=== PATIENT | male | born 1950 | race Caucasian/White ===

== ENCOUNTER 2020-06-30 16:44 | Inpatient (IN) | payer OTHER, MEDICARE, SELFPAY ==
[2020-06-30] VITALS (14 sets, daily range): BP systolic 83–118; BP diastolic 66–90; PULSE 90–140; RESP 14–24; TEMP 36.1–36.9; O2SAT 94–98; BMI 30.3; BMI 28.3; BMI 28.7
--- NOTE | 2020-06-30 17:38 | EKG12_ITS ---
Test Reason : TACHY Blood Pressure : / mmHG Vent. Rate : 145 BPM Atrial Rate : 159 BPM P-R Int : 000 ms QRS Dur : 080 ms QT Int : 274 ms P-R-T Axes : 000 -28 219 degrees QTc Int : 425 ms Atrial fibrillation Inferior infarct , age undetermined Nonspecific ST abnormality Abnormal ECG Confirmed by CISCO CORTEZ, YUE ([id number]), editorial director MILTON VALDOVINOS ([id number]) on 07/04/2020 10:58:50 AM Referred By: BREE/BHAVANA Confirmed By:YUE PECK MD
--- NOTE | 2020-06-30 17:39 | EDS_ITS ---
HPI History of Present Illness Chief Complaint: Shortness of Breath Informant: patient Narrative Narrative: 69-year-old male with a history of recent COVID-19 diagnosis presents with dyspnea. He tells me that about 3 weeks ago he became ill suddenly with a headache and developed diarrhea some cough some mild dyspnea. He states he basically spent a little over a week in bed and was not eating or drinking as normally. He reports he was not taking his levothyroxine while in bed. Last he went and got tested in urgent care and was diagnosed positive. He states that he has been improving each day. He states yesterday he felt like he was pretty much over it. This morning he notes that he developed shortness of breath during a shower which persisted. Denies any known cardiac issues. He denies any chest pain. He states as long as he is at rest he feels fine. He does note a history of hypothyroidism takes levothyroxine. [facility] Medical History (Updated 06/30/20 @ 20:[address] Ajay Sheehan MD) Hypothyroidism Home Medications levothyroxine 112 mcg PO DAILY 06/30/20 [History Last Taken 06/30/20] Allergy/AdvReac Type Severity Reaction Status Date / Time No Known Allergies Allergy Verified 06/30/20 16:45 no surgical history (Noncontributory) Social History Smoking Status: Never smoker ROS [facility] ED Constitutional Constitutional ED: Denies chills or weight loss Eyes Eyes: Denies change in vision or diplopia ENT ENT ED: Denies ear pain, rhinorrhea or sore throat Cardiovascular Cardiovascular: Denies chest pain, orthopnea, palpitations or racing heartbeat Respiratory/Chest Respiratory/Chest: Reports cough and dyspnea; Denies orthopnea Gastrointestinal Gastrointestinal: Denies abdominal pain, diarrhea, nausea or vomiting Genitourinary Genitourinary ED: Denies dysuria, hematuria or urinary frequency Musculoskeletal Musculoskeletal: Denies arthralgias or myalgias Integumentary Denies abscess or rash Neurologic Neurologic: Denies headache(s) or weakness Psychiatric Psychiatric: Denies anxiety, depression, suicidal ideation or suicidal thoughts Endocrine Endocrinology: Denies polydipsia, polyphagia or polyuria Allergic/Immunologic Allergic/Immunologic ED: Denies mouth swelling, tongue swelling or urticaria EXAM Physical Exam Const Vital Signs: 06/30/20 16:46 06/30/20 17:02 06/30/20 17:40 Temperature 97 F L Temperature Source Temporal Pulse Rate 103 H 140 H Respiratory Rate 24 H 18 Respiratory Effort Short of Breath Respiratory Depth Normal Respiratory Pattern Normal Blood Pressure 100/66 Blood Pressure Mean 77 Blood Pressure Source Blood Pressure Position Blood Pressure Location Pulse Ox 95 96 Oxygen Delivery Method Room Air Room Air 06/30/20 18:11 06/30/20 18:17 06/30/20 18:36 Temperature 98.5 F Temperature Source Temporal Pulse Rate 121 H 114 H 120 H Respiratory Rate 15 16 Respiratory Effort Respiratory Depth Respiratory Pattern Blood Pressure 105/68 83/66 L Blood Pressure Mean 80 71 Blood Pressure Source Monitor Blood Pressure Position Semi-Fowlers Blood Pressure Location Left Arm Pulse Ox 95 95 Oxygen Delivery Method Room Air 06/30/20 18:41 Temperature 98.5 F Temperature Source Oral Pulse Rate 112 H Respiratory Rate 14 Respiratory Effort Respiratory Depth Respiratory Pattern Blood Pressure 89/71 L Blood Pressure Mean 77 Blood Pressure Source Blood Pressure Position Blood Pressure Location Pulse Ox 96 Oxygen Delivery Method Room Air Positive well nourished and well developed General Appearance ED: well developed HEENT Reports normocephalic, head/scalp atraumatic and moist mucous membranes Eyes PERRL and EOMs intact bilaterally Neck no lymphadenopathy, supple and no JVD Resp normal respiratory effort and clear to auscultation bilaterally Cardio no murmurs Cardio Narrative: Irregularly irregular tachycardic rhythm GI normal to inspection, nondistended, normoactive bowel sounds and non-tender Palpation: soft Back/Spine no CVA tenderness and normal ROM Extremity normal to inspection General Extremety ED: Negative for edema General Extremity: Negative for edema Neuro oriented x3 and CN's II-XII intact bilaterally Sensorium / Orientation: alert Motor Exam: strength 5/5 throughout Psych mental status grossly normal Mood & Affect: Negative for depressed or tearful Skin no rashes or lesions noted and no wounds MDM MDM MDM Narrative Medical decision making narrative: Patient's white count elevated 19.4. Potassium 3.3. Creatinine 1.72. Troponin elevated 1.080. TSH is 27.8. CTA of the chest demonstrates saddle pulmonary embolism. He is oxygenating well and his respiratory rate is 14. He is slightly hypotensive but his mean is over 65. He was placed on a heparin drip. He received a bolus of Cardizem which slowed his heart rate down to around 120. Patient has been receiving IV fluids. I will speak with the hospitalist. I also spoke with our tactical debriefer officer Dr. North. Lab Data Attestation: I reviewed the patient's lab results. Labs: Laboratory Results - last 24 hr 06/30/20 06/30/20 06/30/20 17:03 17:03 17:03 WBC 19.4 H RBC 5.35 Hgb 16.0 Hct 49.9 MCV 93.3 MCH 29.9 MCHC 32.1 RDW Std Deviation 46.6 H RDW Coeff of Pamela 13.7 Plt Count 294 MPV 9.6 Immature Gran % (Auto) 0.800 Neut % (Auto) 79.5 H Lymph % (Auto) 11.8 L [place] % (Auto) 6.7 Eos % (Auto) 0.8 Baso % (Auto) 0.4 Absolute Neuts (auto) 15.5 H Absolute Lymphs (auto) 2.30 Nucleated RBC % 0 PT 15.4 H INR 1.3 APTT 30.9 Sodium 141 Potassium 3.3 L Chloride 106 Carbon Dioxide 21.0 Anion Gap 14 BUN 16 Creatinine 1.72 H Estim Creat Clear Calc 46.45 Est GFR (MDRD) Af Amer 51 L Est GFR (MDRD) Non-Af 42 L BUN/Creatinine Ratio 9.3 L Glucose 206 H Lactic Acid Calcium 9.2 Magnesium 2.5 Total Bilirubin 1.60 H AST 34 ALT 82 H Alkaline Phosphatase 89 Troponin I 1.080 H* Total Protein 8.0 Albumin 3.8 Globulin 4.2 Albumin/Globulin Ratio 0.9 TSH 27.80 H 06/30/20 19:05 WBC RBC Hgb Hct MCV MCH MCHC RDW Std Deviation RDW Coeff of Pamela Plt Count MPV Immature Gran % (Auto) Neut % (Auto) Lymph % (Auto) [place] % (Auto) Eos % (Auto) Baso % (Auto) Absolute Neuts (auto) Absolute Lymphs (auto) Nucleated RBC % PT INR APTT Sodium Potassium Chloride Carbon Dioxide Anion Gap BUN Creatinine Estim Creat Clear Calc Est GFR (MDRD) Af Amer Est GFR (MDRD) Non-Af BUN/Creatinine Ratio Glucose Lactic Acid 3.0 H* Calcium Magnesium Total Bilirubin AST ALT Alkaline Phosphatase Troponin I Total Protein Albumin Globulin Albumin/Globulin Ratio TSH Radiography Diagnostic Testing: Radiology Impression Chest CTA 06/30/20 18:55 IMPRESSION: 1. Low-density filling defects seen within the right and left mainstem pulmonary arteries extending into the upper and lower lobe segmental and subsegmental pulmonary arteries compatible with extensive bilateral pulmonary emboli. Thrombus does cross across midline compatible with a saddle embolus. 2. Patchy airspace disease in the upper lobes. Individualized dose optimization techniques were used for this CT. at 1920 Reported and signed by: Zafar Gayle MD Electronically Signed: Zafar Gayle MD at 19:18 EDT Tel , Service support , ADDENDUM: 06/30/20 1939 IMPRESSION: 1. Low-density filling defects seen within the right and left mainstem pulmonary arteries extending into the upper and lower lobe segmental and subsegmental pulmonary arteries compatible with extensive bilateral pulmonary emboli. Thrombus does cross across midline compatible with a saddle embolus. 2. Patchy airspace disease in the upper lobes. Individualized dose optimization techniques were used for this CT. at 1920 Reported and signed by: Zafar Gayle MD N.B. : The above information has been verbally conveyed by Zafar Gayle MD to Derek Tamayo MD, MD, on 06/30/2020 19:32:46 (ET). Electronically Signed: Zafar Gayle MD at 19:18 EDT Tel , Service support , EKG Initial EKG: Attestation: I personally reviewed and interpreted this EKG as follows: Comments: EKG demonstrates atrial fibrillation at a rate of 145. Critical Care Time Critical Care Time: Yes Critical care time (excluding procedures): 30-74 minutes (35 min) Discharge Plan Dx/Rx/DC Orders Clinical Impression: COVID-19, Atrial fibrillation with rapid ventricular response, Acute saddle pulmonary embolism Disposition Disposition: Acute Care Hospital [facility] Discharge Date/Time: 06/30/20 20:56
[2020-06-30] MEDS: dilTIAZem 25 MG/5 ML Vial 20 MG IV BOLUS (17:48)
[2020-06-30] MEDS: 0.9% Normal Saline 1,000 ML 1000 ML IV ×2 (17:48→19:54)
[2020-06-30 18:03] LABS: Absolute Neutrophil Count 15.5 X10^3/uL (2.0-7.7); Basophil# 0.07 X10^3/uL; Basophil% 0.4 % (0-1); Eosinophil# 0.15 X10^3/uL; Eosinophils% 0.8 % (0-5); Hematocrit 49.9 % (40-54); Lymphocyte % 11.8 % (19-41); Mean Corp Hgb Conc 32.1 g/dL (32-36); Mean Corpuscular Hgb 29.9 pg (27.0-32.0); Mean Corpuscular Volume 93.3 fL (80-94); Mean Platelet Vol. 9.6 fl (6.2-12.0); Monocyte% 6.7 % (0-10); NRBC Flagged by Analyzer 0 % (0-5); Neutrophil # 15.46 X10^3/uL (2.7-7.7); Neutrophil % 79.5 % (47-70); Platelet Count 294 K/mm3 (150-450); RBC Distribution Width CV 13.7 % (11.6-14.6); RBC Distribution Width SD 46.6 fl (35.1-43.9); Red Blood Count 5.35 M/mm3 (4.6-6.2); White Blood Count 19.4 K/mm3 (4.4-11.0)
[2020-06-30 18:22] LABS: International Normalized Ratio 1.3; Partial Thromboplast Time 30.9 Seconds (24.1-36.2); Prothrombin Time (Protime)PT. 15.4 SECONDS (11.7-14.9)
[2020-06-30 18:23] LABS: ALB/GLOB Ratio 0.9 RATIO (0.9-2.4); AST(SGOT) 34 U/L (15-37); Alanine Aminotransfer ALT/SGPT 82 U/L (16-61); Albumin, Serum 3.8 g/dL (3.2-5.0); Alkaline Phosphatase 89 U/L (45-117); Anion Gap 14 (5-15); BUN 16 mg/dL (7-18); BUN/Creat Ratio 9.3 RATIO (10-20); Calcium,Total 9.2 mg/dL (8.5-10.1); Chloride 106 mmol/L (98-107); Creatinine, Serum 1.72 mg/dL (0.70-1.30); EST Glomerular Filtration Rate 42 mL/min (>60); Est Glom Filt Rate - Afr Amer 51 mL/min (>60); Estimated Creatinine Clearance 46.45 ml/min; Globulin 4.2 g/dL (2.2-4.2); Glucose 206 mg/dL (74-106); Magnesium 2.5 mg/dL (1.6-2.6); Potassium 3.3 mmol/L (3.5-5.1); Sodium Level 141 mmol/L (136-145)
[2020-06-30] MEDS: 0.9% Normal Saline 1,000 ML 150 ML IV (18:43)
--- NOTE | 2020-06-30 18:55 | CT_ITS ---
We are attempting to reach an attending provider to discuss findings. An addendum with communication details will be sent when the communication is complete. EXAM: CT ANGIOGRAPHY CHEST WITHOUT AND WITH INTRAVENOUS CONTRAST : 1950 CLINICAL INDICATION: pulmonary embolism high pretest prob TECHNIQUE: Helically acquired angiography images were obtained of the chest without and with intravenous contrast. This CT exam was performed using one or more of the following dose reduction techniques: automated exposure control, adjustment of the mA and/or kV according to patient size, and/or use of iterative reconstruction technique. This report was created using [employer] report generation technology. MIP reconstructed images were created and reviewed. CONTRAST: IV 100mL Isovue-370 COMPARISON: None. FINDINGS: PULMONARY ARTERIES: There are low-density filling defects seen within the right and left mainstem pulmonary arteries. These cross midline compatible with bilateral pulmonary emboli and a saddle embolus. There are then low-density filling defects that extend into the upper and lower lobe segmental and subsegmental branches bilaterally compatible with extensive bilateral PE. Normal in caliber. AORTA: Unremarkable. Normal in caliber. No evidence of dissection. GREAT VESSELS OF AORTIC ARCH: Unremarkable. Normal in caliber. No evidence of dissection. LUNGS AND PLEURAL SPACES: Patchy airspace disease in the upper lobes. No mass. No pleural effusion or thickening. HEART: Unremarkable. Heart size is normal. No pericardial effusion. No signs of right heart strain. MEDIASTINUM: Unremarkable. No mediastinal or hilar adenopathy. Esophagus is unremarkable. No hiatal hernia. THYROID: Unremarkable. No thyroid lesions. BONES/JOINTS: Unremarkable. No suspicious lytic or blastic abnormality. CT/CTA Chest W/WO Contrast IMPRESSION: 1. Low-density filling defects seen within the right and left mainstem pulmonary arteries extending into the upper and lower lobe segmental and subsegmental pulmonary arteries compatible with extensive bilateral pulmonary emboli. Thrombus does cross across midline compatible with a saddle embolus. 2. Patchy airspace disease in the upper lobes. Individualized dose optimization techniques were used for this CT. at 1920 Reported and signed by: Zafar Gayle MD Electronically Signed: Zafar Gayle MD at 19:18 EDT Tel , Service support ,
--- NOTE | 2020-06-30 19:50 | HP.PCM.HOS_ITS ---
[facility] - General General Date of Admission: 06/30/20 Chief Complaint: SOB [facility] Narrative RACHEL FROST, is a 69 M with a significant history of hypothyroidism who had a Covid-like symptoms about 3 weeks ago and tested positive for Covid 8 days prior to presentation presenting with shortness of breath that started on the same day of this presentation. A day before presentation patient felt better from his Covid-like symptoms: He did not have any shortness of breath. However on the day of presentation while having his shower he began to have shortness of breath. Shortness of breath is at rest and it worsens with exertion. His shortness of breath persisted throughout the day. He reports intermittent mild dry cough. He reports weakness. He denies palpitation or chest pain. At the emergency department his TSH was found to be mildly elevated. He reporte d that he stopped taking his Synthroid for about 1 week and resumed taking his Synthroid only about 3 days ago. Even then during the past 3 days patient is not very sure of taking his Synthroid every day. At the emergency department he was found to be in A. fib with RVR. CTA showed saddle pulmonary embolus. His troponin and creatinine was elevated. Emergency department doctor discussed the case with cutting and splicing supervisor. [facility] Medical History (Updated 06/30/20 @ 20:[address] Ajay Sheehan MD) Hypothyroidism Home Medications levothyroxine 112 mcg PO DAILY 06/30/20 [History Last Taken 06/30/20] Allergy/AdvReac Type Severity Reaction Status Date / Time No Known Allergies Allergy Verified 06/30/20 16:45 Social History Smoking Status: Never smoker ROS Constitutional Constitutional: Reports fatigue and weakness; Denies anorexia or change in weight Eyes Eyes: Denies blurry vision or change in eye color ENT HEENT: Denies abnormal hearing or dysphagia Cardiovascular Cardiovascular: Denies chest pain or edema Respiratory/Chest Respiratory/Chest: Reports dyspnea and shortness of breath at rest Gastrointestinal Gastrointestinal: Denies abdominal pain or coffee ground emesis Genitourinary Genitourinary: Denies burning urination or difficulty urinating Musculoskeletal Musculoskeletal: Denies arthralgias or back pain Neurologic Neurologic: Denies abnormal gait, confusion or disequilibrium Psychiatric Psychiatric: Denies anxiety or depression Endocrine Endocrinology: Denies change in body appearance or cold intolerance Hematologic/Lymphatic Hematologic/Lymphatic: Denies anemia or easy bleeding Allergic/Immunologic Allergic/Immunologic: Denies eczemia or asthma Vital Signs Vital Signs Vital Signs: 06/30/20 16:46 06/30/20 17:02 06/30/20 17:40 Temperature 97 F L Temperature Source Temporal Pulse Rate 103 H 140 H Respiratory Rate 24 H 18 Respiratory Effort Short of Breath Respiratory Depth Normal Respiratory Pattern Normal Blood Pressure 100/66 Blood Pressure Mean 77 Blood Pressure Source Blood Pressure Position Blood Pressure Location Pulse Ox 95 96 Oxygen Delivery Method Room Air Room Air 06/30/20 18:11 06/30/20 18:17 06/30/20 18:36 Temperature 98.5 F Temperature Source Temporal Pulse Rate 121 H 114 H 120 H Respiratory Rate 15 16 Respiratory Effort Respiratory Depth Respiratory Pattern Blood Pressure 105/68 83/66 L Blood Pressure Mean 80 71 Blood Pressure Source Monitor Blood Pressure Position Semi-Fowlers Blood Pressure Location Left Arm Pulse Ox 95 95 Oxygen Delivery Method Room Air 06/30/20 18:41 Temperature 98.5 F Temperature Source Oral Pulse Rate 112 H Respiratory Rate 14 Respiratory Effort Respiratory Depth Respiratory Pattern Blood Pressure 89/71 L Blood Pressure Mean 77 Blood Pressure Source Blood Pressure Position Blood Pressure Location Pulse Ox 96 Oxygen Delivery Method Room Air Physical Exam Narrative Alert and oriented x3 Nontraumatic; normocephalic Lung clear to auscultate Heart sounds S1-S2. Regular rate and rhythm. Tachycardia. Abdomen bowel sounds present soft, nontender nondistended Extremity without edema cyanosis or clubbing. Lab / Micro Data Result Diagrams: 06/30/20 17:03 06/30/20 17:03 Labs: Laboratory Results - last 24 hr 06/30/20 06/30/20 06/30/20 17:03 17:03 17:03 WBC 19.4 H RBC 5.35 Hgb 16.0 Hct 49.9 MCV 93.3 MCH 29.9 MCHC 32.1 RDW Std Deviation 46.6 H RDW Coeff of Pamela 13.7 Plt Count 294 MPV 9.6 Immature Gran % (Auto) 0.800 Neut % (Auto) 79.5 H Lymph % (Auto) 11.8 L [place] % (Auto) 6.7 Eos % (Auto) 0.8 Baso % (Auto) 0.4 Absolute Neuts (auto) 15.5 H Absolute Lymphs (auto) 2.30 Nucleated RBC % 0 PT 15.4 H INR 1.3 APTT 30.9 Sodium 141 Potassium 3.3 L Chloride 106 Carbon Dioxide 21.0 Anion Gap 14 BUN 16 Creatinine 1.72 H Estim Creat Clear Calc 46.45 Est GFR (MDRD) Af Amer 51 L Est GFR (MDRD) Non-Af 42 L BUN/Creatinine Ratio 9.3 L Glucose 206 H Calcium 9.2 Magnesium 2.5 Total Bilirubin 1.60 H AST 34 ALT 82 H Alkaline Phosphatase 89 Troponin I 1.080 H* Total Protein 8.0 Albumin 3.8 Globulin 4.2 Albumin/Globulin Ratio 0.9 TSH 27.80 H Radiology Impression Chest CTA 06/30/20 18:55 IMPRESSION: 1. Low-density filling defects seen within the right and left mainstem pulmonary arteries extending into the upper and lower lobe segmental and subsegmental pulmonary arteries compatible with extensive bilateral pulmonary emboli. Thrombus does cross across midline compatible with a saddle embolus. 2. Patchy airspace disease in the upper lobes. Individualized dose optimization techniques were used for this CT. at 1920 Reported and signed by: Zafar Gayle MD Electronically Signed: Zafar Gayle MD at 19:18 EDT Tel , Service support , ADDENDUM: 06/30/20 193 IMPRESSION: 1. Low-density filling defects seen within the right and left mainstem pulmonary arteries extending into the upper and lower lobe segmental and subsegmental pulmonary arteries compatible with extensive bilateral pulmonary emboli. Thrombus does cross across midline compatible with a saddle embolus. 2. Patchy airspace disease in the upper lobes. Individualized dose optimization techniques were used for this CT. at 1920 Reported and signed by: Zafar Gayle MD N.B. : The above information has been verbally conveyed by Zafar Gayle MD to SeatonvilleDerek ho MD, MD, on 06/30/2020 19:32:46 (ET). Electronically Signed: Zafar Gayle MD at 19:18 EDT Tel , Service support , Assessment & Plan Assessment/Plan (1) Acute saddle pulmonary embolism: Status: Acute Code(s): I26.92 - Saddle embolus of pulmonary artery without acute cor pulmonale Qualifiers: Acute cor pulmonale presence: unspecified Qualified Code(s): I26.92 - Saddle embolus of pulmonary artery without acute cor pulmonale Plan: Radiologist impression of chest CTA: Low-density filling defect seen within the right and left mainstem pulmonary arteries extending into the upper and lower lobe segmental and subsegmental pulmonary arteries compatible with extensive bilateral pulmonary emboli. Thrombus does cross across midline compatible with saddle embolus. Patchy airspace disease in the upper lobes. chest CTA imaging was independently interpreted I agree radiologist interpretation. Started on heparin drip at the emergency department and continued. Echocardiogram ordered. Discussed case with cutting and splicing supervisor who agrees to current plan. (2) Atrial fibrillation with rapid ventricular response: Status: Acute Code(s): I48.91 - Unspecified atrial fibrillation Plan: Patient received normal fluid bolus for hypotension and for A. fib. Received Cardizem bolus. Patient converted to sinus tach. Echocardiogram as above. Started on anticoagulation with heparin drip. Potassium was replaced. We will check magnesium level. (3) Hypothyroidism: Status: Acute Code(s): E03.9 - Hypothyroidism, unspecified Qualifiers: Hypothyroidism type: acquired Qualified Code(s): E03.9 - Hypothyro idism, unspecified Plan: Review emergency department labs showed that TSH on presentation was 27.8. Reportedly he missed doses of his Synthroid. We will escalate Synthroid dose from 112 to 137 mcg daily. (4) COVID-19: Status: Acute Code(s): U07.1 - COVID-19 Plan: Review of current records show that on 06/22/2020 patient tested positive for COVID-19 virus. Reportedly his covid-like symptoms has significantly resolved. No further medications at this time. His current presentation likely due to post Covid infection not active virus infection. Outside window of isolation. Clinical monitoring. (5) Elevated troponin: Status: Acute Code(s): R77.8 - Other specified abnormalities of plasma proteins Plan: Likely secondary demand ischemia from PE and A. fib. We will trend troponin. Start on heparin drip. (6) ZIYAD (acute kidney injury): Status: Acute Code(s): N17.9 - Acute kidney failure, unspecified Plan: Creatinine presentation was 1.72. His creatinine on 12/20/2011 was 1.0. BUN on presentation is 16. BUN over creatinine is 9.3. Community records were reviewed. No other creatinine on file. Likely prerenal entering into intrinsic renal. IV hydration ordered. Avoid nephrotoxins. Trend BMP. (7) Lactic acidosis: Status: Acute Code(s): E87.2 - Acidosis Plan: Likely secondary to hypoxemia secondary to PE and A. fib. Trend. (8) Leukocytosis: Status: Acute Code(s): D72.829 - Elevated white blood cell count, unspecified Plan: Likely reactive. Trend. (9) Hypokalemia: Status: Acute Code(s): E87.6 - Hypokalemia Plan: Replace. Trend BMP. Visit Charges Inpatient E&M: 82362 Init Hosp L3
[2020-06-30] MEDS: Heparin Injection (Vial) 5,000 UNIT/ML VIAL 7500 UNIT IV (20:23)
[2020-06-30] MEDS: HEPARIN/D5w 25,000 UNITS 25,000 UNITS/250 ML IV.SOLN. 14 UNITS IV (20:30)
[2020-06-30] MEDS: Potassium Chloride Oral Tablet 20 MEQ 60 MEQ PO (22:11)
[2020-06-30] MEDS: 0.9% Normal Saline 1,000 ML 100 ML IV (22:12)
[2020-06-30 23:07] LABS: Reflex Lactate? Y
--- NOTE | 2020-06-30 23:35 | EKG12_ITS ---
Test Reason : RHYTHM CHANGE Blood Pressure : / mmHG Vent. Rate : 090 BPM Atrial Rate : 090 BPM P-R Int : 160 ms QRS Dur : 084 ms QT Int : 392 ms P-R-T Axes : 052 004 042 degrees QTc Int : 479 ms Normal sinus rhythm Inferior infarct , age undetermined , cannot be excluded Nonspecific T wave abnormality Abnormal ECG Confirmed by CISCO CORTEZ, YUE ([id number]), copy editor MILTON VALDOVINOS ([id number]) on 07/04/2020 11:26:35 AM Referred By: NOHEMY Confirmed By:YUE PECK MD
[2020-07-01] VITALS (25 sets, daily range): BP systolic 107–142; BP diastolic 74–90; PULSE 81–95; RESP 16–22; TEMP 36.6–37.2; O2SAT 91–96
[2020-07-01 00:43] LABS: Lactic Acid 1.5 mmol/L (0.4-1.9)
[2020-07-01 02:32] LABS: Partial Thromboplast Time 107.9 Seconds (24.1-36.2)
[2020-07-01 05:16] LABS: Absolute Lymphocyte Count 1.74 X10^3/uL (0.83-4.51); Absolute Neutrophil Count 9.5 X10^3/uL (2.0-7.7); Basophil# 0.05 X10^3/uL; Basophil% 0.4 % (0-1); Eosinophil# 0.12 X10^3/uL; Hematocrit 41.8 % (40-54); Hemoglobin 13.4 g/dL (13.0-16.5); Lymphocyte # 1.74 X10^3/ul (0.83-4.51); Lymphocyte % 13.8 % (19-41); Mean Corp Hgb Conc 32.1 g/dL (32-36); Mean Corpuscular Hgb 29.8 pg (27.0-32.0); Mean Corpuscular Volume 92.9 fL (80-94); Mean Platelet Vol. 9.4 fl (6.2-12.0); Monocyte# 1.09 X10^3/uL; Monocyte% 8.6 % (0-10); NRBC Flagged by Analyzer 0 % (0-5); Neutrophil # 9.49 X10^3/uL (2.7-7.7); Neutrophil % 75.2 % (47-70); Platelet Count 184 K/mm3 (150-450); RBC Distribution Width CV 13.8 % (11.6-14.6); RBC Distribution Width SD 46.5 fl (35.1-43.9); White Blood Count 12.6 K/mm3 (4.4-11.0)
--- NOTE | 2020-07-01 05:55 | ECHOCS_ITS ---
Reason For Study: PE Procedure This was a 2D Doppler, Color Flow transthoracic echocardiogram. The study was technically difficult. The study was technically limited. Due to body habitus. Contrast injection was performed. Left Ventricle Normal left ventricle. The estimated ejection fraction is EF 55-60% %. Right Ventricle Normal right ventricle. Normal systolic function. Atria The left atrium is mildly enlarged. Normal right atrium. Mitral Valve The mitral valve is structurally normal. No prolapse or stenosis seen. No mitral valve insufficiency. Tricuspid Valve Normal tricuspid valve. Aortic Valve Normal aortic valve. Pulmonic Valve The pulmonic valve is not well visualized. Great Vessels Normal aortic root. Pericardium/Pleural No pericardial effusion. Medication Diluted definity 3.0ml given slow IV push to enhance endocardial definition. MMode/2D Measurements & Calculations LVIDd: 3.7 cm IVSd: 1.1 cm Ao root diam: 3.4 cm LVIDs: 2.6 cm LVPWd: 1.1 cm RVDd: 3.5 cm FS: 31.1 % LAV(MOD-sp2): 39.5 ml LVAd ap4: 15.4 cm2 LVAd ap2: 15.2 cm2 LVLd ap4: 5.7 cm LVLd ap2: 6.0 cm EDV(MOD-sp4): 33.6 ml EDV(MOD-sp2): 31.9 ml EDV(sp4-el): 35.6 ml EDV(sp2-el): 32.8 ml LVAs ap4: 9.7 cm2 LVAs ap2: 8.7 cm2 LVLs ap4: 5.7 cm LVLs ap2: 5.4 cm ESV(MOD-sp4): 14.4 ml ESV(MOD-sp2): 11.8 ml ESV(sp4-el): 14.0 ml ESV(sp2-el): 12.0 ml EF(MOD-sp4): 57.1 % EF(MOD-sp2): 62.9 % EF(sp4-el): 60.6 % SV(MOD-sp4): 19.2 ml SV(MOD-sp2): 20.0 ml SV(sp4-el): 21.6 ml LA A4 area: 14.1 cm2 LA dimension(2D): 4.7 cm RA A4 area: 14.0 cm2 Doppler Measurements & Calculations MV E max esteban: 39.8 cm/sec Lat Peak E' Esteban: 13.0 cm/sec Med Peak E' Esteban: 10.5 cm/sec MV A max esteban: 70.6 cm/sec E/E' lat: 3.1 E/E' med: 3.8 MV E/A: 0.56 Ao V2 max: 130.2 cm/sec LV V1 max: 104.3 cm/sec TR max esteban: 262.7 cm/sec Ao max P.8 mmHg LV V1 max P.4 mmHg TR max P.6 mmHg ECHO/Echo Complete W/ Contrast Interpretation Summary The estimated ejection fraction is EF 55-60% %. Normal LV systolic function Ordering Physician: Ajay Sheehan Referring Physician: [facility] Performed By: Felicita Douglas, ANDREW, RVT
[2020-07-01 06:12] LABS: Anion Gap 5 (5-15); BUN 16 mg/dL (7-18); BUN/Creat Ratio 14.7 RATIO (10-20); Calcium,Total 8.1 mg/dL (8.5-10.1); Chloride 117 mmol/L (98-107); Creatinine, Serum 1.09 mg/dL (0.70-1.30); EST Glomerular Filtration Rate 71 mL/min (>60); Est Glom Filt Rate - Afr Amer 86 mL/min (>60); Glucose 116 mg/dL (74-106); Potassium 3.9 mmol/L (3.5-5.1); Sodium Level 145 mmol/L (136-145)
[2020-07-01] MEDS: Levothyroxine 137 MCG Tablet PO (06:26)
[2020-07-01] MEDS: 0.9% Normal Saline 1,000 ML 100 ML IV (07:08)
--- NOTE | 2020-07-01 07:55 | EX.PCM.CONCC ---
Assessment & Plan Assessment/Plan (1) Acute saddle pulmonary embolism: Status: Acute Code(s): I26.92 - Saddle embolus of pulmonary artery without acute cor pulmonale Qualifiers: Acute cor pulmonale presence: unspecified Qualified Code(s): I26.92 - Saddle embolus of pulmonary artery without acute cor pulmonale (2) Atrial fibrillation with rapid ventricular response: Status: Acute Code(s): I48.91 - Unspecified atrial fibrillation (3) COVID-19: Status: Acute Code(s): U07.1 - COVID-19 (4) ZIYAD (acute kidney injury): Status: Acute Code(s): N17.9 - Acute kidney failure, unspecified (5) Lactic acidosis: Status: Acute Code(s): E87.2 - Acidosis (6) Hypothyroidism: Status: Acute Code(s): E03.9 - Hypothyroidism, unspecified Qualifiers: Hypothyroidism type: acquired Qualified Code(s): E03.9 - Hypothyroidism, unspecified Plan: RECOMMENDATIONS: 1. Consider initiation of 10 a inhibitor 2. Obtain echocardiogram for evaluation of pulmonary hypertension/cardiac strain 3. Stop monitoring troponins. Continue telemetry 4. Walking oximetry prior to discharge IMPRESSIONS: 1. Probable submassive PE secondary to hypercoagulability associated with COVID-19 Patient with hypotension, change in heart rhythm and elevated troponin despite preserved oxygen status. These findings would be consistent with a submassive PE. Patient has tolerated conservative therapy to this point. Likely okay to transition to a 10 a inhibitor from my perspective. Would obtain an echocardiogram for quantification and clarification of heart status. Patient will need a walking oximetry prior to discharge. 2. New onset A. fib with RVR Spontaneously resolved. Clinical suspicion for development secondary to atrial enlargement associated with cardiac strain from problem #1. Continue to monitor with telemetry. Likely okay to discontinue troponins at this time. Patient will be on anticoagulation for 6 months associated with problem #1. Rate appears to be controlled when a normal sinus rhythm. This will likely need to be followed up as an outpatient 3. Hypothyroidism TSH would constitute an acute phase reactant. This should likely be evaluated as an outpatient. Unclear if elevation is secondary to noncompliance during acute viral episode versus suboptimal dosing of supplementation. 4. Acute kidney injury Clinical suspicion for prerenal etiology. Continue with hydration. Patient does report decreased p.o. intake recently secondary to COVID-19. Patient did receive contrast. IV fluids are likely appropriate. No indication for renal replacement therapy at this time HPI Consult Data Date of Consult: 07/01/20 HPI Narrative HPI Narrative: RACHEL FROST, is a 69 M, with past medical history listed below, who presented to [facility] on 06/30/2020 secondary to acute onset of shortness of breath. Patient reportedly had started to feel ill approximately 3 weeks ago with headache, fatigue, diarrhea and mild dyspnea. Patient states that he had some decreased activity and eventually went to an urgent care approximately a week ago and was diagnosed with COVID-19. Patient states that he was improving on a daily basis and felt that he was almost back to normal on the day prior to presentation. However, on the day of presentation the patient noted significant shortness of breath during a shower that persisted. Patient denied any cough, fever, chills, nausea or vomiting. Patient states that he was feeling fine at rest, but minimal exertion would cause problems. In the ER, patient was afebrile, but tachycardic as high as 140 bpm. Patient did have some marginal blood pressures noted at 83/66. Laboratory work-up showed a leukocytosis of 19.4, hemoglobin of 16 and INR of 1.3. Potassium was slightly low at 3.3 and creatinine was elevated at 1.72. LFTs were relatively unremarkable. Troponin was elevated at 1.08 and TSH was elevated at 27.8. Lactate was elevated at 3. Patient did have a CTA of the chest showing significant bilateral saddle emboli with patchy airspace groundglass opacities. EKG had shown A. fib with RVR. Patient was admitted to the hospital for further evaluation. Shortly after arrival to the floor, patient was noted to go back in the sinus rhythm. Patient was saturating well on room air, so was not given any Decadron or Remdesivir. Patient was placed in respiratory isolation. Patient was initiated on a heparin drip and has been hemodynamically stable since being in sinus rhythm. Patient denies any history of previous lung pathology. Patient does report a short period of time of recreational cigar use. Patient denies any history of coronary artery disease, CHF, asthma or COPD. Patient gets most of his health care at the [facility]. Patient is unaware of any previous atrial fibrillation. Patient has not previously been on anticoagulation for any reason. Review of systems otherwise negative from a constitutional, HEENT, respiratory, cardiovascular, GI, genitourinary, musculoskeletal, skin, neurologic, psychiatric and hematologic system unless stated above. [facility] Medical History Hypothyroidism Home Medications levothyroxine 112 mcg PO DAILY 06/30/20 [History Last Taken 06/30/20] Allergy/AdvReac Type Severity Reaction Status Date / Time No Known Allergies Allergy Verified 06/30/20 16:45 Social History Smoking Status: Never smoker ROS ROS Narrative See HPI Physical Exam Const alert, oriented x3 and no apparent distress General Appearance: cooperative and well developed; Negative for ill appearing HEENT normocephalic, head/scalp atraumatic and moist oral mucous membranes Head and Scalp: atraumatic Eyes PERRL and EOMs intact bilaterally Neck supple, no JVD and no carotid bruits Lymph Lymphatic: no lymphadenopathy noted Resp normal respiratory effort and clear to auscultation bilaterally Effort and Inspection: able to speak in complete sentences Auscultation: clear to auscultation bilaterally; Negative for rales, rhonchi or wheezes Cardio regular rate, regular rhythm, S1 normal heart sound, S2 normal heart sound, no murmurs, no rub and no gallops Cardio Narrative: Normal sinus rhythm noted on telemetry GI normal to inspection, nondistended, normoactive bowel sounds and soft to palpation Extremity normal capillary refill and no clubbing, cyanosis or edema Skin no rashes or lesions noted Skin Narrative: No bruising noted Neuro oriented x3 and CN's II-XII intact bilaterally Psych cooperative and affect normal Lab / Micro Data Result Diagrams: 07/01/20 05:05 07/01/20 05:05 Labs: Laboratory Results - last 24 hr 06/30/20 06/30/20 06/30/20 17:03 17:03 17:03 WBC 19.4 H RBC 5.35 Hgb 16.0 Hct 49.9 MCV 93.3 MCH 29.9 MCHC 32.1 RDW Std Deviation 46.6 H RDW Coeff of Pamela 13.7 Plt Count 294 MPV 9.6 Immature Gran % (Auto) 0.800 Neut % (Auto) 79.5 H Lymph % (Auto) 11.8 L [place] % (Auto) 6.7 Eos % (Auto) 0.8 Baso % (Auto) 0.4 Absolute Neuts (auto) 15.5 H Absolute Lymphs (auto) 2.30 Nucleated RBC % 0 PT 15.4 H INR 1.3 APTT 30.9 Sodium 141 Potassium 3.3 L Chloride 106 Carbon Dioxide 21.0 Anion Gap 14 BUN 16 Creatinine 1.72 H Estim Creat Clear Calc 46.45 Est GFR (MDRD) Af Amer 51 L Est GFR (MDRD) Non-Af 42 L BUN/Creatinine Ratio 9.3 L Glucose 206 H Lactic Acid Calcium 9.2 Magnesium 2.5 Total Bilirubin 1.60 H AST 34 ALT 82 H Alkaline Phosphatase 89 Troponin I 1.080 H* Total Protein 8.0 Albumin 3.8 Globulin 4.2 Albumin/Globulin Ratio 0.9 TSH 27.80 H 06/30/20 06/30/20 06/30/20 17:03 19:05 23:58 WBC RBC Hgb Hct MCV MCH MCHC RDW Std Deviation RDW Coeff of Pamela Plt Count MPV Immature Gran % (Auto) Neut % (Auto) Lymph % (Auto) [place] % (Auto) Eos % (Auto) Baso % (Auto) Absolute Neuts (auto) Absolute Lymphs (auto) Nucleated RBC % PT INR APTT Sodium Potassium Chloride Carbon Dioxide Anion Gap BUN Creatinine Estim Creat Clear Calc Est GFR (MDRD) Af Amer Est GFR (MDRD) Non-Af BUN/Creatinine Ratio Glucose Lactic Acid 3.0 H* 1.5 Calcium Magnesium Cancelled Total Bilirubin AST ALT Alkaline Phosphatase Troponin I Total Protein Albumin Globulin Albumin/Globulin Ratio TSH 07/01/20 07/01/20 07/01/20 02:06 02:06 05:05 WBC 12.6 H RBC 4.50 L Hgb 13.4 Hct 41.8 MCV 92.9 MCH 29.8 MCHC 32.1 RDW Std Deviation 46.5 H RDW Coeff of Pamela 13.8 Plt Count 184 MPV 9.4 Immature Gran % (Auto) 1.000 H Neut % (Auto) 75.2 H Lymph % (Auto) 13.8 L [place] % (Auto) 8.6 Eos % (Auto) 1.0 Baso % (Auto) 0.4 Absolute Neuts (auto) 9.5 H Absolute Lymphs (auto) 1.74 Nucleated RBC % 0 PT INR APTT 107.9 H* Sodium Potassium Chloride Carbon Dioxide Anion Gap BUN Creatinine Estim Creat Clear Calc Est GFR (MDRD) Af Amer Est GFR (MDRD) Non-Af BUN/Creatinine Ratio Glucose Lactic Acid Calcium Magnesium Total Bilirubin AST ALT Alkaline Phosphatase Troponin I 1.100 H* Total Protein Albumin Globulin Albumin/Globulin Ratio TSH 07/01/20 05:05 WBC RBC Hgb Hct MCV MCH MCHC RDW Std Deviation RDW Coeff of Pamela Plt Count MPV Immature Gran % (Auto) Neut % (Auto) Lymph % (Auto) [place] % (Auto) Eos % (Auto) Baso % (Auto) Absolute Neuts (auto) Absolute Lymphs (auto) Nucleated RBC % PT INR APTT Sodium 145 Potassium 3.9 Chloride 117 H Carbon Dioxide 23.0 Anion Gap 5 BUN 16 Creatinine 1.09 Estim Creat Clear Calc 73.30 Est GFR (MDRD) Af Amer 86 Est GFR (MDRD) Non-Af 71 BUN/Creatinine Ratio 14.7 Glucose 116 H Lactic Acid Calcium 8.1 L Magnesium Total Bilirubin AST ALT Alkaline Phosphatase Troponin I 0.998 H* Total Protein Albumin Globulin Albumin/Globulin Ratio [facility] Radiology Impression Chest CTA 06/30/20 18:55 IMPRESSION: 1. Low-density filling defects seen within the right and left mainstem pulmonary arteries extending into the upper and lower lobe segmental and subsegmental pulmonary arteries compatible with extensive bilateral pulmonary emboli. Thrombus does cross across midline compatible with a saddle embolus. 2. Patchy airspace disease in the upper lobes. Individualized dose optimization techniques were used for this CT. at 1920 Reported and signed by: Zafar Gayle MD Electronically Signed: Zafar Gayle MD at 19:18 EDT Tel , Service support , ADDENDUM: 06/30/20 193 IMPRESSION: 1. Low-density filling defects seen within the right and left mainstem pulmonary arteries extending into the upper and lower lobe segmental and subsegmental pulmonary arteries compatible with extensive bilateral pulmonary emboli. Thrombus does cross across midline compatible with a saddle embolus. 2. Patchy airspace disease in the upper lobes. Individualized dose optimization techniques were used for this CT. at 1920 Reported and signed by: Zafar Gayle MD N.B. : The above information has been verbally conveyed by Zafar Gayle MD to Derek Tamayo MD , , on 06/30/2020 19:32:46 (ET). Electronically Signed: Zafar Gayle MD at 19:18 EDT Tel , Service support , Charges/Coding Visit Charges Inpatient E&M: 41848 Init Hosp L3
--- NOTE | 2020-07-01 11:30 | CASEMGMT ---
JOSE L SANDOVAL ASSESSMENT COVID-19 precautions. COVID + test on 06/22 @ Urgent Care in [place] JOSE L SANDOVAL placed call to pt's room for initial transition planning/care coordination assessment. JOSE L SANDOVAL introduced self and role at [facility]. Pt voices understanding and consents to assessment at this time. Pt is A/O at this time and answers all questions appropriately. Care providers, pharmacy, and demographics verified/updated at this time. PCP: Goes to [facility]. Sees DOCTOR OF NAPRAPATHY Rebecca Castillo Specialists: none Preferred Pharmacy: [facility] in [place] Insurance: [place] [facility] Prescription Benefit: Yes. Per Dr Ulloa, pt to d/c home on Eliquis. Pt instructed on use of Eliquis 30-day savings care and made aware staff will bring into his room to give to him. Pt voices understanding. Elquis card given to JOSE L Garza, to give to pt. Living Will/HPOA: Pt thinks he has completed these, but he is not certain. Provided information on advanced directives and given Social Service rac card with number to call if chooses in the future to utilize [facility] social work for assistance w/completing forms if he is unable to locate them or if he would like to update them. LNOK: Sister, Braden Figueredo. Brother. Living Arrangements: Lives in 2-story home w/basement w/his brother. 3-4 steps to enter. Denies difficulty w/stairs. Independent w/ADL's and IADL's. Works Part-time Transportation: Pt states drives self and states no transportation concerns at this time. DME: Denies using any DME and denies needs. Pt currently on RA. Dr Can CAPPS recommends ambulatory pulse ox to be completed prior to discharge. Pt made aware. Reviewed list of local DME providers consistent with the patient's preferred geographic region, medical needs, and insurance network in case Home O2 is needed @ discharge. The pt's preferred provider is [facility]. . HHC/SNF: No history of either. No needs identified. Denies need for HHC or OP therapy. Pt wishes to return home and states has no concerns with going home at time of discharge. Nursing to follow for home oxygen needs and any further discharge planning/needs. Pt voices no further concerns/needs at this time. Advised pt to ask for CM if any further questions/concerns/needs arise. Voices understanding. PLAN: Home. Follow for any O2 needs @ discharge. Green sheet placed on chart w/instructions for Home O2 set up, if pt qualifies for it. Mason QUEENN RN CM
[2020-07-01 11:35] LABS: Partial Thromboplast Time 58.9 Seconds (24.1-36.2)
--- NOTE | 2020-07-01 14:07 | PN.HOSP_ITS ---
Subjective Subjective: Breathing well currently (on room air). Had been ill for ~2 weeks prior. Remote h/o VTE after leg surgery. No family history of VTE that he is aware of. Objective Data Objective Data Vital Signs: Vital Signs Temp Pulse Resp BP Pulse Ox 36.9 C 86 16 119/87 H 92 07/01/20 12:00 07/01/20 12:15 07/01/20 12:00 07/01/20 12:00 07/01/20 12:00 Oxygen Delivery Method Room Air Weight: 219 lb 1.6 oz Body Mass Index (BMI) 28.7 Intake & Output: Intake and Output for Last 24 Hours 06/29/20 06/30/20 07/01/20 23:59 23:59 23:59 Intake Total 2123.05 / 212.05 1038.61 / 1038.61 Output Total 275 / 275 Balance 2122.05 / 212.05 763.61 / 763.61 Lab / Micro Data Result Diagrams: 07/01/20 05:05 07/01/20 05:05 Labs: Laboratory Results - last 24 hr 06/30/20 06/30/20 06/30/20 17:03 17:03 17:03 WBC 19.4 H RBC 5.35 Hgb 16.0 Hct 49.9 MCV 93.3 MCH 29.9 MCHC 32.1 RDW Std Deviation 46.6 H RDW Coeff of Pamela 13.7 Plt Count 294 MPV 9.6 Immature Gran % (Auto) 0.800 Neut % (Auto) 79.5 H Lymph % (Auto) 11.8 L [place] % (Auto) 6.7 Eos % (Auto) 0.8 Baso % (Auto) 0.4 Absolute Neuts (auto) 15.5 H Absolute Lymphs (auto) 2.30 Nucleated RBC % 0 PT 15.4 H INR 1.3 APTT 30.9 Sodium 141 Potassium 3.3 L Chloride 106 Carbon Dioxide 21.0 Anion Gap 14 BUN 16 Creatinine 1.72 H Estim Creat Clear Calc 46.45 Est GFR (MDRD) Af Amer 51 L Est GFR (MDRD) Non-Af 42 L BUN/Creatinine Ratio 9.3 L Glucose 206 H Lactic Acid Calcium 9.2 Magnesium 2.5 Total Bilirubin 1.60 H AST 34 ALT 82 H Alkaline Phosphatase 89 Troponin I 1.080 H* Total Protein 8.0 Albumin 3.8 Globulin 4.2 Albumin/Globulin Ratio 0.9 TSH 27.80 H 06/30/20 06/30/20 06/30/20 17:03 19:05 23:58 WBC RBC Hgb Hct MCV MCH MCHC RDW Std Deviation RDW Coeff of Pamela Plt Count MPV Immature Gran % (Auto) Neut % (Auto) Lymph % (Auto) [place] % (Auto) Eos % (Auto) Baso % (Auto) Absolute Neuts (auto) Absolute Lymphs (auto) Nucleated RBC % PT INR APTT Sodium Potassium Chloride Carbon Dioxide Anion Gap BUN Creatinine Estim Creat Clear Calc Est GFR (MDRD) Af Amer Est GFR (MDRD) Non-Af BUN/Creatinine Ratio Glucose Lactic Acid 3.0 H* 1.5 Calcium Magnesium Cancelled Total Bilirubin AST ALT Alkaline Phosphatase Troponin I Total Protein Albumin Globulin Albumin/Globulin Ratio [facility] 07/01/20 07/01/20 07/01/20 02:06 02:06 05:05 WBC 12.6 H RBC 4.50 L Hgb 13.4 Hct 41.8 MCV 92.9 MCH 29.8 MCHC 32.1 RDW Std Deviation 46.5 H RDW Coeff of Pamela 13.8 Plt Count 184 MPV 9.4 Immature Gran % (Auto) 1.000 H Neut % (Auto) 75.2 H Lymph % (Auto) 13.8 L [place] % (Auto) 8.6 Eos % (Auto) 1.0 Baso % (Auto) 0.4 Absolute Neuts (auto) 9.5 H Absolute Lymphs (auto) 1.74 Nucleated RBC % 0 PT INR APTT 107.9 H* Sodium Potassium Chloride Carbon Dioxide Anion Gap BUN Creatinine Estim Creat Clear Calc Est GFR (MDRD) Af Amer Est GFR (MDRD) Non-Af BUN/Creatinine Ratio Glucose Lactic Acid Calcium Magnesium Total Bilirubin AST ALT Alkaline Phosphatase Troponin I 1.100 H* Total Protein Albumin Globulin Albumin/Globulin Ratio [facility] 07/01/20 07/01/20 05:05 11:05 WBC RBC Hgb Hct MCV MCH MCHC RDW Std Deviation RDW Coeff of Pamela Plt Count MPV Immature Gran % (Auto) Neut % (Auto) Lymph % (Auto) [place] % (Auto) Eos % (Auto) Baso % (Auto) Absolute Neuts (auto) Absolute Lymphs (auto) Nucleated RBC % PT INR APTT 58.9 H Sodium 145 Potassium 3.9 Chloride 117 H Carbon Dioxide 23.0 Anion Gap 5 BUN 16 Creatinine 1.09 Estim Creat Clear Calc 73.30 Est GFR (MDRD) Af Amer 86 Est GFR (MDRD) Non-Af 71 BUN/Creatinine Ratio 14.7 Glucose 116 H Lactic Acid Calcium 8.1 L Magnesium Total Bilirubin AST ALT Alkaline Phosphatase Troponin I 0.998 H* Total Protein Albumin Globulin Albumin/Globulin Ratio TSH Radiography Diagnostic Testing: Radiology Impression Chest CTA 06/30/20 18:55 IMPRESSION: 1. Low-density filling defects seen within the right and left mainstem pulmonary arteries extending into the upper and lower lobe segmental and subsegmental pulmonary arteries compatible with extensive bilateral pulmonary emboli. Thrombus does cross across midline compatible with a saddle embolus. 2. Patchy airspace disease in the upper lobes. Individualized dose optimization techniques were used for this CT. at 1920 Reported and signed by: Zafar Gayle MD Electronically Signed: Zafar Gayle MD at 19:18 EDT Tel , Service support , ADDENDUM: 06/30/201938 IMPRESSION: 1. Low-density filling defects seen within the right and left mainstem pulmonary arteries extending into the upper and lower lobe segmental and subsegmental pulmonary arteries compatible with extensive bilateral pulmonary emboli. Thrombus does cross across midline compatible with a saddle embolus. 2. Patchy airspace disease in the upper lobes. Individualized dose optimization techniques were used for this CT. at 1920 Reported and signed by: Zafar Gayle MD N.B. : The above information has been verbally conveyed by Zafar Gayle MD to Derek Tamayo MD , , on 06/30/2020 19:32:46 (ET). Electronically Signed: Zafar Gayle MD at 19:18 EDT Tel , Service support , Echocardiogram 07/01/20 05:55 Interpretation Summary The estimated ejection fraction is EF 55-60% %. Normal LV systolic function Ordering Physician: Ajay Sheehan Referring Physician: [facility] Performed By: Felicita Douglas, ANDREW, RVT Physical Exam Narrative in bed no resp distress. no conversational dyspnea. Const alert HEENT Head and Scalp: normocephalic Eyes PERRL Resp normal respiratory effort and clear to auscultation bilaterally Cardio regular rate, regular rhythm, S1 normal heart sound and S2 normal heart sound GI normal to inspection, nondistended, normoactive bowel sounds, soft to palpation, non-tender and non-distended Extremity normal to inspection Skin no rashes or lesions noted Neuro oriented x3 Sensorium / Orientation: awake and alert Psych affect normal Assessment & Plan Assessment/Plan (1) Acute saddle pulmonary embolism: Status: Acute Code(s): I26.92 - Saddle embolus of pulmonary artery without acute cor pulmonale Qualifiers: Acute cor pulmonale presence: unspecified Qualified Code(s): I26.92 - Saddle embolus of pulmonary artery without acute cor pulmonale Plan: on heparin gtt started at 2029 on 06/30, will continue for 24h, then transition to apixaban likely will require life-long anticoagulation, 6 months, minimum follow up with hematology if wishes to see he could be on 6 month course likely related with hypercoaugulability w COVID-19, but may have a predisposition given his prior history (2) Atrial fibrillation with rapid ventricular response: Status: Resolved Code(s): I48.91 - Unspecified atrial fibrillation Plan: now in NSR likely provoked from above. (3) Elevated troponin: Status: Acute Code(s): R77.8 - Other specified abnormalities of plasma proteins Plan: 2/2 demand ischemia from PE echo showed an EF of 55-60% (4) ZIYAD (acute kidney injury): Status: Resolved Code(s): N17.9 - Acute kidney failure, unspecified Plan: resolved likely prerenal (5) Leukocytosis: Status: Acute Code(s): D72.829 - Elevated white blood cell count, unspecified Plan: likely reactive (6) Hypokalemia: Status: Resolved Code(s): E87.6 - Hypokalemia (7) Lactic acidosis: Status: Resolved Code(s): E87.2 - Acidosis Plan: 2/2 PE (8) COVID-19: Status: Acute Code(s): U07.1 - COVID-19 Plan: onset likely 2 weeks ago. recommend quarantine for another week. He thinks he may have contracted at a bar. He did get vaccinated. I advised obtaining the vaccine after he has completed quarantine. Visit Charges Inpatient E&M: 49766 Subs Hosp L3
[2020-07-01] MEDS: APIXABAN 5 MG TABLET 10 MG PO (20:10)
[2020-07-02] VITALS (7 sets, daily range): BP systolic 112–114; BP diastolic 72–75; PULSE 76–90; RESP 16–18; TEMP 36.3–37.1; O2SAT 92–94
[2020-07-02 04:05] LABS: Absolute Lymphocyte Count 1.76 X10^3/uL (0.83-4.51); Absolute Neutrophil Count 9.4 X10^3/uL (2.0-7.7); Basophil# 0.06 X10^3/uL; Basophil% 0.5 % (0-1); Eosinophil# 0.14 X10^3/uL; Eosinophils% 1.1 % (0-5); Hematocrit 40.7 % (40-54); Hemoglobin 13.1 g/dL (13.0-16.5); Lymphocyte # 1.76 X10^3/ul (0.83-4.51); Lymphocyte % 14.1 % (19-41); Mean Corp Hgb Conc 32.2 g/dL (32-36); Mean Corpuscular Hgb 29.8 pg (27.0-32.0); Mean Corpuscular Volume 92.7 fL (80-94); Mean Platelet Vol. 9.4 fl (6.2-12.0); Monocyte# 1.13 X10^3/uL; NRBC Flagged by Analyzer 0 % (0-5); Neutrophil # 9.35 X10^3/uL (2.7-7.7); Neutrophil % 74.7 % (47-70); Platelet Count 195 K/mm3 (150-450); RBC Distribution Width CV 13.7 % (11.6-14.6); RBC Distribution Width SD 46.8 fl (35.1-43.9); Red Blood Count 4.39 M/mm3 (4.6-6.2); White Blood Count 12.5 K/mm3 (4.4-11.0)
[2020-07-02 04:21] LABS: Anion Gap 6 (5-15); BUN 14 mg/dL (7-18); BUN/Creat Ratio 14.7 RATIO (10-20); Calcium,Total 8.3 mg/dL (8.5-10.1); Chloride 115 mmol/L (98-107); Creatinine, Serum 0.95 mg/dL (0.70-1.30); EST Glomerular Filtration Rate 83 mL/min (>60); Est Glom Filt Rate - Afr Amer 101 mL/min (>60); Estimated Creatinine Clearance 84.11 ml/min; Glucose 110 mg/dL (74-106); Potassium 3.5 mmol/L (3.5-5.1); Sodium Level 144 mmol/L (136-145)
[2020-07-02 04:41] LABS: Free T3 2.4 pg/mL (2.18-3.98); T4 Free Direct 0.88 ng/dL (0.76-1.46)
--- NOTE | 2020-07-02 07:03 | PN.CC_ITS ---
Subjective Subjective: Patient did well overnight. No acute issues were reported. Patient states he feels subjectively unchanged compared to previous. Nursing did report the patient had desaturated overnight with sleep and require 2 L nasal cannula. Patient states he has no history of obstructive sleep apnea, but does snore at baseline. Patient has never had a polysomnogram. Objective Data Objective Data Echocardiogram showed preserved ejection fraction, but unfortunately was unable to quantify right-sided pressures Vital Signs: Vital Signs Temp Pulse Resp BP Pulse Ox 37.1 C 76 16 112/72 94 07/02/20 02:00 07/02/20 04:00 07/02/20 02:00 07/02/20 02:00 07/02/20 02:00 Oxygen Flow Rate (L/min) 2 Oxygen Delivery Method Nasal Cannula Weight: 99.609 kg Body Mass Index (BMI) 28.7 Intake & Output: Intake and Output for Last 24 Hours 06/30/20 07/01/20 07/02/20 23:59 23:59 23:59 Intake Total 2123.05 / 2123.05 2192.36 / 2292.36 160 / 160 Output Total 625 / 775 250 / 250 Balance 2123.05 / 2123.05 1567.36 / 1517.36 -90 / -90 Lab / Micro Data Result Diagrams: 07/02/20 03:50 07/02/20 03:50 Labs: Laboratory Results - last 24 hr 07/01/20 07/02/20 07/02/20 11:05 03:50 03:50 WBC 12.5 H RBC 4.39 L Hgb 13.1 Hct 40.7 MCV 92.7 MCH 29.8 MCHC 32.2 RDW Std Deviation 46.8 H RDW Coeff of Pamela 13.7 Plt Count 195 MPV 9.4 Immature Gran % (Auto) 0.600 Neut % (Auto) 74.7 H Lymph % (Auto) 14.1 L [place] % (Auto) 9.0 Eos % (Auto) 1.1 Baso % (Auto) 0.5 Absolute Neuts (auto) 9.4 H Absolute Lymphs (auto) 1.76 Nucleated RBC % 0 APTT 58.9 H Sodium 144 Potassium 3.5 Chloride 115 H Carbon Dioxide 23.0 Anion Gap 6 BUN 14 Creatinine 0.95 Estim Creat Clear Calc 84.11 Est GFR (MDRD) Af Amer 101 Est GFR (MDRD) Non-Af 83 BUN/Creatinine Ratio 14.7 Glucose 110 H Calcium 8.3 L Free T4 Free T3 pg/dL 07/02/20 03:50 WBC RBC Hgb Hct MCV MCH MCHC RDW Std Deviation RDW Coeff of Pamela Plt Count MPV Immature Gran % (Auto) Neut % (Auto) Lymph % (Auto) [place] % (Auto) Eos % (Auto) Baso % (Auto) Absolute Neuts (auto) Absolute Lymphs (auto) Nucleated RBC % APTT Sodium Potassium Chloride Carbon Dioxide Anion Gap BUN Creatinine Estim Creat Clear Calc Est GFR (MDRD) Af Amer Est GFR (MDRD) Non-Af BUN/Creatinine Ratio Glucose Calcium Free T4 0.88 Free T3 pg/dL 2.4 Radiography Diagnostic Testing: Radiology Impression Echocardiogram 07/01/20 05:55 Interpretation Summary The estimated ejection fraction is EF 55-60% %. Normal LV systolic function Ordering Physician: Ajay Sheehan Referring Physician: [facility] Performed By: Felicita Douglas, ANDREW, RVT Physical Exam Const alert, oriented x3 and no apparent distress General Appearance: cooperative and well developed; Negative for ill appearing HEENT normocephalic, head/scalp atraumatic and moist oral mucous membranes Eyes PERRL and EOMs intact bilaterally Neck supple, no JVD and no carotid bruits Lymph Lymphatic: no lymphadenopathy noted Resp normal respiratory effort and clear to auscultation bilaterally Effort and Inspection: able to speak in complete sentences Auscultation: clear to auscultation bilaterally; Negative for rales, rhonchi or wheezes Cardio regular rate, regular rhythm, S1 normal heart sound, S2 normal heart sound, no murmurs, no rub and no gallops Cardio Narrative: Normal sinus rhythm noted on telemetry GI normal to inspection, nondistended, normoactive bowel sounds and soft to palpation Extremity normal capillary refill and no clubbing, cyanosis or edema Skin no rashes or lesions noted Skin Narrative: No bruising noted Neuro oriented x3 and CN's II-XII intact bilaterally Psych cooperative and affect normal Assessment & Plan Assessment/Plan (1) Acute saddle pulmonary embolism: Status: Acute Code(s): I26.92 - Saddle embolus of pulmonary artery without acute cor pulmonale Qualifiers: Acute cor pulmonale presence: unspecified Qualified Code(s): I26.92 - Saddle embolus of pulmonary artery without acute cor pulmonale (2) Atrial fibrillation with rapid ventricular response: Status: Resolved Code(s): I48.91 - Unspecified atrial fibrillation (3) COVID-19: Status: Acute Code(s): U07.1 - COVID-19 (4) ZIYAD (acute kidney injury): Status: Resolved Code(s): N17.9 - Acute kidney failure, unspecified (5) Lactic acidosis: Status: Resolved Code(s): E87.2 - Acidosis (6) Hypothyroidism: Status: Acute Code(s): E03.9 - Hypothyroidism, unspecified Qualifiers: Hypothyroidism type: acquired Qualified Code(s): E03.9 - Hypothyroidism, unspecified Plan: RECOMMENDATIONS: 1. Anticipate 6 months of anticoagulation with 10 a inhibitor 2. Obtain walking oximetry 3. Continue to monitor telemetry while admitted 4. Possible discharge if not requiring supplemental oxygen on ambulation IMPRESSIONS: 1. Probable submassive PE secondary to hypercoagulability associated with COVID-19 Patient with hypotension, change in heart rhythm and elevated troponin despite preserved oxygen status. These findings would be consistent with a submassive PE. Patient has tolerated conservative therapy to this point. Likely okay to transition to a 10 a inhibitor from my perspective. Would obtain an echocardiogram for quantification and clarification of heart status. Patient will need a walking oximetry prior to discharge. 2. New onset A. fib with RVR Spontaneously resolved. Clinical suspicion for development secondary to atrial enlargement associated with cardiac strain from problem #1. Continue to monitor with telemetry. Likely okay to discontinue troponins at this time. Patient will be on anticoagulation for 6 months associated with problem #1. Rate appears to be controlled when a normal sinus rhythm. This will likely need to be followed up as an outpatient 3. Hypothyroidism TSH would constitute an acute phase reactant. This should likely be evaluated as an outpatient. Unclear if elevation is secondary to noncompliance during acute viral episode versus suboptimal dosing of supplementation. 4. Acute kidney injury Clinical suspicion for prerenal etiology. No need for further hydration. Patient does report decreased p.o. intake recently secondary to COVID-19. Patient did receive contrast. No indication for renal replacement therapy at this time 5. Possible sleep apnea Patient with minimal desaturation overnight and a history of snoring with age greater than 65. Patient is at high risk for sleep apnea. This can be explored as an outpatient. Visit Charges Inpatient E&M: 16269 Subs Hosp L2
[2020-07-02] MEDS: Levothyroxine 137 MCG Tablet PO (09:08)
[2020-07-02] MEDS: APIXABAN 5 MG TABLET 10 MG PO (09:08)
--- NOTE | 2020-07-02 10:46 | PCM.DC ---
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 Discharge Plan Admission Admit Date/Time: 06/30/20 19:49 Attending Provider: Arnaldo Ulloa Primary Care Provider: [facility],[place] Consulting Providers: Huey North Discharge Orders/Prescriptions Prescriptions: New Eliquis 5 mg Tablet 10 mg PO BID Qty: 60 RF: 0 Continued levothyroxine 112 mcg Tablet 112 mcg PO DAILY RF: 0 Referrals: [facility],[place] [Primary Care Provider] - Disposition Patient Disposition: Home, self care
--- NOTE | 2020-07-02 10:54 | PCM.DC.SUM ---
Providers Date of Admission: 06/30/20 Primary Care Physician: [facility] Consultations 06/30/20 21:19 Consult: Director Of Sports Medicine / Pulmonary Medicine Routine Consulting Provider: Huey North Reason for Consult: PE EMERGENT Consult: No MD Notified: Yes Date Notified:: 06/30/20 Time Notified: 20:19 Method of Notification: Verbal Reason For Visit: SADDLE PE, AFIB WITH RVR Diagnosis Discharge Diagnosis (1) Acute saddle pulmonary embolism: Status: Acute Code(s): I26.92 - Saddle embolus of pulmonary artery without acute cor pulmonale Qualifiers: Acute cor pulmonale presence: unspecified Qualified Code(s): I26.92 - Saddle embolus of pulmonary artery without acute cor pulmonale (2) Atrial fibrillation with rapid ventricular response: Status: Resolved Code(s): I48.91 - Unspecified atrial fibrillation (3) COVID-19: Status: Acute Code(s): U07.1 - COVID-19 (4) ZIYAD (acute kidney injury): Status: Resolved Code(s): N17.9 - Acute kidney failure, unspecified (5) Lactic acidosis: Status: Resolved Code(s): E87.2 - Acidosis (6) Hypothyroidism: Status: Acute Code(s): E03.9 - Hypothyroidism, unspecified Qualifiers: Hypothyroidism type: acquired Qualified Code(s): E03.9 - Hypothyroidism, unspecified Medications at Discharge Home Medications levothyroxine 112 mcg PO DAILY 06/30/20 apixaban [Eliquis] 10 mg PO BID #60 tab 07/02/20 Hospital Course Operations None Procedures 2-D Echocardiogram Summary of Care Provided Minutes Spent on Discharge: 32 Hospital Course: 69-year-old presents with shortness of breath. Patient had been feeling ill 3 weeks prior to admission and 8 days prior had tested positive for COVID-19. Patient developed acute shortness of breath and was found to have a filling defects on the right and left mainstem pulmonary arteries scanning through the upper and lower segmental and subsegmental pulmonary arteries compatible with extensive bilateral pulmonary emboli and had a saddle embolism. Patient initially started on heparin drip and eventually transitioned over to apixaban. 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 Given the large clot burden, saddle embolus and prior history of VTE I suspect patient will require lifelong anticoagulation. I told him at the minimum he needs to be on anticoagulation for 6 months but may follow-up with lens and frames prescription clerk to see if that may be the case. Patient did have some transient A. fib but then converted to normal sinus rhythm and has remained in normal sinus rhythm. Patient also did have elevated troponins that were highest at 1.1. 2D echocardiogram was unremarkable. This is likely due to strain from the massive pulmonary emboli. The A. fib was also likely related with the pulmonary emboli. Patient advised to get the COVID-19 vaccine. Patient has essentially completed his quarantine as it is onset of symptoms began 3 weeks ago. Patient informed that he may have a coagulopathy associated with COVID-19 but also possibly an underlying inherited coagulopathy. Physical Exam Const alert Orientation / Consciousness: awake Resp normal respiratory effort and clear to auscultation bilaterally Cardio regular rate, regular rhythm, S1 normal heart sound and S2 normal heart sound GI normal to inspection, nondistended, normoactive bowel sounds ABG / Lab / Microbiology Data Result Diagrams: 07/02/20 03:50 07/02/20 03:50 Laboratory: Laboratory Results - last 24 hr 07/01/20 07/02/20 07/02/20 11:05 03:50 03:50 WBC 12.5 H RBC 4.39 L Hgb 13.1 Hct 40.7 MCV 92.7 MCH 29.8 MCHC 32.2 RDW Std Deviation 46.8 H RDW Coeff of Pamela 13.7 Plt Count 195 MPV 9.4 Immature Gran % (Auto) 0.600 Neut % (Auto) 74.7 H Lymph % (Auto) 14.1 L [place] % (Auto) 9.0 Eos % (Auto) 1.1 Baso % (Auto) 0.5 Absolute Neuts (auto) 9.4 H Absolute Lymphs (auto) 1.76 Nucleated RBC % 0 APTT 58.9 H Sodium 144 Potassium 3.5 Chloride 115 H Carbon Dioxide 23.0 Anion Gap 6 BUN 14 Creatinine 0.95 Estim Creat Clear Calc 84.11 Est GFR (MDRD) Af Amer 101 Est GFR (MDRD) Non-Af 83 BUN/Creatinine Ratio 14.7 Glucose 110 H Calcium 8.3 L Free T4 Free T3 pg/dL 07/02/20 03:50 WBC RBC Hgb Hct MCV MCH MCHC RDW Std Deviation RDW Coeff of Pamela Plt Count MPV Immature Gran % (Auto) Neut % (Auto) Lymph % (Auto) [place] % (Auto) Eos % (Auto) Baso % (Auto) Absolute Neuts (auto) Absolute Lymphs (auto) Nucleated RBC % APTT Sodium Potassium Chloride Carbon Dioxide Anion Gap BUN Creatinine Estim Creat Clear Calc Est GFR (MDRD) Af Amer Est GFR (MDRD) Non-Af BUN/Creatinine Ratio Glucose Calcium Free T4 0.88 Free T3 pg/dL 2.4 Radiography Diagnostic Testing: Radiology Impression Echocardiogram 07/01/20 05:55 Interpretation Summary The estimated ejection fraction is EF 55-60% %. Normal LV systolic function Ordering Physician: Ajay Sheehan Referring Physician: [facility] Performed By: Felicita Douglas RDCS, RVT D/C Instructions Discharge Diet: No restrictions Discharge Activity: - (ease back into normal routine.) Return to work on: 07/10/20 Call your doctor if you observe: - (worsening shortness of breath) Meaningful Use Info Meaningful Use Diagnoses (Choose all that apply): VTE VTE Anticoag overlap given w/in hospital stay or rx'd at vt?: No Reason overlap not ordered, prescribed, or given for 5 days: Procedure Not Indicated Discharge Plan Admission Admit Date/Time: 06/30/20 19:49 Attending Provider: Arnaldo Ulloa Primary Care Provider: [place] Consulting Providers: Huey North Discharge Orders/Prescriptions Prescriptions: New Eliquis 5 mg Tablet 10 mg PO BID Qty: 60 RF: 0 Continued levothyroxine 112 mcg Tablet 112 mcg PO DAILY RF: 0 Referrals: [facility],[place] [Primary Care Provider] - Within 1 Week Disposition Patient Disposition: Home, self care Visit Charges Inpatient E&M: 23618 Disch Hosp
== END 2020-07-02 14:00 | disposition home or self-care (01) | DRG 176 ==
LOC: ED 19:41 → ICU 21:20
PROVIDERS: Admitting Provider Hospitalist; Emergency Provider Emergency Medicine
DX: I26.92 Saddle embolus of pulmonary artery without acute cor pulmonale (principal); N17.9 Acute kidney failure, unspecified; D68.69 Other thrombophilia; E87.2 Acidosis; Z86.16 Personal history of COVID-19; E03.9 Hypothyroidism, unspecified; E87.6 Hypokalemia; I48.91 Unspecified atrial fibrillation; G47.30 Sleep apnea, unspecified; Z86.718 Personal history of other venous thrombosis and embolism; Z79.899 Other long term (current) drug therapy
CPT/HCPCS: 71275; 80048; 80053; 83605; 83735; 84439; 84443; 84481; 84484; 85025; 85610; 85730; 93005; 93306; 97802; 99285; J7030; Q9967; C8929

== ENCOUNTER 2024-05-24 14:17 | Inpatient (IN) | payer OTHER, SELFPAY ==
[2024-05-24 14:21] VITALS: BP 139/92; PULSE 94; RESP 18; TEMP 36.6; O2SAT 94; BMI 30.9
--- NOTE | 2024-05-24 15:22 | US_ITS ---
PROCEDURE: GALLBLADDER 05/24/2024 REASON FOR EXAM: JAUNDICE COMPARISON: None FINDINGS: Liver: Diffusely echogenic suggesting fatty infiltration. No focal lesion. Gallbladder: Large gallstone with wall echo shadow. No significant wall thickening. No pericholecystic fluid. Common bile duct: Normal measuring 3 mm. Pancreas: Visualized portions are sonographically unremarkable. Other: Right kidney; craniocaudal length 10.4 cm. Multiple simple cysts, the largest measures 10 x 9 x 10 mm. No calculi or hydronephrosis. US/Gallbladder IMPRESSION: Hepatic steatosis without focal lesion. Cholelithiasis without evidence of cholecystitis or significant ductal dilation . Reading Location: [facility]
--- NOTE | 2024-05-24 15:23 | EX.ED.DYSGE1 ---
HPI History of Present Illness Chief Complaint: General Illness Narrative Narrative: 73-year-old male past medical history of hypothyroidism, hypercholesterolemia, DVT, atrial fibrillation, on Eliquis presents with a few days of feeling rundown with low energy. States his symptoms began on Friday. He did not really feel well. Friday evening, he developed periumbilical abdominal pain. He may have had a headache as well. He denies any nausea or vomiting, no fevers or chills, no pruritus. His coworkers told him this afternoon about 2-1/2 hours ago that he looked yellow. Additionally, over the weekend, starting 4 days ago, his urine was orange-colored. He denies any lemuel colored stools. He did have a drink or 2 on Friday but states he does not drink alcohol daily. His coworkers told him he may have a gallstone, but he denies any right upper quadrant pain, no nausea or vomiting with eating. [facility] Medical History DVT (deep venous thrombosis) Hypothyroidism Home Medications ?Medication ?Instructions ?Recorded ?Last Taken ?Type ezetimibe 10 mg tablet 10 mg PO DAILY 03/25/23 05/24/24 History tamsulosin 0.4 mg capsule 0.4 mg PO QHS 03/25/23 05/23/24 History apixaban 2.5 mg tablet (Eliquis) 2.5 mg PO BID 05/24/24 05/24/24 History finasteride 5 mg tablet 5 mg PO DAILY 05/24/24 05/24/24 History levothyroxine 125 mcg tablet 125 mcg PO DAILY 05/24/24 05/24/24 History Allergy/AdvReac Type Severity Reaction Status Date / Time No Known Allergies Allergy Verified 05/24/24 14:20 Family History Mother Colon cancer Surgical History Hx of colonoscopy History of bunionectomy Social History Smoking Status: Never smoker alcohol intake: current alcohol intake frequency: a few times a week caffeine: Yes ROS ROS ED ROS Narrative Constitutional: No fever, no chills. HEENT: No sore throat. No neck pain. No loss of vision. No rhinorrhea. Cardiovascular: No chest pain. No palpitations. No pedal edema. Respiratory: No cough, no shortness of breath. Abdominal: Periumbilical abdominal pain. No nausea. No vomiting. Genitourinary: No dysuria. No hematuria. [place]-colored urine 4 days ago. Musculoskeletal: No myalgias. No arthralgias. Neurologic: Positive headaches. No dizziness. No lightheadedness. Skin: No rash. Positive change in color, was told that he is yellow. Psychiatric: No depression. No anxiety. EXAM Physical Exam Narrative Exam Narrative: Afebrile. Vital signs noted. Nontoxic-appearing. HEENT examination shows PERRL, EOMI. Positive scleral icterus. No central cyanosis. Airway patent. No drooling or trismus. Cardiovascular examination reveals a regular rate and rhythm. Lungs are clear to auscultation bilaterally. Abdomen is soft and nontender without guarding or rebound with positive bowel sounds. No noted fluid wave. No pain in right upper quadrant. Neurological examination is nonfocal and nonlateralizing. Skin examination of the face does show mild jaundice. Const Vital Signs: 05/24/24 14:21 05/24/24 15:44 05/24/24 18:12 Temperature 97.9 F Temperature Source Oral Pulse Rate 94 81 Respiratory Rate 18 16 Respiratory Pattern Normal Blood Pressure 139/92 H 142/89 H Blood Pressure Mean 107 106 Pulse Ox 94 95 Oxygen Delivery Method Room Air Room Air [facility] Narrative Medical decision making narrative: Differential diagnosis includes but not limited to biliary duct blockage versus cirrhosis versus gallstone versus acute cholecystitis. History and physical does not really support acute cholecystitis because he does not have tenderness in the right upper quadrant. I will obtain laboratory work to look for liver failure, and CT of the abdomen with IV contrast will be obtained given his periumbilical abdominal pain, and to look for any ascites. Additionally, I will obtain an ultrasound of the right upper quadrant/gallbladder to check the size of the biliary ducts. Urine will be checked as well to look for signs of dehydration versus infection. I reviewed his laboratory work and he has a normal white count of 9.1 with hemoglobin 14.8, hematocrit 44.5, platelet count normal at 250. INR is normal at 1.2 with a PTT 28.6. Glucose appropriately elevated at 112 with anion gap of 13. LFTs are elevated with a total bilirubin of 1.85 and AST 113, ALT 329 with alk phos 147. Urinalysis obtained and reviewed and is negative for infection. While there is bilirubin and urobilinogen there are 0-5 white cells. I do not feel he requires antibiotics even though he is positive for nitrites. I reviewed the radiology report of the CT of the abdomen and pelvis and there is no acute process. Given his elevated LFTs with concern for acute cholecystitis although there was no abnormality on CT, ultrasound was obtained of the gallbladder and there is a gallstone but no ductal dilatation, no pericholecystic fluid consistent with acute cholecystitis. I discussed patient with Dr. Hernandez with surgery. While he does not require immediate surgery, the LFTs are elevated significantly. Was felt that the patient should be observed and if the LFTs are increasing tomorrow morning, he will need ERCP. I discussed the patient with Dr. Mijares with gastroenterology who is on board with this. I then discussed patient with Dr. Mya Galicia for observation on the medical surgical floor. Disposition is assigned observation. Patient is in stable condition. History & Record Review Discussion w/independent historian: Patient Lab Data Attestation: I reviewed the patient's lab results. Labs: Laboratory Results - last 24 hr 05/24/24 05/24/24 15:38 16:54 WBC 9.1 RBC 4.82 Hgb 14.8 Hct 44.5 MCV 92.3 MCH 30.7 MCHC 33.3 RDW Std Deviation 47.3 H RDW Coeff of Pamela 13.9 Plt Count 250 MPV 8.9 Immature Gran % (Auto) 0.500 Neut % (Auto) 72.6 H Lymph % (Auto) 13.6 L [place] % (Auto) 9.5 Eos % (Auto) 2.8 Baso % (Auto) 1.0 Absolute Neuts (auto) 6.6 Absolute Lymphs (auto) 1.24 Nucleated RBC % 0 PT 15.0 H INR 1.2 APTT 28.6 Sodium 139 Potassium 3.5 Chloride 107 Carbon Dioxide 18.3 L Anion Gap 13 BUN 21 H Creatinine 1.09 Estim Creat Clear Calc 76.28 Est GFR (MDRD) Non-Af 72 BUN/Creatinine Ratio 18.9 Glucose 112 H Calcium 9.5 Total Bilirubin 1.85 H AST 113 H ALT 329 H Alkaline Phosphatase 147 H Total Protein 7.1 Albumin 4.3 Globulin 2.8 Albumin/Globulin Ratio 1.6 Urine Color Norma Urine Clarity Sl. Cloudy Urine pH 5.0 Ur Specific [place] 1.025 Urine Protein 30 H Urine Glucose (UA) Normal Urine Ketones 5 H Urine Occult Blood 10 H Urine Nitrite Positive H Urine Bilirubin 3 H Urine Urobilinogen 4 H Ur Leukocyte Esterase 25 H Urine RBC 0-5 SEEN Urine WBC 0-5 SEEN Ur Squamous Epith Cells 0-5 SEEN Calcium Oxalate Crystal 2+ Urine Bacteria 0 SEEN Hyaline Casts 5-10 SEEN Fine Granular Casts 0-5 SEEN WBC Casts 0-5 SEEN Urine Mucus 1+ Radiography Diagnostic Testing: Clinical Impression(s) from Imaging Studies Gallbladder Ultrasound 05/24/24 15:22 IMPRESSION: Hepatic steatosis without focal lesion. Cholelithiasis without evidence of cholecystitis or significant ductal dilation. Reading Location: [facility] Abdomen/Pelvis CT 05/24/24 16:00 IMPRESSION: 1. Hepatomegaly with fatty infiltration. 2. Bilateral inguinal hernias. 3. Colonic diverticulosis without acute diverticulitis. Reading Location: [facility] Management Discussion w/another healthcare provider: Hospitalist and Working Second Hand (Surgery, gastroenterology) Discharge Plan Dx/Rx/DC Orders Clinical Impression: Cholelithiasis, Elevated LFTs, Scleral icterus Disposition Disposition: Acute Care Hospital [facility]
[2024-05-24] MEDS: 0.9% Normal Saline (1000mL) 1,000 ML 1000 ML IV (15:43)
[2024-05-24 15:44] LABS: Absolute Lymphocyte Count 1.24 X10^3/uL (0.83-4.51); Absolute Neutrophil Count 6.6 X10^3/uL (2.0-7.7); Basophil# 0.09 X10^3/uL; Eosinophil# 0.26 X10^3/uL; Eosinophils% 2.8 % (0-5); Hematocrit 44.5 % (40-54); Hemoglobin 14.8 g/dL (13.0-16.5); Lymphocyte # 1.24 X10^3/ul (0.83-4.51); Lymphocyte % 13.6 % (19-41); Mean Corp Hgb Conc 33.3 g/dL (32-36); Mean Corpuscular Hgb 30.7 pg (27.0-32.0); Mean Corpuscular Volume 92.3 fL (80-94); Mean Platelet Vol. 8.9 fl (6.2-12.0); Monocyte# 0.87 X10^3/uL; Monocyte% 9.5 % (0-10); NRBC Flagged by Analyzer 0 % (0-5); Neutrophil # 6.62 X10^3/uL (2.7-7.7); Neutrophil % 72.6 % (47-70); Platelet Count 250 K/mm3 (150-450); RBC Distribution Width CV 13.9 % (11.6-14.6); RBC Distribution Width SD 47.3 fl (35.1-43.9); Red Blood Count 4.82 M/mm3 (4.6-6.2); White Blood Count 9.1 K/mm3 (4.4-11.0)
[2024-05-24 15:52] LABS: International Normalized Ratio 1.2
[2024-05-24 15:53] LABS: Partial Thromboplast Time 28.6 Seconds (24.1-36.2)
--- NOTE | 2024-05-24 16:00 | CT_ITS ---
EXAM: CT Abdomen, Pelvis and Lumbar Spine With Intravenous Contrast CLINICAL INDICATION: ABDOMINAL PAIN, DIARRHEA TECHNIQUE: Axial computed tomography images of the abdomen, pelvis and lumbar spine with intravenous contrast. This CT exam was performed using one or more of the following dose reduction techniques: automated exposure control, adjustment of the mA and/or kV according to patient size, and/or use of iterative reconstruction technique. COMPARISON: No relevant prior studies available. FINDINGS: LUNG BASES: Unremarkable. No mass. No consolidation. ABDOMEN: LIVER: Hepatomegaly with fatty infiltration. GALLBLADDER AND BILE DUCTS: Unremarkable. No calcified stones. No ductal dilation. PANCREAS: Unremarkable. No mass. No ductal dilation. SPLEEN: Unremarkable. No splenomegaly. ADRENALS: Unremarkable. No mass. KIDNEYS AND URETERS: Right renal cysts. No hydronephrosis. STOMACH AND BOWEL: Colonic diverticulosis without acute diverticulitis. No obstruction. PELVIS: APPENDIX: No findings to suggest acute appendicitis. BLADDER: Unremarkable. No mass. REPRODUCTIVE: Unremarkable as visualized. LUMBAR SPINE: VERTEBRAE: Unremarkable. No acute fracture. DISCS/SPINAL CANAL/NEURAL FORAMINA: No acute findings. No significant spinal canal stenosis. ABDOMEN and PELVIS: INTRAPERITONEAL SPACE: Unremarkable. No free air. No significant fluid collection. BONES/JOINTS: No acute fracture. No dislocation. SOFT TISSUES: Bilateral inguinal hernias. VASCULATURE: Unremarkable. No abdominal aortic aneurysm. LYMPH NODES: Unremarkable. No enlarged lymph nodes. CT/Abdomen/Pelvis W IV Cont ONLY IMPRESSION: 1. Hepatomegaly with fatty infiltration. 2. Bilateral inguinal hernias. 3. Colonic diverticulosis without acute diverticulitis. Reading Location: [facility]
[2024-05-24 16:06] LABS: ALB/GLOB Ratio 1.6 RATIO (0.9-2.4); AST(SGOT) 113 U/L (<=37); Alanine Aminotransfer ALT/SGPT 329 U/L (<=46); Albumin, Serum 4.3 g/dL (3.4-4.8); Alkaline Phosphatase 147 U/L (40-129); Anion Gap 13 (5-15); BUN 21 mg/dL (4-19); BUN/Creat Ratio 18.9 RATIO (10-20); Calcium,Total 9.5 mg/dL (7.6-11.0); Carbon Dioxide 18.3 mmol/L (21.0-32.0); Chloride 107 mmol/L (98-108); Creatinine, Serum 1.09 mg/dL (0.70-1.20); EST Glomerular Filtration Rate 72 (>60); Estimated Creatinine Clearance 76.28 ml/min (50-250); Globulin 2.8 g/dL (2.2-4.2); Glucose 112 mg/dL (70-99); Potassium 3.5 mmol/L (3.3-5.1); Protein, Total 7.1 g/dL (5.9-8.4); Sodium Level 139 mmol/L (133-145); Total Bilirubin 1.85 mg/dL (0.00-1.30)
[2024-05-24 17:00] LABS: Bacteria 0 SEEN /hpf (None Seen)
[2024-05-24 17:06] LABS: Color, Urine Amber (Yellow); Glucose, Dipstick Normal (Normal); Ketone-Dipstick 5 mg/dl (Negative); Leukocyte Esterase-Dipstick 25 /ul (Negative); Nitrite-Dipstick Positive (Negative); Occult Blood-Urine 10 /ul (Negative); Protein-Dipstick 30 mg/dl (Negative); Specific Gravity, Urine 1.025 (1.002-1.030); Urine Clarity Sl. Cloudy (Clear); Urine Urobilinogen 4 mg/dl (Normal)
[2024-05-24 17:08] LABS: Urine Bilirubin Dipstick 3 mg/dL (Negative)
[2024-05-24 17:34] LABS: Calcium Oxalate Crystals Ur 2+ /hpf (<or=2+); Mucous, Urine 1+ /hpf (<or=2+); Red Blood Cells-Urine 0-5 SEEN /hpf (0-5); Squamous Epithelial Cells - UA 0-5 SEEN /hpf (0-5); White Blood Cells 0-5 SEEN /hpf (0-5)
[2024-05-24 17:41] LABS: Fine Granular Cast- Urine 0-5 SEEN /lpf (0-5); Hyaline Cast 5-10 SEEN /lpf (0-5)
[2024-05-24 17:42] LABS: White Cell Cast 0-5 SEEN /lpf (None Seen)
[2024-05-24 18:12] VITALS: BP 142/89; PULSE 81; RESP 16; TEMP 36.6; O2SAT 95
--- NOTE | 2024-05-24 18:23 | EX.PCM.CON.G ---
HPI Consult Data Date of Consult: 05/24/24 HPI Narrative HPI Narrative: RACHEL FROST, is a 73-year-old male past medical history of hypothyroidism, hypercholesterolemia, DVT, atrial fibrillation, on Eliquis presents with a few days of feeling rundown with low energy. States his symptoms began on Friday. He did not really feel well. Friday evening, he developed periumbilical abdominal pain. He may have had a headache as well. He denies any nausea or vomiting, no fevers or chills, no pruritus. His coworkers told him this afternoon about 2-1/2 hours ago that he looked yellow. Additionally, over the weekend, starting 4 days ago, his urine was orange-colored. He denies any lemuel colored stools. He did have a drink or 2 on Friday but states he does not drink alcohol daily. His coworkers told him he may have a gallstone, but he denies any right upper quadrant pain, no nausea or vomiting with eating. In the past , he was diagnosed with bilateral pulmonary embolism and COVID-19 infection. He was started on Eliquis and referred by his PCP at the [facility] for further management. He took Eliquis for 6 months. He dropped a bag of seeds on the R lower leg. Doppler on 03/11/2023 showed R proximal and distal femoral, popliteal DVT. He was started on Eliquis, stopped it in October 2023 for a colonoscopy. WBC 9.1., Hgb 14.8, Hct 44.5, MCV 92.3, Plt Count 250 PT 15.0 H, INR 1.2, APTT 28.6, Sodium 139, Potassium 3.5, Chloride 107, Carbon Dioxide 18.3 L,, BUN 21 H, Creatinine 1.09, Glucose 112 H, Calcium 9.5, Total Bilirubin 1.85 H, AST 113 H, ALT 329 H, Alkaline Phosphatase 147 H, Total Protein 7.1, Albumin 4.3, Globulin 2.8 CT scan of the abdomen pelvis: FINDINGS: LUNG BASES: Unremarkable. No mass. No consolidation. ABDOMEN: LIVER: Hepatomegaly with fatty infiltration. GALLBLADDER AND BILE DUCTS: Unremarkable. No calcified stones. No ductal dilation. PANCREAS: Unremarkable. No mass. No ductal dilation. SPLEEN: Unremarkable. No splenomegaly. ADRENALS: Unremarkable. No mass. KIDNEYS AND URETERS: Right renal cysts. No hydronephrosis. STOMACH AND BOWEL: Colonic diverticulosis without acute diverticulitis. No obstruction. PELVIS: APPENDIX: No findings to suggest acute appendicitis. BLADDER: Unremarkable. No mass. REPRODUCTIVE: Unremarkable as visualized. LUMBAR SPINE: VERTEBRAE: Unremarkable. No acute fracture. DISCS/SPINAL CANAL/NEURAL FORAMINA: No acute findings. No significant spinal canal stenosis. ABDOMEN and PELVIS: INTRAPERITONEAL SPACE: Unremarkable. No free air. No significant fluid collection. BONES/JOINTS: No acute fracture. No dislocation. SOFT TISSUES: Bilateral inguinal hernias. VASCULATURE: Unremarkable. No abdominal aortic aneurysm. LYMPH NODES: Unremarkable. No enlarged lymph nod Ultrasound of the right upper quadrant: Liver: Diffusely echogenic suggesting fatty infiltration. No focal lesion. Gallbladder: Large gallstone with wall echo shadow. No significant wall thickening. No pericholecystic fluid. Common bile duct: Normal measuring 3 mm. Pancreas: Visualized portions are sonographically unremarkable. Other: Right kidney; craniocaudal length 10.4 cm. Multiple simple cysts, the largest measures 10 x 9 x 10 mm. No calculi or hydronephrosis. US/Gallbladder IMPRESSION: Hepatic steatosis without focal lesion. Cholelithiasis without evidence of cholecystitis or significant ductal dilation. [facility] Medical History DVT (deep venous thrombosis) Hypothyroidism Home Medications ?Medication ?Instructions ?Recorded ?Last Taken ?Type ezetimibe 10 mg tablet 10 mg PO DAILY 03/25/23 05/24/24 History tamsulosin 0.4 mg capsule 0.4 mg PO QHS 03/25/23 05/23/24 History apixaban 2.5 mg tablet (Eliquis) 2.5 mg PO BID 05/24/24 05/24/24 History finasteride 5 mg tablet 5 mg PO DAILY 05/24/24 05/24/24 History levothyroxine 125 mcg tablet 125 mcg PO DAILY 05/24/24 05/24/24 History Allergy/AdvReac Type Severity Reaction Status Date / Time No Known Allergies Allergy Verified 05/24/24 14:20 Family History Mother Colon cancer Surgical History Hx of colonoscopy History of bunionectomy Social History Smoking Status: Never smoker alcohol intake: current alcohol intake frequency: a few times a week caffeine: Yes ROS Constitutional Constitutional: Denies fatigue, fever(s), poor appetite, weight gain or weight loss Gastrointestinal Gastrointestinal: Denies belching, bloating, change in bowel habits, change in stool character, chewing difficulty, coffee ground emesis, constipation, cramping, diarrhea, dyspepsia, dysphagia, early satiety, excessive flatus, fecal incontinence, heartburn, hematemesis, hematochezia, hemorrhoids, loose stools, melena, nausea, odynophagia, rectal bleeding, tenesmus, vomiting or weight changes Physical Exam Const alert, oriented x3, no apparent distress and healthy appearing General Appearance: cooperative GI normal to inspection, nondistended, normoactive bowel sounds, soft to palpation, non-tender and non-distended Percussion: normal to percussion Rectal Exam: deferred Lab / Micro Data 05/24/24 15:38 05/24/24 15:38 Labs: Laboratory Results - last 24 hr 05/24/24 15:38: WBC 9.1, RBC 4.82, Hgb 14.8, Hct 44.5, MCV 92.3, MCH 30.7, MCHC 33.3, RDW Std Deviation 47.3 H, RDW Coeff of Pamela 13.9, Plt Count 250, MPV 8.9, Immature Gran % (Auto) 0.500, Neut % (Auto) 72.6 H, Lymph % (Auto) 13.6 L, Garrett % (Auto) 9.5, Eos % (Auto) 2.8, Baso % (Auto) 1.0, Absolute Neuts (auto) 6.6, Absolute Lymphs (auto) 1.24, Nucleated RBC % 0, PT 15.0 H, INR 1.2, APTT 28.6, Sodium 139, Potassium 3.5, Chloride 107, Carbon Dioxide 18.3 L, Anion Gap 13, BUN 21 H, Creatinine 1.09, Estim Creat Clear Calc 76.28, Est GFR (MDRD) Non-Af 72, BUN/Creatinine Ratio 18.9, Glucose 112 H, Calcium 9.5, Total Bilirubin 1.85 H, AST 113 H, ALT 329 H, Alkaline Phosphatase 147 H, Total Protein 7.1, Albumin 4.3, Globulin 2.8, Albumin/Globulin Ratio 1.6 05/24/24 16:54: Urine Color Norma, Urine Clarity Sl. Cloudy, Urine pH 5.0, Ur Specific [place] 1.025, Urine Protein 30 H, Urine Glucose (UA) Normal, Urine Ketones 5 H, Urine Occult Blood 10 H, Urine Nitrite Positive H, Urine Bilirubin 3 H, Urine Urobilinogen 4 H, Ur Leukocyte Esterase 25 H, Urine RBC 0-5 SEEN, Urine WBC 0-5 SEEN, Ur Squamous Epith Cells 0-5 SEEN, Calcium Oxalate Crystal 2+, Urine Bacteria 0 SEEN, Hyaline Casts 5-10 SEEN, Fine Granular Casts 0-5 SEEN, WBC Casts 0-5 SEEN, Urine Mucus 1+ Imaging Radiology Impression Gallbladder Ultrasound 05/24/24 15:22 IMPRESSION: Hepatic steatosis without focal lesion. Cholelithiasis without evidence of cholecystitis or significant ductal dilation. Reading [facility] Abdomen/Pelvis CT 05/24/24 16:00 IMPRESSION: 1. Hepatomegaly with fatty infiltration. 2. Bilateral inguinal hernias. 3. Colonic diverticulosis without acute diverticulitis. Reading Location: [facility] Assessment & Plan Assessment/Plan (1) Elevated LFTs: (2) Cholelithiasis: PLAN: Plan 73-year-old gentleman comes in with weakness, intermittent right upper quadrant pain and darkening urine. He was discovered to have cholestatic hepatitis with mild jaundice. He has not started on any new medicines. He has no previous history of hepatitis. He is not receiving blood transfusions. He has no recent travel. He does not denies any recent upper respiratory symptoms. His imaging shows Large gallstone with wall echo shadow. No significant wall thickening. No pericholecystic fluid. Also his common bile duct diameter is 3 mm. Differential diagnosis does include viral hepatitis and nonviral hepatitis, autoimmune disease affecting the liver such as PBC, autoimmune hepatitis, IgG associated cholangiopathy with a current exacerbation. Also differential diagnosis does include medication induced cholestatic injury. Recommend MRCP and autoimmune labs. If patient's liver enzymes keep going up then he may need to undergo drainage procedure. Charges/Coding Visit Charges Inpatient E&M: 87107 Init Hosp L3
--- NOTE | 2024-05-24 19:49 | PCM.HP.STD ---
HPI - General General Date of Admission: 05/24/24 Date of Service: 05/24/24 Chief Complaint: Fatigue, yellowing of skin HPI Narrative RACHEL FROST, is a 73-year-old male history of DVT, hypothyroidism, BPH who presented [facility] ED 05/24/2024 with fatigue and yellowing of his skin. Reportedly had been feeling rundown since Friday and had been having some dark urination and when he went to work today he was told he looked yellow prompting him to come to the ED. In the ED patient vitally stable but was found to have total bili of 1.85, AST 113, ALT 329 and alk phos of 147. CT abdomen and pelvis demonstrated hepatomegaly with fatty infiltration and gallbladder ultrasound showed hepatic steatosis without focal lesion and cholelithiasis without evidence of cholecystitis or significant ductal dilation. GI physician contacted and recommended MRCP and to repeat liver function in the morning. Hospitalist contacted for admission. Patient evaluated in the ED and reports feeling rundown for several days, also has some belching but denies any changes in his bowel, has BPH so some chronic problems with his urination but denies anything acutely. Did have some darkening of his urine but notes he did not notice his skin being more yellow to let was pointed out to him. Had a headache couple days ago but this is resolved. Denies any abdominal pain or nausea. Denies any fevers or chills. Does not drink alcohol regularly per patient. [facility] Medical History DVT (deep venous thrombosis) Hypothyroidism Home Medications ?Medication ?Instructions ?Recorded ?Last Taken ?Type ezetimibe 10 mg tablet 10 mg PO DAILY 03/25/23 05/24/24 History tamsulosin 0.4 mg capsule 0.4 mg PO QHS 03/25/23 05/23/24 History apixaban 2.5 mg tablet (Eliquis) 2.5 mg PO BID 05/24/24 05/24/24 History finasteride 5 mg tablet 5 mg PO DAILY 05/24/24 05/24/24 History levothyroxine 125 mcg tablet 125 mcg PO DAILY 05/24/24 05/24/24 History Allergy/AdvReac Type Severity Reaction Status Date / Time No Known Allergies Allergy Verified 05/24/24 14:20 Family History Mother Colon cancer Surgical History Hx of colonoscopy History of bunionectomy Social History Smoking Status: Never smoker alcohol intake: current alcohol intake frequency: a few times a week caffeine: Yes ROS ROS Narrative General: Denies fever/chills HENT: Had a headache on Friday that is resolved, denies stuffy nose, denies sore throat EYES: Denies changes in vision Resp: Denies cough, denies shortness of breath Cardiac: Denies chest pain GI: Denies abdominal pain, denies changes in bowel, denies nausea/vomiting, has some abdominal bloating : Some darkening of his urine Extremity: Denies swelling MSK: Denies weakness but has felt just generally fatigued and unwell Neuro: Denies any numbness/tingling Heme: Denies any bleeding or bruising Skin: Some yellowing of the skin Psychiatric: No complaints voiced Vital Signs Vital Signs Vital Signs: 05/24/24 14:21 05/24/24 15:44 05/24/24 18:12 Temperature 97.9 F Temperature Source Oral Pulse Rate 94 81 Respiratory Rate 18 16 Respiratory Pattern Normal Blood Pressure 139/92 H 142/89 H Blood Pressure Mean 107 106 Pulse Ox 94 95 Oxygen Delivery Method Room Air Room Air Weight Weight: 103.691 kg Body Mass Index (BMI) 30.9 Physical Exam Narrative General: Alert, oriented, no apparent distress HEENT: Atraumatic, normocephalic Eyes: Some scleral icterus present, normal conjunctiva, extraocular movements grossly intact Neck: Supple Respiratory: Clear to auscultation bilaterally, normal respiratory effort Cardiovascular: Regular rate and rhythm GI: Soft, nontender, slightly distended without rebound, guarding, rigidity Extremities: No edema Musculoskeletal: Moving all extremities Neuro: No overt focal neurological deficits Skin: No rashes appreciated Psych: Cooperative Results Lab / Micro Data 05/24/24 15:38 05/24/24 15:38 Labs: Laboratory Results - last 24 hr 05/24/24 15:38: WBC 9.1, RBC 4.82, Hgb 14.8, Hct 44.5, MCV 92.3, MCH 30.7, MCHC 33.3, RDW Std Deviation 47.3 H, RDW Coeff of Pamela 13.9, Plt Count 250, MPV 8.9, Immature Gran % (Auto) 0.500, Neut % (Auto) 72.6 H, Lymph % (Auto) 13.6 L, Bell % (Auto) 9.5, Eos % (Auto) 2.8, Baso % (Auto) 1.0, Absolute Neuts (auto) 6.6, Absolute Lymphs (auto) 1.24, Nucleated RBC % 0, PT 15.0 H, INR 1.2, APTT 28.6, Sodium 139, Potassium 3.5, Chloride 107, Carbon Dioxide 18.3 L, Anion Gap 13, BUN 21 H, Creatinine 1.09, Estim Creat Clear Calc 76.28, Est GFR (MDRD) Non-Af 72, BUN/Creatinine Ratio 18.9, Glucose 112 H, Calcium 9.5, Total Bilirubin 1.85 H, AST 113 H, ALT 329 H, Alkaline Phosphatase 147 H, Total Protein 7.1, Albumin 4.3, Globulin 2.8, Albumin/Globulin Ratio 1.6 05/24/24 16:54: Urine Color Norma, Urine Clarity Sl. Cloudy, Urine pH 5.0, Ur Specific [place] 1.025, Urine Protein 30 H, Urine Glucose (UA) Normal, Urine Ketones 5 H, Urine Occult Blood 10 H, Urine Nitrite Positive H, Urine Bilirubin 3 H, Urine Urobilinogen 4 H, Ur Leukocyte Esterase 25 H, Urine RBC 0-5 SEEN, Urine WBC 0-5 SEEN, Ur Squamous Epith Cells 0-5 SEEN, Calcium Oxalate Crystal 2+, Urine Bacteria 0 SEEN, Hyaline Casts 5-10 SEEN, Fine Granular Casts 0-5 SEEN, WBC Casts 0-5 SEEN, Urine Mucus 1+ Imaging Radiology Impression Gallbladder Ultrasound 05/24/24 15:22 IMPRESSION: Hepatic steatosis without focal lesion. Cholelithiasis without evidence of cholecystitis or significant ductal dilation. Reading Location: [facility] Abdomen/Pelvis CT 05/24/24 16:00 IMPRESSION: 1. Hepatomegaly with fatty infiltration. 2. Bilateral inguinal hernias. 3. Colonic diverticulosis without acute diverticulitis. Reading Location: [facility] Assessment & Plan Assessment/Plan (1) Cholelithiasis: (2) Elevated LFTs: (3) Scleral icterus: PLAN: Plan # Jaundice with elevation in bili and liver function tests -Total bili 1.85 with AST 113 and ALT 329, alk phos 147 -Order MRCP -GI consult -Repeat CMP in the a.m. #Hypothyroidism -Continue Synthroid -Will check TSH in the a.m. #Chronic BPH with obstruction -Continue home medications -Patient reports change in color of urine but denies any other acute hearing changes # History of DVT and PE -Patient with history of bilateral PEs related to COVID and a DVT after dropping something on his foot, following with hematology and patient was cleared to discontinue his anticoagulation in March and advised to have repeat D-dimer and follow-up, Eliquis appears to still be on patient's list will need to clarify, will have patient placed in SCDs in the event patient would need further intervention to hold Eliquis in the meantime #DVT ppx: SCDs Mya Galicia MD Charges/Coding Visit Charges Inpatient E&M: 17858 Init Hosp L2
[2024-05-24 20:43] VITALS: BMI 30.4
[2024-05-24 20:47] VITALS: BP 143/92; PULSE 66; RESP 16; TEMP 36.4; O2SAT 96
[2024-05-24 21:27] LABS: Erythrocyte Sedimentation Rate 4 mm/hr (0-20)
[2024-05-24 22:01] LABS: Acetaminophen (Tylenol) Level < 5.0 ug/mL (8.0-19.0)
[2024-05-24 22:07] LABS: Ferritin 784 ng/mL (37-417); Iron Binding Capacity,Total 270 ug/dL (250-450)
[2024-05-24] MEDS: 0.9% Saline Lock 10 ML Syringe IV (22:12)
[2024-05-24] MEDS: Tamsulosin HCl 0.4 MG Capsule PO (22:12)
[2024-05-24 22:37] LABS: Iron 89 ug/dL (65-175); Iron Binding Capacity,Unsat 181 ug/dL (228-428); LDH 268 U/L (87-241)
[2024-05-25 02:45] VITALS: BP 128/78; PULSE 62; RESP 16; TEMP 36.4; O2SAT 95
[2024-05-25] MEDS: Levothyroxine 125 MCG Tablet PO (05:37)
--- NOTE | 2024-05-25 06:19 | EKG12_ITS ---
Test Reason : P Blood Pressure : */* mmHG Vent. Rate : 59 BPM Atrial Rate : 59 BPM P-R Int : 182 ms QRS Dur : 88 ms QT Int : 450 ms P-R-T Axes : 48 -36 -20 degrees QTcB Int : 445 ms Sinus bradycardia Left axis deviation Nonspecific T wave abnormality Abnormal ECG When compared with ECG of 30-Jun-2020 23:48, Vent. rate has decreased by 31 bpm QRS axis Shifted left Confirmed by JUWAN CORTEZ, ANABELLA ([id number]), manager editorial LUIS E REYNAGA ([id number]) on 05/26/2024 7:18:20 AM Referred By: Confirmed By: ANABELLA ECHEVERRIA MD
[2024-05-25 06:50] LABS: Absolute Lymphocyte Count 1.46 X10^3/uL (0.83-4.51); Absolute Neutrophil Count 5.5 X10^3/uL (2.0-7.7); Basophil# 0.09 X10^3/uL; Basophil% 1.1 % (0-1); Eosinophil# 0.39 X10^3/uL; Eosinophils% 4.7 % (0-5); Hematocrit 43.3 % (40-54); Hemoglobin 14.3 g/dL (13.0-16.5); Lymphocyte # 1.46 X10^3/ul (0.83-4.51); Lymphocyte % 17.7 % (19-41); Mean Corpuscular Hgb 30.4 pg (27.0-32.0); Mean Corpuscular Volume 92.1 fL (80-94); Monocyte# 0.75 X10^3/uL; Monocyte% 9.1 % (0-10); NRBC Flagged by Analyzer 0 % (0-5); Neutrophil # 5.52 X10^3/uL (2.7-7.7); Neutrophil % 66.8 % (47-70); Platelet Count 234 K/mm3 (150-450); RBC Distribution Width CV 13.8 % (11.6-14.6); RBC Distribution Width SD 47.4 fl (35.1-43.9); White Blood Count 8.3 K/mm3 (4.4-11.0)
--- NOTE | 2024-05-25 06:59 | EX.PCM.CON.S ---
Assessment & Plan Assessment/Plan (1) Scleral icterus: (2) Elevated LFTs: PLAN: Plan The patient has a large amount of gallstones with wall echo on ultrasound. Patient is having workup by Dr. Mijares. Today's LFTs are pending. Patient may need MRCP. I am available for laparoscopic cholecystectomy after Dr. Mijares works up his jaundice. Erik Hernandez MD Pager: [facility] [address] [place] [address], [address] [place] [address] Office: HPI Consult Data Date of Consult: 05/25/24 HPI Narrative HPI Narrative: RACHEL FROST, is a 73 M who presents with scleral icterus and jaundice. The patient is not having any abdominal pain. He denies nausea or vomiting. He denies fevers or chills. [facility] Medical History DVT (deep venous thrombosis) Hypothyroidism Home Medications ?Medication ?Instructions ?Recorded ?Last Taken ?Type ezetimibe 10 mg tablet 10 mg PO DAILY 03/25/23 05/24/24 History tamsulosin 0.4 mg capsule 0.4 mg PO QHS 03/25/23 05/23/24 History apixaban 2.5 mg tablet (Eliquis) 2.5 mg PO BID 05/24/24 05/24/24 History finasteride 5 mg tablet 5 mg PO DAILY 05/24/24 05/24/24 History levothyroxine 125 mcg tablet 125 mcg PO DAILY 05/24/24 05/24/24 History Allergy/AdvReac Type Severity Reaction Status Date / Time No Known Allergies Allergy Verified 05/24/24 14:20 Family History Mother Colon cancer Surgical History Hx of colonoscopy History of bunionectomy Social History Smoking Status: Never smoker alcohol intake: current alcohol intake frequency: a few times a week caffeine: Yes ROS Constitutional Constitutional: Denies anorexia, chills, fatigue or fever(s) Eyes Eyes: Denies blurry vision ENT HEENT: Denies abnormal hearing Cardiovascular Cardiovascular: Denies chest pain Respiratory/Chest Respiratory/Chest: Denies cough or dyspnea Gastrointestinal Gastrointestinal: Denies abdominal pain, constipation, nausea or vomiting Genitourinary Genitourinary: Denies change in urinary stream Musculoskeletal Musculoskeletal: Denies abnormal gait Integumentary Integumentary: Reports jaundice Neurologic Neurologic: Denies abnormal gait Psychiatric Psychiatric: Denies anxiety Hematologic/Lymphatic Hematologic/Lymphatic: Denies easy bleeding Physical Exam Const alert and oriented x3 HEENT normocephalic Eyes PERRL Resp normal respiratory effort Cardio Rate: regular rate Rhythm: regular rhythm GI soft to palpation and non-tender Lab / Micro Data 05/25/24 06:39 05/24/24 15:38 Labs: Laboratory Results - last 24 hr 05/24/24 15:38: WBC 9.1, RBC 4.82, Hgb 14.8, Hct 44.5, MCV 92.3, MCH 30.7, MCHC 33.3, RDW Std Deviation 47.3 H, RDW Coeff of Pamela 13.9, Plt Count 250, MPV 8.9, Immature Gran % (Auto) 0.500, Neut % (Auto) 72.6 H, Lymph % (Auto) 13.6 L, [place] % (Auto) 9.5, Eos % (Auto) 2.8, Baso % (Auto) 1.0, Absolute Neuts (auto) 6.6, Absolute Lymphs (auto) 1.24, Nucleated RBC % 0, PT 15.0 H, INR 1.2, APTT 28.6, Sodium 139, Potassium 3.5, Chloride 107, Carbon Dioxide 18.3 L, Anion Gap 13, BUN 21 H, Creatinine 1.09, Estim Creat Clear Calc 76.28, Est GFR (MDRD) Non-Af 72, BUN/Creatinine Ratio 18.9, Glucose 112 H, Calcium 9.5, Total Bilirubin 1.85 H, AST 113 H, ALT 329 H, Alkaline Phosphatase 147 H, Total Protein 7.1, Albumin 4.3, Globulin 2.8, Albumin/Globulin Ratio 1.6 05/24/24 16:54: Urine Color Norma, Urine Clarity Sl. Cloudy, Urine pH 5.0, Ur Specific [place] 1.025, Urine Protein 30 H, Urine Glucose (UA) Normal, Urine Ketones 5 H, Urine Occult Blood 10 H, Urine Nitrite Positive H, Urine Bilirubin 3 H, Urine Urobilinogen 4 H, Ur Leukocyte Esterase 25 H, Urine RBC 0-5 SEEN, Urine WBC 0-5 SEEN, Ur Squamous Epith Cells 0-5 SEEN, Calcium Oxalate Crystal 2+, Urine Bacteria 0 SEEN, Hyaline Casts 5-10 SEEN, Fine Granular Casts 0-5 SEEN, WBC Casts 0-5 SEEN, Urine Mucus 1+ 05/24/24 21:06: ESR 4, Iron 89, TIBC 270, Iron Saturation 33.0, Unsaturated IBC 181 L, Ferritin 784 H, Lactate Dehydrogenase 268 H, C-React Prot Ext Range 35.10 H, Acetaminophen < 5.0 L, NIA-1 Antibody TNP, SS-A/Ro IgG Antibody TNP, SS-B/La IgG Antibody TNP, Sm (Tobar) Antibody TNP, BRIM PLATER Antibody TNP, Antichromatin Antibodies TNP, Centromere B Antibody TNP 05/25/24 06:39: WBC 8.3, RBC 4.70, Hgb 14.3, Hct 43.3, MCV 92.1, MCH 30.4, MCHC 33.0, RDW Std Deviation 47.4 H, RDW Coeff of Pamela 13.8, Plt Count 234, MPV 9.0, Immature Gran % (Auto) 0.600, Neut % (Auto) 66.8, Lymph % (Auto) 17.7 L, [place] % (Auto) 9.1, Eos % (Auto) 4.7, Baso % (Auto) 1.1 H, Absolute Neuts (auto) 5.5, Absolute Lymphs (auto) 1.46, Nucleated RBC % 0 Imaging Radiology Impression Gallbladder Ultrasound 05/24/24 15:22 IMPRESSION: Hepatic steatosis without focal lesion. Cholelithiasis without evidence of cholecystitis or significant ductal dilation. Reading [facility]/Pelvis CT 05/24/24 16:00 IMPRESSION: 1. Hepatomegaly with fatty infiltration. 2. Bilateral inguinal hernias. 3. Colonic diverticulosis without acute diverticulitis. Reading Location: [facility]
[2024-05-25 07:22] LABS: ALB/GLOB Ratio 1.5 RATIO (0.9-2.4); AST(SGOT) 64 U/L (<=37); Alanine Aminotransfer ALT/SGPT 235 U/L (<=46); Albumin, Serum 3.7 g/dL (3.4-4.8); Alkaline Phosphatase 127 U/L (40-129); Anion Gap 12 (5-15); BUN 16 mg/dL (4-19); Carbon Dioxide 18.6 mmol/L (21.0-32.0); Chloride 109 mmol/L (98-108); Creatinine, Serum 0.93 mg/dL (0.70-1.20); EST Glomerular Filtration Rate 88 (>60); Estimated Creatinine Clearance 88.59 ml/min (50-250); Globulin 2.6 g/dL (2.2-4.2); Glucose 107 mg/dL (70-99); Potassium 3.4 mmol/L (3.3-5.1); Protein, Total 6.3 g/dL (5.9-8.4); Sodium Level 140 mmol/L (133-145); Total Bilirubin 1.66 mg/dL (0.00-1.30)
--- NOTE | 2024-05-25 07:45 | PCM.PN.HOSP ---
Reason for Visit Reason for Visit: Diagnoses Calculus of gallbladder without cholecystitis without obstruction (05/24/24) Unspecified jaundice (05/24/24) Other specified abnormal findings of blood chemistry (05/24/24) Subjective Subjective Had felt ill over the weekend. Noted to be jaundiced at work yesterday. Objective Data Objective Data Vital Signs: Vital Signs Temp Pulse Resp BP Pulse Ox O2 Del Method 36.4 C L 62 16 128/78 H 95 Room Air 05/25/24 02:45 05/25/24 02:45 05/25/24 02:45 05/25/24 02:45 05/25/24 02:45 05/25/24 02:45 Oxygen Delivery Method Room Air Weight: 101.7 kg Body Mass Index (BMI) 30.4 Intake & Output: Intake and Output for Last 24 Hours 05/23/24 05/24/24 05/25/24 23:59 23:59 23:59 Intake Total 1450 / 1450 Balance 1450 / 1450 Lab / Micro Data 05/25/24 06:39 05/25/24 06:39 Labs: Laboratory Results - last 24 hr 05/24/24 15:38: WBC 9.1, RBC 4.82, Hgb 14.8, Hct 44.5, MCV 92.3, MCH 30.7, MCHC 33.3, RDW Std Deviation 47.3 H, RDW Coeff of Pamela 13.9, Plt Count 250, MPV 8.9, Immature Gran % (Auto) 0.500, Neut % (Auto) 72.6 H, Lymph % (Auto) 13.6 L, [place] % (Auto) 9.5, Eos % (Auto) 2.8, Baso % (Auto) 1.0, Absolute Neuts (auto) 6.6, Absolute Lymphs (auto) 1.24, Nucleated RBC % 0, PT 15.0 H, INR 1.2, APTT 28.6, Sodium 139, Potassium 3.5, Chloride 107, Carbon Dioxide 18.3 L, Anion Gap 13, BUN 21 H, Creatinine 1.09, Estim Creat Clear Calc 76.28, Est GFR (MDRD) Non-Af 72, BUN/Creatinine Ratio 18.9, Glucose 112 H, Calcium 9.5, Total Bilirubin 1.85 H, AST 113 H, ALT 329 H, Alkaline Phosphatase 147 H, Total Protein 7.1, Albumin 4.3, Globulin 2.8, Albumin/Globulin Ratio 1.6 05/24/24 16:54: Urine Color Norma, Urine Clarity Sl. Cloudy, Urine pH 5.0, Ur Specific [place] 1.025, Urine Protein 30 H, Urine Glucose (UA) Normal, Urine Ketones 5 H, Urine Occult Blood 10 H, Urine Nitrite Positive H, Urine Bilirubin 3 H, Urine Urobilinogen 4 H, Ur Leukocyte Esterase 25 H, Urine RBC 0-5 SEEN, Urine WBC 0-5 SEEN, Ur Squamous Epith Cells 0-5 SEEN, Calcium Oxalate Crystal 2+, Urine Bacteria 0 SEEN, Hyaline Casts 5-10 SEEN, Fine Granular Casts 0-5 SEEN, WBC Casts 0-5 SEEN, Urine Mucus 1+ 05/24/24 21:06: ESR 4, Iron 89, TIBC 270, Iron Saturation 33.0, Unsaturated IBC 181 L, Ferritin 784 H, Lactate Dehydrogenase 268 H, C-React Prot Ext Range 35.10 H, Acetaminophen < 5.0 L, NIA-1 Antibody TNP, SS-A/Ro IgG Antibody TNP, SS-B/La IgG Antibody TNP, Sm (Tobar) Antibody TNP, FLAP CURER Antibody TNP, Antichromatin Antibodies TNP, Centromere B Antibody TNP 05/25/24 06:39: WBC 8.3, RBC 4.70, Hgb 14.3, Hct 43.3, MCV 92.1, MCH 30.4, MCHC 33.0, RDW Std Deviation 47.4 H, RDW Coeff of Pamela 13.8, Plt Count 234, MPV 9.0, Immature Gran % (Auto) 0.600, Neut % (Auto) 66.8, Lymph % (Auto) 17.7 L, [place] % (Auto) 9.1, Eos % (Auto) 4.7, Baso % (Auto) 1.1 H, Absolute Neuts (auto) 5.5, Absolute Lymphs (auto) 1.46, Nucleated RBC % 0, Sodium 140, Potassium 3.4, Chloride 109 H, Carbon Dioxide 18.6 L, Anion Gap 12, BUN 16, Creatinine 0.93, Estim Creat Clear Calc 88.59, Est GFR (MDRD) Non-Af 88, BUN/Creatinine Ratio 17.0, Glucose 107 H, Calcium 9.0, Total Bilirubin 1.66 H, AST 64 H, ALT 235 H, Alkaline Phosphatase 127, Total Protein 6.3, Albumin 3.7, Globulin 2.6, Albumin/Globulin Ratio 1.5, TSH 2.810 Radiography Diagnostic Testing: Radiology Impression Gallbladder Ultrasound 05/24/24 15:22 IMPRESSION: Hepatic steatosis without focal lesion. Cholelithiasis without evidence of cholecystitis or significant ductal dilation. Reading Location: [facility] Abdomen/Pelvis CT 05/24/24 16:00 IMPRESSION: 1. Hepatomegaly with fatty infiltration. 2. Bilateral inguinal hernias. 3. Colonic diverticulosis without acute diverticulitis. Reading Location: [facility] Physical Exam Const alert and no apparent distress Eyes Eyes Narrative: slight icterus. GI non-tender and non-distended; Negative for hepatosplenomegaly Extremity normal to inspection and no clubbing, cyanosis or edema Skin Skin Narrative: no appreciable jaundice. Neuro Sensorium / Orientation: awake and alert Psych affect normal Assessment & Plan Assessment/Plan (1) Jaundice: PLAN: Unclear etiology. Bilirubin 1.85 on admission, down to 1.66 today. Previously was normal (0.5) CT showed hepatomegaly with fatty infiltration. US showed hepatic steatosis w/o focal lesion. MRCP ordered. GI consult. General surgery on consult. Although high LDH and bilirubin, doubt hemolytic anemia given normal, stable hemoglobin. Haptoglobin ordered, but is a send out test and results won't be readily available. Additional ordered tests: RITA, ASmA, CA19-9, ceruloplasmin, CMV, EBV, copper, acute hep panel, MIRACLE, IgG, GAME Igs PLAN: Plan Chronic conditions: hypothyroidism: levothyroxine BPH: tamsulosin h/o VTE: apixaban dc'd in March. VTE prophylaxis: SCDs. Charges/Coding Visit Charges Inpatient E&M: 99940 Subs Hosp L2
[2024-05-25 08:27] VITALS: BP 129/91; PULSE 64; RESP 16; TEMP 36.5; O2SAT 97
[2024-05-25] MEDS: Finasteride 5 MG Tablet PO (08:37)
[2024-05-25] MEDS: Ezetimibe 10 MG Tablet PO (08:37)
--- NOTE | 2024-05-25 10:12 | CASEMGMT ---
JOSE L SANDOVAL Assessment: Face to Face with pt for initial transition planning/care coordination assessment. RN LORI introduced self and role at [facility], pt voices understanding and consents to assessment. Pt is A&O x4 and answers all questions appropriately at this time. Pt sitting up in bed in no distress. Care providers, pharmacy, and demographics verified/updated. Admitting Dx:jaundice Strata Score: 1 PCP:Rebecca Melendez Specialists:Denies [facility]erred [facility]acy:[facility] [place]: [place] Prescription Benefit: yes LNOK: Elvin Figueredo, sister Living Arrangements: Pt lives with brother in a single story home with 2-3 steps to enter. Pt reports he is I in ADL/IADLs and denies concerns at home. Transportation: Pt drives self and denies concerns with transportation. DME:crutches, bp cuff HHC/SNF: Denies hx of Pt states no concerns with going home at time of dc. Pt states no further concerns/needs. CM to follow. Advised pt to ask CM if any further questions/concerns/needs arise, voices understanding. Pt Goal: Home Plan: Home Lizzy DOMINGO CM
[2024-05-25 15:00] VITALS: BP 132/86; PULSE 64; RESP 16; TEMP 36.6; O2SAT 96
--- NOTE | 2024-05-25 15:00 | CASEMGMT ---
[facility] regarding [facility] current status and plan at this time.
--- NOTE | 2024-05-25 18:13 | PN_ITS ---
Progress Note Patient is awaiting MRCP. He does have little bit of abdominal pain with eating. His urine is still dark. Physical Exam Const alert and no apparent distress Eyes Eyes Narrative: slight icterus. GI non-tender and non-distended; Negative for hepatosplenomegaly Extremity normal to inspection and no clubbing, cyanosis or edema Skin Skin Narrative: no appreciable jaundice. Neuro Sensorium / Orientation: awake and alert Psych affect normal Assessment & Plan Assessment/Plan (1) Elevated LFTs: (2) Cholelithiasis: PLAN: Plan 73-year-old gentleman comes in with weakness, intermittent right upper quadrant pain and darkening urine. He was discovered to have cholestatic hepatitis with mild jaundice. He has not started on any new medicines. He has no previous history of hepatitis. He is not receiving blood transfusions. He has no recent travel. He does not denies any recent upper respiratory symptoms. His imaging shows Large gallstone with wall echo shadow. No significant wall thickening. No pericholecystic fluid. Also his common bile duct diameter is 3 mm. Differential diagnosis does include viral hepatitis and nonviral hepatitis, autoimmune disease affecting the liver such as PBC, autoimmune hepatitis, IgG associated cholangiopathy with a current exacerbation. Also differential diagnosis does include medication induced cholestatic injury. Recommend MRCP and autoimmune labs. If patient's liver enzymes keep going up then he may need to undergo drainage procedure. 05/25/2024-cholestatic hepatitis with jaundice-his LFTs are improving. His CRP was elevated along with his LDH. That signifies liver injury. He has no pre- existing history of liver disease that he knows of. Awaiting MRCP. If he does undergo cholecystectomy then I would recommend liver biopsy to see if there is any signs of primary or secondary cholangitis in his hepatobiliary system. Visit Charges Inpatient E&M: 43309 [facility] Hosp L3
[2024-05-25 18:36] VITALS: BP 122/80; PULSE 71; RESP 16; TEMP 36.8; O2SAT 95
[2024-05-25 20:17] VITALS: BP 122/83; PULSE 66; RESP 15; TEMP 37.2; O2SAT 96
[2024-05-25] MEDS: Tamsulosin HCl 0.4 MG Capsule PO (21:47)
[2024-05-25] MEDS: 0.9% Saline Lock 10 ML Syringe IV (21:48)
[2024-05-26 04:05] VITALS: BP 124/78; PULSE 66; RESP 16; TEMP 36.5; O2SAT 98
[2024-05-26] MEDS: Levothyroxine 125 MCG Tablet PO (04:11)
[2024-05-26 05:20] LABS: Absolute Lymphocyte Count 1.62 X10^3/uL (0.83-4.51); Absolute Neutrophil Count 5.1 X10^3/uL (2.0-7.7); Basophil# 0.09 X10^3/uL; Basophil% 1.1 % (0-1); Eosinophil# 0.39 X10^3/uL; Eosinophils% 4.9 % (0-5); Hematocrit 43.6 % (40-54); Hemoglobin 14.5 g/dL (13.0-16.5); Lymphocyte # 1.62 X10^3/ul (0.83-4.51); Lymphocyte % 20.6 % (19-41); Mean Corp Hgb Conc 33.3 g/dL (32-36); Mean Corpuscular Hgb 30.7 pg (27.0-32.0); Mean Corpuscular Volume 92.4 fL (80-94); Mean Platelet Vol. 9.1 fl (6.2-12.0); Monocyte# 0.63 X10^3/uL; NRBC Flagged by Analyzer 0 % (0-5); Neutrophil # 5.12 X10^3/uL (2.7-7.7); Platelet Count 247 K/mm3 (150-450); RBC Distribution Width CV 13.9 % (11.6-14.6); RBC Distribution Width SD 47.1 fl (35.1-43.9); Red Blood Count 4.72 M/mm3 (4.6-6.2); White Blood Count 7.9 K/mm3 (4.4-11.0)
[2024-05-26 05:42] LABS: ALB/GLOB Ratio 1.5 RATIO (0.9-2.4); AST(SGOT) 41 U/L (<=37); Alanine Aminotransfer ALT/SGPT 172 U/L (<=46); Albumin, Serum 3.8 g/dL (3.4-4.8); Alkaline Phosphatase 130 U/L (40-129); Anion Gap 12 (5-15); BUN 16 mg/dL (4-19); BUN/Creat Ratio 16.6 RATIO (10-20); Calcium,Total 8.9 mg/dL (7.6-11.0); Carbon Dioxide 19.5 mmol/L (21.0-32.0); Chloride 110 mmol/L (98-108); Creatinine, Serum 0.95 mg/dL (0.70-1.20); EST Glomerular Filtration Rate 85 (>60); Estimated Creatinine Clearance 86.73 ml/min (50-250); Globulin 2.6 g/dL (2.2-4.2); Glucose 107 mg/dL (70-99); Potassium 3.6 mmol/L (3.3-5.1); Protein, Total 6.4 g/dL (5.9-8.4); Sodium Level 142 mmol/L (133-145); Total Bilirubin 1.14 mg/dL (0.00-1.30)
--- NOTE | 2024-05-26 07:58 | PCM.PN.SRG ---
Subjective Subjective Patient reports he is comfortable with no pain Objective Data Objective Data Vital Signs: Vital Signs Temp Pulse Resp BP Pulse Ox O2 Del Method 97.7 F L 66 16 124/78 H 98 Room Air 05/26/24 04:05 05/26/24 04:05 05/26/24 04:05 05/26/24 04:05 05/26/24 04:05 05/26/24 04:05 Oxygen Delivery Method Room Air Weight: 224 lb 3.362 oz Body Mass Index (BMI) 30.4 Intake & Output: Intake and Output for Last 24 Hours 05/24/24 05/25/24 05/26/24 23:59 23:59 23:59 Intake Total 1450 / 1450 Balance 1450 / 1450 Lab / Micro Data 05/26/24 04:36 05/26/24 04:36 Labs: Laboratory Results - last 24 hr 05/26/24 04:36: WBC 7.9, RBC 4.72, Hgb 14.5, Hct 43.6, MCV 92.4, MCH 30.7, MCHC 33.3, RDW Std Deviation 47.1 H, RDW Coeff of Pamela 13.9, Plt Count 247, MPV 9.1, Immature Gran % (Auto) 0.400, Neut % (Auto) 65.0, Lymph % (Auto) 20.6, [place] % (Auto) 8.0, Eos % (Auto) 4.9, Baso % (Auto) 1.1 H, Absolute Neuts (auto) 5.1, Absolute Lymphs (auto) 1.62, Nucleated RBC % 0, Sodium 142, Potassium 3.6, Chloride 110 H, Carbon Dioxide 19.5 L, Anion Gap 12, BUN 16, Creatinine 0.95, Estim Creat Clear Calc 86.73, Est GFR (MDRD) Non-Af 85, BUN/Creatinine Ratio 16.6, Glucose 107 H, Calcium 8.9, Total Bilirubin 1.14, AST 41 H, ALT 172 H, Alkaline Phosphatase 130 H, Total Protein 6.4, Albumin 3.8, Globulin 2.6, Albumin/Globulin Ratio 1.5 Physical Exam Const oriented x3 and no apparent distress Resp normal respiratory effort GI soft to palpation and non-tender Assessment & Plan Assessment/Plan (1) Jaundice: PLAN: Patient was ordered MRI which did not get done yet. MRI is pending for today. As long as MRI is normal and only shows cholelithiasis I will plan for outpatient cholecystectomy. Erik Hernandez MD Pager: [facility] [address] [place] [address], [address] [place] [address] Office:
--- NOTE | 2024-05-26 08:10 | NURSING ---
pt to MRI at approx 7:15 via bed-pt currently out of his room
--- NOTE | 2024-05-26 08:26 | PN.HOSP_ITS ---
Reason for Visit Reason for Visit: Diagnoses Calculus of gallbladder without cholecystitis without obstruction (05/24/24) Unspecified jaundice (05/24/24) Other specified abnormal findings of blood chemistry (05/24/24) Subjective Subjective Feeling well. Objective Data Objective Data Vital Signs: Vital Signs Temp Pulse Resp BP Pulse Ox O2 Del Method 36.5 C L 66 16 124/78 H 98 Room Air 05/26/24 04:05 05/26/24 04:05 05/26/24 04:05 05/26/24 04:05 05/26/24 04:05 05/26/24 04:05 Oxygen Delivery Method Room Air Weight: 101.7 kg Body Mass Index (BMI) 30.4 Intake & Output: Intake and Output for Last 24 Hours 05/24/24 05/25/24 05/26/24 23:59 23:59 23:59 Intake Total 1450 / 1450 Balance 1450 / 1450 Lab / Micro Data 05/26/24 04:36 05/26/24 04:36 Labs: Laboratory Results - last 24 hr 05/26/24 04:36: WBC 7.9, RBC 4.72, Hgb 14.5, Hct 43.6, MCV 92.4, MCH 30.7, MCHC 33.3, RDW Std Deviation 47.1 H, RDW Coeff of Pamela 13.9, Plt Count 247, MPV 9.1, Immature Gran % (Auto) 0.400, Neut % (Auto) 65.0, Lymph % (Auto) 20.6, [place] % (Auto) 8.0, Eos % (Auto) 4.9, Baso % (Auto) 1.1 H, Absolute Neuts (auto) 5.1, Absolute Lymphs (auto) 1.62, Nucleated RBC % 0, Sodium 142, Potassium 3.6, C hloride 110 H, Carbon Dioxide 19.5 L, Anion Gap 12, BUN 16, Creatinine 0.95, Estim Creat Clear Calc 86.73, Est GFR (MDRD) Non-Af 85, BUN/Creatinine Ratio 16.6, Glucose 107 H, Calcium 8.9, Total Bilirubin 1.14, AST 41 H, ALT 172 H, A lkaline Phosphatase 130 H, Total Protein 6.4, Albumin 3.8, Globulin 2.6, Albumin/Globulin Ratio 1.5 Physical Exam Const alert and no apparent distress HEENT head/scalp atraumatic and moist oral mucous membranes Eyes Eyes Narrative: minimal icterus. Assessment & Plan Assessment/Plan (1) Jaundice: PLAN: Unclear etiology. Bilirubin 1.85 on admission, down to 1.66 today. Previously was normal (0.5). Along with transaminitis (which is also improving) CT showed hepatomegaly with fatty infiltration. US showed hepatic steatosis w/o focal lesion. MRCP ordered. GI consult. General surgery on consult. Although high LDH and bilirubin, doubt hemolytic anemia given normal, stable hemoglobin. Haptoglobin ordered, but is a send out test and results won't be readily available. Additional ordered tests: RITA, ASmA, CA19-9, ceruloplasmin, CMV, EBV, copper, acute hep panel, MIRACLE, IgG, GAME Igs PLAN: Plan Chronic conditions: * hypothyroidism: levothyroxine * BPH: tamsulosin * h/o VTE: apixaban dc'd in March. VTE prophylaxis: SCDs. Charges/Coding Visit Charges Inpatient E&M: 39767 Subs Hosp L1
[2024-05-26 08:30] VITALS: BP 117/77; PULSE 73; RESP 14; TEMP 36.5; O2SAT 92
[2024-05-26] MEDS: Ezetimibe 10 MG Tablet PO (10:24)
[2024-05-26] MEDS: Finasteride 5 MG Tablet PO (10:24)
[2024-05-26 11:08] LABS: Anti-Centromere B Ab <0.2 AI (0.0-0.9); Anti-Chromatin <0.2 AI (0.0-0.9); Anti-Jo <0.2 AI (0.0-0.9); Anti-Scleroderma-70 AB <0.2 AI (0.0-0.9); Anti-dsDNA Ab <1 IU/mL (0-9); RNP Ab <0.2 AI (0.0-0.9); SJOGREN'S Anti-SS-A test < 0.2 AI (0.0-0.9); SJOGREN'S Anti-SS-B test < 0.2 AI (0.0-0.9); Smith Ab <0.2 AI (0.0-0.9)
[2024-05-26 13:34] VITALS: BP 116/72; PULSE 87; RESP 18; TEMP 36.6; O2SAT 93; O2SAT 97
--- NOTE | 2024-05-26 14:00 | MRI_ITS ---
EXAM: MRCP without contrast. CLINICAL HISTORY: Elevated LFTs. COMPARISON: CT abdomen and pelvis 05/24/2024 TECHNIQUE: MR images of the abdomen were acquired with intravenous contrast. Sequences include: COR T2 SSBH, Axial T1, Axial T2, DWI, T1 IN and OUT of Phase, Axial LAVA, COR LAVA. Post-contrast sequences include axial LAVA in multiple phases, COR LAVA in multiple phases. FINDINGS: LUNG BASES: Patchy opacities in the lung base, compatible with atelectasis.. Visualized mediastinum is unremarkable. LIVER: Normal in size. No masses GALLBLADDER: Diffuse cholelithiasis. No evidence of intrahepatic or extrahepatic ductal dilatation. The common bile duct measures 8 mm. Filling defect within the distal common bile duct, just distal to the ampulla (series 11, image 5, series 10 image 17) PANCREAS: No ductal dilation. Homogeneous signal intensity. No suspicious mass. SPLEEN: Normal. No masses. ADRENAL GLANDS: Normal. No masses. KIDNEYS: Normal. No masses. No hydronephrosis. VASCULAR: The abdominal aorta is normal in caliber. LYMPHATICS: No abnormal adenopathy. GASTROINTESTINAL: Stomach is unremarkable. No bowel dilation. Colonic diverticulosis. No significant wall thickening. BONES: Mild degenerative changes of the lumbar spine. SOFT TISSUE: Normal. MRI/MRCP Abdomen without Contrast IMPRESSION: Cholelithiasis with distal common bile duct filling defect, concerning for chol edocholithiasis. Reading [facility]
--- NOTE | 2024-05-26 14:58 | DCINST_ITS ---
Discharge Instructions Diet Discharge Diet: No restrictions DC O2, CPAP, BIPAP needs Home O2 Discharge instructions: No Follow Up Care Test Results: Test results from this visit will be discussed in further detail at your follow- up appointment, if applicable. Discharge Plan Admission Admit Date/Time: 05/24/24 19:49 Primary Reason for Your Visit: jaundice Attending Provider: Arnaldo Ulloa Primary Care Provider: [facility] Consulting Providers: Mya Galicia Discharge Orders/Prescriptions Prescriptions: Continued ezetimibe 10 mg tablet 10 mg PO DAILY tamsulosin 0.4 mg capsule 0.4 mg PO QHS levothyroxine 125 mcg tablet 125 mcg PO DAILY finasteride 5 mg tablet 5 mg PO DAILY Discontinued Eliquis 2.5 mg tablet 2.5 mg PO BID Referrals / Follow Up: Erik Hernandez MD [Med Staff - Active Staff] - 1-2 Weeks [facility] [Primary Care Provider] - 1 Week Disposition Disposition (needs filled in before D/C Order can be placed): Home, Self Care
--- NOTE | 2024-05-26 16:39 | NURSING ---
All documentation by nursing coordinator Roe Rodriguez reviewed by nursing informatics analyst Karina STOVALL, RN.
--- NOTE | 2024-05-26 17:46 | PN_ITS ---
Progress Note The patient is tolerating a diet. His urine is no longer dark in color. Physical Exam Const alert, oriented x3, no apparent distress and healthy appearing General Appearance: cooperative GI normal to inspection, nondistended, normoactive bowel sounds, soft to palpation, non-tender and non-distended Percussion: normal to percussion Rectal Exam: deferred Assessment & Plan Assessment/Plan (1) Elevated LFTs: (2) Cholelithiasis: PLAN: Plan 73-year-old gentleman comes in with weakness, intermittent right upper quadrant pain and darkening urine. He was discovered to have cholestatic hepatitis with mild jaundice. He has not started on any new medicines. He has no previous history of hepatitis. He is not receiving blood transfusions. He has no recent travel. He does not denies any recent upper respiratory symptoms. His imaging shows Large gallstone with wall echo shadow. No significant wall thickening. No pericholecystic fluid. Also his common bile duct diameter is 3 mm. Differential diagnosis does include viral hepatitis and nonviral hepatitis, autoimmune disease affecting the liver such as PBC, autoimmune hepatitis, IgG associated cholangiopathy with a current exacerbation. Also differential diagnosis does include medication induced cholestatic injury. Recommend MRCP and autoimmune labs. If patient's liver enzymes keep going up then he may need to undergo drainage procedure. 05/25/2024-cholestatic hepatitis with jaundice-his LFTs are improving. His CRP was elevated along with his LDH. That signifies liver injury. He has no pre- existing history of liver disease that he knows of. Awaiting MRCP. If he does undergo cholecystectomy then I would recommend liver biopsy to see if there is any signs of primary or secondary cholangitis in his hepatobiliary system. 05/26/2024- FINDINGS: LUNG BASES: Patchy opacities in the lung base, compatible with atelectasis.. Visualized mediastinum is unremarkable. LIVER: Normal in size. No masses GALLBLADDER: Diffuse cholelithiasis. No evidence of intrahepatic or extrahepatic ductal dilatation. The common bile duct measures 8 mm. Filling defect within the distal common bile duct, just distal to the ampulla (series 11, image 5, series 10 image 17) PANCREAS: No ductal dilation. Homogeneous signal intensity. No suspicious mass. SPLEEN: Normal. No masses. ADRENAL GLANDS: Normal. No masses. KIDNEYS: Normal. No masses. No hydronephrosis. VASCULAR: The abdominal aorta is normal in caliber. LYMPHATICS: No abnormal adenopathy. GASTROINTESTINAL: Stomach is unremarkable. No bowel dilation. Colonic diverticulosis. No significant wall thickening. BONES: Mild degenerative changes of the lumbar spine. SOFT TISSUE: Normal. MRI/MRCP Abdomen without Contrast IMPRESSION: Cholelithiasis with distal common bile duct filling defect, concerning for choledocholithiasis. Patient will need to undergo ERCP with stone removal tomorrow. Patient can have breakfast tomorrow but he should be n.p.o. after breakfast. Visit Charges Inpatient E&M: 83043 Subs Hosp L3
[2024-05-26 19:54] VITALS: BP 133/89; PULSE 71; RESP 16; TEMP 36.6; O2SAT 97
[2024-05-26] MEDS: 0.9% Saline Lock 10 ML Syringe IV (21:48)
[2024-05-26] MEDS: Tamsulosin HCl 0.4 MG Capsule PO (21:48)
[2024-05-27] VITALS (13 sets, daily range): BP systolic 114–143; BP diastolic 75–86; PULSE 55–77; RESP 14–18; TEMP 36.1–36.8; O2SAT 94–97
[2024-05-27 04:28] LABS: ALB/GLOB Ratio 1.5 RATIO (0.9-2.4); AST(SGOT) 33 U/L (<=37); Alanine Aminotransfer ALT/SGPT 133 U/L (<=46); Albumin, Serum 3.7 g/dL (3.4-4.8); Alkaline Phosphatase 104 U/L (40-129); Anion Gap 10 (5-15); BUN 18 mg/dL (4-19); BUN/Creat Ratio 17.7 RATIO (10-20); Calcium,Total 8.6 mg/dL (7.6-11.0); Chloride 110 mmol/L (98-108); Creatinine, Serum 1.03 mg/dL (0.70-1.20); EST Glomerular Filtration Rate 77 (>60); Estimated Creatinine Clearance 79.99 ml/min (50-250); Globulin 2.5 g/dL (2.2-4.2); Glucose 110 mg/dL (70-99); Potassium 3.6 mmol/L (3.3-5.1); Protein, Total 6.2 g/dL (5.9-8.4); Sodium Level 142 mmol/L (133-145); Total Bilirubin 0.88 mg/dL (0.00-1.30)
[2024-05-27] MEDS: Levothyroxine 125 MCG Tablet PO (05:08)
--- NOTE | 2024-05-27 07:30 | PN.HOSP_ITS ---
Reason for Visit Reason for Visit: Diagnoses Calculus of gallbladder without cholecystitis without obstruction (05/24/24) Unspecified jaundice (05/24/24) Other specified abnormal findings of blood chemistry (05/24/24) Subjective Subjective No issues. Objective Data Objective Data Vital Signs: Vital Signs Temp Pulse Resp BP Pulse Ox O2 Del Method 36.4 C L 65 16 121/78 H 97 Room Air 05/27/24 02:05 05/27/24 02:05 05/27/24 02:05 05/27/24 02:05 05/27/24 02:05 05/27/24 02:05 Oxygen Delivery Method Room Air Weight: 101.7 kg Body Mass Index (BMI) 30.4 Intake & Output: Intake and Output for Last 24 Hours 05/25/24 05/26/24 05/27/24 23:59 23:59 23:59 Intake Total 500 / 500 Balance 500 / 500 Lab / Micro Data 05/26/24 04:36 05/27/24 03:49 Labs: Laboratory Results - last 24 hr 05/24/24 21:06: NIA-1 Antibody <0.2, SS-A/Ro IgG Antibody < 0.2, SS-B/La IgG Antibody < 0.2, Sm (Tobar) Antibody <0.2, WATER PURIFICATION CHEMIST Antibody <0.2, Scl-70 Scleroderma Ab <0.2, Double Strand DNA Ab <1, Antichromatin Antibodies <0.2, Centromere B Antibody <0.2 05/27/24 03:49: Sodium 142, Potassium 3.6, Chloride 110 H, Carbon Dioxide 22.0, Anion Gap 10, BUN 18, Creatinine 1.03, Estim Creat Clear Calc 79.99, Est GFR (MDRD) Non-Af 77, BUN/Creatinine Ratio 17.7, Glucose 110 H, Calcium 8.6, Total Bilirubin 0.88, AST 33, ALT 133 H, Alkaline Phosphatase 104, Total Protein 6.2, Albumin 3.7, Globulin 2.5, Albumin/Globulin Ratio 1.5 Radiography Diagnostic Testing: Radiology Impression MRCP 05/26/24 14:00 IMPRESSION: Cholelithiasis with distal common bile duct filling defect, concerning for choledocholithiasis. Reading Location: [facility] Physical Exam Const alert and no apparent distress Eyes Eyes Narrative: no icterus. Assessment & Plan Assessment/Plan (1) Jaundice: PLAN: Looks more like choledocholthiasis given MRCP findings. Bilirubin 1.85 on admission, down to 0.88 today. Previously was normal (0.5). Along with transaminitis (which has essentially improving) CT showed hepatomegaly with fatty infiltration. US showed hepatic steatosis w/o focal lesion. MRCP showed cholelithiasis w distal CBD filing defect, concerning for choledocholithiasis. GI consult. General surgery on consult. Although high LDH and bilirubin, doubt hemolytic anemia given normal, stable hemoglobin. Haptoglobin ordered, but is a send out test and results won't be readily available. Additional ordered tests: RITA, ASmA, CA19-9, ceruloplasmin, CMV, EBV, copper, acute hep panel, MIRACLE, IgG, GAME Igs DW Dr. Mijares on 05/26: plan for ERCP on 05/27. PLAN: Plan Chronic conditions: * hypothyroidism: levothyroxine * BPH: tamsulosin * h/o VTE: apixaban dc'd in March. VTE prophylaxis: SCDs. Charges/Coding Visit Charges Inpatient E&M: 52377 Subs Hosp L1
--- NOTE | 2024-05-27 16:08 | PRE.ANES_ITS ---
ASA Classification* ASA Classification ASA Classification: 3 Assessment & Plan Anesthesia* Anesthesia Assessment Anesthesia Assessment: Discussed sedation and/or anesthesia options, risks, benefits, and alternatives with patient/parents/legal guardian/POA. Questions invited. The patient/parents/legal guardian/POA seems to understand and agrees to proceed with anesthesia plan. Reviewed the physical assessment, medical history, allergy history and patient home medications list prior to surgery/procedure/anesthetic and documented any changes. Performed airway and anesthesia risk assessments. Anesthesia Type Anesthesia Type: General History Source History Obtained from:: Patient and Chart Anesthesia Focused Assessment* Temperature: 97.6 F Pulse Rate: 58 Blood Pressure: 143/80 Respiratory Rate: 18 Pulse Ox: 96 Oxygen Delivery Method: Room Air Airway Assessment Mouth opens: >3 cm Mallampati Score: II Teeth Condition: Caps/Crowns (Patient has several crowns. They are all tight. 1 implant.) Neck Range of motion (ROM): Limited ROM (Slight decrease in extension) Focused Labs Anesthesia Preop lab: CBC WBC 7.9 K/mm3 (4.4-11.0) 05/26/24 04:36 05/26/24 RBC 4.72 M/mm3 (4.6-6.2) 05/26/24 04:36 05/26/24 Hgb 14.5 g/dL (13.0-16.5) 05/26/24 04:36 05/26/24 Hct 43.6 % (40-54) 05/26/24 04:36 05/26/24 Plt Count 247 K/mm3 (150-450) 05/26/24 04:36 05/26/24 CHEMISTRY Potassium 3.6 mmol/L (3.3-5.1) 05/27/24 03:49 05/27/24 Sodium 142 mmol/L (133-145) 05/27/24 03:49 05/27/24 Magnesium 2.5 mg/dL (1.6-2.6) 06/30/20 17:03 06/30/20 BUN 18 mg/dL (4-19) 05/27/24 03:49 05/27/24 Creatinine 1.03 mg/dL (0.70-1.20) 05/27/24 03:49 05/27/24 Glucose 110 mg/dL (70-99) H 05/27/24 03:49 05/27/24 TSH 2.810 uIU/mL (0.300-4.200) 05/25/24 06:39 05/02 07/25 COAG PT 15.0 SECONDS (11.7-14.9) H 05/24/24 15:38 05/02 06/25 Pre-Assessment Diagnosis/Proposed Procedure Planned Operative Procedure(s): Endoscopic retrograde cholangiopancreatography. 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 When Was Last Pacemaker Check QUESTION #4 FULL TEXT: You/Your Family Experience fever (hyperthermia) with Anesthesia Last Oral Intake Last Oral intake: Last Oral Intake NPO since Meds taken in AM with sips of water? 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 Has anyone observed you stop No 05/24/24 20:13 breathing during sleep? STOP Results Negative 05/24/24 20:13 QUESTION #5 FULL TEXT : Do you snore loudly (louder than talking or can be heard through closed doors)? 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 Specify any problems Hx of Preganancy in last 3 N/A 05/24/24 20:13 Months Nurse Filling Out Transfusion EVIZZO 05/24/24 20:13 & Questions: Date: 05/24/24 05/24/24 20:13 Time: 20:52 05/24/24 20:13 Patient unable to answer at this time (ie. 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 INHALATION Q2H PRN PRN SOB &/OR WHEEZING Ezetimibe 10 mg 05/25/24 10:00 05/27/24 09:29 Ezetimibe 10 Mg Tablet PO Not Given DAILY EDGARDO Finasteride 5 mg 05/25/24 10:00 05/27/24 09:28 Finasteride 5 Mg Tablet PO Not Given DAILY EDGARDO Sodium Chloride 1,000 mls @ 15 mls/hr 05/27/24 16:05 IV 06/02/24 05:24 .Q48H EDGARDO Levothyroxine Sodium 125 mcg 05/25/24 06:00 05/27/24 05:08 Levothyroxine 125 Mcg Tablet PO 125 mcg DAILY@0600 EDGARDO Administration Melatonin 3 mg 05/24/24 20:59 Melatonin 3 Mg Tablet PO QHS PRN PRN INSOMNIA Ondansetron HCl 4 mg 05/24/24 20:59 Ondansetron 4 Mg/2 Ml Vial IV Q8H PRN PRN NAUSEA/VOMITING Senna/Docusate Sodium 2 tablet 05/24/24 20:59 Senna/Docusate Sodium 1 Tablet PO BID PRN PRN Constipation Sodium Chloride 10 - 40 ml 05/24/24 20:17 05/26/24 21:48 0.9% Saline Lock 10 Ml Syringe IV 10 ml UD PRN Administration SALINE FLUSH Tamsulosin HCl 0.4 mg 05/24/24 22:00 05/26/24 21:48 Tamsulosin Hcl 0.4 Mg Capsule PO 0.4 mg QHS EDGARDO Administration PFSH Medical History DVT (deep venous thrombosis) Hypothyroidism Home Medications ?Medication ?Instructions ?Recorded ?Last Taken ?Type ezetimibe 10 mg tablet 10 mg PO DAILY 03/25/2305/02 History tamsulosin 0.4 mg capsule 0.4 mg PO QHS 03/25/2305/23 History finasteride 5 mg tablet 5 mg PO DAILY 05/24/2405/24 History levothyroxine 125 mcg tablet 125 mcg PO DAILY 05/24/24 05/24/24 History apixaban 2.5 mg tablet (Eliquis) 2.5 mg PO BID blood t hinner 05/27/24 05/24/24 History Allergy/AdvReac Type Severity Reaction Status Date / Time No Known Allergies Allergy Verified 05/24/24 14:20 Family History Mother Colon cancer Surgical History Hx of colonoscopy History of bunionectomy Social History Smoking Status: Never smoker alcohol intake: current alcohol intake frequency: a few times a week caffeine: Yes Review of Systems (Anesthesia) ROS Narrative System reviewed and no additional complaints, except as documented.
[2024-05-27] MEDS: 0.9% Normal Saline (1000mL) 1,000 ML 15 ML IV (16:10)
--- NOTE | 2024-05-27 17:39 | PN_ITS ---
Progress Note Patient has been n.p.o. for ERCP today. All questions concerns answered. Physical Exam Const alert, oriented x3, no apparent distress and healthy appearing General Appearance: cooperative GI normal to inspection, nondistended, normoactive bowel sounds, soft to palpation, non-tender and non-distended Percussion: normal to percussion Rectal Exam: deferred Assessment & Plan Assessment/Plan (1) Elevated LFTs: (2) Cholelithiasis: PLAN: Plan 73-year-old gentleman comes in with weakness, intermittent right upper quadrant pain and darkening urine. He was discovered to have cholestatic hepatitis with mild jaundice. He has not started on any new medicines. He has no previous history of hepatitis. He is not receiving blood transfusions. He has no recent travel. He does not denies any recent upper respiratory symptoms. His imaging shows Large gallstone with wall echo shadow. No significant wall thickening. No pericholecystic fluid. Also his common bile duct diameter is 3 mm. Differential diagnosis does include viral hepatitis and nonviral hepatitis, autoimmune disease affecting the liver such as PBC, autoimmune hepatitis, IgG associated cholangiopathy with a current exacerbation. Also differential diagnosis does include medication induced cholestatic injury. Recommend MRCP and autoimmune labs. If patient's liver enzymes keep going up then he may need to undergo drainage procedure. 05/25/2024-cholestatic hepatitis with jaundice-his LFTs are improving. His CRP was elevated along with his LDH. That signifies liver injury. He has no pre- existing history of liver disease that he knows of. Awaiting MRCP. If he does undergo cholecystectomy then I would recommend liver biopsy to see if there is any signs of primary or secondary cholangitis in his hepatobiliary system. 05/26/2024- FINDINGS: LUNG BASES: Patchy opacities in the lung base, compatible with atelectasis.. Visualized mediastinum is unremarkable. LIVER: Normal in size. No masses GALLBLADDER: Diffuse cholelithiasis. No evidence of intrahepatic or extrahepatic ductal dilatation. The common bile duct measures 8 mm. Filling defect within the distal common bile duct, just distal to the ampulla (series 11, image 5, series 10 image 17) PANCREAS: No ductal dilation. Homogeneous signal intensity. No suspicious mass. SPLEEN: Normal. No masses. ADRENAL GLANDS: Normal. No masses. KIDNEYS: Normal. No masses. No hydronephrosis. VASCULAR: The abdominal aorta is normal in caliber. LYMPHATICS: No abnormal adenopathy. GASTROINTESTINAL: Stomach is unremarkable. No bowel dilation. Colonic diverticulosis. No significant wall thickening. BONES: Mild degenerative changes of the lumbar spine. SOFT TISSUE: Normal. MRI/MRCP Abdomen without Contrast IMPRESSION: Cholelithiasis with distal common bile duct filling defect, concerning for choledocholithiasis. Patient will need to undergo ERCP with stone removal tomorrow. Patient can have breakfast tomorrow but he should be n.p.o. after breakfast. 05/27/2024-patient will undergo ERCP with stent placement. Talk with surgery and he will have cholecystectomy as an outpatient. Visit Charges Inpatient E&M: 04455 Subs Hosp L3
--- NOTE | 2024-05-27 18:30 | RAD_ITS ---
EXAM: ERCP. CLINICAL HISTORY: ERCP. COMPARISON: CT of the abdomen/pelvis with IV contrast dated 05/24/2024. TECHNIQUE: 7 ERCP images are provided for evaluation. FINDINGS: Limited examination. Please see the [facility] GI service. Initial imaging demonstrates wire and possibly stent within the pancreatic duct as well as the common bile duct in a kissing fashion. The stent appeared to portably draining into the duodenum. Correlate clinically. RAD/ERCP Biliary/Pancreas IMPRESSION: Limited examination. Correlate clinically. Reading Location: [id number]
--- NOTE | 2024-05-27 19:12 | OP.ERCP_ITS ---
Patient Name: Amauri Perez Procedure Date: 05/27/2024 6:29 PM Date of : 1950 Age: 73 Procedure: ERCP Indications: Common bile duct stone(s), Abdominal pain of suspected biliary origin, Jaundice, Elevated liver enzymes Providers: Zachary Mijares DO Medicines: General Anesthesia Patient Profile: This is a 73 year old male. Refer to note in patient chart for documentation of history and physical. Patient has symptoms of acute right upper quadrant abdominal pain and acute jaundice. This patient has no history of previous ERCP. This patient has no history of surgical alteration of the upper digestive tract anatomy. Complications: No immediate complications. Procedure: Pre-Anesthesia Assessment: - Prior to the procedure, a History and Physical was performed, and patient medications and allergies were reviewed. The patient is competent. The risks and benefits of the procedure and the sedation options and risks were discussed with the patient. All questions were answered and informed consent was obtained. Patient identification and proposed procedure were verified by the physician in the pre-procedure area. Mental Status Examination: alert and oriented. Airway Examination: normal oropharyngeal airway and neck mobility. Respiratory Examination: clear to auscultation. CV Examination: normal. Prophylactic Antibiotics: The patient does not require prophylactic antibiotics. Prior Anticoagulants: The patient has taken no anticoagulant or antiplatelet agents except for NSAID medication. ASA Grade Assessment: II - A patient with mild systemic disease. After reviewing the risks and benefits, the patient was deemed in satisfactory condition to undergo the procedure. The anesthesia plan was to use general anesthesia. Immediately prior to administration of medications, the patient was re-assessed for adequacy to receive sedatives. The heart rate, respiratory rate, oxygen saturations, blood pressure, adequacy of pulmonary ventilation, and response to care were monitored throughout the procedure. The physical status of the patient was re-assessed after the procedure. After obtaining informed consent, the scope was passed under direct vision. Throughout the procedure, the patient's blood pressure, pulse, and oxygen saturations were monitored continuously. The Duodenoscope was introduced through the mouth, and advanced to the duodenum and used to inject contrast into the bile duct and ventral pancreatic duct. The ERCP was accomplished without difficulty. The patient tolerated the procedure well. Scope In: 6:32:22 PM Scope Out: 7:01:15 PM Total Procedure Duration Time 0 hours 28 minutes 53 seconds Findings: The rigging loft repairer film was normal. The scope was advanced to a normal major papilla in the descending duodenum. Examination of the pharynx, larynx and associated structures, and upper GI tract was normal. The minor papilla was not found. The ventral pancreatic duct was deeply cannulated with the short-nosed traction sphincterotome. Contrast was injected. I personally interpreted the pancreatic duct images. There was brisk flow of contrast through the ducts. Image quality was adequate. Contrast extended to the pancreatic duct. Opacification of the entire pancreatic ductal system was successful. The maximum diameter of the ducts was 4 mm. The entire opacified area was normal. A long 0.025 inch Jagwire was passed into the ventral pancreatic duct. A 5 mm ventral pancreatic sphincterotomy was made with a braided traction (standard) sphincterotome using ERBE electrocautery. There was no post-sphincterotomy bleeding. To find object(s) the ventral pancreatic duct was swept with a 6 mm balloon starting at the pancreatic duct in the body of the pancreas. Nothing was found. One 5 Fr by 7 cm temporary stent was placed 5 cm into the ventral pancreatic duct. Clear fluid flowed through the stent. The stent was in good position. The bile duct was deeply cannulated with the short-nosed traction sphincterotome. Contrast was injected. Opacification of the entire biliary tree except for the cystic duct and gallbladder, entire opacified area, common bile duct, common hepatic duct, hepatic duct bifurcation and left and right hepatic ducts and all intrahepatic branches was successful. The maximum diameter of the ducts was 8 mm. The lower third of the main bile duct contained one stone, which was 6 mm in diameter. The common bile duct was diffusely dilated, with a stone causing an obstruction. The largest diameter was 5 mm. A long 0.025 inch Jagwire was passed into the biliary tree. A 5 mm biliary sphincterotomy was made with a braided traction (standard) sphincterotome using ERBE electrocautery. There was no post-sphincterotomy bleeding. The biliary tree was swept with a 12 mm balloon starting at the upper third of the main bile duct, middle third of the main bile duct, lower third of the main duct, left intrahepatic duct(s) and left main hepatic duct. Sludge was swept from the duct. All stones were removed. Impression: - The common bile duct was dilated, with a stone causing an obstruction. - Choledocholithiasis was found. Complete removal was accomplished by biliary sphincterotomy and balloon extraction. - A pancreatic sphincterotomy was performed. - The ventral pancreatic duct was swept and nothing was found. - One temporary stent was placed into the ventral pancreatic duct. - A biliary sphincterotomy was performed. - The biliary tree was swept. Procedure Code(s): --- Professional --- 99187, Endoscopic retrograde cholangiopancreatography (ERCP); with placement of endoscopic stent into biliary or pancreatic duct, including pre- and post-dilation and guide wire passage, when performed, including sphincterotomy, when performed, each stent [id number], 51, Endoscopic retrograde cholangiopancreatography (ERCP); with removal of calculi/debris from biliary/pancreatic duct(s) 62900, 59, Endoscopic retrograde cholangiopancreatography (ERCP); with sphincterotomy/papillotomy 07589, 26, Endoscopic catheterization of the pancreatic ductal system, radiological supervision and interpretation CPT copyright 2021 [employer]. All rights reserved. The codes documented in this report are preliminary and upon chainstitch elastic attacher review may be revised to meet current compliance requirements. Zachary Mijares DO 05/27/2024 7:11:43 PM This report has been signed electronically. Number of Addenda: 0 Note Initiated On: 05/27/2024 6:29 PM
--- NOTE | 2024-05-27 19:12 | OP.CCLET_ITS ---
05/27/2024 [facility] Re : ERCP procedure for [facility] This procedure was performed on May. My impressions and recommendations are as follows: Impressions : - The common bile duct was dilated, with a stone causing an obstruction. - Choledocholithiasis was found. Complete removal was accomplished by biliary sphincterotomy and balloon extraction. - A pancreatic sphincterotomy was performed. - The ventral pancreatic duct was swept and nothing was found. - One temporary stent was placed into the ventral pancreatic duct. - A biliary sphincterotomy was performed. - The biliary tree was swept. Recommendations : My findings are described in the full procedure note, which is enclosed. If I can be of further assistance, please feel free to contact me at . Sincerely, Zachary Mijares, 05/27/2024 7:11:43 PM This report has been signed electronically.
--- NOTE | 2024-05-27 19:17 | PCM.POST.ANE ---
Anesthesia: Postop Eval I Current Vital Signs Temperature: 97 F Pulse Rate: 77 Blood Pressure: 132/86 Respiratory Rate: 16 Pulse Ox: 94 Oxygen Delivery Method: Room Air Assessment Airway patent: Yes Spontaneous unlabored respirations: Yes Mental status: Awake and Calm nausea: No Vomiting: No Anesthesia Complication: No Fluid Hydration Crystalloid volume administer (ml): 500 Total IV fluid infused: 500 Progress Note Anesthesia document: Postop Eval 1 completed: Yes
[2024-05-27] MEDS: Tamsulosin HCl 0.4 MG Capsule PO (22:23)
[2024-05-27] MEDS: 0.9% Saline Lock 10 ML Syringe IV (22:23)
--- NOTE | 2024-05-27 22:32 | PCM.POSTANE2 ---
Anesthesia Postop Eval I Sum Postop Eval Completion status Anesthesia document: Postop Eval 1 completed: Yes Anesthesia Postop Eval I Summary Anesthesia Postop Eval I Summary: Anesthesia Postop Eval I: Assessment Summary Airway patent Yes 05/27/24 19:20 Spontaneous unlabored Yes 05/27/24 19:20 respirations Mental status Awake,Calm 05/27/24 19:20 nausea No 05/27/24 19:20 Vomiting No 05/27/24 19:20 Anesthesia Postop Eval I: Fluid Summary Crystalloid volume administer 500 05/27/24 19:20 (ml) Colloids volume administered ( ml) Blood Product volume administered (ml) Total IV fluid infused 500 05/27/24 19:20 Anesthesia Postop Eval I: Summary Notes Anesthesia Complication No 05/27/24 19:20 Anesthesia Complication Comment: Post-operative progress note Anesthesia: Postop Eval II Evaluation Mental status: Awake and Calm Pain Level: 0 nausea: No Vomiting: No Complications Anesthesia Complication: No
[2024-05-28 00:09] VITALS: BP 130/78; PULSE 67; RESP 16; TEMP 36.7; O2SAT 94
[2024-05-28 04:08] VITALS: BP 116/71; PULSE 64; RESP 18; TEMP 36.6; O2SAT 94
[2024-05-28] MEDS: Levothyroxine 125 MCG Tablet PO (06:07)
--- NOTE | 2024-05-28 06:52 | PN.HOSP_ITS ---
Reason for Visit Reason for Visit: Diagnoses Calculus of gallbladder without cholecystitis without obstruction (05/24/24) Unspecified jaundice (05/24/24) Other specified abnormal findings of blood chemistry (05/24/24) Subjective Subjective Feeling well. No events. Objective Data Objective Data Vital Signs: Vital Signs Temp Pulse Resp BP Pulse Ox O2 Del Method 36.6 C 64 18 116/71 94 Room Air 05/28/24 04:08 05/28/24 04:08 05/28/24 04:08 05/28/24 04:08 05/28/24 04:08 05/28/24 04:08 Oxygen Delivery Method Room Air Weight: 101.7 kg Body Mass Index (BMI) 30.4 Intake & Output: Intake and Output for Last 24 Hours 05/26/24 05/27/24 05/28/24 23:59 23:59 23:59 Intake Total 500 / 500 400 / 400 Balance 500 / 500 400 / 400 Lab / Micro Data 05/26/24 04:36 05/27/24 03:49 Radiography Diagnostic Testing: Radiology Impression Endo Retro Cholangiopancreatogram 05/27/24 18:30 IMPRESSION: Limited examination. Correlate clinically. Reading Location: [facility] Physical Exam Const alert and no apparent distress Constitutional Narrative: up in chair. afebrile. Resp normal respiratory effort and no retractions Assessment & Plan Assessment/Plan (1) Jaundice: PLAN: Looks more like choledocholthiasis given MRCP findings. Bilirubin 1.85 on admission, down to 0.88 today. Previously was normal (0.5). Along with transaminitis (which has essentially improving) CT showed hepatomegaly with fatty infiltration. US showed hepatic steatosis w/o focal lesion. MRCP showed cholelithiasis w distal CBD filing defect, concerning for choledocholithiasis. GI consult. General surgery on consult. Although high LDH and bilirubin, doubt hemolytic anemia given normal, stable hemoglobin. Haptoglobin ordered, but is a send out test and results won't be readily available. Additional ordered tests: RITA, ASmA, CA19-9, ceruloplasmin, CMV, EBV, copper, acute hep panel, MIRACLE, IgG, GAME Igs ERCP: removal of choledocholithiasis. Sphincterotmy performed. PLAN: Plan Chronic conditions: * hypothyroidism: levothyroxine * BPH: tamsulosin * h/o VTE: apixaban dc'd in March. VTE prophylaxis: SCDs.
--- NOTE | 2024-05-28 07:33 | PN_ITS ---
Progress Note Patient had ERCP yesterday with stone removal and stent placement. I gave the patient my card today. He will follow-up with me and we will schedule elective cholecystectomy. Erik Hernandez MD Pager: [facility] [address] [place] [address] Office:
--- NOTE | 2024-05-28 07:33 | PCM.PN.BLA ---
Progress Note Patient had ERCP yesterday with stone removal and stent placement. I gave the patient my card today. He will follow-up with me and we will schedule elective cholecystectomy. Erik Hernandez MD Pager: [facility] [address] [place] [address] Office:
--- NOTE | 2024-05-28 09:20 | DS.PCM_ITS ---
Providers Date of Admission: 05/24/24 Primary Care Physician: [facility] Consultations 05/24/24 20:59 Consult: Gastroenterology Routine Consulting Provider: [facility] Reason for Consult: abn bili and lfts EMERGENT Consult: No MD Notified: Yes Date Notified: 05/24/24 Time Notified: 21:03 Method of Notification: ED Physician Initiated Reason For Visit: JAUNDICE Diagnosis Discharge Diagnosis (1) Jaundice: Status: Acute Code(s): R17 - Unspecified jaundice Plan: Looks more like choledocholthiasis given MRCP findings. Bilirubin 1.85 on admission, down to 0.88 today. Previously was normal (0.5). Along with transaminitis (which has essentially improving) CT showed hepatomegaly with fatty infiltration. US showed hepatic steatosis w/o focal lesion. MRCP showed cholelithiasis w distal CBD filing defect, concerning for choledocholithiasis. GI consult. General surgery on consult. Although high LDH and bilirubin, doubt hemolytic anemia given normal, stable hemoglobin. Haptoglobin ordered, but is a send out test and results won't be readily available. Additional ordered tests: RITA, ASmA, CA19-9, ceruloplasmin, CMV, EBV, copper, acute hep panel, MIRACLE, IgG, GAME Igs ERCP: removal of choledocholithiasis. Sphincterotmy performed. Plan Chronic conditions: * hypothyroidism: levothyroxine * BPH: tamsulosin * h/o VTE: apixaban dc'd in March. VTE prophylaxis: SCDs. Medications at Discharge Home Medications ezetimibe 10 mg tablet 10 mg PO DAILY 03/25/23 tamsulosin 0.4 mg capsule 0.4 mg PO QHS 03/25/23 finasteride 5 mg tablet 5 mg PO DAILY 05/24/24 levothyroxine 125 mcg tablet 125 mcg PO DAILY 05/24/24 apixaban 2.5 mg tablet (Eliquis) 2.5 mg PO BID blood thinner 05/27/24 Hospital Course Operations None Procedures - (ERCP) Summary of Care Provided Hospital Course: Patient presents with jaundice. Patient was asymptomatic but had been feeling unwell days prior. Coworkers and noted that his eyes appear to be yellow and sent to the emergency room. His total bilirubin was noted to be elevated at 1.85. CT showed Pado megaly and fatty infiltration, bilateral inguinal hernias and noted no calcified stones in the gallbladder. MRCP showed cholelithiasis with common bile duct feeling defect, concerning for choledocholithiasis. Patient underwent an ERCP on the that noted that the common duct was dilated with a stone causing obstruction. Choledocholithiasis was found. Clear removal was performed. Pancreatic enterotomy was performed. Temporary stent placed in the ventral pancreatic duct. Patient tolerated procedure well and patient will be discharged home. Patient was additionally seen by Dr. Hernandez of general surgery who will follow-up with the patient in a couple weeks to see about getting his gallbladder removed. Weight / BMI Weight Weight: 101.7 kg Body Mass Index (BMI) 30.4 ABG / Lab / Microbiology Data 05/26/24 04:36 05/27/24 03:49 Radiography Diagnostic Testing: Radiology Impression Endo Retro Cholangiopancreatogram 05/27/24 18:30 IMPRESSION: Limited examination. Correlate clinically. Reading Location: [id number] D/C Instructions Discharge Diet: No restrictions DC O2, CPAP, BIPAP Needs Home O2 Discharge instructions: No Meaningful Use Info Meaningful Use Meaningful Use Diagnoses (Choose all that apply): None applicable Ischemic Stroke Statin Dosing Therapy Reference: STATIN DOSE THERAPY REFERENCE: * Patients > 75 years receive moderate or high dose statin therapy. * Patients 75 years or YOUNGER should receive HIGH intensity statin dose unless contraindicated. You will be required to document reason for non-treatment if statin daily dose does not meet guidelines. HIGH DOSE STATIN THERAPY DAILY Atorvastatin > than or = to 40 mg Rosuvastatin > than or = to 20 mg Amlodipine + Atorvastatin > than or = to 2.5/40 mg Ezetimibe + Simvastatin 10/80 mg Simvastatin 80mg Discharge Plan Admission Admit Date/Time: 05/24/24 19:49 Primary Reason for Your Visit: jaundice Attending Provider: Arnaldo Ulloa Primary Care Provider: [facility] Consulting Providers: Mya Galicia Instructions Additional Instructions / Restrictions: You had jaundice due to gallstones being in your bile duct. Dr. Mijares of gastroenterology had those removed. You unfortunate still have more gallbladders stones which is why we recommend that you follow-up general surgery to have your gallbladder removed. Discharge Orders/Prescriptions Prescriptions: Continued ezetimibe 10 mg tablet 10 mg PO DAILY tamsulosin 0.4 mg capsule 0.4 mg PO QHS levothyroxine 125 mcg tablet 125 mcg PO DAILY finasteride 5 mg tablet 5 mg PO DAILY Eliquis 2.5 mg tablet 2.5 mg PO BID Discontinued Eliquis 2.5 mg tablet 2.5 mg PO BID Referrals / Follow Up: Erik Hernandez MD [Med Staff - Active Staff] - [facility] [Primary [facility] - 1 Week Disposition Disposition (needs filled in before D/C Order can be placed): Home, Self Care Charges/Coding Visit Charges Inpatient E&M: 71420 Disch Hosp
[2024-05-28 10:30] VITALS: BP 119/76; PULSE 61; RESP 16; TEMP 36.6; O2SAT 96
== END 2024-05-28 11:01 | disposition home or self-care (01) | DRG 445 ==
LOC: ED 18:29 → MS3 18:37
PROVIDERS: Internal Medicine Gastroenterology; Admitting Provider Internal Medicine; Emergency Provider Emergency Medicine
PROC: 0FC98ZZ Extirpation of Matter from Common Bile Duct, Via Natural or Artificial Opening Endoscopic (ICD-10-PCS; CPT 43260; principal; 2024-05-27 16:40)
DX: K80.71 Calculus of gallbladder and bile duct without cholecystitis with obstruction (principal); R17 Unspecified jaundice; N13.8 Other obstructive and reflux uropathy; K75.89 Other specified inflammatory liver diseases; E03.9 Hypothyroidism, unspecified; K76.0 Fatty (change of) liver, not elsewhere classified; E78.00 Pure hypercholesterolemia, unspecified; K83.8 Other specified diseases of biliary tract; F10.90 Alcohol use, unspecified, uncomplicated; K40.20 Bilateral inguinal hernia, without obstruction or gangrene, not specified as recurrent; K57.30 Diverticulosis of large intestine without perforation or abscess without bleeding; K80.51 Calculus of bile duct without cholangitis or cholecystitis with obstruction; R79.89 Other specified abnormal findings of blood chemistry; Z79.01 Long term (current) use of anticoagulants; Z86.16 Personal history of COVID-19; Z79.890 Hormone replacement therapy; Z80.0 Family history of malignant neoplasm of digestive organs; N40.1 Benign prostatic hyperplasia with lower urinary tract symptoms; Z79.899 Other long term (current) drug therapy; Z86.711 Personal history of pulmonary embolism
CPT/HCPCS: 36415; 74177; 74181; 74330; 76000; 76705; 80053; 80074; 80143; 81001; 82390; 82525; 82728; 82784; 82785; 82787; 83010; 83516; 83540; 83550; 83615; 84165; 84443; 85025; 85610; 85652; 85730; 86140; 86225; 86235; 86301; 86334; 86645; 86664; 86665; 93005; 99283; C2625; Q9967; A4216; J2405

== ENCOUNTER → 2024-06-15 | Outpatient (CLI) | payer MEDICARE, SELFPAY ==
[2024-06-17 08:09] LABS: Carbohydrate Ag 19-9 2261 8 U/mL (0-35)
== END | disposition home or self-care (01) ==
PROVIDERS: Referring Provider Internal Medicine Gastroenterology; Visit Provider Internal Medicine Gastroenterology
DX: R97.8 Other abnormal tumor markers (principal)
CPT/HCPCS: 36415; 86301

== ENCOUNTER 2024-07-01 05:41 | Day surgery (SDC) | payer OTHER, SELFPAY ==
--- NOTE | 2024-06-22 12:49 | EKG12_ITS ---
Test Reason : PRE OP Blood Pressure : */* mmHG Vent. Rate : 78 BPM Atrial Rate : 78 BPM P-R Int : 128 ms QRS Dur : 74 ms QT Int : 372 ms P-R-T Axes : 29 -11 -26 degrees QTcB Int : 424 ms Normal sinus rhythm Nonspecific T wave abnormality Abnormal ECG Confirmed by ANABELLA ECHEVERRIA MD ([id number]), publication editor LUIS E REYNAGA ([id number]) on 06/23/2024 7:56:37 AM Referred By: Erik Hernandez Confirmed By: ANABELLA ECHEVERRIA MD
[2024-06-22 14:29] LABS: Thyroid Stim Hormone (TSH) 0.243 uIU/mL (0.300-4.200)
--- NOTE | 2024-06-23 10:55 | PAT.ANE_ITS ---
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 When Was Last Pacemaker Check QUESTION #4 FULL TEXT: You/Your Family Experience fever (hyperthermia) with Anesthesia Last Oral Intake Last Oral intake: Last Oral Intake NPO since Meds taken in AM with sips of water? Meds patient instructed to take am of surgery PONV PONV - senior cyber security analyst: PONV - senior cyber security analyst Female No 06/17/24 13:08 HX of Motion Sickness No 06/17/24 13:08 HX of N/V After Surgery No 06/17/24 13:08 Non-Smoker Yes 06/17/24 13:08 Duration of Surgery greater Yes 06/17/24 13:08 than 60 minutes Number of Risk Factors 2 06/17/24 13:08 PONV Score Moderate Risk 06/17/24 13:08 Height & Weight Height & Weight: Anesthesia: Height & Weight Height 6 ft 06/15/24 12:57 Respiratory Assessment Respiratory Assessment - senior cyber security analyst: Respiratory Tract Infection Hx - senior cyber security analyst Hx Respiratory Tract Infection No 06/17/24 13:08 STOP Sleep Apnea STOP Sleep Apnea - senior cyber security analyst: STOP Sleep Apnea - senior cyber security analyst Hx Hypertension No 06/17/24 13:08 Hx Sleep Apnea No 06/17/24 13:08 CPAP BIPAP Do you snore loudly (louder No 06/17/24 13:08 than talking or can be heard Do you often feel tired/ No 06/17/24 13:08 fatigued/ sleepy during daytime? Has anyone observed you stop No 06/17/24 13:08 breathing during sleep? STOP Results Negative 06/17/24 13:08 QUESTION #5 FULL TEXT : Do you snore loudly (louder than talking or can be heard through closed doors)? Tobacco Use History Tobacco Use History - senior cyber security analyst: Tobacco Use History - senior cyber security analyst Tobacco Use Non-smoker 06/30/20 21:27 Smoking Status Never smoker 06/17/24 13:08 Hx Tobacco Use No 06/17/24 13:08 Years Smoking Packs Smoked per Day Smoking Cessation Date was within the last 15 years Hx Smoking Cessation Date Hx Smoking Cessation Counseling Hematologic Medial History Hematologic Hx - senior cyber security analyst: Hematologic Medical Hx - roll coverer Hx of Blood Transfusion No 06/17/24 13:08 Hx of Transfusion in last 3 No 06/17/24 13:08 Months Date of Last Transfusion (if within last 3 months) Ever experience any problems No 06/17/24 13:08 with transfusion(s)? Specify any problems Hx of Preganancy in last 3 N/A 06/17/24 13:08 Months Nurse Filling Out Transfusion DSCHRIBER 06/17/24 13:08 & Questions: Date: 06/17/24 06/17/24 13:08 Time: 13:09 06/17/24 13:08 Patient unable to answer at this time (ie. confused, unrespo /Reproduction History /Reproductive History - senior cyber security analyst: /Reproductive Hx- senior cyber security analyst Hx Now No 06/17/24 13:08 Gestational Age (in weeks): EDC: Hx Hx Para Hx Section SAB No 06/17/24 13:08 Active Medications Active Medications: Current Medications Generic Name Dose Route Start Last Admin Trade Name Freq PRN Reason Stop Dose Admin Indocyanine Green 3.75 mg/ N/A 1.5 mls @ 999 mls/hr 07/01/24 06:45 IV 07/01/24 06:46 PREOP ONE [facility] Medical History (Updated 06/17/24 @ 13:15 by Mercedes Almanza) Wears glasses Prostate disease High cholesterol Heartburn Non-smoker Shortness of breath on exertion Leg cramps History of echocardiogram Gallbladder problem Deep vein thrombosis (DVT) of femoral vein of right lower extremity History of pulmonary embolus (PE) DVT (deep venous thrombosis) Hypothyroidism Home Medications ?Medication ?Instructions ?Recorded ?Last Taken ?Type ezetimibe 10 mg tablet 10 mg PO DAILY 03/25/23 03/06/25 History tamsulosin 0.4 mg capsule 0.4 mg PO QHS 03/25/2305/23 History finasteride 5 mg tablet 5 mg PO DAILY 05/24/2405/24 History levothyroxine 125 mcg tablet 125 mcg PO DAILY 05/24/24 05/24/24 History apixaban 2.5 mg tablet (Eliquis) 2.5 mg PO BID blood t hinner 05/27/24 05/24/24 History Allergy/AdvReac Type Severity Reaction Status Date / Time No Known Allergies Allergy Verified 06/17/24 13:04 Family History Mother Colon cancer Surgical History (Updated 06/17/24 @ 13:15 by Mercedes Almanza) Hx of oral surgery History of ERCP Hx of colonoscopy History of bunionectomy Social History Smoking Status: Never smoker alcohol intake: current alcohol intake frequency: a few times a week caffeine: Yes Audit: Pertinent Findings Pertinent Findings EKG Perinent findings: 06/22/2024. Normal sinus rhythm 78 bpm. Nonspecific T wave abnormality. Echo (EF%) pertinent findings: 07/01/2020. EF 55 to 60%. Normal left ventricular systolic function. Recommendation Anesthesia Recommendation Anesthesia recommendation: OPTIMIZED for anesthesia
[2024-07-01] VITALS (11 sets, daily range): BP systolic 132–148; BP diastolic 81–92; PULSE 56–80; RESP 16–18; TEMP 36.3–36.6; O2SAT 93–100; BMI 30.6
[2024-07-01] MEDS: Lactated Ringers 1,000 ML 15 ML IV (06:22)
[2024-07-01] MEDS: INDOCYANINE GREEN 3.75 MG in Syringe 1.5 ML 999 MG IV (06:30)
--- NOTE | 2024-07-01 06:30 | RAD_ITS ---
EXAM: Lap nika with intraop cholangiogram. CLINICAL HISTORY: Lap nika with intraop cholangiogram. COMPARISON: Images from the ERCP dated 05/27/2024. TECHNIQUE: Limited C-arm images from an intraoperative cholangiogram was provided. FINDINGS: Examination is essentially nondiagnostic. Please see surgical dictation. There are filling defects within what appears to be the biliary tree. This may be gas versus stones. Correlate clinically. A plastic stent is present. Its location is difficult to determine. Surgical instruments are present. RAD/Cholangiogram/ O R,Initial IMPRESSION: Limited examination. Please see surgical notes. Reading Location: [id number]
--- NOTE | 2024-07-01 06:57 | PRE.ANES_ITS ---
ASA Classification* ASA Classification ASA Classification: 3 Assessment & Plan Anesthesia* Anesthesia Assessment Anesthesia Assessment: Discussed sedation and/or anesthesia options, risks, benefits, and alternatives with patient/parents/legal guardian/POA. Questions invited. The patient/parents/legal guardian/POA seems to understand and agrees to proceed with anesthesia plan. Reviewed the physical assessment, medical history, allergy history and patient home medications list prior to surgery/procedure/anesthetic and documented any changes. Performed airway and anesthesia risk assessments. Anesthesia Type Anesthesia Type: General Anesthesia Focused Assessment* Temperature: 97.6 F Pulse Rate: 56 Blood Pressure: 143/85 Respiratory Rate: 16 Pulse Ox: 100 Oxygen Delivery Method: Room Air Airway Assessment Mouth opens: >3 cm Mallampati Score: III Teeth Condition: Intact Neck Range of motion (ROM): Full ROM Focused Labs Anesthesia Preop lab: CBC WBC 7.9 K/mm3 (4.4-11.0) 05/26/24 04:36 05/26/24 RBC 4.72 M/mm3 (4.6-6.2) 05/26/24 04:36 05/26/24 Hgb 14.5 g/dL (13.0-16.5) 05/26/24 04:36 05/26/24 Hct 43.6 % (40-54) 05/26/24 04:36 05/26/24 Plt Count 247 K/mm3 (150-450) 05/26/24 04:36 05/26/24 CHEMISTRY Potassium 3.6 mmol/L (3.3-5.1) 05/27/24 03:49 05/27/24 Sodium 142 mmol/L (133-145) 05/27/24 03:49 05/27/24 Magnesium 2.5 mg/dL (1.6-2.6) 06/30/20 17:03 06/30/20 BUN 18 mg/dL (4-19) 05/27/24 03:49 05/27/24 Creatinine 1.03 mg/dL (0.70-1.20) 05/27/24 03:49 05/27/24 Glucose 110 mg/dL (70-99) H 05/27/24 03:49 05/27/24 TSH 0.243 uIU/mL (0.300-4.200) L 06/22/24 13:03 COAG PT 15.0 SECONDS (11.7-14.9) H 05/24/24 15:38 05/02 06/25 Pre-Assessment Diagnosis/Proposed Procedure Planned Operative Procedure(s): ROBOTIC LAP CHOLEY WITH IOC Anesthesia History 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 When Was Last Pacemaker Check QUESTION #4 FULL TEXT: You/Your Family Experience fever (hyperthermia) with Anesthesia Last Oral Intake Last Oral intake: Last Oral Intake NPO since 20:30 07/01/24 06:14 Meds taken in AM with sips of Yes 07/01/24 06:14 water? Meds patient instructed to take am of surgery PONV PONV - fibre composite technician: PONV - fibre composite technician Female No 06/17/24 13:08 HX of Motion Sickness No 06/17/24 13:08 HX of N/V After Surgery No 06/17/24 13:08 Non-Smoker Yes 06/17/24 13:08 Duration of Surgery greater Yes 06/17/24 13:08 than 60 minutes Number of Risk Factors 2 06/17/24 13:08 PONV Score Moderate Risk 06/17/24 13:08 Height & Weight Height & Weight: Anesthesia: Height & Weight Height 6 ft 07/01/24 06:14 Weight: 102.512 kg 07/01/24 06:14 Body Mass Index (BMI) 30.6 07/01/24 06:14 Respiratory Assessment Respiratory Assessment - fibre composite technician: Respiratory Tract Infection Hx - fibre composite technician Hx Respiratory Tract Infection No 06/17/24 13:08 STOP Sleep Apnea STOP Sleep Apnea - fibre composite technician: STOP Sleep Apnea - fibre composite technician Hx Hypertension No 06/17/24 13:08 Hx Sleep Apnea No 06/17/24 13:08 CPAP BIPAP Do you snore loudly (louder No 06/17/24 13:08 than talking or can be heard Do you often feel tired/ No 06/17/24 13:08 fatigued/ sleepy during daytime? Has anyone observed you stop No 06/17/24 13:08 breathing during sleep? STOP Results Negative 06/17/24 13:08 QUESTION #5 FULL TEXT : Do you snore loudly (louder than talking or can be heard through closed doors)? Tobacco Use History Tobacco Use History - fibre composite technician: Tobacco Use History - fibre composite technician Tobacco Use Non-smoker 06/30/20 21:27 Smoking Status Never smoker 06/17/24 13:08 Hx Tobacco Use No 06/17/24 13:08 Years Smoking Packs Smoked per Day Smoking Cessation Date was within the last 15 years Hx Smoking Cessation Date Hx Smoking Cessation Counseling Hematologic Medial History Hematologic Hx - fibre composite technician: Hematologic Medical Hx - engineering design manager Hx of Blood Transfusion No 06/17/24 13:08 Hx of Transfusion in last 3 No 06/17/24 13:08 Months Date of Last Transfusion (if within last 3 months) Ever experience any problems No 06/17/24 13:08 with transfusion(s)? Specify any problems Hx of Preganancy in last 3 N/A 06/17/24 13:08 Months Nurse Filling Out Transfusion DSCHRIBER 06/17/24 13:08 & Questions: Date: 06/17/24 06/17/24 13:08 Time: 13:09 06/17/24 13:08 Patient unable to answer at this time (ie. confused, unrespo /Reproduction History /Reproductive History - fibre composite technician: /Reproductive Hx- fibre composite technician Hx Now No 06/17/24 13:08 Gestational Age (in weeks): EDC: Hx Hx Para Hx Section SAB No 06/17/24 13:08 Active Medications Active Medications: Current Medications Generic Name Dose Route Start Last Admin Trade Name Freq PRN Reason Stop Dose Admin Cefazolin Sodium 2 gm/ Sodium 110 mls @ 150 mls/hr 07/01/24 07:30 Chloride IV 07/01/24 08:13 INTRAOP ONE Lactated Ringer's 1,000 mls @ 15 mls/hr 07/01/24 06:00 05/01/25 06:22 IV 15 mls/hr .Q48H EDGARDO Administration PFSH Medical History Wears glasses Prostate disease High cholesterol Heartburn Non-smoker Shortness of breath on exertion Leg cramps History of echocardiogram Gallbladder problem Deep vein thrombosis (DVT) of femoral vein of right lower extremity History of pulmonary embolus (PE) DVT (deep venous thrombosis) Hypothyroidism Home Medications ?Medication ?Instructions ?Recorded ?Last Taken ?Type ezetimibe 10 mg tablet 10 mg PO DAILY 03/25/23 04/10/25 History tamsulosin 0.4 mg capsule 0.4 mg PO QHS 03/25/2306/28 History finasteride 5 mg tablet 5 mg PO DAILY 05/24/2406/28 History levothyroxine 125 mcg tablet 125 mcg PO DAILY 05/24/24 07/01/24 04:30 History apixaban 2.5 mg tablet (Eliquis) 2.5 mg PO BID blood t hinner 05/27/24 06/28/24 History Allergy/AdvReac Type Severity Reaction Status Date / Time No Known Allergies Allergy Verified 07/01/24 06:06 Family History Mother Colon cancer Surgical History Hx of oral surgery History of ERCP Hx of colonoscopy History of bunionectomy Social History Smoking Status: Never smoker alcohol intake: current alcohol intake frequency: a few times a week caffeine: Yes Review of Systems (Anesthesia) ROS Narrative System reviewed and no additional complaints, except as documented.
--- NOTE | 2024-07-01 07:09 | PCM.HP.BLA ---
History and Physical Date of Admission: 07/01/24 Intake Vital Signs 05/25/2519:43 06/16/2511:57 Height 6 ft 6 ft Weight: 232 lb BMI 31.4 BP 130/80 H Blood Pressure Location Rt brachial Position Sitting Respiration 18 Pulse 80 Pulse Source Monitor Temp 97.9 F Temp Source Temporal Pulse Oximetry (%) 100 Oxygen Delivery Method room air Intake Visit Reasons: GALLBLADDER Chief Complaint: gallbladder Is patient in pain?: No Allergies No Known Allergies Allergy (Verified 06/15/24 12:59) Medications ?Medication ?Instructions ?Recorded ?Confirmed ?Type ezetimibe 10 mg tablet 10 mg PO DAILY 03/25/23 06/15/24 History tamsulosin 0.4 mg capsule 0.4 mg PO QHS 03/25/23 06/15/24 History finasteride 5 mg tablet 5 mg PO DAILY 05/24/24 06/15/24 History levothyroxine 125 mcg tablet 125 mcg PO DAILY 05/24/24 06/15/24 History apixaban 2.5 mg tablet (Eliquis) 2.5 mg PO BID blood thinner 05/27/24 06/15/24 History Have you fallen in the past year?: No PFSH Medical History (Updated 06/15/24 @ 12:57 by Kaylan Wise LPN) Gallbladder problem Deep vein thrombosis (DVT) of femoral vein of right lower extremity History of pulmonary embolus (PE) DVT (deep venous thrombosis) Hypothyroidism Surgical History Hx of colonoscopy History of bunionectomy Family History Mother Colon cancer Social History Smoking Status: Never smoker alcohol intake: current alcohol intake frequency: a few times a week caffeine: Yes HPI HPI HPI: Patient is a 73-year-old male who was recently admitted. He was found to have choledocholithiasis and had an ERCP. He is here to discuss laparoscopic cholecystectomy. ROS General General: No weight change, appetite, fatigue, colon cancer, breast cancer or weakness HEENT HEENT: No difficulty swallowing, eye injury, eye surgery, swollen glands or hoarseness Endo Endocrine: Yes thyroid disease; No diabetes mellitus, thyroid cancer, Hair loss, heat intolerance or cold intolerance Skin Skin: No rash or changing moles Musc Musculoskeletal: No back problems, arthritis, rheumatoid arthritis, gout or joint pain Cardio Cardiovascular: No murmur, pacemaker, heart disease, atrial fibrillation, high blood pressure, heart attack, heart stent, palpitations, shortness of breath with exertion or chest pain Psych Psychiatric: No depression, anxiety or hearing voices Resp Respiratory: No shortness of breath, No sleep apnea, No cough, No COPD, No asthma, No emphysema and No wheezing Gastro Gastrointestinal: No abdominal pain, No nausea or vomiting, No diarrhea, No constipation, No blood in stool, No acid reflux, No hemorrhoids, No ulcers, Yes gallbladder problem and No black,tarry stools Kalyan Hematologic: Yes blood thinners, No blood disorders, No bleeding, No anemia and Yes blood clots Neuro Neurologic: No numbness, No tingling and No weakness Exam Const General: cooperative Orientation: alert and oriented x3 HENMT Head: normal to inspection Neck Neck: normal visual inspection and full ROM Chest Chest palpation & inspection: normal inspection of the chest Resp Effort & Inspection: normal respiratory effort Auscultation: clear to auscultation bilaterally Cardio Rate: regular rate Rhythm: regular rhythm GI Inspection: non-distended Palpation: soft and nontender Skin General: no rashes or lesions noted Neuro General: patient alert and patient oriented x3 Extrem General: full ROM Psych Appearance: grossly normal Mental Status: mental status grossly normal Assessment and Plan Assessment and Plan (1) Cholelithiasis: Status: Acute Plan: The patient has cholelithiasis and had choledocholithiasis. He underwent ERCP with stone removal. He is here now to discuss laparoscopic cholecystectomy to remove the gallbladder. I discussed the procedure in detail with the patient. I discussed the risks, benefits, and alternatives of the procedure. I discussed the risks including but not limited to bleeding, infection, injury to surrounding organs such as the liver, bile duct, bowels. I did discuss the possibility of having to convert to an open procedure as well as the possibility that if any injuries occurred this may necessitate further surgery at a tertiary care center. I will hold his Eliquis for 2 days prior to surgery. Erik Hernandez MD Pager: [facility] [address] [place] [address], [address] [place] [address] Office: I have examined the patient and the H&P has been reviewed. There are no clinical changes since date of exam.
[2024-07-01] MEDS: Cefazolin 2 GM in 0.9% Normal Saline (100mL Bag) 100 ML IV (07:30)
--- NOTE | 2024-07-01 07:30 | GALL_PTH ---
PATIENT: RACHEL FROST [place] [facility] [place][id number] AGE/SX: 73/M ROOM: RE07/01/[address]: Dr. Erik Hernandez MD : 1950 BED: DIS: 07/01/2024 SPEC #: [id number] RECD: 07/01/24 09:54 STATUS: RM DANITZA #: [id number] LORENA: 07/01/24 07:[address]: Erik Hernandez DEPT: SURGICAL PATHOLOGY RECD BY: Dejan Earl ENTERED: 07/01/24 10:44 SP TYPE: ALLEN CARRERA DR: [facility] Tissues: A - Gallbladder, NOS Procedures: Surgery Specimen Level III HEADER OPERATION: Robotic cholecystectomy with IOC PRE-OP DIAGNOSIS: Cholelithaisis TISSUE SUBMITTED: A- Gallbladder MICROSCOPIC DIAGNOSIS A. Gallbladder, cholecystectomy: * Acute on chronic cholecystitis with cholelithiasis. * Benign reactive lymph node x1. MICROSCOPIC DESCRIPTION Slides are reviewed. GROSS DESCRIPTION A. Received in formalin in a container labeled with the patient's name, date of , and gallbladder is a 13.5 x 4.1 x 3.5 cm intact cholecystectomy specimen. A clamped possible cystic duct margin is identified measuring 0.5 cm in length by 0.8 cm in diameter (inked black). Adjacent to the possible cystic duct is a 2.0 x 1.3 x 0.8 cm rubbery and antonio-pink periductal lymph node candidate. Sectioning reveals antonio-pink surfaces. The serosa is within normal limits and the specimen is opened to reveal a scant amount of thick red bile with an abundance of (greater than 20) firm, multifaceted, and speckled stones ranging from 0.7 to 3.7 cm in greatest dimension. The mucosa is red-antonio and moderately denuded with a wall thickness ranging from 0.2 to 0.5 cm. Final Finisher Forging Dies sections:A1. Possible cystic duct margin, en face with full-thickness sectionsA2. Periductal lymph node candidate, serially sectioned [facility] 07-01-2024 CPT:18463
[2024-07-01] MEDS: Bupivacaine Mpf 0.5% 30 ML VIAL (09:21)
--- NOTE | 2024-07-01 09:32 | OP.PCM_ITS ---
Operative Report (Standard) Operative Information Date of Procedure: 07/01/24 Pre-Operative Diagnosis: Choledocholithiasis Post-Operative Diagnosis: Same Surgery/Procedure Performed: Robotic assisted laparoscopic cholecystectomy with cholangiograms center medical and lab director: Yes Processor Helper: Lashell Ellsworth Tasks completed by material assistant: Opening and Closing Type of Anesthesia: General/Regional RN Documented Start/Stop Times: Operation Date: 07/01/24 07:30 Case Time Into Pre-Op 07/01/24 05:52 Anesthesia Start 07/01/24 07:24 Into Room 07/01/24 07:24 Out of Pre-Op 07/01/24 07:30 Procedure Start 07/01/24 07:44 Procedure Start Time: 07:44 Procedure Stop Time: 09:40 Select all DRAINS/GRAFTS/IMPLANTS that apply: None Estimated Blood Loss: 5 Specimen collected: Yes Description of specimen(s) removed: Gallbladder Description of surgery: Patient was brought to the operating room and general anesthesia was induced. The abdomen was prepped and draped in usual sterile fashion. A midline incision was made superior to the umbilicus and deepened the fascia which was elevated and a Veress needle was placed into the abdomen. Drop test was performed. Abdomen is insufflated to 15 mmHg. The Veress needle was removed and a port was placed. A camera was placed into the abdomen to inspect her injuries and there were none. Next under direct visualization an 8 mm port was placed in the right upper quadrant as well as left upper quadrant and left lateral abdomen. The robot was then docked. The patient had a very long large stone filled gallbladder. It was traced down to the infundibulum. Dissection was carried out and the cystic duct and cystic artery were identified. A clip was placed on the cystic artery. Next a clip was placed proximally on the cystic duct and an Angiocath was placed in the right upper quadrant. The catheter was placed through the Angiocath and a small dane was made in the cystic duct and the Angiocath was placed into the cystic duct. Cholangiograms were performed. The patient had bubbles or stones in the proximal gallbladder but contrast did flow through into the duodenum and around the stent. Next the catheter was removed and another 2 clips were placed on the cystic duct and it was divided. Another clip was placed on the cystic artery and it was divided. Electrocautery was used to take the gallbladder off the gallbladder fossa. There was some spillage of bile. The bile was suctioned and the gallbladder was taken off of the gallbladder fossa. It was placed into a bag. The midline incision had to be lengthened to get the gallbladder out as it was so large. It was reapproximated using interrupted [id number] 0 Vicryl sutures. The skin incisions were injected with local anesthetic and the skin incisions were closed with interrupted 4-0 Monocryl sutures. Steri-Strips and bandages were applied and patient was awoken and taken to PACU in stable condition. Surgical Findings: Large stone filled gallbladder Complications Complications: No Admit VTE Documentation VTE Mechan Device Prophylaxis: SCD's
--- NOTE | 2024-07-01 09:38 | EX.PCM.DISCH ---
Discharge Instructions Procedure Gallbladder Diet Discharge Diet: Light diet - advance as tolerated Activity Discharge Activity: May Not Drive (for 2-3 days or while taking narcotic pain medications.) and - (Do not drive, work heavy equipment or sign legal documents for 24 hours.) May shower in (days): 1 Lifting Restrictions: 20 lbs for 2 weeks Additional Activity Instructions:: Pain medication may cause nausea. You should typically eat light foods as you take your pain medications. Pain medication may also cause constipation. If this is a problem for you, please discuss with your doctor. Dressing / Incision Call your doctor if your incision/area has: Continuous Slow Oozing, Sudden Increased Bleeding, Increased Pain/ Swelling, Increased Redness and Foul Smelling Discharge Call your doctor if you observe: Fever of 101 or Higher Suture Line Care: Avoid Pulling/Pushing and Avoid Pinching/Bending Remove Dressing in: 2 days Additional Dressing/Incision Instructions:: Leave operative bandaids on for 2 days. When you remove dressing, leave Steri-Strips on until your follow-up appointment, or until the Steri-Strips fall off on their own. Resume blood thinners Friday Follow Up Care Please Follow Up With: Erik Hernandez MD When: Please call to schedule 2 week follow up appointment. [phone] Test Results: Test results from this visit will be discussed in further detail at your follow-up appointment, if applicable. Discharge Plan Admission Attending Provider: Erik Hernandez Primary Care Provider: [facility] Instructions Print Language: Pakistani Discharge Orders/Prescriptions Prescriptions: New oxycodone 5 mg Tablet 5 - 10 mg PO Q4H PRN PRN (Reason: Pain Score 4-10) 5 Days Qty: 20 0RF No Action ezetimibe 10 mg tablet 10 mg PO DAILY tamsulosin 0.4 mg capsule 0.4 mg PO QHS levothyroxine 125 mcg tablet 125 mcg PO DAILY finasteride 5 mg tablet 5 mg PO DAILY Eliquis 2.5 mg tablet 2.5 mg PO BID Referrals [facility] - Disposition Disposition (needs filled in before D/C Order can be placed): Home, Self Care
--- NOTE | 2024-07-01 09:44 | PCM.POST.ANE ---
Anesthesia: Postop Eval I Current Vital Signs Temperature: 97.5 F Pulse Rate: 80 Blood Pressure: 138/92 Respiratory Rate: 16 Pulse Ox: 98 Oxygen Delivery Method: Room Air Assessment Airway patent: Yes Spontaneous unlabored respirations: Yes Mental status: Awake and Calm nausea: No Vomiting: No Anesthesia Complication: No Fluid Hydration Crystalloid volume administer (ml): 800 Total IV fluid infused: 800 Progress Note Anesthesia document: Postop Eval 1 completed: Yes
[2024-07-01] MEDS: Acetaminophen 325 MG Tablet 650 MG PO (11:25)
[2024-07-01] MEDS: Tamsulosin HCl 0.4 MG Capsule PO (11:25)
[2024-07-01] MEDS: oxyCODONE 5 MG Tablet PO (11:25)
--- NOTE | 2024-07-01 15:20 | POSTOPAN2_ITS ---
Anesthesia Postop Eval I Sum Postop Eval Completion status Anesthesia document: Postop Eval 1 completed: Yes Anesthesia Postop Eval I Summary Anesthesia Postop Eval I Summary: Anesthesia Postop Eval I: Assessment Summary Airway patent Yes 07/01/24 09:45 CIVIL GEOTECHNICAL ENGINEER.[email or web address] Spontaneous unlabored Yes 07/01/24 09:45 CIVIL GEOTECHNICAL ENGINEER.GDOTT respirations Mental status Awake,Calm 07/01/24 09:45 CIVIL GEOTECHNICAL ENGINEER.GDOTT nausea No 07/01/24 09:45 CIVIL GEOTECHNICAL ENGINEER.GDOTT Vomiting No 07/01/24 09:45 CIVIL GEOTECHNICAL ENGINEER.GDOTT Anesthesia Postop Eval I: Fluid Summary Crystalloid volume administer 800 07/01/24 09:45 CIVIL GEOTECHNICAL ENGINEER.GDOTT (ml) Colloids volume administered ( ml) Blood Product volume administered (ml) Total IV fluid infused 800 07/01/24 09:45 CIVIL GEOTECHNICAL ENGINEER.GDOTT Anesthesia Postop Eval I: Summary Notes Anesthesia Complication No 07/01/24 09:45 CIVIL GEOTECHNICAL ENGINEER.GDOTT Anesthesia Complication Comment: Post-operative progress note Anesthesia: Postop Eval II Evaluation Mental status: Awake and Calm Pain Level: 2 nausea: No Vomiting: No Complications Anesthesia Complication: No
--- NOTE | 2024-07-01 15:20 | PCM.POSTANE2 ---
Anesthesia Postop Eval I Sum Postop Eval Completion status Anesthesia document: Postop Eval 1 completed: Yes Anesthesia Postop Eval I Summary Anesthesia Postop Eval I Summary: Anesthesia Postop Eval I: Assessment Summary Airway patent Yes 07/01/24 09:45 SATELLITE DISH INSTALLER.[email or web address] Spontaneous unlabored Yes 07/01/24 09:45 SATELLITE DISH INSTALLER.GDOTT respirations Mental status Awake,Calm 07/01/24 09:45 SATELLITE DISH INSTALLER.GDOTT nausea No 07/01/24 09:45 SATELLITE DISH INSTALLER.GDOTT Vomiting No 07/01/24 09:45 SATELLITE DISH INSTALLER.GDOTT Anesthesia Postop Eval I: Fluid Summary Crystalloid volume administer 800 07/01/24 09:45 SATELLITE DISH INSTALLER.GDOTT (ml) Colloids volume administered ( ml) Blood Product volume administered (ml) Total IV fluid infused 800 07/01/24 09:45 SATELLITE DISH INSTALLER.GDOTT Anesthesia Postop Eval I: Summary Notes Anesthesia Complication No 07/01/24 09:45 SATELLITE DISH INSTALLER.GDOTT Anesthesia Complication Comment: Post-operative progress note Anesthesia: Postop Eval II Evaluation Mental status: Awake and Calm Pain Level: 2 nausea: No Vomiting: No Complications Anesthesia Complication: No
== END 2024-07-01 12:25 | disposition home or self-care (01) ==
LOC: SDC 05:42 → AC 05:43
PROVIDERS: Anesthesiology; Referring Provider Surgery; Visit Provider Surgery
PROC: 0FT44ZZ Resection of Gallbladder, Percutaneous Endoscopic Approach (ICD-10-PCS; CPT 47562; principal; 2024-07-01 07:10)
DX: K80.66 Calculus of gallbladder and bile duct with acute and chronic cholecystitis without obstruction (principal); E03.9 Hypothyroidism, unspecified; Z79.01 Long term (current) use of anticoagulants; Z79.890 Hormone replacement therapy; Z86.711 Personal history of pulmonary embolism; Z86.718 Personal history of other venous thrombosis and embolism
CPT/HCPCS: 47563; S2900; 00790; 36415; 74300; 76000; 84443; 88304; 93005; J2405

== ENCOUNTER 2024-09-14 11:18 | Day surgery (SDC) | payer OTHER, SELFPAY ==
--- NOTE | 2024-09-09 20:25 | PAT.ANE_ITS ---
Pre-Assessment Diagnosis/Proposed Procedure Planned Operative Procedure(s): ERCP STENT REMOVAL Anesthesia History Anesthesia History - financial advisor trainee: Anesthesia History - financial advisor trainee Hx Hospitalization Yes: 05/2024 CHOLECYSTECTOMY 09/09/24 14:49 Any Problems With Anesthesia No 09/09/24 14:49 Cholinesterase deficiency No 09/09/24 14:49 You/Your Family Experience No 09/09/24 14:49 fever (hyperthermia) with Relationship Recent Exposure to Contagious No 07/01/24 06:12 Disease Does patient have nerve No 09/09/24 14:49 stimulator Patient instructed to have device shut off --Does patient have Pacemaker or ICD? When Was Last Pacemaker Check QUESTION #4 FULL TEXT: You/Your Family Experience fever (hyperthermia) with Anesthesia Last Oral Intake Last Oral intake: Last Oral Intake NPO since Meds taken in AM with sips of water? Meds patient instructed to take am of surgery PONV PONV - financial advisor trainee: PONV - financial advisor trainee Female No 09/09/24 14:49 HX of Motion Sickness No 09/09/24 14:49 HX of N/V After Surgery No 09/09/24 14:49 Non-Smoker Yes 09/09/24 14:49 Duration of Surgery greater No 09/09/24 14:49 than 60 minutes Number of Risk Factors 1 09/09/24 14:49 PONV Score Low Risk 09/09/24 14:49 Height & Weight Height & Weight: Anesthesia: Height & Weight Height 6 ft 07/01/24 06:14 Respiratory Assessment Respiratory Assessment - financial advisor trainee: Respiratory Tract Infection Hx - financial advisor trainee Hx Respiratory Tract Infection No 09/09/24 14:49 STOP Sleep Apnea STOP Sleep Apnea - financial advisor trainee: STOP Sleep Apnea - financial advisor trainee Hx Hypertension No 09/09/24 14:49 Hx Sleep Apnea No 09/09/24 14:49 CPAP BIPAP Do you snore loudly (louder No 09/09/24 14:49 than talking or can be heard Do you often feel tired/ No 09/09/24 14:49 fatigued/ sleepy during daytime? Has anyone observed you stop No 09/09/24 14:49 breathing during sleep? STOP Results Negative 09/09/24 14:49 QUESTION #5 FULL TEXT : Do you snore loudly (louder than talking or can be heard through closed doors)? Tobacco Use History Tobacco Use History - financial advisor trainee: Tobacco Use History - financial advisor trainee Tobacco Use Non-smoker 06/30/20 21:27 Smoking Status Former smoker 09/09/24 14:49 Hx Tobacco Use Yes: VAPE THC 09/09/24 14:49 Years Smoking Packs Smoked per Day Smoking Cessation Date was No - quit smoking greater 09/09/24 14:49 within the last 15 years than 15 years ago Hx Smoking Cessation Date Hx Smoking Cessation Counseling Hematologic Medial History Hematologic Hx - financial advisor trainee: Hematologic Medical Hx - networking administrator Hx of Blood Transfusion No 09/09/24 14:49 Hx of Transfusion in last 3 No 09/09/24 14:49 Months Date of Last Transfusion (if within last 3 months) Ever experience any problems No 09/09/24 14:49 with transfusion(s)? Specify any problems Hx of Preganancy in last 3 N/A 09/09/24 14:49 Months Nurse Filling Out Transfusion [place] 09/09/24 14:49 & Questions: Date: 09/09/24 09/09/24 14:49 Time: 14:53 09/09/24 14:49 Patient unable to answer at this time (ie. confused, unrespo /Reproduction History /Reproductive History - financial advisor trainee: /Reproductive Hx- financial advisor trainee Hx Now Gestational Age (in weeks): EDC: Hx Hx Para Hx Section SAB No 09/09/24 14:49 PFSH Medical History (Updated 09/09/24 @ 15:00 by Rosalina Roa) Alcohol use Marijuana use Former smoker Wears glasses Prostate disease High cholesterol Shortness of breath on exertion Leg cramps History of echocardiogram Gallbladder problem Deep vein thrombosis (DVT) of femoral vein of right lower extremity History of pulmonary embolus (PE) DVT (deep venous thrombosis) Hypothyroidism Home Medications ?Medication ?Instructions ?Recorded ?Last Taken ?Type ezetimibe 10 mg tablet 10 mg PO DAILY 03/25/2306/02 History tamsulosin 0.4 mg capsule 0.4 mg PO QHS 03/25/2306/28 History finasteride 5 mg tablet 5 mg PO DAILY 05/24/2406/28 History levothyroxine 125 mcg tablet 125 mcg PO DAILY 05/24/24 07/01/24 04:30 History apixaban 2.5 mg tablet (Eliquis) 2.5 mg PO BID blood t hinner 05/27/24 06/28/24 History Allergy/AdvReac Type Severity Reaction Status Date / Time No Known Allergies Allergy Verified 09/09/24 14:45 Family History Mother Colon cancer Surgical History (Updated 07/15/24 @ 08:15 by Betsy Irving) S/P cholecystectomy Hx of oral surgery History of ERCP Hx of colonoscopy History of bunionectomy Social History Smoking Status: Former smoker alcohol intake: current alcohol intake frequency: a few times a week caffeine: Yes Audit: Pertinent Findings Pertinent Findings EKG Perinent findings: 06/22/2024. Normal sinus rhythm nonspecific T wave abnormality. Echo (EF%) pertinent findings: 07/01/2020. EF of 55 to 60%. No aortic stenosis noted. Recommendation Anesthesia Recommendation Anesthesia recommendation: OPTIMIZED for anesthesia
[2024-09-14] VITALS (7 sets, daily range): BP systolic 120–141; BP diastolic 70–87; PULSE 57–67; RESP 16–18; TEMP 35.7–36.9; O2SAT 93–98; BMI 30.2
[2024-09-14] MEDS: Lactated Ringers 1,000 ML 15 ML IV (12:13)
--- NOTE | 2024-09-14 12:45 | FLU_PTH ---
PATIENT: RACHEL FROST LOC: [place] U#:[id number] AGE/SX: 73/M ROOM: RE09/14/[address]: Dr. Zachary Mijares DO : 1950 BED: DIS: 09/14/2024 SPEC #: [id number] RECD: 09/14/24 15:03 STATUS: RM DANITZA #: [id number] LORENA: 09/14/24 12:[address]: Zachary Mijares DEPT: CYTOLOGY RECD BY: Dejan Earl ENTERED: 09/15/24 09:42 SP TYPE: Fluid OTHR DR: [facility] Tissues: A - Biliary tract, NOS Procedures: Special Stain Group II Surgery Specimen Level IV Cytospin Fluid HEADER OPERATION: ERCP PRE-OP DIAGNOSIS: Status post cholecystectomy, cholelithiasis TISSUE SUBMITTED: A- Biliary and pancreatic stents for cytology DIAGNOSIS CYTOLOGY Biliary stent: Acellular specimen containing abundant filamentous Bactria and bile. Pancreatic stent: Acellular specimen continuing bacteria. CYTOLOGY STUDY Slides are reviewed. CYTOLOGY GROSS A1. Received is 10cm black stent with 0.4 ml of blackish-antonio thick material labeled with the patient's name and and designated per the requisition as Biliary stent. Submitted for cytology and cell block preparation. A2. Received is 10cm green stent with 0.2 ml of whiteish thick material labeled with the patient's name and and designated per the requisition as Pancreatic stent. Submitted for cytology and cell block preparation. 09/15/2024 CPT: 64848r1
--- NOTE | 2024-09-14 12:52 | HP.PCM_ITS ---
HPI - General General Date of Admission: 09/14/24 Date of Service: 09/14/24 Chief Complaint: Choledocholithiasis and biliary stent removal HPI Narrative RACHEL FROST, is a 73 M who presents for ERCP with biliary stent removal or exchange. He has a past medical history of acute cholecystitis status postcholecystectomy with a retained gallstone secondary to biliary stricture. He is status post ERCP with stone removal and stent replacement. He comes in for repeat ERCP today. [facility] Medical History Alcohol use Marijuana use Former smoker Wears glasses Prostate disease High cholesterol Shortness of breath on exertion Leg cramps History of echocardiogram Gallbladder problem Deep vein thrombosis (DVT) of femoral vein of right lower extremity History of pulmonary embolus (PE) DVT (deep venous thrombosis) Hypothyroidism Home Medications ?Medication ?Instructions ?Recorded ?Last Taken ?Type ezetimibe 10 mg tablet 10 mg PO DAILY 03/25/2306/02 History tamsulosin 0.4 mg capsule 0.4 mg PO QHS 03/25/2306/28 History finasteride 5 mg tablet 5 mg PO DAILY 05/24/2406/28 History levothyroxine 125 mcg tablet 125 mcg PO DAILY 05/24/24 07/01/24 04:30 History apixaban 2.5 mg tablet (Eliquis) 2.5 mg PO BID blood t hinner 05/27/24 09/10/24 History Allergy/AdvReac Type Severity Reaction Status Date / Time No Known Allergies Allergy Verified 09/14/24 12:05 Family History Mother Colon cancer Surgical History S/P cholecystectomy Hx of oral surgery History of ERCP Hx of colonoscopy History of bunionectomy Social History Smoking Status: Former smoker alcohol intake: current alcohol intake frequency: a few times a week caffeine: Yes ROS Constitutional Constitutional: Denies fatigue, fever(s), poor appetite, weight gain or weight loss Gastrointestinal Gastrointestinal: Denies belching, bloating, change in bowel habits, change in stool character, chewing difficulty, coffee ground emesis, constipation, cramping, diarrhea, dyspepsia, dysphagia, early satiety, excessive flatus, fecal incontinence, heartburn, hematemesis, hematochezia, hemorrhoids, loose stools, melena, nausea, odynophagia, rectal bleeding, tenesmus, vomiting or weight changes Vital Signs Vital Signs Vital Signs: 09/14/24 12:06 09/14/24 12:06 Temperature 98.4 F Temperature Source Temporal Pulse Rate 60 Respiratory Rate 16 Respiratory Pattern Normal Blood Pressure 141/87 H Blood Pressure Mean 105 Blood Pressure Source Monitor Blood Pressure Position Sitting Blood Pressure Location Left Arm Pulse Ox 98 Oxygen Delivery Method Room Air Weight Weight: 229 lb 4.492 oz Body Mass Index (BMI) 30.2 Physical Exam Const alert, oriented x3, no apparent distress and healthy appearing General Appearance: cooperative GI normal to inspection, nondistended, normoactive bowel sounds, soft to palpation, non-tender and non-distended Percussion: normal to percussion Rectal Exam: deferred Assessment & Plan Assessment/Plan (1) S/P cholecystectomy: (2) Cholelithiasis: PLAN: 73-year-old will undergo ERCP. He was explained alternatives, risk and benefits include not withstanding bleeding, infection, sepsis, perforation, need for urgent . He will have an ASA of 3.
--- NOTE | 2024-09-14 12:56 | PRE.ANES_ITS ---
ASA Classification* ASA Classification ASA Classification: 3 Assessment & Plan Anesthesia* Anesthesia Assessment Anesthesia Assessment: Discussed sedation and/or anesthesia options, risks, benefits, and alternatives with patient/parents/legal guardian/POA. Questions invited. The patient/parents/legal guardian/POA seems to understand and agrees to proceed with anesthesia plan. Reviewed the physical assessment, medical history, allergy history and patient home medications list prior to surgery/procedure/anesthetic and documented any changes. Performed airway and anesthesia risk assessments. Anesthesia Type Anesthesia Type: MAC History Source History Obtained from:: Patient and Chart Anesthesia Focused Assessment* Temperature: 98.4 F Pulse Rate: 60 Blood Pressure: 141/87 Respiratory Rate: 16 Pulse Ox: 98 Oxygen Delivery Method: Room Air Airway Assessment Mouth opens: >3 cm Mallampati Score: III Teeth Condition: Caps/Crowns (Patient has several crowns. They are all tight.) and Implants (Patient has an implant. It is tight.) Neck Range of motion (ROM): Limited ROM Labs Anesthesia Preop lab: CBC WBC 7.9 K/mm3 (4.4-11.0) 05/26/24 04:36 05/26/24 RBC 4.72 M/mm3 (4.6-6.2) 05/26/24 04:36 05/26/24 Hgb 14.5 g/dL (13.0-16.5) 05/26/24 04:36 05/26/24 Hct 43.6 % (40-54) 05/26/24 04:36 05/26/24 Plt Count 247 K/mm3 (150-450) 05/26/24 04:36 05/26/24 CHEMISTRY Potassium 3.6 mmol/L (3.3-5.1) 05/27/24 03:49 05/27/24 Sodium 142 mmol/L (133-145) 05/27/24 03:49 05/27/24 Magnesium 2.5 mg/dL (1.6-2.6) 06/30/20 17:03 06/30/20 BUN 18 mg/dL (4-19) 05/27/24 03:49 05/27/24 Creatinine 1.03 mg/dL (0.70-1.20) 05/27/24 03:49 05/27/24 Glucose 110 mg/dL (70-99) H 05/27/24 03:49 05/27/24 TSH 0.243 uIU/mL (0.300-4.200) L 06/22/24 13:03 COAG PT 15.0 SECONDS (11.7-14.9) H 05/24/24 15:38 03/06/25 Pre-Assessment Diagnosis/Proposed Procedure Planned Operative Procedure(s): ERCP STENT REMOVAL Anesthesia History Anesthesia History - college intern: Anesthesia History - college intern Hx Hospitalization Yes: 05/2024 CHOLECYSTECTOMY 09/09/24 14:49 Any Problems With Anesthesia No 09/09/24 14:49 Cholinesterase deficiency No 09/09/24 14:49 You/Your Family Experience No 09/09/24 14:49 fever (hyperthermia) with Relationship Recent Exposure to Contagious No 09/14/24 12:06 Disease Does patient have nerve No 09/09/24 14:49 stimulator Patient instructed to have device shut off --Does patient have Pacemaker No 09/14/24 12:06 or ICD? When Was Last Pacemaker Check QUESTION #4 FULL TEXT: You/Your Family Experience fever (hyperthermia) with Anesthesia Last Oral Intake Last Oral intake: Last Oral Intake NPO since 00:00 09/14/24 12:06 Meds taken in AM with sips of No 09/14/24 12:06 water? Meds patient instructed to take am of surgery PONV PONV - college intern: PONV - college intern Female No 09/09/24 14:49 HX of Motion Sickness No 09/09/24 14:49 HX of N/V After Surgery No 09/09/24 14:49 Non-Smoker Yes 09/09/24 14:49 Duration of Surgery greater No 09/09/24 14:49 than 60 minutes Number of Risk Factors 1 09/09/24 14:49 PONV Score Low Risk 09/09/24 14:49 Height & Weight Height & Weight: Anesthesia: Height & Weight Height 6 ft 1 in 09/14/24 12:06 Weight: 104 kg 09/14/24 12:06 Body Mass Index (BMI) 30.2 09/14/24 12:06 Respiratory Assessment Respiratory Assessment - college intern: Respiratory Tract Infection Hx - college intern Hx Respiratory Tract Infection No 09/09/24 14:49 STOP Sleep Apnea STOP Sleep Apnea - college intern: STOP Sleep Apnea - college intern Hx Hypertension No 09/09/24 14:49 Hx Sleep Apnea No 09/09/24 14:49 CPAP BIPAP Do you snore loudly (louder No 09/09/24 14:49 than talking or can be heard Do you often feel tired/ No 09/09/24 14:49 fatigued/ sleepy during daytime? Has anyone observed you stop No 09/09/24 14:49 breathing during sleep? STOP Results Negative 09/09/24 14:49 QUESTION #5 FULL TEXT : Do you snore loudly (louder than talking or can be heard through closed doors)? 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 Specify any problems Hx of Preganancy in last 3 N/A 09/09/24 14:49 Months Nurse Filling Out Transfusion MGRIFFITH 09/09/24 14:49 & Questions: Date: 09/09/24 09/09/24 14:49 Time: 14:53 09/09/24 14:49 Patient unable to answer at this time (ie. confused, unrespo /Reproduction History /Reproductive History - college intern: /Reproductive Hx- college intern Hx Now Gestational Age (in weeks): EDC: Hx Hx Para Hx Section SAB No 09/09/24 14:49 Active Medications Active Medications: Current Medications Generic Name Dose Route Start Last Admin Trade Name Freq PRN Reason Stop Dose Admin Lactated Ringer's 1,000 mls @ 15 mls/hr 09/14/24 11:45 09/14/24 12:13 IV 15 mls/hr .Q48H EDGARDO Administration PFSH Medical History Alcohol use Marijuana use Former smoker Wears glasses Prostate disease High cholesterol Shortness of breath on exertion Leg cramps History of echocardiogram Gallbladder problem Deep vein thrombosis (DVT) of femoral vein of right lower extremity History of pulmonary embolus (PE) DVT (deep venous thrombosis) Hypothyroidism Home Medications ?Medication ?Instructions ?Recorded ?Last Taken ?Type ezetimibe 10 mg tablet 10 mg PO DAILY 03/25/2306/02 History tamsulosin 0.4 mg capsule 0.4 mg PO QHS 03/25/2306/28 History finasteride 5 mg tablet 5 mg PO DAILY 05/24/2406/28 History levothyroxine 125 mcg tablet 125 mcg PO DAILY 05/24/24 07/01/24 04:30 History apixaban 2.5 mg tablet (Eliquis) 2.5 mg PO BID blood t hinner 05/27/24 09/10/24 History Allergy/AdvReac Type Severity Reaction Status Date / Time No Known Allergies Allergy Verified 09/14/24 12:05 Family History Mother Colon cancer Surgical History S/P cholecystectomy Hx of oral surgery History of ERCP Hx of colonoscopy History of bunionectomy Social History Smoking Status: Former smoker alcohol intake: current alcohol intake frequency: a few times a week caffeine: Yes Review of Systems (Anesthesia) ROS Narrative System reviewed and no additional complaints, except as documented.
--- NOTE | 2024-09-14 14:25 | RAD_ITS ---
PROCEDURE: ERCP BILIARY/PANCREAS 09/14/2024 REASON FOR EXAM: ERCP TECHNIQUE: ERCP BILIARY/PANCREAS. ERCP was performed by the combat information center officer. Fluoroscopic services provided. Radiation dose: 2 minutes of fluoroscopy. 61.98 mGy. 11 images were submitted. COMPARISON: Prior cholangiogram dated July 04, 2024. FINDINGS: A biliary stent is seen within the common bile duct. Contrast was injected. No filling defects are seen. RAD/ERCP Biliary/Pancreas IMPRESSION: No filling defects are seen. Biliary stent Reading Location: [id number]
--- NOTE | 2024-09-14 14:53 | OP.CCLET_ITS ---
09/14/2024 [facility] Re : ERCP procedure for [facility] This procedure was performed on Saturday, September 14, 2024. My impressions and recommendations are as follows: Impressions : - The patient has had a cholecystectomy. - Choledocholithiasis was found. Complete removal was accomplished by biliary sphincterotomy and balloon extraction. - A biliary sphincterotomy was performed. - The biliary tree was swept. - One stent was removed from the biliary tree. - A pancreatic sphincterotomy was performed. - The ventral pancreatic duct was swept and nothing was found. - One stent was removed from the pancreatic duct. Recommendations : My findings are described in the full procedure note, which is enclosed. If I can be of further assistance, please feel free to contact me at . Sincerely, Zachary Mijares, 09/14/2024 2:53:14 PM This report has been signed electronically.
--- NOTE | 2024-09-14 14:53 | OP.ERCP_ITS ---
Patient Name: Amauri Perez Procedure Date: 09/14/2024 1:47 PM Date of : 1950 Age: 73 Procedure: ERCP Indications: Common bile duct stone(s), Biliary stent removal, Pancreatic stent removal Providers: Zachary Mijares DO Medicines: Monitored Anesthesia Care Patient Profile: This is a 73 year old male. Refer to note in patient chart for documentation of history and physical. Patient has symptoms of chronic right upper quadrant abdominal pain. His most recent ERCP for biliary evaluation, ERCP for stent and ERCP for stone removal was within the past three months. He is status post laparoscopic cholecystectomy within the past three months. Complications: No immediate complications. Procedure: Pre-Anesthesia Assessment: - Prior to the procedure, a History and Physical was performed, and patient medications and allergies were reviewed. The patient is competent. The risks and benefits of the procedure and the sedation options and risks were discussed with the patient. All questions were answered and informed consent was obtained. Patient identification and proposed procedure were verified by the physician in the pre-procedure area. Mental Status Examination: alert and oriented. Airway Examination: normal oropharyngeal airway and neck mobility. Respiratory Examination: clear to auscultation. CV Examination: normal. Prophylactic Antibiotics: The patient does not require prophylactic antibiotics. Prior Anticoagulants: The patient has taken no anticoagulant or antiplatelet agents except for NSAID medication. ASA Grade Assessment: II - A patient with mild systemic disease. After reviewing the risks and benefits, the patient was deemed in satisfactory condition to undergo the procedure. The anesthesia plan was to use monitored anesthesia care (MAC). Immediately prior to administration of medications, the patient was re-assessed for adequacy to receive sedatives. The heart rate, respiratory rate, oxygen saturations, blood pressure, adequacy of pulmonary ventilation, and response to care were monitored throughout the procedure. The physical status of the patient was re-assessed after the procedure. After obtaining informed consent, the scope was passed under direct vision. Throughout the procedure, the patient's blood pressure, pulse, and oxygen saturations were monitored continuously. The Duodenoscope was introduced through the mouth, and advanced to the duodenum and used to inject contrast into the bile duct and ventral pancreatic duct. The ERCP was accomplished without difficulty. The patient tolerated the procedure well. Scope In: 2:27:23 PM Scope Out: 2:42:29 PM Total Procedure Duration Time 0 hours 15 minutes 6 seconds Findings: A biliary stent was visible on the wood gouger film. A pancreatic stent was visible on the wood gouger film. The scope was advanced to a normal major papilla in the descending duodenum. Examination of the pharynx, larynx and associated structures, and upper GI tract was normal. The minor papilla was not found. The bile duct was deeply cannulated with the short-nosed traction sphincterotome. Contrast was injected. I personally interpreted the bile duct and pancreatic duct images. There was brisk flow of contrast through the ducts. Image quality was excellent. Contrast extended to the entire biliary tree. Contrast extended to the pancreatic duct. A cholecystectomy had been performed. Placement of a long 0.025 inch Jagwire into the biliary tree was attempted. This passed successfully. A 5 mm biliary sphincterotomy was made with a braided traction (standard) sphincterotome using ERBE electrocautery. There was no post-sphincterotomy bleeding. The biliary tree was swept with a 12 mm balloon starting at the upper third of the main bile duct, middle third of the main bile duct, lower third of the main duct, bifurcation, left intrahepatic duct(s), left main hepatic duct, right intrahepatic duct(s) and right main hepatic duct. Sludge was swept from the duct. All stones were removed. One stent was removed from the biliary tree using a snare and sent for cytology. The stent was found to be partially occluded via the water column test. The ventral pancreatic duct was deeply cannulated with the short-nosed traction sphincterotome. Contrast was injected. Opacification of the entire pancreatic ductal system was successful. The maximum diameter of the ducts was 3 mm. The entire opacified area was normal. A wire was passed into the ventral pancreatic duct. A 5 mm ventral pancreatic sphincterotomy was made with a braided traction (standard) sphincterotome using ERBE electrocautery. There was no post-sphincterotomy bleeding. To find object(s) the ventral pancreatic duct was swept with a 6 mm balloon starting at the pancreatic duct in the body of the pancreas. Nothing was found. One stent was removed from the pancreatic duct using a snare and sent for cytology. The stent was found to be patent via the water column test. Impression: - The patient has had a cholecystectomy. - Choledocholithiasis was found. Complete removal was accomplished by biliary sphincterotomy and balloon extraction. - A biliary sphincterotomy was performed. - The biliary tree was swept. - One stent was removed from the biliary tree. - A pancreatic sphincterotomy was performed. - The ventral pancreatic duct was swept and nothing was found. - One stent was removed from the pancreatic duct. Procedure Code(s): --- Professional --- 12666, Endoscopic retrograde cholangiopancreatography (ERCP); with removal of foreign body(s) or stent(s) from biliary/pancreatic duct(s) 78060, Endoscopic retrograde cholangiopancreatography (ERCP); with removal of calculi/debris from biliary/pancreatic duct(s) 14449, Endoscopic retrograde cholangiopancreatography (ERCP); with sphincterotomy/papillotomy 22148, Endoscopic retrograde cholangiopancreatography (ERCP); with sphincterotomy/papillotomy 10444, 26, Combined endoscopic catheterization of the biliary and pancreatic ductal systems, radiological supervision and interpretation CPT copyright 2021 [employer]. All rights reserved. The codes documented in this report are preliminary and upon manufacturing coordinator review may be revised to meet current compliance requirements. Zachary Mijares DO 09/14/2024 2:53:14 PM This report has been signed electronically. Number of Addenda: 0 Note Initiated On: 09/14/2024 1:47 PM
--- NOTE | 2024-09-14 14:59 | PCM.POST.ANE ---
Anesthesia: Postop Eval I Current Vital Signs Temperature: 97 F Pulse Rate: 67 Blood Pressure: 123/70 Respiratory Rate: 16 Pulse Ox: 95 Oxygen Delivery Method: Room Air Assessment Airway patent: Yes Spontaneous unlabored respirations: Yes Mental status: Awake and Calm nausea: No Vomiting: No Anesthesia Complication: No Fluid Hydration Crystalloid volume administer (ml): 600 Total IV fluid infused: 600 Progress Note Anesthesia document: Postop Eval 1 completed: Yes
--- NOTE | 2024-09-14 19:18 | PCM.POSTANE2 ---
Anesthesia Postop Eval I Sum Postop Eval Completion status Anesthesia document: Postop Eval 1 completed: Yes Anesthesia Postop Eval I Summary Anesthesia Postop Eval I Summary: Anesthesia Postop Eval I: Assessment Summary Airway patent Yes 09/14/24 15:00 [email or web address] Spontaneous unlabored Yes 09/14/24 15:00 [email or web address] respirations Mental status Awake,Calm 09/14/24 15:00 [email or web address] nausea No 09/14/24 15:00 [email or web address] Vomiting No 09/14/24 15:00 [email or web address] Anesthesia Postop Eval I: Fluid Summary Crystalloid volume administer 600 09/14/24 15:00 [email or web address] (ml) Colloids volume administered ( ml) Blood Product volume administered (ml) Total IV fluid infused 600 09/14/24 15:00 [email or web address] Anesthesia Postop Eval I: Summary Notes Anesthesia Complication No 09/14/24 15:00 [email or web address] Anesthesia Complication Comment: Post-operative progress note Anesthesia: Postop Eval II Evaluation Mental status: Awake and Calm Pain Level: 0 nausea: No Vomiting: No Complications Anesthesia Complication: No
--- OUTSIDE RECORDS SUMMARY | 2024-09-14 21:01 | XMS RPT_ITS | CCD ---
Author Organization [facility] Care Team Providers Care Photoengraving Sketch Maker Name Role Phone Rebecca Castillo Primary Care Provider [phone] [facility] Primary Care Provider [facility] Referring Provider Unavailable Brody CORTEZ, Dr. Moss Attending Provider [facility], [place] Primary Care Provider [facility] Dr. Ajay Kelley MD Referring Provider Galilea CORTEZ, Eren Emergency Provider Grayson CORTEZ, Dr. Roque Admit Provider Dr. Mya Galicia MD Attending Provider Dr. Mya Galicia MD Other Provider Dr. Arnaldo Ulloa DO Attending Provider Dr. Arnaldo Ulloa DO Other Provider Dr. Erik Hernandez MD Attending Provider Dr. Zachary Mijares DO Attending Provider Dr. Arnaldo Ulloa DO Referring Provider Dr. Tristen Figueredo MD Attending Provider Dr. Tristen Figueredo MD Referring Provider Dr. Erik Hernandez MD Referring Provider [phone] Dr. Zachary Mijares DO Referring Provider [facility] Primary Care Provider [facility] Primary Care Provider [facility] Referring Provider Unavailable David CORTEZ, Dr. Valencia Other Provider [phone] Ciara Roa PA-C Attending Provider Erik Hernandez [facility] [place] [facility] Unavailable Erik Hernandez Consulting Unavailable Erik Hernandez Attending [facility] Unavailable Ajay Skinner Attending [facility] Ref[facility] Unavailable Ajay Skinner [facility] Referring Unavailable Dyllan, Zachary Attending Unavailable Mya Galicia Admitting Unavailable Mya Galicia Consulting Unavailable David, Erik Referring [facility] Unavailable Arnaldo Ulloa Consulting [facility] Unavailable Erik Hernandez Referring Unavailable Erik Hernandez Attending Unavailable Friend, Zachary Attending [facility] Unavailable Friend, Zachary Attending Unavailable Friend, Zachary Referring [facility] Unavailable Pratammy, Ajay Attending Unavailable Pratammy, Ajay Referring [facility] Unavailable Arnaldo Ulloa Attending Unavailable Mya Galicia Consulting Unavailable Grayson, Mya Admitting Unavailable David, Erik Attending Unavailable Arnaldo Ulloa Referring Unavailable Ciara Villa Attending [facility] Referring Unavailable Erik Hernandez Attending [facility] Referring Unavailable Pratammy, Ajay Attending [facility] Referring Unavailable Arnaldo Ulloa Attending Unavailable Mya Galicia Attending [facility] Unavailable David, Erik Referring Unavailable Tristen Figueredo Attending Unavailable Terell, [place] Attending Unavailable Terell, Tristen Referring [facility] Unavailable Medications Current Medications Medication Drug Class(es) Dates Sig (Normalized) Sig (Original) apixaban 2.5 mg oral tablet (17 sources) Factor Xa Inhibitor Start: 05-24-2024 End: 05-26-2024 take 1 tablet by mouth twice daily Apixaban (Eliquis) 2.5 mg tablet Active 2.5 mg PO TWICE A DAY May 27, 2024 12:00am Start: 03-25-2023 End: 12-16-2023 take 1 tablet by mouth twice daily Apixaban (Eliquis) 5 mg tablet Discontinued 5 mg PO TWICE A DAY March 25, 2023 4:31pm December 16, 2023 3:09pm Start: 07-02-2020 apixaban (ELIQ UIS) 5 mg tab(s) Take by mouth. 0 07/02/2020 Active Start: 07-02-2020 End: 03-25-2023 take 2 tablets by mouth twice daily, then take 1 tablet by mouth twice daily Apixaban (Eliquis) 5 mg Tablet Discontinued 10 mg PO TWICE A DAY 60 July 02, 2020 12:00am March 25, 2023 4:33pm 2 tabs twice daily for 6 more days, then 1 tab twice daily thereafter. Comment on above: Take by mouth. cephalexin 500 mg oral capsule (1 source) Cephalosporin Antibacterial Start: 3 End: 3 take 1 capsule by mouth twice daily cephALEXin (KEFLEX) 500 mg capsule Indications: Burning with urination Take 1 capsule by mouth twice daily for 7 days. 14 capsule 0 09/19/2022 09/26/2022 Active Comment on above: Take 1 capsule by [facility] twice daily for 7 days. ezetimibe 10 mg oral tablet (4 sources) Dietary Cholesterol Absorption Inhibitor Start: 4 take 1 tablet by mouth once daily Ezetimibe 10 mg tablet Active 10 mg PO DAILY March 25, 2023 1:00am finasteride 5 mg oral tablet (8 sources) 5-alpha Reductase Inhibitor Start: 5 take 1 tablet by mouth once daily Finasteride 5 mg tablet Active 5 mg PO DAILY May 24, 2024 12:00am Start: 03-25-2023 End: 05-24-2024 take 1 tablet by mouth once daily Finasteride 1 mg tablet Discontinued 1 mg PO DAILY March 25, 2023 1:00am May 24, 2024 3:19pm levothyroxine sodium 0.125 mg oral tablet (14 sources) l-Thyroxine Start: 05-24-2024 take 1 tablet by mouth once daily Levothyroxine 125 mcg tablet Active 125 ug PO DAILY May 24, 2024 12:00am Start: 03-25-2023 End: 05-24-2024 Levothyroxine 112 mcg tablet Discontinued 125 ug PO DAILY March 25, 2023 4:32pm May 24, 2024 3:19pm Start: 04-20-2020 End: 03-25-2023 take 1 tablet by mouth once daily Levothyroxine 112 mcg Tablet Discontinued 112 ug PO DAILY June 30, 2020 12:00am March 25, 2023 4:33pm Comment on above: Take 1 tablet by dariana th every morning. tamsulosin hydrochloride 0.4 mg oral capsule (4 sources) alpha-Adrenergic Willian Start: take 1 capsule by mouth at bedtime Tamsulosin 0.4 mg capsule Active 0.4 mg PO AT BEDTIME March 25, 2023 1:00am Completed/Discontinued Medications Medication Drug Class(es) Dates Sig (Normalized) Sig (Original) oxyCODONE hydrochloride 5 mg oral tablet (1 source) Opioid Agonist Start: 07-01-2024 End: 07-15-2024 take 5-10 mg by mouth every four hours as needed for pain Oxycodone 5 mg Tablet Discontinued 5 - 10 mg PO EVERY 4 HOURS NEEDED as needed for Pain Score 4-10 20 5 July 01, 2024 July 15, 2024 8:15am Problems Active Problems Problem Classification Problem Date Documented Da te Episodic/Chronic Acute and unspecified renal failure (4 sources) Acute renal failure syndrome; Translations: [Acute kidney failure, unspecified] 07-01-2020 Episodic Biliary tract disease (14 sources) Biliary calculus; Translations: [Calculus of gallbladder without cholecystitis without obstruction] Onset: 06-04-2024 05-24-2024 Episodic Cardiac dysrhythmias (4 sources) Atrial fibrillation with rapid ventricular response; Translations: [Unspecified atrial fibrillation] 07-01-2020 Chronic Diseases of white blood cells (4 sources) Leukocytosis; Translations: [Elevated white blood cell count, unspecified] 06-30-2020 Chronic Fluid and electrolyte disorders (8 sources) Hypokalemia; Translations: [Hypokalemia] 07-01-2020 Episodic Genitourinary symptoms and ill-defined conditions (2 sources) Scalding pain on urination ; Translations: [Dysuria] 09-19-2022 Episodic Other liver diseases (8 sources) Scleral icterus; Translations: [Unspecified jaundice] 05-24-2024 Episodic Other liver diseases (6 sources) Jaundice; Translations: [Unspecified jaundice] 05-25-2024 Episodic Other screening for suspected conditions (not mental disorders or infectious disease) (14 sources) Other specified abnormal findings of blood chemistry; Translations: [Elevated liver function tests] Onset: 06-04-2024 05-24-2024 Episodic Phlebitis; thrombophlebitis and thromboembolism (2 sources) Chronic embolism and thrombosis of right femoral vein; Translations: [Chronic embolism and thrombosis of right femoral vein] Onset: 03-08-2024 Chronic Pulmonary heart disease (4 sources) Saddle embolus of pulmonary artery; Translations: [Saddle embolus of pulmonary artery without acute cor pulmonale] 06-30-2020 Chronic Thyroid disorders (4 sources) Hypothyroidism; Translations: [Hypothyroidism, unspecified] 06-30-2020 Chronic Viral infection (5 sources) Herpes zoster without complication; Translations: [Zoster without complications] Episodic Past or Other Problems Problem Classification Problem Date Documented Da te Episodic/Chronic Abdominal pain (1 source) Unspecified abdominal pain; Translations: [Unspecified abdominal pain] Onset: 06-04-2024 Episodic Other aftercare (1 source) fit model (current) use of anticoagulants; Translations: [FDC (current) use of anticoagulants] Onset: 03-08-2024 Episodic Other liver diseases (1 source) Unspecified jaundice; Translations: [Unspecified jaundice] Onset: 06-04-2024 Episodic Phlebitis; thrombophlebitis and thromboembolism (9 sources) Deep venous thrombosis of lower extremity; Translations: [Acute embolism and thrombosis of right femoral vein] Onset: 09-16-2023 03-08-2024 Episodic Comment on above: D-dimers is 0.29 tod ay.Discussed management of Provoked DVT, since D-dimers are normal now he can stop Eliquis. Pulmonary heart disease (6 sources) H/O: pulmonary embolus; Translations: [Personal history of pulmonary embolism] Onset: 12-16-2023 11-30-2020 Episodic Comment on above: Had PE on 06/30/2020 with Covid-19. Started on Eliquis and now on 5mg bid. Has been told by his PCP to take it for 6 months.Comes for follow up, tolerating therapy. Has one more month of therapy. Results Test Name Value Interpretation Reference Range Facility MR/Cassius 09-09-2024 /[facility] Medical Records Department [address] [place] [address] PAT - Anesthesia 09/09/242024 MR#: [id number] Acct: [id number] Name: AMAURI FROST Rep #: [id number] : 1950 73 From: Ryder Velásquez MD PCP: [place] [facility] Status:PRE SDC Y Race: C Location: [place] Pre-Assessment Diagnosis/Proposed Procedure Planned Operative Procedure(s): ERCP STENT REMOVAL Anesthesia History Anesthesia History - refuge manager: Anesthesia History - refuge manager Hx Hospitalization Yes: 05/2024 CHOLECYSTECTOMY 09/09/24 14:49 Any Problems With Anesthesia No 09/09/24 14:49 Cholinesterase deficiency No 09/09/24 14:49 You/Your Family Experience No 09/09/24 14:49 fever (hyperthermia) with Relationship Recent Exposure to Contagious No 07/01/24 06:12 Disease Does patient have nerve No 09/09/24 14:49 stimulator Patient instructed to have device shut off --Does patient have Pacemaker or ICD? When Was Last Pacemaker Check QUESTION #4 FULL TEXT: You/Your Family Experience fever (hyperthermia) with Anesthesia Last Oral Intake Last Oral intake: Last Oral Intake NPO since Meds taken in AM with sips of water? Meds patient instructed to take am of surgery PONV PONV - refuge manager: PONV - refuge manager Female No 09/09/24 14:49 HX of Motion Sickness No 09/09/24 14:49 HX of N/V After Surgery No 09/09/24 14:49 Non-Smoker Yes 09/09/24 14:49 Duration of Surgery greater No 09/09/24 14:49 than 60 minutes Number of Risk Factors 1 09/09/24 14:49 PONV Score Low Risk 09/09/24 14:49 Height Weight Height Weight: Anesthesia: Height Weight Height 6 ft 07/01/24 06:14 Respiratory Assessment Respiratory Assessment - refuge manager: Respiratory Tract Infection Hx - refuge manager Hx Respiratory Tract Infection No 09/09/24 14:49 STOP Sleep Apnea STOP Sleep Apnea - refuge manager: STOP Sleep Apnea - refuge manager Hx Hypertension No 09/09/24 14:49 Hx Sleep Apnea No 09/09/24 14:49 CPAP BIPAP Do you snore loudly (louder No 09/09/24 14:49 than talking or can be heard Do you often feel tired/ No 09/09/24 14:49 fatigued/ sleepy during daytime? Has anyone observed you stop No 09/09/24 14:49 breathing during sleep? STOP Results Negative 09/09/24 14:49 QUESTION #5 FULL TEXT : Do you snore loudly (louder than talking or can be heard through closed doors)? Tobacco Use History Tobacco Use History - refuge manager: Tobacco Use History - refuge manager Tobacco Use Non-smoker 06/30/20 21:27 Smoking Status Former smoker 09/09/24 14:49 Hx Tobacco Use Yes: VAPE THC 09/09/24 14:49 Years Smoking Packs Smoked per Day Smoking Cessation Date was No - quit smoking greater 09/09/24 14:49 within the last 15 years than 15 years ago Hx Smoking Cessation Date Hx Smoking Cessation Counseling Hematologic Medial History Hematologic Hx - refuge manager: Hematologic Medical Hx - rivet tosser Hx of Blood Transfusion No 09/09/24 14:49 Hx of Transfusion in last 3 No 09/09/24 14:49 Months Date of Last Transfusion (if within last 3 months) Ever experience any problems No 09/09/24 14:49 with transfusion(s)? Specify any problems Hx of Preganancy in last 3 N/A 09/09/24 14:49 Months Nurse Filling Out Transfusion [place] 09/09/24 14:49 Questions: Date: 09/09/24 09/09/24 14:49 Time: 14:53 09/09/24 14:49 Patient unable to answer at this time (ie. confused, unrespo /Reproduction History /Reproductive History - refuge manager: /Reproductive Hx- refuge manager Hx Now Gestational Age (in weeks): EDC: Hx Hx Para Hx Section SAB No 09/09/24 14:49 PFSH Medical History (Updated 09/09/24 @ 15:00 by Rosalina Roa) Alcohol use Marijuana use Former smoker Wears glasses Prostate disease High cholesterol Shortness of breath on exertion Leg cramps History of echocardiogram Gallbladder problem Deep vein thrombosis (DVT) of femoral vein of right lower extremity History of pulmonary embolus (PE) DVT (deep venous thrombosis) Hypothyroidism Home Medications ???Medication ???Instructions ???Recorded ???Last Taken ???Type ezetimibe 10 mg tablet 10 mg PO DAILY 03/25/23 06/28/24 H istory tamsulosin 0.4 mg capsule 0.4 mg PO QHS 03/25/23 06/28/24 Hi story finasteride 5 mg tablet 5 mg PO DAILY 05/24/24 06/28/24 Hi story levothyroxine 125 mcg tablet 125 mcg PO DAILY 05/24/24 07/01/24 04:30 History apixaban 2.5 mg tablet (Eliquis) 2.5 mg PO BID blood thinner 06/28/24 History Allergy/Adv (more content not included)... [facility] Surgery Visit Reporton 07-15 Surgery Visit Report [facility] [address] [place] [address] OFFICE VISIT Date of Service: 07/15/24 MR#: [id number] Acct: [id number] Name: AMAURI FROST Rep #: [id number] : 1950 Provider: GOMEZ ruiz Age/Sex: 73/M Location: [facility] Status: Signed Intake Vital Signs 07/01/24 06:14 Height 6 ft Intake Visit Reasons: GALLBLADDER 5-1 Chief Complaint: gallbladder 5 Is patient in pain?: No Allergies No Known Allergies Allergy (Verified 07/15/24 08:12) Medications ???Medication ???Instructions ???Recorded ???Confirmed ???Type ezetimibe 10 mg tablet 10 mg PO DAILY 03/25/23 07/15/24 H istory tamsulosin 0.4 mg capsule 0.4 mg PO QHS 03/25/23 07/15/24 Hi story finasteride 5 mg tablet 5 mg PO DAILY 05/24/24 07/15/24 Hi story levothyroxine 125 mcg tablet 125 mcg PO DAILY 05/24/24 07/15/24 History apixaban 2.5 mg tablet (Eliquis) 2.5 mg PO BID blood thinner 07/15/24 History Have you fallen in the past year?: No Subjective Details: Patient is a 73 y/o M I am following s/p robotic assisted laparoscopic cholecystectomy with cholangiogram by Dr. Hernandez on 07/01/24. Patient tolerated the procedure well. Patient denies any nausea, vomiting, fever since the procedure. He notes appetite and bowel habits have returned to normal. Dr. Mijares performed an ERCP with stone removal and stent placement in the ventral pancreatic duct. Pathology demonstrated: MICROSCOPIC DIAGNOSIS A. Gallbladder, cholecystectomy: * Acute on chronic cholecystitis with cholelithiasis. * Benign reactive lymph node x1. Objective Details: Abdomen- soft, tenderness at the midline incision. Incisions c/d/i. No erythema or infection noted. Coding Level of Care Code Global Post Op Diagnoses S/P cholecystectomy Z90.49 [facility] Medical History (Updated 07/15/24 @ 08:15 by Betsy Irving) Wears glasses Prostate disease High cholesterol Heartburn Non-smoker Shortness of breath on exertion Leg cramps History of echocardiogram Gallbladder problem Deep vein thrombosis (DVT) of femoral vein of right lower extremity History of pulmonary embolus (PE) DVT (deep venous thrombosis) Hypothyroidism Surgical History (Updated 07/15/24 @ 08:15 by Betsy Irving) S/P cholecystectomy Hx of oral surgery History of ERCP Hx of colonoscopy History of bunionectomy Family History Mother Colon cancer Social History Smoking Status: Never smoker alcohol intake: current alcohol intake frequency: a few times a week caffeine: Yes Assessment and Plan (No Qualifiers) Assessment and Plan (1) S/P cholecystectomy: Status: Acute Plan: Discussed signs of infection and when to contact our office Information given to patient to follow-up with Dr. Mijares to schedule stent removal procedure No restrictions at this time Follow-up as needed 07/15/24 0937 Date Ciara Huertas Signature: Date (if applicable) CC: [facility] Cholangiogram/ O R,Initialon 07-01-2024 Cholangiogram/ O R,Initial [facility] Imaging Services [address] [place] [address] Cholangiogram/ O R,Initial MR#: [id number] Acct: [id number] Name: AMAURI FROST Rep #: [id number] : 1950 M 73 From: Lukas Denis i, MD PCP: [facility] Status: [facility] Study: Cholangiogram/ O R,Initial Date of Exam: 07/01 Exam# [id number] Ordering Dr: Erik Hernandez EXAM: Lap nika with intraop cholangiogram. CLINICAL HISTORY: Lap nika with intraop cholangiogram. COMPARISON: Images from the ERCP dated 05/27/2024. TECHNIQUE: Limited C-arm images from an intraoperative cholangiogram was provided. FINDINGS: Examination is essentially nondiagnostic. Please see surgical dictation. There are filling defects within what appears to be the biliary tree. This may be gas versus stones. Correlate clinically. A plastic stent is present. Its location is difficult to determine. Surgical instruments are present. RAD/Cholangiogram/ O R,Initial IMPRESSION: Limited examination. Please see surgical notes. Reading Location: [id number] CC: Dr. Erik Hernandez MD; [facility] Log Marker: Signed [facility] Discharge Instructionon 0 Discharge Instruction [facility] Medical Records Department [address] [place] [address] Instructions for Home/Discharge Instructions 07/01/24 0938 MR#: [id number] Acct: [id number] Name: AMAURI FROST Rep #: [id number] : 1950 73 From: Erik Hernandez MD PCP: [facility] Status:[facility] Discharge Instructions Procedure Gallbladder Diet Discharge Diet: Light diet - advance as tolerated Activity Discharge Activity: May Not Drive (for 2-3 days or while taking narcotic pain medications.) and - (Do not drive, work heavy equipment or sign legal documents for 24 hours.) May shower in (days): 1 Lifting Restrictions: 20 lbs for 2 weeks Additional Activity Instructions:: Pain medication may cause nausea. You should typically eat light foods as you take your pain medications. Pain medication may also cause constipation. If this is a problem for you, please discuss with your doctor. Dressing / Incision Call your doctor if your incision/area has: Continuous Slow Oozing, Sudden Increased Bleeding, Increased Pain/ Swelling, Increased Redness and Foul Smelling Discharge Call your doctor if you observe: Fever of 101 or Higher Suture Line Care: Avoid Pulling/Pushing and Avoid Pinching/Bending Remove Dressing in: 2 days Additional Dressing/Incision Instructions:: Leave operative bandaids on for 2 days. When you remove dressing, leave Steri-Strips on until your follow-up appointment, or until the Steri-Strips fall off on their own. Resume blood thinners Friday Follow Up Care Please Follow Up With: Erik Hernandez MD When: Please call to schedule 2 week follow up appointment. [phone] Test Results: Test results from this visit will be discussed in further detail at your follow-up appointment, if applicable. Discharge Plan Admission Attending Provider: Erik Hernandez Primary Care Provider: [facility] Instructions Print Language: Urdu Discharge Orders/Prescriptions Prescriptions: New oxycodone 5 mg Tablet 5 - 10 mg PO Q4H PRN PRN (Reason: Pain Score 4-10) 5 Days Qty: 20 0RF No Action ezetimibe 10 mg tablet 10 mg PO DAILY tamsulosin 0.4 mg capsule 0.4 mg PO QHS levothyroxine 125 mcg tablet 125 mcg PO DAILY finasteride 5 mg tablet 5 mg PO DAILY Eliquis 2.5 mg tablet 2.5 mg PO BID Referrals / Follow Up: [facility] [Primary Care Provider] - Disposition Disposition (needs filled in before D/C Order can be placed): Home, Self Care 07/01/24 0932 Erik Hernandez MD CC: [facility] Signed [facility] MR/POSTOP.Krystyna 07-01-2024 MR/POSTOP.[facility] Medical Records Department [address] [place] [address] Anesthesia Postop Eval I 07/01/24 0944 MR#: [id number] Acct: [id number] Name: AMAURI FROST Rep #: [id number] : 1950 73 From: Sury Watts PCP: [facility] Status:REG [facility] Y Race: C Location: [place] [address] Anesthesia: Postop Eval I Current Vital Signs Temperature: 97.5 F Pulse Rate: 80 Blood Pressure: 138/92 Respiratory Rate: 16 Pulse Ox: 98 Oxygen Delivery Method: Room Air Assessment Airway patent: Yes Spontaneous unlabored respirations: Yes Mental status: Awake and Calm nausea: No Vomiting: No Anesthesia Complication: No Fluid Hydration Crystalloid volume administer (ml): 800 Total IV fluid infused: 800 Progress Note Anesthesia document: Postop Eval 1 completed: Yes 07/01/2445 Date Sury Watts Cosigner Signature: Date CC: Signed [facility] MR/[id number] 07-01-2024 [facility] Medical Records Department [address] [place] [address] Anesthesia Postop Eval II 07/01/24 1520 MR#: [id number] Acct: [id number] Name: AMAURI FROST Rep #: [id number] : 1950 73 From: Ryder Velásquez MD PCP: [facility] Status:DEP [facility] Y Race: C Location: [facility] Anesthesia Postop Eval I Sum Postop Eval Completion status Anesthesia document: Postop Eval 1 completed: Yes Anesthesia Postop Eval I Summary Anesthesia Postop Eval I Summary: Anesthesia Postop Eval I: Assessment Summary Airway patent Yes 07/01/24 09:45 TRACTOR ENGINE MECHANIC.GDOTT Spontaneous unlabored Yes 07/01/24 09:45 TRACTOR ENGINE MECHANIC.GDOTT respirations Mental status Awake,Calm 07/01/24 09:45 TRACTOR ENGINE MECHANIC.GDOTT nausea No 07/01/24 09:45 TRACTOR ENGINE MECHANIC.GDOTT Vomiting No 07/01/24 09:45 TRACTOR ENGINE MECHANIC.GDOTT Anesthesia Postop Eval I: Fluid Summary Crystalloid volume administer 800 07/01/24 09:45 TRACTOR ENGINE MECHANIC.GDOTT (ml) Colloids volume administered ( ml) Blood Product volume administered (ml) Total IV fluid infused 800 07/01/24 09:45 TRACTOR ENGINE MECHANIC.GDOTT Anesthesia Postop Eval I: Summary Notes Anesthesia Complication No 07/01/24 09:45 TRACTOR ENGINE MECHANIC.GDOTT Anesthesia Complication Comment: Post-operative progress note Anesthesia: Postop Eval II Evaluation Mental status: Awake and Calm Pain Level: 2 nausea: No Vomiting: No Complications Anesthesia Complication: No 07/01/24 1520 Date Ryder Jacobignjohnny Signature: Date CC: Signed [facility] Operative Reporton 5 Operative Report [facility] Medical Records Department [address] [place] [address] Operative Report 07/01/24 0932 MR#: [id number] Acct: [id number] Name: AMAURI FROST Rep #: [id number] : 1950 73 From: Erik Hernandez MD PCP: [facility] Status:[facility] Location: [place] [address] Operative Report (Standard) Operative Information Date of Procedure: 07/01/24 Pre-Operative Diagnosis: Choledocholithiasis Post-Operative Diagnosis: Same Surgery/Procedure Performed: Robotic assisted laparoscopic cholecystectomy with cholangiograms cushion mat maker: Yes Machine Plaster Mixer: Lashell Ellsworth Tasks completed by first officer: Opening and Closing Type of Anesthesia: General/Regional RN Documented Start/Stop Times: Operation Date: 07/01/24 07:30 Case Time Into Pre-Op 07/01/24 05:52 Anesthesia Start 07/01/24 07:24 Into Room 07/01/24 07:24 Out of Pre-Op 07/01/24 07:30 Procedure Start 05/01/25 07:44 Procedure Start Time: 07:44 Procedure Stop Time: :40 Select all DRAINS/GRAFTS/IMPLANTS that apply: None Estimated Blood Loss: 5 Specimen collected: Yes Description of specimen(s) removed: Gallbladder Description of surgery: Patient was brought to the operating room and general anesthesia was induced. The abdomen was prepped and draped in usual sterile fashion. A midline incision was made superior to the umbilicus and deepened the fascia which was elevated and a Veress needle was placed into the abdomen. Drop test was performed. Abdomen is insufflated to 15 mmHg. The Veress needle was removed and a port was placed. A camera was placed into the abdomen to inspect her injuries and there were none. Next under direct visualization an 8 mm port was placed in the right upper quadrant as well as left upper quadrant and left lateral abdomen. The robot was then docked. The patient had a very long large stone filled gallbladder. It was traced down to the infundibulum. Dissection was carried out and the cystic duct and cystic artery were identified. A clip was placed on the cystic artery. Next a clip was placed proximally on the cystic duct and an Angiocath was placed in the right upper quadrant. The catheter was placed through the Angiocath and a small dane was made in the cystic duct and the Angiocath was placed into the cystic duct. Cholangiograms were performed. The patient had bubbles or stones in the proximal gallbladder but contrast did flow through into the duodenum and around the stent. Next the catheter was removed and another 2 clips were placed on the cystic duct and it was divided. Another clip was placed on the cystic artery and it was divided. Electrocautery was used to take the gallbladder off the gallbladder fossa. There was some spillage of bile. The bile was suctioned and the gallbladder was taken off of the gallbladder fossa. It was placed into a bag. The midline incision had to be lengthened to get the gallbladder out as it was so large. It was reapproximated using interrupted ctsvey-es-uhtwr 0 Vicryl sutures. The skin incisions were injected with local anesthetic and the skin incisions were closed with interrupted 4- 0 Monocryl sutures. Steri-Strips and bandages were applied and patient was awoken and taken to PACU in stable condition. Surgical Findings: Large stone filled gallbladder Complications Complications: No Admit VTE Documentation VTE Mechan Device Prophylaxis: SCD's 05/03/27 935 Cosigner Signature (if applicable): CC: Dr. Erik Hernandez MD; [facility] Signed Normal [facility] Surgery Specimen Level IIIon 07-01-2024 Surgery Specimen Level III Patient Age/Sex Location Account Attending Physician AMAURI FROST 73/M [facility] [id number] Dr. Erik Hernandez MD Specimen: [id number] Received: 07/01/24 Status: RM Petit Num: [id number] Spec Type: ALLEN Virk Dr: Dr. Erik Hernandez MD HEADER OPERATION: Robotic cholecystectomy with IOC PRE-OP DIAGNOSIS: Cholelithaisis TISSUE SUBMITTED: A- Gallbladder MICROSCOPIC DIAGNOSIS A. Gallbladder, cholecystectomy: * Acute on chronic cholecystitis with cholelithiasis. * Benign reactive lymph node x1. MICROSCOPIC DESCRIPTION Slides are reviewed. GROSS DESCRIPTION A. Received in formalin in a container labeled with the patient's name, date of , and gallbladder is a 13.5 x 4.1 x 3.5 cm intact cholecystectomy specimen. A clamped possible cystic duct margin is identified measuring 0.5 cm in length by 0.8 cm in diameter (inked black). Adjacent to the possible cystic duct is a 2.0 x 1.3 x 0.8 cm rubbery and antonio-pink periductal lymph node candidate. Sectioning reveals antonio-pink surfaces. The serosa is within normal limits and the specimen is opened to reveal a scant amount of thick red bile with an abundance of (greater than 20) firm, multifaceted, and speckled stones ranging from 0.7 to 3.7 cm in greatest dimension. The mucosa is red-antonio and moderately denuded with a wall thickness ranging from 0.2 to 0.5 cm. Chief Revenue Officer sections:A1. Possible cystic duct margin, en face with full-thickness sectionsA2. Periductal lymph node candidate, serially sectioned [facility] 07-01-2024 CPT:34009 Patient Age/Sex Location Account Attending Physician AMAURI FROST 73/M [facility] [id number] Dr. Erik Hernandez MD Signed (signature on file) Dr. Sharda Mahajan MD 07/12/24 1711 Normal [facility] Comment on above: Performed By: #### P SUIII ####[facility] [address] [place], [address] [facility]/PAT[facility] Medical Records Department [address] [place] [address] PAT - Anesthesia 06/23/24 1055 MR#: [id number] Acct: [id number] Name: AMAURI FROST Rep #: [id number] : 1950 73 From: Elias Wiggins MD PCP: [facility] Hospital Status:PRE [facility] Y Race: C Location: [facility] Pre-Assessment Diagnosis/Proposed Procedure Planned Operative Procedure(s): ROBOTIC LAP CHOLEY WITH IOC Anesthesia History Anesthesia History - refuge manager: Anesthesia History - refuge manager Hx Hospitalization Yes: 05/202406/17/24 13:08 Any Problems With Anesthesia No 06/17/24 13:08 Cholinesterase deficiency No 06/17/24 13:08 You/Your Family Experience No 06/17/24 13:08 fever (hyperthermia) with Relationship Recent Exposure to Contagious No 05/25/24 05:40 Disease Does patient have nerve No 06/17/24 13:08 stimulator Patient instructed to have device shut off --Does patient have Pacemaker or ICD? When Was Last Pacemaker Check QUESTION #4 FULL TEXT: You/Your Family Experience fever (hyperthermia) with Anesthesia Last Oral Intake Last Oral intake: Last Oral Intake NPO since Meds taken in AM with sips of water? Meds patient instructed to take am of surgery PONV PONV - refuge manager: PONV - refuge manager Female No 06/17/24 13:08 HX of Motion Sickness No 06/17/24 13:08 HX of N/V After Surgery No 06/17/24 13:08 Non-Smoker Yes 06/17/24 13:08 Duration of Surgery greater Yes 06/17/24 13:08 than 60 minutes Number of Risk Factors 2 06/17/24 13:08 PONV Score Moderate Risk 06/17/24 13:08 Height Weight Height Weight: Anesthesia: Height Weight Height 6 ft 06/15/24 12:57 Respiratory Assessment Respiratory Assessment - refuge manager: Respiratory Tract Infection Hx - refuge manager Hx Respiratory Tract Infection No 06/17/24 13:08 STOP Sleep Apnea STOP Sleep Apnea - refuge manager: STOP Sleep Apnea - refuge manager Hx Hypertension No 06/17/24 13:08 Hx Sleep Apnea No 06/17/24 13:08 CPAP BIPAP Do you snore loudly (louder No 06/17/24 13:08 than talking or can be heard Do you often feel tired/ No 06/17/24 13:08 fatigued/ sleepy during daytime? Has anyone observed you stop No 06/17/24 13:08 breathing during sleep? STOP Results Negative 06/17/24 13:08 QUESTION #5 FULL TEXT : Do you snore loudly (louder than talking or can be heard through closed doors)? Tobacco Use History Tobacco Use History - refuge manager: Tobacco Use History - refuge manager Tobacco Use Non-smoker 06/30/20 21:27 Smoking Status Never smoker 06/17/24 13:08 Hx Tobacco Use No 06/17/24 13:08 Years Smoking Packs Smoked per Day Smoking Cessation Date was within the last 15 years Hx Smoking Cessation Date Hx Smoking Cessation Counseling Hematologic Medial History Hematologic Hx - refuge manager: Hematologic Medical Hx - rivet tosser Hx of Blood Transfusion No 06/17/24 13:08 Hx of Transfusion in last 3 No 06/17/24 13:08 Months Date of Last Transfusion (if within last 3 months) Ever experience any problems No 06/17/24 13:08 with transfusion(s)? Specify any problems Hx of Preganancy in last 3 N/A 06/17/24 13:08 Months Nurse Filling Out Transfusion DSCHRIBER 06/17/24 13:08 Questions: Date: 06/17/24 06/17/24 13:08 Time: 13:09 06/17/24 13:08 Patient unable to answer at this time (ie. confused, unrespo /Reproduction History /Reproductive History - refuge manager: /Reproductive Hx- refuge manager Hx Now No 06/17/24 13:08 Gestational Age (in weeks): EDC: Hx Hx Para Hx Section SAB No 06/17/24 13:08 Active Medications Active Medications: Current Medications Generic Name Dose Route Start Last Admin Trade Name Freq PRN Reason Stop Dose Admin Indocyanine Green 3.75 mg/ N/A 1.5 mls @ 999 mls/hr 07/01/24 06:45 IV 07/01/24 06:46 PREOP ONE [facility] Medical History (Updated 06/17/24 @ 13:15 by Mercedes Almanza) Wears glasses Prostate disease High cholesterol Heartburn Non-smoker Shortness of breath on exertion Leg cramps History of echocardiogram Gallbladder problem Deep vein thrombosis (DVT) of femoral vein of right lower extremity History of pulmonary embolus (PE) DVT (deep venous thrombosis) Hypothyroidism Home Medications ???Medication ???Instructions ???Recorded ???Last Taken ???Type ezetimibe 10 mg tablet 10 mg PO DAILY 03/25/23 05/24/24 H istory tamsulosin 0.4 mg capsule 0.4 mg PO QHS 03/25/23 05/23/24 Hi story finasteride 5 mg tablet 5 mg PO DAILY 05/24/24 05/24/24 Hi story levothyr (more content not included)... Normal [facility] 12 Lead EKGon 06-22-2024 12 Lead EKG [facility] [address] [place] [address] 12 Lead EKG 06/22/24 1254 MR#: [id number] Acct: [id number] Name: AMAURI FROST Rep #: [id number] : 1950 73 From: Tristen Figueredo MD Attending Dr: Dr. Erik Hernandez MD Status: PRE [facility] Ordering Dr: Ryder Velásquez MD Date: 06/22/24 Location: [facility] Sex: M C Admitted: Test Reason : PRE OP Blood Pressure : */* mmHG Vent. Rate : 78 BPM Atrial Rate : 78 BPM P-R Int : 128 ms QRS Dur : 74 ms QT Int : 372 ms P-R-T Axes : 29 -11 -26 degrees QTcB Int : 424 ms Normal sinus rhythm Nonspecific T wave abnormality Abnormal ECG Confirmed by TERELL CORTEZ, TRISTEN ([id number]), supervising editor news reel LUIS E REYNAGA ([id number]) on 06/23/2024 7:56:37 AM Referred By: Erik Hernandez Confirmed By: TRISTEN FIGUEREDO MD 06/23/24 0756 Date Tristen Figueredo MD CC: Dr. Ryder Velásquez MD; Dr. Erik Hernandez MD; [facility] Signed Normal [facility] TSH DL <= 0.005 mIU/L QnOrde red By: Ryder Velásquez on 06-22-2024 TSH Qn 0.243 uIU/mL Low 0.300-4.20 0 [facility] Thyroid Stim Hormone (TSH)on 06-22-2024 TSH 0.243 uIU/mL Low 0.300-4.20 0 [facility] Comment on above: Performed By: #### L 501.9520 ####[facility] [address] [place], [address] CA 19-9 Serial Monitoron CA 19-9 8 U/mL Normal 0-35 [facility] Comment on above: Result Comment: [employer] Electrochemiluminescence Immunoassay (ECLIA) Values obtained with different assay methods or kits cannot be used interchangeably. Results cannot be interpreted as absolute evidence of the presence or absence of malignant disease. Performed at: [place] [id number] [place], [place] [id number] [employer]: Farzad Abdi PhD, Phone: [phone] Performed By: #### L 3100.5017 ####[facility] [address] [place], [address] Cancer antigen 19-9 measurem entOrdered By: Zachary Mijares on 06-15-2024 CA 19-9 Antigen 8 U/mL [address] [place] [address] Comment on above: [employer] ectrochemiluminescence Immunoassay(ECLIA)Values obtained with different assay methods or kits cannotbe used interchangeably. Results cannot be interpreted asabsolute evidence of the presence or absence of malignantdisease.Performed at: [address] [id number] Director: Farzad Abdi PhD, Phone: [phone] Cancer antigen 19-9 measurement 8 U/mL 0-35 [facility] Comment on above: [employer] El ectrochemiluminescence Immunoassay(ECLIA)Values obtained with different assay methods or kits cannotbe used interchangeably. Results cannot be interpreted asabsolute evidence of the presence or absence of malignantdisease.Performed at: [address] [id number] Director: Farzad Abdi PhD, Phone: [phone] No Panel InformationOrdered By: Zachary Mijares on 06-15-2024 CA 19-9 Antigen Serial Monitoring Not Reportable [facility] Surgery Visit Reporton 06-15 Surgery Visit Report [facility] [address] [place] [address] OFFICE VISIT Date of Service: 06/15/24 MR#: [id number] Acct: [id number] Name: AMAURI FROST Vu Rep #: [id number] : 1950 Provider: Dr. Erik odonnell MD Age/Sex: 73/M Location: [facility] Status: Signed Intake Vital Signs 05/24/24 20:43 06/15/24 12:57 Height 6 ft 6 ft Weight: 232 lb BMI 31.4 BP 130/80 H Blood Pressure Location Rt brachial Position Sitting Respiration 18 Pulse 80 Pulse Source Monitor Temp 97.9 F Temp Source Temporal Pulse Oximetry (%) 100 Oxygen Delivery Method room air Intake Visit Reasons: GALLBLADDER Chief Complaint: gallbladder Is patient in pain?: No Allergies No Known Allergies Allergy (Verified 06/15/24 12:59) Medications ???Medication ???Instructions ???Recorded ???Confirmed ???Type ezetimibe 10 mg tablet 10 mg PO DAILY 03/25/23 06/15/24 H istory tamsulosin 0.4 mg capsule 0.4 mg PO QHS 03/25/23 06/15/24 Hi story finasteride 5 mg tablet 5 mg PO DAILY 05/24/24 06/15/24 Hi story levothyroxine 125 mcg tablet 125 mcg PO DAILY 05/24/24 06/15/24 History apixaban 2.5 mg tablet (Eliquis) 2.5 mg PO BID blood thinner 06/15/24 History Have you fallen in the past year?: No PFSH Medical History (Updated 06/15/24 @ 12:57 by Kaylan Wise LPN) Gallbladder problem Deep vein thrombosis (DVT) of femoral vein of right lower extremity History of pulmonary embolus (PE) DVT (deep venous thrombosis) Hypothyroidism Surgical History Hx of colonoscopy History of bunionectomy Family History Mother Colon cancer Social History Smoking Status: Never smoker alcohol intake: current alcohol intake frequency: a few times a week caffeine: Yes HPI HPI HPI: Patient is a 73-year-old male who was recently admitted. He was found to have choledocholithiasis and had an ERCP. He is here to discuss laparoscopic cholecystectomy. ROS General General: No weight change, appetite, fatigue, colon cancer, breast cancer or weakness HEENT HEENT: No difficulty swallowing, eye injury, eye surgery, swollen glands or hoarseness Endo Endocrine: Yes thyroid disease; No diabetes mellitus, thyroid cancer, Hair loss, heat intolerance or cold intolerance Skin Skin: No rash or changing moles Musc Musculoskeletal: No back problems, arthritis, rheumatoid arthritis, gout or joint pain Cardio Cardiovascular: No murmur, pacemaker, heart disease, atrial fibrillation, high blood pressure, heart attack, heart stent, palpitations, shortness of breath with exertion or chest pain Psych Psychiatric: No depression, anxiety or hearing voices Resp Respiratory: No shortness of breath, No sleep apnea, No cough, No COPD, No asthma, No emphysema and No wheezing Gastro Gastrointestinal: No abdominal pain, No nausea or vomiting, No diarrhea, No constipation, No blood in stool, No acid reflux, No hemorrhoids, No ulcers, Yes gallbladder problem and No black,tarry stools Kalyan Hematologic: Yes blood thinners, No blood disorders, No bleeding, No anemia and Yes blood clots Neuro Neurologic: No numbness, No tingling and No weakness Exam Const General: cooperative Orientation: alert and oriented x3 HENMT Head: normal to inspection Neck Neck: normal visual inspection and full ROM Chest Chest palpation inspection: normal inspection of the chest Resp Effort Inspection: normal respiratory effort Auscultation: clear to auscultation bilaterally Cardio Rate: regular rate Rhythm: regular rhythm GI Inspection: non-distended Palpation: soft and nontender Skin General: no rashes or lesions noted Neuro General: patient alert and patient oriented x3 Extrem General: full ROM Psych Appearance: grossly normal Mental Status: mental status grossly normal Assessment and Plan Assessment and Plan (1) Cholelithiasis: Status: Acute Plan: The patient has cholelithiasis and had choledocholithiasis. He underwent ERCP with stone removal. He is here now to discuss laparoscopic cholecystectomy to remove the gallbladder. I discussed the procedure in detail with the patient. I discussed the risks, benefits, and alternatives of the procedure. I discussed the risks including but not limited to bleeding, infection, injury to surrounding organs such as the liver, bile duct, bowels. I did discuss the possibility of having to convert to an open procedure as well as the possibility that if any injuries occurred this may necessitate further surgery at a tertiary care center. I will hold his Eliquis for 2 days prior to surg (more content not included)... Normal [facility] Anti-Smooth Muscle ABSon ANTISMOOTH MUSC 7 Units Normal 0-19 [facility] Comment on above: Order Comment: Test( s) [id number]-Vkxnfm, Serum or Plasmawas developed and its performance characteristicsdetermined by [employer]. It has not been cleared or approvedby the Food and Drug Administration. Result Comment: Nega tive 0 - 19 Weak positive 20 - 30 Moderate to strong positive >30 Actin Antibodies are found in 52-85% of patients with autoimmune hepatitis or chronic active hepatitis and in 22% of patients with primary biliary cirrhosis. Performed By: #### L 3100.3425, L101.9900, L3400.1500, L3100.5020, L3400.0700, L3100.5440, L501.6710, L3000.0375, L3100.1850, L3200.0500, L503.6030, L3300.0100, L3200.1100, L503.6550, L504.2610, L3100.5850, L501.8400, L803.2200 ####[facility] [address] [facility] [place], [place], [id number] CMV Acute Antibody IgMon CMV Ab, IgM < 30.0 Normal 0.0-29.9 [facility] Comment on above: Order Comment: Test( s) 859062-Juhdop, Serum or Plasmawas developed and its performance characteristicsdetermined by [employer]. It has not been cleared or approvedby the Food and Drug Administration. Result Comment: Nega tive <30.0 Equivocal 30.0 - 34.9 Positive >34.9 A positive result is generally indicative of acute infection, reactivation or persistent IgM production. Performed By: #### L 3100.3425, L101.9900, L3400.1500, L3100.5020, L3400.0700, L3100.5440, L501.6710, L3000.0375, L3100.1850, L3200.0500, L503.6030, L3300.0100, L3200.1100, L503.6550, L504.2610, L3100.5850, L501.8400, L803.2200 ####[facility] [address] [facility] [place], [place], [address] Carbohydrate AG 19-9on 06-04 CA 19-9 73 U/mL High 0-35 [facility] Comment on above: Order Comment: Test( s) 240938-Ddhxtf, Serum or Plasmawas developed and its performance characteristicsdetermined by [facility]. It has not been cleared or approvedby the Food and Drug Administration. Result Comment: [email or web address] Electrochemiluminescence Immunoassay (ECLIA) Values obtained with different assay methods or kits cannot be used interchangeably. Results cannot be interpreted as absolute evidence of the presence or absence of malignant disease. Performed By: #### L 3100.3425, L101.9900, L3400.1500, L3100.5020, L3400.0700, L3100.5440, L501.6710, L3000.0375, L3100.1850, L3200.0500, L503.6030, L3300.0100, L3200.1100, L503.6550, L504.2610, L3100.5850, L501.8400, L803.2200 ####[facility] [address] [place], [place], [address] Ceruloplasminon 06-04-2024 CERULOPLASMIN 21.8 mg/dL Normal 16.0-31.0 [facility] Comment on above: Order Comment: Test( s) [id number]-Kjyrqi, Serum or Plasmawas developed and its performance characteristicsdetermined by [employer]. It has not been cleared or approvedby the Food and Drug Administration. Performed By: #### L 3100.3425, L101.9900, L3400.1500, L3100.5020, L3400.0700, L3100.5440, L501.6710, L3000.0375, L3100.1850, L3200.0500, L503.6030, L3300.0100, L3200.1100, L503.6550, L504.2610, L3100.5850, L501.8400, L803.2200 ####[facility] [address] [place], [place], [address] Copper, Serum or Plasmaon COPPER, SERUM 90 ug/dL Normal 69-132 [facility] Comment on above: Order Comment: Test( s) 184039-Bmxfsb, Serum or Plasmawas developed and its performance characteristicsdetermined by [employer]. It has not been cleared or approvedby the Food and Drug Administration. Result Comment: Dete ction Limit = 5 Performed By: #### L 3100.3425, L101.9900, L3400.1500, L3100.5020, L3400.0700, L3100.5440, L501.6710, L3000.0375, L3100.1850, L3200.0500, L503.6030, L3300.0100, L3200.1100, L503.6550, L504.2610, L3100.5850, L501.8400, L803.2200 ####[facility] [address] [place], [address] EBV Acute Prof IgG / IgMon 0 06-04-2024 EB Ab VCA, IgG > 600.0 High 0.0-17.9 [facility] Comment on above: Order Comment: Test( s) 476967-Bcmutl, Serum or Plasmawas developed and its performance characteristicsdetermined by [employer]. It has not been cleared or approvedby the Food and Drug Administration. Result Comment: Nega tive <18.0 Equivocal 18.0 - 21.9 Positive >21.9 Performed By: #### L 3100.3425, L101.9900, L3400.1500, L3100.5020, L3400.0700, L3100.5440, L501.6710, L3000.0375, L3100.1850, L3200.0500, L503.6030, L3300.0100, L3200.1100, L503.6550, L504.2610, L3100.5850, L501.8400, L803.2200 ####[facility] [address] [place], [address] EBV Ab VCA, IgM < 36.0 Normal 0.0-35.9 [facility] Comment on above: Order Comment: Test( s) [id number]-Ritsfm, Serum or Plasmawas developed and its performance characteristicsdetermined by [employer]. It has not been cleared or approvedby the Food and Drug Administration. Result Comment: Nega tive <36.0 Equivocal 36.0 - 43.9 Positive >43.9 Performed By: #### L 3100.3425, L101.9900, L3400.1500, L3100.5020, L3400.0700, L3100.5440, L501.6710, L3000.0375, L3100.1850, L3200.0500, L503.6030, L3300.0100, L3200.1100, L503.6550, L504.2610, L3100.5850, L501.8400, L803.2200 ####[facility] [address] [place], [address] EBV NuAg Ab,IgG > 600.0 High 0.0-17.9 [facility] Comment on above: Order Comment: Test( s) [id number]-Zueidt, Serum or Plasmawas developed and its performance characteristicsdetermined by [employer]. It has not been cleared or approvedby the Food and Drug Administration. Result Comment: Nega tive <18.0 Equivocal 18.0 - 21.9 Positive >21.9 Performed By: #### L 3100.3425, L101.9900, L3400.1500, L3100.5020, L3400.0700, L3100.5440, L501.6710, L3000.0375, L3100.1850, L3200.0500, L503.6030, L3300.0100, L3200.1100, L503.6550, L504.2610, L3100.5850, L501.8400, L803.2200 ####[facility] [address] [place], [address] INTERPRETATION Comment Normal . [facility] Comment on above: Order Comment: Test( s) 657904-Bdupvq, Serum or Plasmawas developed and its performance characteristicsdetermined by [employer]. It has not been cleared or approvedby the Food and Drug Administration. Result Comment: EBV Interpretation Chart [place]: Antibody Present + Antibody Absent - Interpretation VCA-IgM VCA-IgG EBNA-IgG No previous infection/ - - - Susceptible Primary infection (new + + - or recent) Past Infection +or- + + See comment below* + - - *Results indicate infection with EBV at some time however cannot predict the timing of the infection since antibodies to EBNA usually develop after primary infection or, alternatively, approximately 5-10% of patients with EBV never develop antibodies to EBNA. Performed By: #### L 3100.3425, L101.9900, L3400.1500, L3100.5020, L3400.0700, L3100.5440, L501.6710, L3000.0375, L3100.1850, L3200.0500, L503.6030, L3300.0100, L3200.1100, L503.6550, L504.2610, L3100.5850, L501.8400, L803.2200 ####[facility] [address] [place], [address] Haptoglobinon 06-04-2024 HAPTOGLOBIN 117 mg/dL Normal 34-355 [facility] Comment on above: Order Comment: Test( s) [id number]-Lgqdls, Serum or Plasmawas developed and its performance characteristicsdetermined by [employer]. It has not been cleared or approvedby the Food and Drug Administration. Result Comment: Perf ormed at: [address] [id number] [employer]: Farzad Abdi PhD, Phone: [phone] Performed at: [address] [id number] [employer]: Dany Holden MD, Phone: [phone] Performed By: #### L 3100.3425, L101.9900, L3400.1500, L3100.5020, L3400.0700, L3100.5440, L501.6710, L3000.0375, L3100.1850, L3200.0500, L503.6030, L3300.0100, L3200.1100, L503.6550, L504.2610, L3100.5850, L501.8400, L803.2200 ####[facility] [address] [place], [address] Hepatitis Panel Acuteon 04-0 COMMENT Comment Normal . [facility] Comment on above: Order Comment: Test( s) 101126-Fdnsam, Serum or Plasmawas developed and its performance characteristicsdetermined by [employer]. It has not been cleared or approvedby the Food and Drug Administration. Result Comment: Not infected with HCV unless early or acute infection is suspected (which may be delayed in an immunocompromised individual), or other evidence exists to indicate HCV infection. Performed By: #### L 3100.3425, L101.9900, L3400.1500, L3100.5020, L3400.0700, L3100.5440, L501.6710, L3000.0375, L3100.1850, L3200.0500, L503.6030, L3300.0100, L3200.1100, L503.6550, L504.2610, L3100.5850, L501.8400, L803.2200 ####[facility] [address] [facility] [place], [address] HEP B CORE,IgM Negative Normal Negative [facility] Comment on above: Order Comment: Test( s) 863309-Sxqvor, Serum or Plasmawas developed and its performance characteristicsdetermined by [employer]. It has not been cleared or approvedby the Food and Drug Administration. Performed By: #### L 3100.3425, L101.9900, L3400.1500, L3100.5020, L3400.0700, L3100.5440, L501.6710, L3000.0375, L3100.1850, L3200.0500, L503.6030, L3300.0100, L3200.1100, L503.6550, L504.2610, L3100.5850, L501.8400, L803.2200 ####[facility] [address] [place], [place], [id number] HEP B SURF AG Negative Normal Negative [facility] Comment on above: Order Comment: Test( s) 551140-Tjbggv, Serum or Plasmawas developed and its performance characteristicsdetermined by [employer]. It has not been cleared or approvedby the Food and Drug Administration. Performed By: #### L 3100.3425, L101.9900, L3400.1500, L3100.5020, L3400.0700, L3100.5440, L501.6710, L3000.0375, L3100.1850, L3200.0500, L503.6030, L3300.0100, L3200.1100, L503.6550, L504.2610, L3100.5850, L501.8400, L803.2200 ####[facility] [address] [place], [address] HEP C VIRUS AB Non-Reactive Normal Non Reactive [facility] Comment on above: Order Comment: Test( s) 110630-Oqjtdu, Serum or Plasmawas developed and its performance characteristicsdetermined by [employer]. It has not been cleared or approvedby the Food and Drug Administration. Performed By: #### L 3100.3425, L101.9900, L3400.1500, L3100.5020, L3400.0700, L3100.5440, L501.6710, L3000.0375, L3100.1850, L3200.0500, L503.6030, L3300.0100, L3200.1100, L503.6550, L504.2610, L3100.5850, L501.8400, L803.2200 ####[facility] [address] [place], [place], [phone] HEPATITIS A-IgM Negative Normal Negative [facility] Comment on above: Order Comment: Test( s) 373441-Pupbao, Serum or Plasmawas developed and its performance characteristicsdetermined by [employer]. It has not been cleared or approvedby the Food and Drug Administration. Result Comment: A ne gative anti-HAV IgM result suggests no recent or current HAV infection. Performed By: #### L 3100.3425, L101.9900, L3400.1500, L3100.5020, L3400.0700, L3100.5440, L501.6710, L3000.0375, L3100.1850, L3200.0500, L503.6030, L3300.0100, L3200.1100, L503.6550, L504.2610, L3100.5850, L501.8400, L803.2200 ####[facility] [address] [place], [address] MIRACLE + Protein Elect, Serumon 06-04-2024 Albumin [Mass/Vol] 3.5 g/dL Normal 2.9-4.4 [facility] Comment on above: Order Comment: Test( s) 378134-Jwwzoj, Serum or Plasmawas developed and its performance characteristicsdetermined by [employer]. It has not been cleared or approvedby the Food and Drug Administration. Performed By: #### L 3100.3425, L101.9900, L3400.1500, L3100.5020, L3400.0700, L3100.5440, L501.6710, L3000.0375, L3100.1850, L3200.0500, L503.6030, L3300.0100, L3200.1100, L503.6550, L504.2610, L3100.5850, L501.8400, L803.2200 ####[facility] [address] [place], [address] Albumin/Globulin [Mass ratio] 1.3 {ratio} Normal 0.7-1.7 [facility] Comment on above: Order Comment: Test( s) 641402-Cyjogu, Serum or Plasmawas developed and its performance characteristicsdetermined by [employer]. It has not been cleared or approvedby the Food and Drug Administration. Performed By: #### L 3100.3425, L101.9900, L3400.1500, L3100.5020, L3400.0700, L3100.5440, L501.6710, L3000.0375, L3100.1850, L3200.0500, L503.6030, L3300.0100, L3200.1100, L503.6550, L504.2610, L3100.5850, L501.8400, L803.2200 ####[facility] [address] [facility] [address] [place], [place], [id number] VBJRD-8-ADAA 0.3 g/dL Normal 0.0-0.4 [facility] Comment on above: Order Comment: Test( s) 104127-Okmzml, Serum or Plasmawas developed and its performance characteristicsdetermined by [employer]. It has not been cleared or approvedby the Food and Drug Administration. Performed By: #### L 3100.3425, L101.9900, L3400.1500, L3100.5020, L3400.0700, L3100.5440, L501.6710, L3000.0375, L3100.1850, L3200.0500, L503.6030, L3300.0100, L3200.1100, L503.6550, L504.2610, L3100.5850, L501.8400, L803.2200 ####[facility] [address] [facility] [address] [place], [place], [id number] VPADB-3-ZZWT 0.8 g/dL Normal 0.4-1.0 [facility] Comment on above: Order Comment: Test( s) 277881-Uxeuty, Serum or Plasmawas developed and its performance characteristicsdetermined by [employer]. It has not been cleared or approvedby the Food and Drug Administration. Performed By: #### L 3100.3425, L101.9900, L3400.1500, L3100.5020, L3400.0700, L3100.5440, L501.6710, L3000.0375, L3100.1850, L3200.0500, L503.6030, L3300.0100, L3200.1100, L503.6550, L504.2610, L3100.5850, L501.8400, L803.2200 ####[facility] [address] [place], [address] BETA GLOBULIN 0.9 g/dL Normal 0.7-1.3 [facility] Comment on above: Order Comment: Test( s) 304985-Ecjnxn, Serum or Plasmawas developed and its performance characteristicsdetermined by [facility]. It has not been cleared or approvedby the Food and Drug Administration. Performed By: #### L 3100.3425, L101.9900, L3400.1500, L3100.5020, L3400.0700, L3100.5440, L501.6710, L3000.0375, L3100.1850, L3200.0500, L503.6030, L3300.0100, L3200.1100, L503.6550, L504.2610, L3100.5850, L501.8400, L803.2200 ####[facility] [address], [address] GAMMA GLOBULIN 0.8 g/dL Normal 0.4-1.8 [facility] Comment on above: Order Comment: Test( s) 753816-Znnlbz, Serum or Plasmawas developed and its performance characteristicsdetermined by [employer]. It has not been cleared or approvedby the Food and Drug Administration. Performed By: #### L 3100.3425, L101.9900, L3400.1500, L3100.5020, L3400.0700, L3100.5440, L501.6710, L3000.0375, L3100.1850, L3200.0500, L503.6030, L3300.0100, L3200.1100, L503.6550, L504.2610, L3100.5850, L501.8400, L803.2200 ####[facility] [address] [facility] [place], [address] Globulin (S) [Mass/Vol] 2.8 g/dL Normal 2.2-3.9 [facility] Comment on above: Order Comment: Test( s) 687989-Fzeden, Serum or Plasmawas developed and its performance characteristicsdetermined by [employer]. It has not been cleared or approvedby the Food and Drug Administration. Performed By: #### L 3100.3425, L101.9900, L3400.1500, L3100.5020, L3400.0700, L3100.5440, L501.6710, L3000.0375, L3100.1850, L3200.0500, L503.6030, L3300.0100, L3200.1100, L503.6550, L504.2610, L3100.5850, L501.8400, L803.2200 ####[facility] [address] [place], [address] MIRACLE RESULT,S Comment Normal . [facility] Comment on above: Order Comment: Test( s) 919804-Tgaolp, Serum or Plasmawas developed and its performance characteristicsdetermined by [employer]. It has not been cleared or approvedby the Food and Drug Administration. Result Comment: No m onoclonality detected. Performed By: #### L 3100.3425, L101.9900, L3400.1500, L3100.5020, L3400.0700, L3100.5440, L501.6710, L3000.0375, L3100.1850, L3200.0500, L503.6030, L3300.0100, L3200.1100, L503.6550, L504.2610, L3100.5850, L501.8400, L803.2200 ####[facility] [address] [place], [address] IMMUNOGLOB A QN 104 mg/dL Normal 61-437 [facility] Comment on above: Order Comment: Test( s) 892465-Toyifp, Serum or Plasmawas developed and its performance characteristicsdetermined by [employer]. It has not been cleared or approvedby the Food and Drug Administration. Performed By: #### L 3100.3425, L101.9900, L3400.1500, L3100.5020, L3400.0700, L3100.5440, L501.6710, L3000.0375, L3100.1850, L3200.0500, L503.6030, L3300.0100, L3200.1100, L503.6550, L504.2610, L3100.5850, L501.8400, L803.2200 ####[facility] [address] [place], [place], [id number] IMMUNOGLOB M QN 53 mg/dL Normal 15-143 [facility] Comment on above: Order Comment: Test( s) 541355-Xigeme, Serum or Plasmawas developed and its performance characteristicsdetermined by [employer]. It has not been cleared or approvedby the Food and Drug Administration. Performed By: #### L 3100.3425, L101.9900, L3400.1500, L3100.5020, L3400.0700, L3100.5440, L501.6710, L3000.0375, L3100.1850, L3200.0500, L503.6030, L3300.0100, L3200.1100, L503.6550, L504.2610, L3100.5850, L501.8400, L803.2200 ####[facility] [address] [place], [place], [phone] M-Ryan Not Observed Normal Not Observed [facility] Comment on above: Order Comment: Test( s) 014654-Rmhhvg, Serum or Plasmawas developed and its performance characteristicsdetermined by [employer]. It has not been cleared or approvedby the Food and Drug Administration. Performed By: #### L 3100.3425, L101.9900, L3400.1500, L3100.5020, L3400.0700, L3100.5440, L501.6710, L3000.0375, L3100.1850, L3200.0500, L503.6030, L3300.0100, L3200.1100, L503.6550, L504.2610, L3100.5850, L501.8400, L803.2200 ####[facility] [address] [place], [place], [phone] NOTE: Comment Normal . [facility] Comment on above: Order Comment: Test( s) 448675-Mamwrj, Serum or Plasmawas developed and its performance characteristicsdetermined by [facility]. It has not been cleared or approvedby the Food and Drug Administration. Result Comment: Prot ein electrophoresis scan will follow via computer, mail, or sand polisher delivery. Performed By: #### L 3100.3425, L101.9900, L3400.1500, L3100.5020, L3400.0700, L3100.5440, L501.6710, L3000.0375, L3100.1850, L3200.0500, L503.6030, L3300.0100, L3200.1100, L503.6550, L504.2610, L3100.5850, L501.8400, L803.2200 ####[facility] [address] [place], [place], [id number] Protein [Mass/Vol] 6.3 g/dL Normal 6.0-8.5 [facility] Comment on above: Order Comment: Test( s) 605572-Whbinq, Serum or Plasmawas developed and its performance characteristicsdetermined by [employer]. It has not been cleared or approvedby the Food and Drug Administration. Performed By: #### L 3100.3425, L101.9900, L3400.1500, L3100.5020, L3400.0700, L3100.5440, L501.6710, L3000.0375, L3100.1850, L3200.0500, L503.6030, L3300.0100, L3200.1100, L503.6550, L504.2610, L3100.5850, L501.8400, L803.2200 ####[facility] [address] [place], [address] IgG Subclasseson 06-04-2024 IgG, SUBCLASS 1 499 mg/dL Normal 248-810 [facility] Comment on above: Order Comment: Test( s) 783104-Xpkzgb, Serum or Plasmawas developed and its performance characteristicsdetermined by [employer]. It has not been cleared or approvedby the Food and Drug Administration. Performed By: #### L 3100.3425, L101.9900, L3400.1500, L3100.5020, L3400.0700, L3100.5440, L501.6710, L3000.0375, L3100.1850, L3200.0500, L503.6030, L3300.0100, L3200.1100, L503.6550, L504.2610, L3100.5850, L501.8400, L803.2200 ####[facility] [address] [place], [place], [phone] IgG, SUBCLASS 2 208 mg/dL Normal 130-555 [facility] Comment on above: Order Comment: Test( s) 056620-Aydmcv, Serum or Plasmawas developed and its performance characteristicsdetermined by [employer]. It has not been cleared or approvedby the Food and Drug Administration. Performed By: #### L 3100.3425, L101.9900, L3400.1500, L3100.5020, L3400.0700, L3100.5440, L501.6710, L3000.0375, L3100.1850, L3200.0500, L503.6030, L3300.0100, L3200.1100, L503.6550, L504.2610, L3100.5850, L501.8400, L803.2200 ####[facility] [address] [place], [address] IgG, SUBCLASS 3 10 mg/dL Low 15-102 [facility] Comment on above: Order Comment: Test( s) 295271-Ymllzq, Serum or Plasmawas developed and its performance characteristicsdetermined by [employer]. It has not been cleared or approvedby the Food and Drug Administration. Performed By: #### L 3100.3425, L101.9900, L3400.1500, L3100.5020, L3400.0700, L3100.5440, L501.6710, L3000.0375, L3100.1850, L3200.0500, L503.6030, L3300.0100, L3200.1100, L503.6550, L504.2610, L3100.5850, L501.8400, L803.2200 ####[facility] [address] [facility] [place], [place], [phone]) IgG, SUBCLASS 4 39 mg/dL Normal 2-96 [facility] Comment on above: Order Comment: Test( s) 649403-Pvmxfy, Serum or Plasmawas developed and its performance characteristicsdetermined by [facility]. It has not been cleared or approvedby the Food and Drug Administration. Performed By: #### L 3100.3425, L101.9900, L3400.1500, L3100.5020, L3400.0700, L3100.5440, L501.6710, L3000.0375, L3100.1850, L3200.0500, L503.6030, L3300.0100, L3200.1100, L503.6550, L504.2610, L3100.5850, L501.8400, L803.2200 ####[facility] [address] [facility] [place], [address] IGG,QUANT 891 mg/dL Normal 603-1613 [facility] Comment on above: Order Comment: Test( s) 409137-Mycztw, Serum or Plasmawas developed and its performance characteristicsdetermined by [employer]. It has not been cleared or approvedby the Food and Drug Administration. Performed By: #### L 3100.3425, L101.9900, L3400.1500, L3100.5020, L3400.0700, L3100.5440, L501.6710, L3000.0375, L3100.1850, L3200.0500, L503.6030, L3300.0100, L3200.1100, L503.6550, L504.2610, L3100.5850, L501.8400, L803.2200 ####[facility] [address] [place], [place], [phone] Immunoglobulins G/A/M/Bruce IMMUNOGLOB E QN 30 IU/mL Normal 6-495 [facility] Comment on above: Order Comment: Test( s) 607580-Milgmh, Serum or Plasmawas developed and its performance characteristicsdetermined by [employer]. It has not been cleared or approvedby the Food and Drug Administration. Performed By: #### L 3100.3425, L101.9900, L3400.1500, L3100.5020, L3400.0700, L3100.5440, L501.6710, L3000.0375, L3100.1850, L3200.0500, L503.6030, L3300.0100, L3200.1100, L503.6550, L504.2610, L3100.5850, L501.8400, L803.2200 ####[facility] [address] [place], [address] Anion gap in Serum or Plasma Ordered By: Arnaldo Ulloa on 05-27-2024 Anion gap [Moles/Vol] 10 mmol/L 5-15 [facility] BUN/creatinine ratioOrdered By: Arnaldo Ulloa on 05-27-2024 Urea nitrogen/Creatinine [Mass ratio] 17.7 mg/mg 10-20 [facility] Bilirubin, totalOrdered By: Arnaldo Ulloa on 05-27-2024 Bilirubin [Mass/Vol] 0.88 mg/dL 0.00-1.30 [facility] Carbon dioxide, total [Moles /volume] in Central venous bloodOrdered By: Arnaldo Ulloa on 05-27-2024 CO2 [Moles/Vol] 22.0 mmol/L 21.0-32.0 [facility] Chloride assayOrdered By: Johnny Ulloa on 05-27-2024 Chloride [Moles/Vol] 110 mmol/L High 98-108 [facility] Comprehensive Metabolic Prof ilon 05-27-2024 Albumin [Mass/Vol] 3.7 g/dL Normal 3.4-4.8 [facility] Comment on above: Performed By: #### L 500.4050 ####[facility] [address] [place], [address] Albumin/Globulin [Mass ratio] 1.5 {ratio} Normal 0.9-2.4 [facility] Comment on above: Performed By: #### L 500.4050 ####[facility] [address] [place], [address] ALK PHOS 104 U/L Normal 40-129 [facility] Comment on above: Performed By: #### L 500.4050 ####[facility] [address] [place], [address] ALT [Catalytic activity/Vol] 133 U/L High <=46 [facility] Comment on above: Performed By: #### L 500.4050 ####[facility] [address] [place], [address] AST [Catalytic activity/Vol] 33 U/L Normal <=37 [facility] Comment on above: Performed By: #### L 500.4050 ####[facility] [address] [place], [address] Bilirubin [Mass/Vol] 0.88 mg/dL Normal 0.00-1.30 [facility] Comment on above: Performed By: #### L 500.4050 ####[facility] [address] [place], [address] BUN/CRE 17.7 RATIO Normal 10-20 [facility] Comment on above: Performed By: #### L 500.4050 ####[facility] [address] [place], [address] Calcium [Mass/Vol] 8.6 mg/dL Normal 7.6-11.0 [facility] Comment on above: Performed By: #### L 500.4050 ####[facility] [address] [place], [address] Chloride [Moles/Vol] 110 mmol/L High 98-108 [facility] Comment on above: Performed By: #### L 500.4050 ####[facility] [address] [place], [address] CO2 [Moles/Vol] 22.0 mmol/L Normal 21.0-32.0 [facility] Comment on above: Performed By: #### L 500.4050 ####[facility] [address] [place], [address] Creatinine [Mass/Vol] 1.03 mg/dL Normal 0.70-1.20 [facility] Comment on above: Performed By: #### L 500.4050 ####[facility] [address] [place], [address] ECRCL 79.99 ml/min Normal 50-250 [facility] Comment on above: Performed By: #### L 500.4050 ####[facility] [address] [place], [address] GAP 10 Normal 5-15 [facility] Comment on above: Performed By: #### L 500.4050 ####[facility] [address] [place], [address] GFR/1.73 sq M.predicted among non-blacks MDRD (S/P/Bld) [Vol rate/Area] 77 mL/min/{1.73_m2} Normal >60 [facility] Comment on above: Result Comment: mL/m in/1.73m2 CKD-EPI Creatinine Equation (2020) Performed By: #### L 500.4050 ####[facility] [address] [place], [address] Globulin (S) [Mass/Vol] 2.5 g/dL Normal 2.2-4.2 [facility] Comment on above: Performed By: #### L 500.4050 ####[facility] [address] [place], [address] Glucose [Mass/Vol] 110 mg/dL High 70-99 [facility] Comment on above: Performed By: #### L 500.4050 ####[facility] [address] [place], [address] Potassium [Moles/Vol] 3.6 mmol/L Normal 3.3-5.1 [facility] Comment on above: Performed By: #### L 500.4050 ####[facility] [address] [place], [address] Sodium [Moles/Vol] 142 mmol/L Normal 133-145 [facility] Comment on above: Performed By: #### L 500.4050 ####[facility] [address] [place], [address] T PROT 6.2 g/dL Normal 5.9-8.4 [facility] Comment on above: Performed By: #### L 500.4050 ####[facility] [address] [place], [address] Urea nitrogen [Mass/Vol] 18 mg/dL Normal 4-19 [facility] Comment on above: Performed By: #### L 500.4050 ####[facility] [address] [place], [address] ERCP Biliary/Pancreason 03-2 ERCP Biliary/Pancreas [facility] Imaging Services [address] [place] [address] ERCP Biliary/Pancreas MR#: [id number] Acct: [id number] Name: AMAURI FROST Rep #: [id number] : 1950 M 73 From: Lukas Denis i, MD PCP: [facility] Status: ADM IN Study: ERCP Biliary/Pancreas Date of Exam: 05/27/24 Exam# [id number] Ordering Dr: Zachary Mijares DO EXAM: ERCP. CLINICAL HISTORY: ERCP. COMPARISON: CT of the abdomen/pelvis with IV contrast dated 05/24/2024. TECHNIQUE: 7 ERCP images are provided for evaluation. FINDINGS: Limited examination. Please see the [facility] GI service. Initial imaging demonstrates wire and possibly stent within the pancreatic duct as well as the common bile duct in a kissing fashion. The stent appeared to portably draining into the duodenum. Correlate clinically. RAD/ERCP Biliary/Pancreas IMPRESSION: Limited examination. Correlate clinically. Reading Location: [id number] CC: Zachary Mijares DO; [facility] Log Marker: Signed Normal [facility] ERCP Reporton 05-27-2024 ERCP Report [facility] Medical Records Department [address] [place] [id number] ERCP Report MR#: [id number] Acct: [id number] Name: AMAURI FROST Rep #: [id number] : 1950 73 From: Zachary Mijares DO PCP: [facility] Status:ADM IN Patient Name: Amauri Frost Procedure Date: 05/27/2024 6:29 PM Date of : 1950 Age: 73 Procedure: ERCP Indications: Common bile duct stone(s), Abdominal pain of suspected biliary origin, Jaundice, Elevated liver enzymes Providers: Zachary Mijares DO Medicines: General Anesthesia Patient Profile: This is a 73 year old male. Refer to note in patient chart for documentation of history and physical. Patient has symptoms of acute right upper quadrant abdominal pain and acute jaundice. This patient has no history of previous ERCP. This patient has no history of surgical alteration of the upper digestive tract anatomy. Complications: No immediate complications. Procedure: Pre-Anesthesia Assessment: - Prior to the procedure, a History and Physical was performed, and patient medications and allergies were reviewed. The patient is competent. The risks and benefits of the procedure and the sedation options and risks were discussed with the patient. All questions were answered and informed consent was obtained. Patient identification and proposed procedure were verified by the physician in the pre-procedure area. Mental Status Examination: alert and oriented. Airway Examination: normal oropharyngeal airway and neck mobility. Respiratory Examination: clear to auscultation. CV Examination: normal. Prophylactic Antibiotics: The patient does not require prophylactic antibiotics. Prior Anticoagulants: The patient has taken no anticoagulant or antiplatelet agents except for NSAID medication. ASA Grade Assessment: II - A patient with mild systemic disease. After reviewing the risks and benefits, the patient was deemed in satisfactory condition to undergo the procedure. The anesthesia plan was to use general anesthesia. Immediately prior to administration of medications, the patient was re-assessed for adequacy to receive sedatives. The heart rate, respiratory rate, oxygen saturations, blood pressure, adequacy of pulmonary ventilation, and response to care were monitored throughout the procedure. The physical status of the patient was re-assessed after the procedure. After obtaining informed consent, the scope was passed under direct vision. Throughout the procedure, the patient's blood pressure, pulse, and oxygen saturations were monitored continuously. The Duodenoscope was introduced through the mouth, and advanced to the duodenum and used to inject contrast into the bile duct and ventral pancreatic duct. The ERCP was accomplished without difficulty. The patient tolerated the procedure well. Scope In: 6:32:22 PM Scope Out: 7:01:15 PM Total Procedure Duration Time 0 hours 28 minutes 53 seconds Findings: The high school business teacher film was normal. The scope was advanced to a normal major papilla in the descending duodenum. Examination of the pharynx, larynx and associated structures, and upper GI tract was normal. The minor papilla was not found. The ventral pancreatic duct was deeply cannulated with the short-nosed traction sphincterotome. Contrast was injected. I personally interpreted the pancreatic duct images. There was brisk flow of contrast through the ducts. Image quality was adequate. Contrast extended to the pancreatic duct. Opacification of the entire pancreatic ductal system was successful. The maximum diameter of the ducts was 4 mm. The entire opacified area was normal. A long 0.025 inch Jagwire was passed into the ventral pancreatic duct. A 5 mm ventral pancreatic sphincterotomy was made with a braided traction (standard) sphincterotome using ERBE electrocautery. There was no post-sphincterotomy bleeding. To find object(s) the ventral pancreatic duct was swept with a 6 mm balloon starting at the pancreatic duct in the body of the pancreas. Nothing was found. One 5 Fr by 7 cm temporary stent was placed 5 cm into the ventral pancreatic duct. Clear fluid flowed through the stent. The stent was in good position. The bile duct was deeply cannulated with the short-nosed traction sphincterotome. Contrast was injected. Opacification of the entire biliary tree except for the cystic duct and gallbladder, entire opacified area, common bile duct, common hepatic duct, hepatic duct bifurcation and left and right hepatic ducts and all intrahepatic branches was successful. The maximum diameter of the ducts was 8 mm. The lower third of the main bile duct contained one stone, which was 6 mm in diameter. The common bile duct was diffusely dilated, with a stone causing an obstruction. The largest diameter was 5 mm. A long 0.025 inch Jagwire was p (more content not included)... Normal [facility] Estimation of creatinine hilary aranceOrdered By: Arnaldo Ulloa on 05-27-2024 Estimated Creatinine Clearance Calc 79.99 ml/min 50-250 [facility] GFR/1.73 sq M.predicted brendan g non-blacks MDRD (S/P/Bld) [Vol rate/Area]Ordered By: Arnaldo Ulloa on 05-27-2024 Estimated GFR (MDRD) Non-Af Amer 77 >60 [facility] Comment on above: mL/min/1.73m2 CKD-EP I Creatinine Equation (2020) Glomerular filtration rate ( GFR) estimation/1.73 sq m using serum, plasma, or whole bOrdered By: Arnaldo Ulloa on 05-27-2024 GFR/1.73 sq M.predicted among non-blacks MDRD (S/P/Bld) [Vol rate/Area] 77 mL/min/{1.73_m2} >60 [facility] Comment on above: mL/min/1.73m2 CKD-EP I Creatinine Equation (2020) Laboratory - Chemistry and C hemistry - challengeOrdered By: Arnaldo Ulloa on 05-27-2024 AST [Catalytic activity/Vol] 33 U/L <38 [facility] MR/POSTOP.ANEon 05-27-2024 MR/POSTOP.ANE [facility] Medical Records Department [address] [place] [address] Anesthesia Postop Eval I 05/27/24 191 MR#: [id number] Acct: [id number] Name: AMAURI FROST Rep #: [id number] : 1950 73 From: Ryder Velásquez MD PCP: [facility] Status:ADM IN Y Race: C Location: [place] [address] Anesthesia: Postop Eval I Current Vital Signs Temperature: 97 F Pulse Rate: 77 Blood Pressure: 132/86 Respiratory Rate: 16 Pulse Ox: 94 Oxygen Delivery Method: Room Air Assessment Airway patent: Yes Spontaneous unlabored respirations: Yes Mental status: Awake and Calm nausea: No Vomiting: No Anesthesia Complication: No Fluid Hydration Crystalloid volume administer (ml): 500 Total IV fluid infused: 500 Progress Note Anesthesia document: Postop Eval 1 completed: Yes 05/27/241919 Date Ryder Velásquez MD Cosigner Signature: Date CC: Signed [facility]/[id number] 05-27-2024 /[address] Medical Records Department [address] [place] [address] Anesthesia Postop Eval II 05/27/242231 MR#: [id number] Acct: [id number] Name: AMAURI FROST Rep #: [id number] : 1950 73 From: Ryder Velásquez MD PCP: [facility] Status:ADM IN Y Race: C Location: [place] [id number] Anesthesia Postop Eval I Sum Postop Eval Completion status Anesthesia document: Postop Eval 1 completed: Yes Anesthesia Postop Eval I Summary Anesthesia Postop Eval I Summary: Anesthesia Postop Eval I: Assessment Summary Airway patent Yes 05/27/24 19:20 Spontaneous unlabored Yes 05/27/24 19:20 respirations Mental status Awake,Calm 05/27/24 19:20 nausea No 05/27/24 19:20 Vomiting No 05/27/24 19:20 Anesthesia Postop Eval I: Fluid Summary Crystalloid volume administer 500 05/27/24 19:20 (ml) Colloids volume administered ( ml) Blood Product volume administered (ml) Total IV fluid infused 500 05/27/24 19:20 Anesthesia Postop Eval I: Summary Notes Anesthesia Complication No 05/27/24 19:20 Anesthesia Complication Comment: Post-operative progress note Anesthesia: Postop Eval II Evaluation Mental status: Awake and Calm Pain Level: 0 nausea: No Vomiting: No Complications Anesthesia Complication: No 05/27/242231 Date Ryder Velásquez MD Cosigner Signature: Date CC: Signed Normal [facility] Potassium (Unsp spec) [Mass/ Vol]Ordered By: Arnaldo Ulloa on 05-27-2024 Potassium [Moles/Vol] 3.6 mmol/L 3.3-5.1 [facility] Potassium measurement (mass/ volume)Ordered By: Arnaldo Ulloa on 05-27-2024 Potassium (Unsp spec) [Mass/Vol] 3.6 mmol/L 3.3-5.1 [facility] Serum creatinine measurement (mass/volume)Ordered By: Arnaldo Ulloa on 05-27-2024 Creatinine [Mass/Vol] 1.03 mg/dL 0.70-1.20 [facility] Serum globulin measurementOr dered By: Arnaldo Ulloa on 05-27-2024 Globulin (S) [Mass/Vol] 2.5 g/dL 2.2-4.2 [facility] Serum glucose measurement (m ass/volume)Ordered By: Arnaldo Ulloa on 05-27-2024 Glucose [Mass/Vol] 110 mg/dL High 70-99 [facility] Serum or plasma alanine grant otransferase (ALT) measurementOrdered By: Arnaldo Ulloa on 05-27-2024 ALT [Catalytic activity/Vol] 133 U/L High <47 [facility] Serum or plasma albumin tex urement (mass/volume)Ordered By: Arnaldo Ulloa on 05-27-2024 Albumin [Mass/Vol] 3.7 g/dL 3.4-4.8 [facility] Serum or plasma albumin/glob ulin mass ratioOrdered By: Arnaldo Ulloa on 05-27-2024 Albumin/Globulin [Mass ratio] 1.5 {ratio} 0.9-2.4 [facility] Serum or plasma alkaline sienna sphatase measurementOrdered By: Arnaldo Ulloa on 05-27-2024 ALP [Catalytic activity/Vol] 104 U/L 40-129 [facility] Serum or plasma calcium tex urement (mass/volume)Ordered By: Arnaldo Ulloa on 05-27-2024 Calcium [Mass/Vol] 8.6 mg/dL 7.6-11.0 [facility] Serum or plasma urea nitroge n measurement (mass/volume)Ordered By: Arnaldo Ulloa on 05-27-2024 Urea nitrogen [Mass/Vol] 18 mg/dL 4-19 [facility] Sodium levelOrdered By: Arnaldo Ulloa on 05-27-2024 Sodium [Moles/Vol] 142 mmol/L 133-145 [facility] Total proteinOrdered By: Nicolette Ulloa on 05-27-2024 Protein [Mass/Vol] 6.2 g/dL 5.9-8.4 [facility] RITA Comprehensive Panelon ANTI-DNA (DS)AB <1 Normal 0-9 [facility] Comment on above: Order Comment: FLOOR TO CALL WHEN PT IS BACK IN ROOM Result Comment: Nega tive <5 Equivocal 5 - 9 Positive >9 Performed By: #### L 3100.3425, L101.9900, L3400.1500, L3100.5020, L3400.0700, L3100.5440, L501.6710, L3000.0375, L3100.1850, L3200.0500, L503.6030, L3300.0100, L3200.1100, L503.6550, L504.2610, L3100.5850, L501.8400, L803.2200 ####[facility] [address] [place], [address] ANTISCLERODERM <0.2 Normal 0.0-0.9 [facility] Comment on above: Order Comment: FLOOR TO CALL WHEN PT IS BACK IN ROOM Performed By: #### L 3100.3425, L101.9900, L3400.1500, L3100.5020, L3400.0700, L3100.5440, L501.6710, L3000.0375, L3100.1850, L3200.0500, L503.6030, L3300.0100, L3200.1100, L503.6550, L504.2610, L3100.5850, L501.8400, L803.2200 ####[facility] [address] [place], [place], [address] Absolute lymphocyte countOrd ered By: Arnaldo Ulloa on 05-26-2024 Lymphocytes Auto (Unsp spec) [#/Vol] 1.62 10*3/uL 0.83-4.51 [facility] Absolute neutrophil countOrd ered By: Arnaldo Ulloa on 05-26-2024 Neutrophils (Bld) [#/Vol] 5.1 10*3/uL 2.0-7.7 [facility] Automated lymphocyte count a s percentage of total leukocytesOrdered By: Arnaldo Ulloa on 05-26-2024 Lymphocytes/100 WBC Auto (Unsp spec) 20.6 % 19-41 [facility] Basophil percentageOrdered B y: Arnaldo Ulloa on 05-26-2024 Basophils/100 WBC (Bld) 1.1 % High 0-1 [facility] CBC W/Diff, Automatedon 05-02 Absolute Lymph 1.62 X10 3/uL Normal 0.83-4.51 [facility] Comment on above: Performed By: #### L 500.4050, L100.0100 ####[facility] [address] [place], [address] Absolute Neut 5.1 X10 3/uL Normal 2.0-7.7 [facility] Comment on above: Performed By: #### L 500.4050, L100.0100 ####[facility] [address] [place], [address] Basophils/100 WBC (Bld) 1.1 % High 0-1 [facility] Comment on above: Performed By: #### L 500.4050, L100.0100 ####[facility] [address] [place], [address] Eosinophils/100 WBC (Bld) 4.9 % Normal 0-5 [facility] Comment on above: Performed By: #### L 500.4050, L100.0100 ####[facility] [address] [place], [address] Erythrocyte distribution width (RBC) [Ratio] 13.9 % Normal 11.6-14.6 [facility] Comment on above: Performed By: #### L 500.4050, L100.0100 ####[facility] [address] [place], [address] Hematocrit (Bld) [Volume fraction] 43.6 % Normal 40-54 [facility] Comment on above: Performed By: #### L 500.4050, L100.0100 ####[facility] [address] [place], [address] Hemoglobin (Bld) [Mass/Vol] 14.5 g/dL Normal 13.0-16.5 [facility] Comment on above: Performed By: #### L 500.4050, L100.0100 ####[facility] [address] [place], [address] IG% 0.400 Normal 0.0-0.9 [facility] Comment on above: Result Comment: IG% - Immature Granulocytes (promyelocytes, myelocytes and metamyelocytes) > 1% indicates that a LEFT SHIFT is Present. Performed By: #### L 500.4050, L100.0100 ####[facility] [address] [place], [address] Lymphocytes/100 WBC (Bld) 20.6 % Normal 19-41 [facility] Comment on above: Performed By: #### L 500.4050, L100.0100 ####[facility] [address] [place], [address] MCH (RBC) [Entitic mass] 30.7 pg Normal 27.0-32.0 [facility] Comment on above: Performed By: #### L 500.4050, L100.0100 ####[facility] [address] [place], [address] MCHC (RBC) [Mass/Vol] 33.3 g/dL Normal 32-36 [facility] Comment on above: Performed By: #### L 500.4050, L100.0100 ####[facility] [address] [place], [address] MCV (RBC) [Entitic vol] 92.4 fL Normal 80-94 [facility] Comment on above: Performed By: #### L 500.4050, L100.0100 ####[facility] [address] [place], [address] Monocytes/100 WBC (Bld) 8.0 % Normal 0-10 [facility] Comment on above: Performed By: #### L 500.4050, L100.0100 ####[facility] [address] [place], [address] Neutrophils/100 WBC (Bld) 65.0 % Normal 47-70 [facility] Comment on above: Performed By: #### L 500.4050, L100.0100 ####[facility] [address] [place], [address] Nucleated RBC (Bld) [#/Vol] 0 10*3/uL Normal 0-5 [facility] Comment on above: Performed By: #### L 500.4050, L100.0100 ####[facility] [address] [place], [address] Platelet mean volume (Bld) [Entitic vol] 9.1 fL Normal 6.2-12.0 [facility] Comment on above: Performed By: #### L 500.4050, L100.0100 ####[facility] [address] [place], [address] Platelets (Bld) [#/Vol] 247 10*3/uL Normal 150-450 [facility] Comment on above: Performed By: #### L 500.4050, L100.0100 ####[facility] [address] [place], [address] RBC (Bld) [#/Vol] 4.72 10*6/uL Normal 4.6-6.2 [facility] Comment on above: Performed By: #### L 500.4050, L100.0100 ####[facility] [address] [place], [address] RDW SD 47.1 fl High 35.1-43.9 [facility] Comment on above: Performed By: #### L 500.4050, L100.0100 ####[facility] [address] [place], [address] WBC (Bld) [#/Vol] 7.9 10*3/uL Normal 4.4-11.0 [facility] Comment on above: Performed By: #### L 500.4050, L100.0100 ####[facility] [address] [place], [address] Comprehensive Metabolic Prof ilon 05-26-2024 Albumin [Mass/Vol] 3.8 g/dL Normal 3.4-4.8 [facility] Comment on above: Performed By: #### L 500.4050, L100.0100 ####[facility] [address] [place], [address] Albumin/Globulin [Mass ratio] 1.5 {ratio} Normal 0.9-2.4 [facility] Comment on above: Performed By: #### L 500.4050, L100.0100 ####[facility] [address] [place], [address] ALK PHOS 130 U/L High 40-129 [facility] Comment on above: Performed By: #### L 500.4050, L100.0100 ####[facility] [address] [place], [address] ALT [Catalytic activity/Vol] 172 U/L High <=46 [facility] Comment on above: Performed By: #### L 500.4050, L100.0100 ####[facility] [address] [place], [address] AST [Catalytic activity/Vol] 41 U/L High <=37 [facility] Comment on above: Performed By: #### L 500.4050, L100.0100 ####[facility] [address] [place], [address] Bilirubin [Mass/Vol] 1.14 mg/dL Normal 0.00-1.30 [facility] Comment on above: Performed By: #### L 500.4050, L100.0100 ####[facility] [address] [place], [address] BUN/CRE 16.6 RATIO Normal 10-20 [facility] Comment on above: Performed By: #### L 500.4050, L100.0100 ####[facility] [address] [place], [address] Calcium [Mass/Vol] 8.9 mg/dL Normal 7.6-11.0 [facility] Comment on above: Performed By: #### L 500.4050, L100.0100 ####[facility] [address] [place], [address] Chloride [Moles/Vol] 110 mmol/L High 98-108 [facility] Comment on above: Performed By: #### L 500.4050, L100.0100 ####[facility] [address] [place], [address] CO2 [Moles/Vol] 19.5 mmol/L Low 21.0-32.0 [facility] Comment on above: Performed By: #### L 500.4050, L100.0100 ####[facility] [address] [place], [address] Creatinine [Mass/Vol] 0.95 mg/dL Normal 0.70-1.20 [facility] Comment on above: Performed By: #### L 500.4050, L100.0100 ####[facility] [address] [place], [address] ECRCL 86.73 ml/min Normal 50-250 [facility] Comment on above: Performed By: #### L 500.4050, L100.0100 ####[facility] [address] [place], [address] GAP 12 Normal 5-15 [facility] Comment on above: Performed By: #### L 500.4050, L100.0100 ####[facility] [address] [place], [address] GFR/1.73 sq M.predicted among non-blacks MDRD (S/P/Bld) [Vol rate/Area] 85 mL/min/{1.73_m2} Normal >60 [facility] Comment on above: Result Comment: mL/m in/1.73m2 CKD-EPI Creatinine Equation (2020) Performed By: #### L 500.4050, L100.0100 ####[facility] [address] [place], [address] Globulin (S) [Mass/Vol] 2.6 g/dL Normal 2.2-4.2 [facility] Comment on above: Performed By: #### L 500.4050, L100.0100 ####[facility] [address] [place], [address] Glucose [Mass/Vol] 107 mg/dL High 70-99 [facility] Comment on above: Performed By: #### L 500.4050, L100.0100 ####[facility] [address] [place], [address] Potassium [Moles/Vol] 3.6 mmol/L Normal 3.3-5.1 [facility] Comment on above: Result Comment: Hemo lysis present, Results??could be affected. ?? Performed By: #### L 500.4050, L100.0100 ####[facility] [address] [place], [address] Sodium [Moles/Vol] 142 mmol/L Normal 133-145 [facility] Comment on above: Performed By: #### L 500.4050, L100.0100 ####[facility] [address] [place], [address] T PROT 6.4 g/dL Normal 5.9-8.4 [facility] Comment on above: Performed By: #### L 500.4050, L100.0100 ####[facility] [address] [place], [address] Urea nitrogen [Mass/Vol] 16 mg/dL Normal 4- [facility] Comment on above: Performed By: #### L 500.4050, L100.0100 ####[facility] [address] [place], [address] Discharge Instructionon 05-02 Discharge Instruction [facility] Medical Records Department [address] [place] [address] Instructions for Home/Discharge Instructions 05/26/24 1458 MR#: [id number] Acct: [id number] Name: AMAURI FROST Rep #: [id number] : 1950 73 From: Arnaldo Ulloa DO [facility]CP: [facility] Status:ADM IN Discharge Instructions Diet Discharge Diet: No restrictions DC O2, CPAP, BIPAP needs Home O2 Discharge instructions: No Follow Up Care Test Results: Test results from this visit will be discussed in further detail at your follow-up appointment, if applicable. Discharge Plan Admission Admit Date/Time: 05/24/24 19:49 Primary Reason for Your Visit: jaundice Attending Provider: Arnaldo Ulloa Primary Care Provider: [facility] Consulting Providers: Mya Galicia Discharge Orders/Prescriptions Prescriptions: Continued ezetimibe 10 mg tablet 10 mg PO DAILY tamsulosin 0.4 mg capsule 0.4 mg PO QHS levothyroxine 125 mcg tablet 125 mcg PO DAILY finasteride 5 mg tablet 5 mg PO DAILY Discontinued Eliquis 2.5 mg tablet 2.5 mg PO BID Referrals / Follow Up: Erik Hernandez MD [Med Staff - Active Staff] - 1-2 Weeks [facility] [Primary Care Provider] - 1 Week Disposition Disposition (needs filled in before D/C Order can be placed): Home, Self Care 05/26/24 1500 Arnaldo Ulloa DO CC: Dr. Mya Galicia MD; [facility] Signed Normal [facility] Electrocardiogram reportOrde red By: Tristen Figueredo on 05-26-2024 EKG study [facility] Cardiovascular Services [address] [place] [address] 12 Lead EKG 05/25/24 0722 MR#: [id number] Acct: [id number] Name: AMAURI FROST Rep #:[id number] : 1950 73 From: Tristen Figueredo MD Attending Dr: Dr. Arnaldo Ulloa DO Status: ADM IN Ordering Dr: Ryder Velásquez MD Date: 05/25/24 Location: [facility] Sex: M C Admitted: 05/24/24 Test Reason : P Blood Pressure : */* mmHG Vent. Rate : 59 BPM Atrial Rate : 59 BPM P-R Int : 182 ms QRS Dur : 88 ms QT Int : 450 ms P-R-T Axes : 48 -36 -20 degrees QTcB Int : 445 ms Sinus bradycardia Left axis deviation Nonspecific T wave abnormality Abnormal ECG When compared with ECG of 30-Jun-2020 23:48, Vent. rate has decreased by 31 bpm QRS axis Shifted left Confirmed by TERELL CORTEZ, TRISTEN ([id number]), supervising editor news reel LUIS E REYNAGA ([id number]) on 05/26/2024 7:18:20 AM Referred By: Confirmed By: TRISTEN FIGUEREDO MD 05/26/2418 Date _ Tristen Figueredo MD CC: Dr. Ryder Velásquez MD; Dr. Arnaldo Ulloa DO; [facility] ~ Signed [facility] Other Phone: Eosinophil percentageOrdered By: Arnaldo Ulloa on 05-26-2024 Eosinophils/100 WBC (Bld) 4.9 % 0-5 [facility] Erythrocyte distribution wid th ratioOrdered By: Arnaldo Ulloa on 05-26-2024 Erythrocyte distribution width (RBC) [Ratio] 13.9 % 11.6-14.6 [facility] Erythrocyte distribution wid th standard deviationOrdered By: Arnaldo Ulloa on 05-26-2024 Erythrocyte distribution width (RBC) [Entitic vol] 47.1 fL High 35.1-43.9 [facility] Erythrocyte distribution width (RBC) [Ratio] 47.1 fl High 35.1-43.9 [facility] Hematocrit Auto (Bld) [Volum e fraction]Ordered By: Arnaldo Ulloa on 05-26-2024 Hematocrit (Bld) [Volume fraction] 43.6 % 40-54 [facility] Hemoglobin measurementOrdere d By: Arnaldo Ulloa on 05-26-2024 Hemoglobin (Bld) [Mass/Vol] 14.5 g/dL 13.0-16.5 [facility] Immature granulocytes/100 WB C Auto (Bld)Ordered By: Arnaldo Ulloa on 05-26-2024 Immature granulocytes/100 WBC (Bld) 0.400 % 0.0-0.9 [facility] Comment on above: IG% - Immature Granu locytes (promyelocytes, myelocytes and metamyelocytes) > 1% indicates that a LEFT SHIFT is Present. Lymphocytes Auto (Unsp spec) [#/Vol]Ordered By: Arnaldo Ulloa on 05-26-2024 Lymphocytes (Bld) [#/Vol] 1.62 10*3/uL 0.83-4.51 [facility] Lymphocytes/100 WBC Auto (Un sp spec)Ordered By: Arnaldo Ulloa on 05-26-2024 Lymphocytes/100 WBC (Bld) 20.6 % 19-41 [facility] MCV (mean corpuscular volume ) determinationOrdered By: Arnaldo Ulloa on 05-26-2024 MCV (RBC) [Entitic vol] 92.4 fL 80-94 [facility] MRCP Abdomen without Contras ton 05-26-2024 MRCP Abdomen without Contrast [facility] Imaging Services [address] [place] [address] MRCP Abdomen without Contrast MR#: [id number] Acct: [id number] Name: MARGOTAMAURI D Rep #: [id number] : 1950 73 From: Ricci osborn MD PCP: [facility] Status: ADM IN Study: MRCP Abdomen without Contrast Date of Exam: Exam# [id number] Ordering Dr: Mya Galicia MD EXAM: MRCP without contrast. CLINICAL HISTORY: Elevated LFTs. COMPARISON: CT abdomen and pelvis 05/24/2024 TECHNIQUE: MR images of the abdomen were acquired with intravenous contrast. Sequences include: COR T2 SSBH, Axial T1, Axial T2, DWI, T1 IN and OUT of Phase, Axial LAVA, COR LAVA. Post-contrast sequences include axial LAVA in multiple phases, COR LAVA in multiple phases. FINDINGS: LUNG BASES: Patchy opacities in the lung base, compatible with atelectasis.. Visualized mediastinum is unremarkable. LIVER: Normal in size. No masses GALLBLADDER: Diffuse cholelithiasis. No evidence of intrahepatic or extrahepatic ductal dilatation. The common bile duct measures 8 mm. Filling defect within the distal common bile duct, just distal to the ampulla (series 11, image 5, series 10 image 17) PANCREAS: No ductal dilation. Homogeneous signal intensity. No suspicious mass. SPLEEN: Normal. No masses. ADRENAL GLANDS: Normal. No masses. KIDNEYS: Normal. No masses. No hydronephrosis. VASCULAR: The abdominal aorta is normal in caliber. LYMPHATICS: No abnormal adenopathy. GASTROINTESTINAL: Stomach is unremarkable. No bowel dilation. Colonic diverticulosis. No significant wall thickening. BONES: Mild degenerative changes of the lumbar spine. SOFT TISSUE: Normal. MRI/MRCP Abdomen without Contrast IMPRESSION: Cholelithiasis with distal common bile duct filling defect, concerning for choledocholithiasis. Reading Location: [facility] CC: Dr. Mya Galicia MD; [facility] Log Marker: Signed Normal [facility] Magnetic resonance imaging r eportOrdered By: Ricci Guzman on 05-26-2024 Study report [facility] Imaging Services [address], [place] [address] MRCP Abdomen without Contrast MR#: [id number] Acct: [id number] Name: AMAURI FROST Vu Rep #: [id number] : 1950 M 73 From: Radha Guzman MD PCP: [facility] Status: ADM IN Study:MRCP Abdomen without Contrast Date of E xam: 05/26/24 Exam# [id number] Ordering Dr: Luis Galicia MD EXAM: MRCP without contrast. CLINICAL HISTORY: Elevated LFTs. COMPARISON: CT abdomen and pelvis 05/24/2024 TECHNIQUE: MR images of the abdomen were acquired with intravenous contrast. Sequences include: COR T2 SSBH, Axial T1, Axial T2, DWI, T1 IN and OUT of Phase, Axial LAVA, COR LAVA. Post-contrast sequences include axial LAVA in multiple phases, COR LAVA in multiple phases. FINDINGS: LUNG BASES: Patchy opacities in the lung base, compatible with atelectasis.. Visualized mediastinum is unremarkable. LIVER: Normal in size. No masses GALLBLADDER: Diffuse cholelithiasis. No evidence of intrahepatic or extrahepatic ductal dilatation. The common bile duct measures 8 mm. Filling defect within the distal common bile duct, just distal to the ampulla (series 11, image 5, series 10 image 17) PANCREAS: No ductal dilation. Homogeneous signal intensity. No suspicious mass. SPLEEN: Normal. No masses. ADRENAL GLANDS: Normal. No masses. KIDNEYS: Normal. No masses. No hydronephrosis. VASCULAR: The abdominal aorta is normal in caliber. LYMPHATICS: No abnormal adenopathy. GASTROINTESTINAL: Stomach is unremarkable. No bowel dilation. Colonic diverticulosis. No significant wall thickening. BONES: Mild degenerative changes of the lumbar spine. SOFT TISSUE: Normal. MRI/MRCP Abdomen without Contrast IMPRESSION: Cholelithiasis with distal common bile duct filling defect, concerning for choledocholithiasis. Reading Location: [facility] CC: Dr. Mya Galicia MD; [facility] Log Marker: Signed [facility] Mean corpuscular hemoglobin (MCH) determinationOrdered By: Arnaldo Ulloa on 05-26-2024 MCH (RBC) [Entitic mass] 30.7 pg 27.0-32.0 [facility] Mean corpuscular hemoglobin concentration (MCHC) determinationOrdered By: Arnaldo Ulloa on 05-26-2024 MCHC (RBC) [Mass/Vol] 33.3 g/dL 32-36 [facility] Mean platelet volume determi nationOrdered By: Arnaldo Ulloa on 05-26-2024 Platelet mean volume (Bld) [Entitic vol] 9.1 fL 6.2-12.0 [facility] Monocyte percentageOrdered B y: Arnaldo Ulloa on 05-26-2024 Monocytes/100 WBC (Bld) 8.0 % 0-10 [facility] Neutrophil percentageOrdered By: Arnaldo Ulloa on 05-26-2024 Neutrophils/100 WBC (Bld) 65.0 % 47-70 [facility] Nucleated red blood cell per centageOrdered By: Arnaldo Ulloa on 05-26-2024 Nucleated RBC/100 WBC (Bld) [Ratio] 0 % 0-5 [facility] Platelet countOrdered By: Johnny Ulloa on 05-26-2024 Platelets (Bld) [#/Vol] 247 10*3/uL 150-450 [facility] RBC Auto (Bld) [#/Vol]Ordere d By: Arnaldo Ulloa on 05-26-2024 RBC (Bld) [#/Vol] 4.72 10*6/uL 4.6-6.2 [facility] White blood cell (WBC) count Ordered By: Arnaldo Ulloa on 05-26-2024 WBC (Bld) [#/Vol] 7.9 10*3/uL 4.4-11.0 [facility] 12 Lead EKGon 05-25-2024 12 Lead EKG [facility] [address] [place] [address] 12 Lead EKG 05/25/24 0722 MR#: [id number] Acct: [id number] Name: AMAURI FROST Rep #: [id number] : 1950 73 From: Tristen Figueredo MD Attending Dr: Dr. Arnaldo Ulloa, DO Status: ADM IN Ordering Dr: Ryder Velásquez MD Date: 05/25/24 Location: [facility] Sex: M C Admitted: 05/24/24 Test Reason : P Blood Pressure : */* mmHG Vent. Rate : 59 BPM Atrial Rate : 59 BPM P-R Int : 182 ms QRS Dur : 88 ms QT Int : 450 ms P-R-T Axes : 48 -36 -20 degrees QTcB Int : 445 ms Sinus bradycardia Left axis deviation Nonspecific T wave abnormality Abnormal ECG When compared with ECG of 30-Jun-2020 23:48, Vent. rate has decreased by 31 bpm QRS axis Shifted left Confirmed by TERELL CORTEZ, TRISTEN ([id number]), supervising editor news reel LUIS E REYNAGA ([id number]) on 05/26/2024 7:18:20 AM Referred By: Confirmed By: TRISTEN FIGUEREDO MD 05/26/24 0718 Date Tristen Figueredo MD CC: Dr. Ryder Velásquez MD; Dr. Arnaldo Ulloa DO; [facility] Signed Normal [facility] CBC W/Diff, Automatedon 05-02 Absolute Lymph 1.46 X10 3/uL Normal 0.83-4.51 [facility] Comment on above: Performed By: #### L 500.4050, L501.9520, L100.0100 ####[facility] [address] [place], [address] Absolute Neut 5.5 X10 3/uL Normal 2.0-7.7 [facility] Comment on above: Performed By: #### L 500.4050, L501.9520, L100.0100 ####[facility] [address] [place], [address] Basophils/100 WBC (Bld) 1.1 % High 0-1 [facility] Comment on above: Performed By: #### L 500.4050, L501.9520, L100.0100 ####[facility] [address] [place], [address] Eosinophils/100 WBC (Bld) 4.7 % Normal 0-5 [facility] Comment on above: Performed By: #### L 500.4050, L501.9520, L100.0100 ####[facility] [address] [place], [address] Erythrocyte distribution width (RBC) [Ratio] 13.8 % Normal 11.6-14.6 [facility] Comment on above: Performed By: #### L 500.4050, L501.9520, L100.0100 ####[facility] [address] [place], [address] Hematocrit (Bld) [Volume fraction] 43.3 % Normal 40-54 [facility] Comment on above: Performed By: #### L 500.4050, L501.9520, L100.0100 ####[facility] [address] [place], [address] Hemoglobin (Bld) [Mass/Vol] 14.3 g/dL Normal 13.0-16.5 [facility] Comment on above: Performed By: #### L 500.4050, L501.9520, L100.0100 ####[facility] [address] [place], [address] IG% 0.600 Normal 0.0-0.9 [facility] Comment on above: Result Comment: IG% - Immature Granulocytes (promyelocytes, myelocytes and metamyelocytes) > 1% indicates that a LEFT SHIFT is Present. Performed By: #### L 500.4050, L501.9520, L100.0100 ####[facility] [address] [place], [address] Lymphocytes/100 WBC (Bld) 17.7 % Low 19-41 [facility] Comment on above: Performed By: #### L 500.4050, L501.9520, L100.0100 ####[facility] [address] [place], [address] MCH (RBC) [Entitic mass] 30.4 pg Normal 27.0-32.0 [facility] Comment on above: Performed By: #### L 500.4050, L501.9520, L100.0100 ####[facility] [address] [place], [address] MCHC (RBC) [Mass/Vol] 33.0 g/dL Normal 32-36 [facility] Comment on above: Performed By: #### L 500.4050, L501.9520, L100.0100 ####[facility] [address] [place], [address] MCV (RBC) [Entitic vol] 92.1 fL Normal 80-94 [facility] Comment on above: Performed By: #### L 500.4050, L501.9520, L100.0100 ####[facility] [address] [place], [address] Monocytes/100 WBC (Bld) 9.1 % Normal 0-10 [facility] Comment on above: Performed By: #### L 500.4050, L501.9520, L100.0100 ####[facility] [address] [place], [address] Neutrophils/100 WBC (Bld) 66.8 % Normal 47-70 [facility] Comment on above: Performed By: #### L 500.4050, L501.9520, L100.0100 ####[facility] [address] [place], [address] Nucleated RBC (Bld) [#/Vol] 0 10*3/uL Normal 0-5 [facility] Comment on above: Performed By: #### L 500.4050, L501.9520, L100.0100 ####[facility] [address] [place], [address] Platelet mean volume (Bld) [Entitic vol] 9.0 fL Normal 6.2-12.0 [facility] Comment on above: Performed By: #### L 500.4050, L501.9520, L100.0100 ####[facility] [address] [place], [address] Platelets (Bld) [#/Vol] 234 10*3/uL Normal 150-450 [facility] Comment on above: Performed By: #### L 500.4050, L501.9520, L100.0100 ####[facility] [address] [place], [address] RBC (Bld) [#/Vol] 4.70 10*6/uL Normal 4.6-6.2 [facility] Comment on above: Performed By: #### L 500.4050, L501.9520, L100.0100 ####[facility] [address] [place], [address] RDW SD 47.4 fl High 35.1-43.9 [facility] Comment on above: Performed By: #### L 500.4050, L501.9520, L100.0100 ####[facility] [address] [place], [address] WBC (Bld) [#/Vol] 8.3 10*3/uL Normal 4.4-11.0 [facility] Comment on above: Performed By: #### L 500.4050, L501.9520, L100.0100 ####[facility] [address] [place], [address] Comprehensive Metabolic Prof [facility] 05-25-2024 Albumin [Mass/Vol] 3.7 g/dL Normal 3.4-4.8 [facility] Comment on above: Performed By: #### L 500.4050, L501.9520, L100.0100 ####[facility] [address] [place], [address] Albumin/Globulin [Mass ratio] 1.5 {ratio} Normal 0.9-2.4 [facility] Comment on above: Performed By: #### L 500.4050, L501.9520, L100.0100 ####[facility] [address] [place], [address] ALK PHOS 127 U/L Normal 40-129 [facility] Comment on above: Performed By: #### L 500.4050, L501.9520, L100.0100 ####[facility] [address] [place], [address] ALT [Catalytic activity/Vol] 235 U/L High <=46 [facility] Comment on above: Performed By: #### L 500.4050, L501.9520, L100.0100 ####[facility] [address] [place], [address] AST [Catalytic activity/Vol] 64 U/L High <=37 [facility] Comment on above: Performed By: #### L 500.4050, L501.9520, L100.0100 ####[facility] [address] [place], [address] Bilirubin [Mass/Vol] 1.66 mg/dL High 0.00-1.30 [facility] Comment on above: Performed By: #### L 500.4050, L501.9520, L100.0100 ####[facility] [address] [place], [address] BUN/CRE 17.0 RATIO Normal 10-20 [facility] Comment on above: Performed By: #### L 500.4050, L501.9520, L100.0100 ####[facility] [address] [place], [address] Calcium [Mass/Vol] 9.0 mg/dL Normal 7.6-11.0 [facility] Comment on above: Performed By: #### L 500.4050, L501.9520, L100.0100 ####[facility] [address] [place], [address] Chloride [Moles/Vol] 109 mmol/L High 98-108 [facility] Comment on above: Performed By: #### L 500.4050, L501.9520, L100.0100 ####[facility] [address] [place], [address] CO2 [Moles/Vol] 18.6 mmol/L Low 21.0-32.0 [facility] Comment on above: Performed By: #### L 500.4050, L501.9520, L100.0100 ####[facility] [address] [place], [address] Creatinine [Mass/Vol] 0.93 mg/dL Normal 0.70-1.20 [facility] Comment on above: Performed By: #### L 500.4050, L501.9520, L100.0100 ####[facility] [address] [place], [address] ECRCL 88.59 ml/min Normal 50-250 [facility] Comment on above: Performed By: #### L 500.4050, L501.9520, L100.0100 ####[facility] [address] [place], [address] GAP 12 Normal 5-15 [facility] Comment on above: Performed By: #### L 500.4050, L501.9520, L100.0100 ####[facility] [address] [place], [address] GFR/1.73 sq M.predicted among non-blacks MDRD (S/P/Bld) [Vol rate/Area] 88 mL/min/{1.73_m2} Normal >60 [facility] Comment on above: Result Comment: mL/m in/1.73m2 CKD-EPI Creatinine Equation (2020) Performed By: #### L 500.4050, L501.9520, L100.0100 ####[facility] [address] [place], [address] Globulin (S) [Mass/Vol] 2.6 g/dL Normal 2.2-4.2 [facility] Comment on above: Performed By: #### L 500.4050, L501.9520, L100.0100 ####[facility] [address] [place], [address] Glucose [Mass/Vol] 107 mg/dL High 70-99 [facility] Comment on above: Performed By: #### L 500.4050, L501.9520, L100.0100 ####[facility] [address] [place], [address] Potassium [Moles/Vol] 3.4 mmol/L Normal 3.3-5.1 [facility] Comment on above: Performed By: #### L 500.4050, L501.9520, L100.0100 ####[facility] [address] [place], [address] Sodium [Moles/Vol] 140 mmol/L Normal 133-145 [facility] Comment on above: Performed By: #### L 500.4050, L501.9520, L100.0100 ####[facility] [address] [place], [address] T PROT 6.3 g/dL Normal 5.9-8.4 [facility] Comment on above: Performed By: #### L 500.4050, L501.9520, L100.0100 ####[facility] [address] [place], [address] Urea nitrogen [Mass/Vol] 16 mg/dL Normal 4-19 [facility] Comment on above: Performed By: #### L 500.4050, L501.9520, L100.0100 ####[facility] [address] [place], [address] Consultation - Surgicalon Consultation - Surgical [facility] Medical Records Department [address] [place] [address] Consultation - Surgical 05/25/24 0659 MR#: [id number] Acct: [id number] Name: AMAURI FROST Rep #: [id number] : 1950 73 From: Erik Hernandez MD PCP: [facility] Status:ADM IN Location: [address] Assessment Plan Assessment/Plan (1) Scleral icterus: (2) Elevated LFTs: PLAN: Plan The patient has a large amount of gallstones with wall echo on ultrasound. Patient is having workup by Dr. Mijares. Today's LFTs are pending. Patient may need MRCP. I am available for laparoscopic cholecystectomy after Dr. Mijares works up his jaundice. Erik Hernandez MD Pager: [facility] [address] [place] [address], [address] [place] [address] Office: HPI Consult Data Date of Consult: 05/25/24 HPI Narrative HPI Narrative: AMAURI FROST, is a 73 M who presents with scleral icterus and jaundice. The patient is not having any abdominal pain. He denies nausea or vomiting. He denies fevers or chills. [facility] Medical History DVT (deep venous thrombosis) Hypothyroidism Home Medications ???Medication ???Instructions ???Recorded ???Last Taken ???Type ezetimibe 10 mg tablet 10 mg PO DAILY 03/25/23 05/24/24 H istory tamsulosin 0.4 mg capsule 0.4 mg PO QHS 03/25/23 05/23/24 Hi story apixaban 2.5 mg tablet (Eliquis) 2.5 mg PO BID 05/24/24 05/24/24 Hi story finasteride 5 mg tablet 5 mg PO DAILY 05/24/24 05/24/24 Hi story levothyroxine 125 mcg tablet 125 mcg PO DAILY 05/24/24 05/24/24 History Allergy/AdvReac Type Severity Reaction Status Date / Time No Known Allergies Allergy Verified 05/24/24 14:20 Family History Mother Colon cancer Surgical History Hx of colonoscopy History of bunionectomy Social History Smoking Status: Never smoker alcohol intake: current alcohol intake frequency: a few times a week caffeine: Yes ROS Constitutional Constitutional: Denies anorexia, chills, fatigue or fever(s) Eyes Eyes: Denies blurry vision ENT HEENT: Denies abnormal hearing Cardiovascular Cardiovascular: Denies chest pain Respiratory/Chest Respiratory/Chest: Denies cough or dyspnea Gastrointestinal Gastrointestinal: Denies abdominal pain, constipation, nausea or vomiting Genitourinary Genitourinary: Denies change in urinary stream Musculoskeletal Musculoskeletal: Denies abnormal gait Integumentary Integumentary: Reports jaundice Neurologic Neurologic: Denies abnormal gait Psychiatric Psychiatric: Denies anxiety Hematologic/Lymphatic Hematologic/Lymphatic: Denies easy bleeding Physical Exam Const alert and oriented x3 HEENT normocephalic Eyes PERRL Resp normal respiratory effort Cardio Rate: regular rate Rhythm: regular rhythm GI soft to palpation and non-tender Lab / Micro Data 05/25/24 06:39 05/24/24 15:38 Labs: Laboratory Results - last 24 hr 05/24/24 15:38: WBC 9.1, RBC 4.82, Hgb 14.8, Hct 44.5, MCV 92.3, MCH 30.7, MCHC 33.3, RDW Std Deviation 47.3 H, RDW Coeff of Pamela 13.9, Plt Count 250, MPV 8.9, Immature Gran % (Auto) 0.500, Neut % (Auto) 72.6 H, Lymph % (Auto) 13.6 L, Steele % (Auto) 9.5, Eos % (Auto) 2.8, Baso % (Auto) 1.0, Absolute Neuts (auto) 6.6, Absolute Lymphs (auto) 1.24, Nucleated RBC % 0, PT 15.0 H, INR 1.2, APTT 28.6, Sodium 139, Potassium 3.5, Chloride 107, Carbon Dioxide 18.3 L, Anion Gap 13, BUN 21 H, Creatinine 1.09, Estim Creat Clear Calc 76.28, Est GFR (MDRD) Non-Af 72, BUN/Creatinine Ratio 18.9, Glucose 112 H, Calcium 9.5, Total Bilirubin 1.85 H, AST 113 H, ALT 329 H, Alkaline Phosphatase 147 H , Total Protein 7.1, Albumin 4.3, Globulin 2.8, Albumin/Globulin Ratio 1.6 05/24/24 16:54: Urine Color Norma, Urine Clarity Sl. Cloudy, Urine pH 5.0, Ur Specific Champion 1.025, Urine Protein 30 H, Urine Glucose (UA) Normal, Urine Ketones 5 H, Urine Occult Blood 10 H, U rine Nitrite Positive H, Urine Bilirubin 3 H, Urine Urobilinogen 4 H, Ur Leukocyte Esterase 25 H, Urine RBC 0-5 SEEN, Urine WBC 0-5 SEEN, Ur Squamous Epith Cells 0-5 SEEN, Calcium Oxalate Crystal 2+, Urine Bacteria 0 SEEN, Hyaline Casts 5-10 SEEN, Fine Granular Casts 0-5 SEEN, WBC Casts 0-5 SEEN, Urine Mucus 1+ 05/24/24 21:06: ESR 4, Iron 89, TIBC 270, Iron Saturation 33.0, Unsaturated IBC 181 L, Ferritin 784 H, Lactate Dehydrogenase 268 H, C-React Prot Ext Range 35.10 H, Acetaminophen < 5.0 L, DANAE-1 Antibody TNP, SS-A/Ro IgG Antibody TNP, SS-B/La IgG Antibody TNP, Sm (Tobar) Antibody TNP, [employer] Antibody TNP, Antichromatin Antibodies TNP, Centromere B Antibod (more content not included)... Normal [facility] TSH DL <= 0.005 mIU/L QnOrde red By: Mya Galicia on 05-25-2024 Thyroid Stimulating Hormone (TSH) 2.810 uIU/mL 0.300-4.20 0 [facility] TSH Qn 2.810 uIU/mL 0.300-4.20 0 [facility] Thyroid Stim Hormone (TSH)on 05-25-2024 TSH 2.810 uIU/mL Normal 0.300-4.20 0 [facility] Comment on above: Performed By: #### L 500.8730, L501.4020, L100.0100 ####[facility] [address] [place], [address] Abdomen/Pelvis W IV Cont ONL Yon 05-24-2024 Abdomen/Pelvis W IV Cont ONLY [facility] Imaging Services [address] [place] [address] Abdomen/Pelvis W IV Cont ONLY MR#: [id number] Acct: [id number] Name: AMAURI FROST Rep #: [id number] : 1950 M 73 From: Maldonado Weiss MD PCP: [facility] Status: REG ER Study: Abdomen/Pelvis W IV Cont ONLY Date of Exam: Exam# [id number] Ordering Dr: Eren Calero MD EXAM: CT Abdomen, Pelvis and Lumbar Spine With Intravenous Contrast CLINICAL INDICATION: ABDOMINAL PAIN, DIARRHEA TECHNIQUE: Axial computed tomography images of the abdomen, pelvis and lumbar spine with intravenous contrast. This CT exam was performed using one or more of the following dose reduction techniques: automated exposure control, adjustment of the mA and/or kV according to patient size, and/or use of iterative reconstruction technique. COMPARISON: No relevant prior studies available. FINDINGS: LUNG BASES: Unremarkable. No mass. No consolidation. ABDOMEN: LIVER: Hepatomegaly with fatty infiltration. GALLBLADDER AND BILE DUCTS: Unremarkable. No calcified stones. No ductal dilation. PANCREAS: Unremarkable. No mass. No ductal dilation. SPLEEN: Unremarkable. No splenomegaly. ADRENALS: Unremarkable. No mass. KIDNEYS AND URETERS: Right renal cysts. No hydronephrosis. STOMACH AND BOWEL: Colonic diverticulosis without acute diverticulitis. No obstruction. PELVIS: APPENDIX: No findings to suggest acute appendicitis. BLADDER: Unremarkable. No mass. REPRODUCTIVE: Unremarkable as visualized. LUMBAR SPINE: VERTEBRAE: Unremarkable. No acute fracture. DISCS/SPINAL CANAL/NEURAL FORAMINA: No acute findings. No significant spinal canal stenosis. ABDOMEN and PELVIS: INTRAPERITONEAL SPACE: Unremarkable. No free air. No significant fluid collection. BONES/JOINTS: No acute fracture. No dislocation. SOFT TISSUES: Bilateral inguinal hernias. VASCULATURE: Unremarkable. No abdominal aortic aneurysm. LYMPH NODES: Unremarkable. No enlarged lymph nodes. CT/Abdomen/Pelvis W IV Cont ONLY IMPRESSION: 1. Hepatomegaly with fatty infiltration. 2. Bilateral inguinal hernias. 3. Colonic diverticulosis without acute diverticulitis. Reading Location[facility] CC: Dr. Eren Calero MD; [facility] Log Marker: Signed Normal [facility] Absolute neutrophil countOrd ered By: Eren Calero on 05-24-2024 Neutrophils (Bld) [#/Vol] 6.6 10*3/uL 2.0-7.7 [facility] Acetaminophen (Tylenol) Leve ravin 05-24-2024 Acetaminophen [Mass/Vol] ug/mL Low 8.0-19.0 [facility] Comment on above: Result Comment: Acet aminophen concentrations > 200 ug/mL four hours after ingestion, > 100 ug/mL eight hours after ingestion, and > 50 ug/mL 12 hours after ingestion are potentially toxic. Performed By: #### L 3100.3425, L101.9900, L3400.1500, L3100.5020, L3400.0700, L3100.5440, L501.6710, L3000.0375, L3100.1850, L3200.0500, L503.6030, L3300.0100, L3200.1100, L503.6550, L504.2610, L3100.5850, L501.8400, L803.2200 ####[facility] [address] [place], [address] Acetaminophen [Mass/Vol]Orde red By: Zachary Friend on 05-24-2024 Acetaminophen Level < 5.0 ug/mL Low 8.0-19.0 [facility] Comment on above: Acetaminophen concen trations > 200 ug/mL four hours after ingestion, > 100 ug/mL eight hours after ingestion, and > 50 ug/mL 12 hours after ingestion are potentially toxic. Actin IgG QnOrdered By: Wesly gordon Friend on 05-24-2024 Anti-Smooth Muscle Antibody 7 Units 0-19 [facility] Comment on above: Negative 0 - 19 Weak positive 20 - 30 Moderate to strong positive >30 Actin Antibodies are found in 52-85% of patients with autoimmune hepatitis or chronic active hepatitis and in 22% of patients with primary biliary cirrhosis. Activated partial thrombopla stin time (aPTT) in platelet poor plasma by coagulation aOrdered By: Eren Calero on 05-24-2024 aPTT Coag (PPP) [Time] 28.6 s 24.1-36.2 [facility] Addendum DocumentOrdered By: Zachary Mijares on 05-24-2024 Serum Immunofixation Comments Comment . [facility] Comment on above: Protein electrophore sis scan will follow via computer,mail, or sand polisher delivery. Albumin Elph [Mass/Vol]Order ed By: Zachary Mijares on 05-24-2024 Albumin [Mass/Vol] 3.5 g/dL 2.9-4.4 [facility] Alpha 1 globulin Elph [Mass/ Vol]Ordered By: Zachary Mijares on 05-24-2024 Pougd-5-Igqdyjyld (MIRACLE) 0.3 g/dL 0.0-0.4 [facility] Qfaow-1-Uhhylfuup (MIRACLE) 0.8 g/dL 0.4-1.0 [facility] Anion gap in Serum or Plasma Ordered By: Eren Calero on 05-24-2024 Anion gap [Moles/Vol] 13 mmol/L 5-15 [facility] BUN/creatinine ratioOrdered By: Eren Calero on 05-24-2024 Urea nitrogen/Creatinine [Mass ratio] 18.9 mg/mg 10-20 [facility] Basophil percentageOrdered B y: Eren Calero on 05-24-2024 Basophils/100 WBC (Bld) 1.0 % 0-1 [facility] Beta globulin Elph [Mass/Vol ]Ordered By: Zachary Mijares on 05-24-2024 Beta-Globulins (MIRACLE) 0.9 g/dL 0.7-1.3 [facility] Bilirubin Test strip Ql (U)O rdered By: Eren Calero on 05-24-2024 Bilirubin Ql (U) 3 mg/dL High Negative [facility] Comment on above: COLOR OF URINE MAY A FFECT DIPSTICK RESULTS. Bilirubin, totalOrdered By: Eren Calero on 05-24-2024 Bilirubin [Mass/Vol] 1.85 mg/dL High 0.00-1.30 [facility] CA 19-9 agOrdered By: Tristan Mijares on 05-24-2024 CA 19-9 ag 73 U/mL High 0-35 [facility] Comment on above: [employer] El ectrochemiluminescence Immunoassay(ECLIA)Values obtained with different assay methods or kits cannotbe used interchangeably. Results cannot be interpreted asabsolute evidence of the presence or absence of malignantdisease. CA 19-9 Antigen 73 U/mL High 0-35 [facility] Comment on above: [employer] El ectrochemiluminescence Immunoassay(ECLIA)Values obtained with different assay methods or kits cannotbe used interchangeably. Results cannot be interpreted asabsolute evidence of the presence or absence of malignantdisease. CBC W/Diff, Automatedon 05-02 Absolute Lymph 1.24 X10 3/uL Normal 0.83-4.51 [facility] Comment on above: Performed By: #### L 100.0100, L500.4050, L300.4310, L300.3900 ####[facility] [address] [place], [address] Absolute Neut 6.6 X10 3/uL Normal 2.0-7.7 [facility] Comment on above: Performed By: #### L 100.0100, L500.4050, L300.4310, L300.3900 ####[facility] [address] [place], [address] Basophils/100 WBC (Bld) 1.0 % Normal 0-1 [facility] Comment on above: Performed By: #### L 100.0100, L500.4050, L300.4310, L300.3900 ####[facility] [address] [place], [address] Eosinophils/100 WBC (Bld) 2.8 % Normal 0-5 [facility] Comment on above: Performed By: #### L 100.0100, L500.4050, L300.4310, L300.3900 ####[facility] [address] [place], [address] Erythrocyte distribution width (RBC) [Ratio] 13.9 % Normal 11.6-14.6 [facility] Comment on above: Performed By: #### L 100.0100, L500.4050, L300.4310, L300.3900 ####[facility] [address] [place], [address] Hematocrit (Bld) [Volume fraction] 44.5 % Normal 40-54 [facility] Comment on above: Performed By: #### L 100.0100, L500.4050, L300.4310, L300.3900 ####[facility] [address] [place], [address] Hemoglobin (Bld) [Mass/Vol] 14.8 g/dL Normal 13.0-16.5 [facility] Comment on above: Performed By: #### L 100.0100, L500.4050, L300.4310, L300.3900 ####[facility] [address] [place], [address] IG% 0.500 Normal 0.0-0.9 [facility] Comment on above: Result Comment: IG% - Immature Granulocytes (promyelocytes, myelocytes and metamyelocytes) > 1% indicates that a LEFT SHIFT is Present. Performed By: #### L 100.0100, L500.4050, L300.4310, L300.3900 ####[facility] [address] [place], [address] Lymphocytes/100 WBC (Bld) 13.6 % Low 19-41 [facility] Comment on above: Performed By: #### L 100.0100, L500.4050, L300.4310, L300.3900 ####[facility] [address] [place], [address] MCH (RBC) [Entitic mass] 30.7 pg Normal 27.0-32.0 [facility] Comment on above: Performed By: #### L 100.0100, L500.4050, L300.4310, L300.3900 ####[facility] [address] [place], [address] MCHC (RBC) [Mass/Vol] 33.3 g/dL Normal 32-36 [facility] Comment on above: Performed By: #### L 100.0100, L500.4050, L300.4310, L300.3900 ####[facility] [address] [place], [address] MCV (RBC) [Entitic vol] 92.3 fL Normal 80-94 [facility] Comment on above: Performed By: #### L 100.0100, L500.4050, L300.4310, L300.3900 ####[facility] [address] [place], [address] Monocytes/100 WBC (Bld) 9.5 % Normal 0-10 [facility] Comment on above: Performed By: #### L 100.0100, L500.4050, L300.4310, L300.3900 ####[facility] [address] [place], [address] Neutrophils/100 WBC (Bld) 72.6 % High 47-70 [facility] Comment on above: Performed By: #### L 100.0100, L500.4050, L300.4310, L300.3900 ####[facility] [address] [place], [address] Nucleated RBC (Bld) [#/Vol] 0 10*3/uL Normal 0-5 [facility] Comment on above: Performed By: #### L 100.0100, L500.4050, L300.4310, L300.3900 ####[facility] [address] [place], [address] Platelet mean volume (Bld) [Entitic vol] 8.9 fL Normal 6.2-12.0 [facility] Comment on above: Performed By: #### L 100.0100, L500.4050, L300.4310, L300.3900 ####[facility] [address] [place], [address] Platelets (Bld) [#/Vol] 250 10*3/uL Normal 150-450 [facility] Comment on above: Performed By: #### L 100.0100, L500.4050, L300.4310, L300.3900 ####[facility] [address] [place], [address] RBC (Bld) [#/Vol] 4.82 10*6/uL Normal 4.6-6.2 [facility] Comment on above: Performed By: #### L 100.0100, L500.4050, L300.4310, L300.3900 ####[facility] [address] [place], [address] RDW SD 47.3 fl High 35.1-43.9 [facility] Comment on above: Performed By: #### L 100.0100, L500.4050, L300.4310, L300.3900 ####[facility] [address] [place], [address] WBC (Bld) [#/Vol] 9.1 10*3/uL Normal 4.4-11.0 [facility] Comment on above: Performed By: #### L 100.0100, L500.4050, L300.4310, L300.3900 ####[facility] [address] [place], [address] CMV IgM QnOrdered By: Tristan Mijares on 05-24-2024 Cytomegalovirus IgM Antibody < 30.0 AU/mL 0.0-29.9 [facility] Comment on above: Negative <30.0 Equiv ocal 30.0 - 34.9 Positive >34.9A positive result is generally indicative of acuteinfection, reactivation or persistent IgM production. CRPon 05-24-2024 C-REACTIVE PROT 35.10 mg/L High 0.0-3.0 [facility] Comment on above: Order Comment: FLOOR TO CALL WHEN PT IS BACK IN ROOM Performed By: #### L 3100.3425, L101.9900, L3400.1500, L3100.5020, L3400.0700, L3100.5440, L501.6710, L3000.0375, L3100.1850, L3200.0500, L503.6030, L3300.0100, L3200.1100, L503.6550, L504.2610, L3100.5850, L501.8400, L803.2200 ####[facility] [address] [place], [place], [id number] CRP [Mass/Vol]Ordered By: Ra john Mijares on 05-24-2024 C-Reactive Protein Extended Range 35.10 mg/L High 0.0-3.0 [facility] Calcium oxalate crystals LM Ql (Urine sed)Ordered By: Eren Calero on 05-24-2024 Urine Calcium Oxalate Crystals 2+ /hpf [facility] Calcium oxalate crystals det ection in urine sediment by light microscopyOrdered By: Eren Calero on 05-24-2024 Calcium oxalate crystals LM Ql (Urine sed) 2+ /hpf [facility] Calculated total iron bindin g capacityOrdered By: Zachary Mijares on 05-24-2024 Total Iron Binding Capacity 270 ug/dL 250-450 [facility] Carbon dioxide, total [Moles /volume] in Central venous bloodOrdered By: Eren Calero on 05-24-2024 CO2 [Moles/Vol] 18.3 mmol/L Low 21.0-32.0 [facility] Centromere B antibody assayO rdered By: Zachary Mijares on 05-24-2024 Centromere B Antibody <0.2 AI 0.0-0.9 [facility] Comment on above: Previous reported re sult: TNP AIEdited by: BLAKE on 05/26/24:1108 AMENDED REPORT 05/26/24 1108 ANTI-CENT B previously reported as: Test not performed CeruloplasminOrdered By: Jake johns Friend on 05-24-2024 Ceruloplasmin 21.8 mg/dL 16.0-31.0 [facility] Chloride assayOrdered By: Lan yepez Reodica on 05-24-2024 Chloride [Moles/Vol] 107 mmol/L 98-108 [facility] Chromatin antibody assayOrde red By: Zachary Friend on 05-24-2024 Antichromatin Antibodies <0.2 AI 0.0-0.9 [facility] Comment on above: Previous reported re sult: TNP AIEdited by: BLAKE on 05/26/24:1108 AMENDED REPORT 05/26/24 1108 ANTICHROMATIN previously reported as: Test not performed Comprehensive Metabolic Prof ilon 05-24-2024 Albumin [Mass/Vol] 4.3 g/dL Normal 3.4-4.8 [facility] Comment on above: Performed By: #### L 100.0100, L500.4050, L300.4310, L300.3900 ####[facility] [address] [place], [address] Albumin/Globulin [Mass ratio] 1.6 {ratio} Normal 0.9-2.4 [facility] Comment on above: Performed By: #### L 100.0100, L500.4050, L300.4310, L300.3900 ####[facility] [address] [place], [address] ALK PHOS 147 U/L High 40-129 [facility] Comment on above: Performed By: #### L 100.0100, L500.4050, L300.4310, L300.3900 ####[facility] [address] [place], [address] ALT [Catalytic activity/Vol] 329 U/L High <=46 [facility] Comment on above: Performed By: #### L 100.0100, L500.4050, L300.4310, L300.3900 ####[facility] [address] [place], [address] AST [Catalytic activity/Vol] 113 U/L High <=37 [facility] Comment on above: Performed By: #### L 100.0100, L500.4050, L300.4310, L300.3900 ####[facility] [address] [place], [address] Bilirubin [Mass/Vol] 1.85 mg/dL High 0.00-1.30 [facility] Comment on above: Performed By: #### L 100.0100, L500.4050, L300.4310, L300.3900 ####[facility] [address] [place], [address] BUN/CRE 18.9 RATIO Normal 10-20 [facility] Comment on above: Performed By: #### L 100.0100, L500.4050, L300.4310, L300.3900 ####[facility] [address] [place], [address] Calcium [Mass/Vol] 9.5 mg/dL Normal 7.6-11.0 [facility] Comment on above: Performed By: #### L 100.0100, L500.4050, L300.4310, L300.3900 ####[facility] [address] [place], [address] Chloride [Moles/Vol] 107 mmol/L Normal 98-108 [facility] Comment on above: Performed By: #### L 100.0100, L500.4050, L300.4310, L300.3900 ####[facility] [address] [place], [address] CO2 [Moles/Vol] 18.3 mmol/L Low 21.0-32.0 [facility] Comment on above: Performed By: #### L 100.0100, L500.4050, L300.4310, L300.3900 ####[facility] [address] [place], [address] Creatinine [Mass/Vol] 1.09 mg/dL Normal 0.70-1.20 [facility] Comment on above: Performed By: #### L 100.0100, L500.4050, L300.4310, L300.3900 ####[facility] [address] [place], [address] ECRCL 76.28 ml/min Normal 50-250 [facility] Comment on above: Performed By: #### L 100.0100, L500.4050, L300.4310, L300.3900 ####[facility] [address] [place], [address] GAP 13 Normal 5-15 [facility] Comment on above: Performed By: #### L 100.0100, L500.4050, L300.4310, L300.3900 ####[facility] [address] [place], [address] GFR/1.73 sq M.predicted among non-blacks MDRD (S/P/Bld) [Vol rate/Area] 72 mL/min/{1.73_m2} Normal >60 [facility] Comment on above: Result Comment: mL/m in/1.73m2 CKD-EPI Creatinine Equation (2020) Performed By: #### L 100.0100, L500.4050, L300.4310, L300.3900 ####[facility] [address] [place], [address] Globulin (S) [Mass/Vol] 2.8 g/dL Normal 2.2-4.2 [facility] Comment on above: Performed By: #### L 100.0100, L500.4050, L300.4310, L300.3900 ####[facility] [address] [place], [address] Glucose [Mass/Vol] 112 mg/dL High 70-99 [facility] Comment on above: Performed By: #### L 100.0100, L500.4050, L300.4310, L300.3900 ####[facility] [address] [place], [address] Potassium [Moles/Vol] 3.5 mmol/L Normal 3.3-5.1 [facility] Comment on above: Performed By: #### L 100.0100, L500.4050, L300.4310, L300.3900 ####[facility] [address] [place], [address] Sodium [Moles/Vol] 139 mmol/L Normal 133-145 [facility] Comment on above: Performed By: #### L 100.0100, L500.4050, L300.4310, L300.3900 ####[facility] [address] [place], [address] T PROT 7.1 g/dL Normal 5.9-8.4 [facility] Comment on above: Performed By: #### L 100.0100, L500.4050, L300.4310, L300.3900 ####[facility] [address] [place], [address] Urea nitrogen [Mass/Vol] 21 mg/dL High 4-19 [facility] Comment on above: Performed By: #### L 100.0100, L500.4050, L300.4310, L300.3900 ####[facility] [address] [place], [address] Copper, serumOrdered By: Jake craneabdirahman Friend on 05-24-2024 Serum Copper 90 ug/dL 69-132 [facility] Comment on above: Detection Limit = 5 DNA double strand Ab Qn (S)O rdered By: Zachary Friend on 05-24-2024 Anti-Double Strand DNA Antibody <1 IU/mL 0-9 [facility] Comment on above: Negative <5 Equivoca l 5 - 9 Positive >9 EBV capsid IgM Qn (S)Ordered By: Zachary Friend on 05-24-2024 Valeria-Christian Virus Capsid Ag IgM Ab < 36.0 U/mL 0.0-35.9 [facility] Comment on above: Negative <36.0 Equiv ocal 36.0 - 43.9 Positive >43.9 EBV nuclear IgG Qn (S)Ordere d By: Zachary Friend on 05-24-2024 [employer] Ag IgG > 600.0 U/mL High 0.0-17.9 [facility] Comment on above: Negative <18.0 Equiv ocal 18.0 - 21.9 Positive >21.9 Emergency Department Summary on 05-24-2024 Emergency Department Summary [facility] Medical Records Department [address] [place] [address] Emergency Department Summary 05/24/24 MR#: [id number] Acct: [id number] Name: AMAURI FROST Rep #: [id number] : 1950 73 From: Eren Calero MD PCP: [facility] Status:REG ER Location: ED HPI History of Present Illness Chief Complaint: General Illness Narrative Narrative: 73-year-old male past medical history of hypothyroidism, hypercholesterolemia, DVT, atrial fibrillation, on Eliquis presents with a few days of feeling rundown with low energy. States his symptoms began on Friday. He did not really feel well. Friday evening, he developed periumbilical abdominal pain. He may have had a headache as well. He denies any nausea or vomiting, no fevers or chills, no pruritus. His coworkers told him this afternoon about 2-1/2 hours ago that he looked yellow. Additionally, over the weekend, starting 4 days ago, his urine was orange-colored. He denies any lemuel colored stools. He did have a drink or 2 on Friday but states he does not drink alcohol daily. His coworkers told him he may have a gallstone, but he denies any right upper quadrant pain, no nausea or vomiting with eating. [facility] Medical History DVT (deep venous thrombosis) Hypothyroidism Home Medications ???Medication ???Instructions ???Recorded ???Last Taken ???Type ezetimibe 10 mg tablet 10 mg PO DAILY 03/25/23 05/24/24 H istory tamsulosin 0.4 mg capsule 0.4 mg PO QHS 03/25/23 05/23/24 Hi story apixaban 2.5 mg tablet (Eliquis) 2.5 mg PO BID 05/24/24 05/24/24 Hi story finasteride 5 mg tablet 5 mg PO DAILY 05/24/24 05/24/24 Hi story levothyroxine 125 mcg tablet 125 mcg PO DAILY 05/24/24 05/24/24 History Allergy/AdvReac Type Severity Reaction Status Date / Time No Known Allergies Allergy Verified 05/24/24 14:20 Family History Mother Colon cancer Surgical History Hx of colonoscopy History of bunionectomy Social History Smoking Status: Never smoker alcohol intake: current alcohol intake frequency: a few times a week caffeine: Yes ROS ROS ED ROS Narrative Constitutional: No fever, no chills. HEENT: No sore throat. No neck pain. No loss of vision. No rhinorrhea. Cardiovascular: No chest pain. No palpitations. No pedal edema. Respiratory: No cough, no shortness of breath. Abdominal: Periumbilical abdominal pain. No nausea. No vomiting. Genitourinary: No dysuria. No hematuria. [place]-colored urine 4 days ago. Musculoskeletal: No myalgias. No arthralgias. Neurologic: Positive headaches. No dizziness. No lightheadedness. Skin: No rash. Positive change in color, was told that he is yellow. Psychiatric: No depression. No anxiety. EXAM Physical Exam Narrative Exam Narrative: Afebrile. Vital signs noted. Nontoxic-appearing. HEENT examination shows PERRL, EOMI. Positive scleral icterus. No central cyanosis. Airway patent. No drooling or trismus. Cardiovascular examination reveals a regular rate and rhythm. Lungs are clear to auscultation bilaterally. Abdomen is soft and nontender without guarding or rebound with positive bowel sounds. No noted fluid wave. No pain in right upper quadrant. Neurological examination is nonfocal and nonlateralizing. Skin examination of the face does show mild jaundice. Const Vital Signs: 05/24/24 14:21 05/24/24 15:44 05/24/24 18:12 Temperature 97.9 F Temperature Source Oral Pulse Rate 94 81 Respiratory Rate 18 16 Respiratory Pattern Normal Blood Pressure 139/92 H 142/89 H Blood Pressure Mean 107 106 Pulse Ox 94 95 Oxygen Delivery Method Room Air Room Air MDM MDM MDM Narrative Medical decision making narrative: Differential diagnosis includes but not limited to biliary duct blockage versus cirrhosis versus gallstone versus acute cholecystitis. History and physical does not really support acute cholecystitis because he does not have tenderness in the right upper quadrant. I will obtain laboratory work to look for liver failure, and CT of the abdomen with IV contrast will be obtained given his periumbilical abdominal pain, and to look for any ascites. Additionally, I will obtain an ultrasound of the right upper quadrant/gallbladder to check the size of the biliary ducts. Urine will be checked as well to look for signs of dehydration versus infection. I reviewed his laboratory work and he has a normal white count of 9.1 with hemoglobin 14.8, hematocrit 44.5, platelet count normal at 250. INR is normal at 1.2 with a PTT 28.6. Glucose appropriately elevated at 112 with anion gap of 13. LFTs are elevated with (more content not included)... Normal [facility] Eosinophil percentageOrdered By: Eren Calero on 05-24-2024 Eosinophils/100 WBC (Bld) 2.8 % 0-5 [facility] Epithelial cells.squamous LM Ql (Urine sed)Ordered By: Eren Calero on 05-24-2024 Epithelial cells.squamous LM.HPF (Urine sed) [#/Area] 0 /[HPF] 0-5 [facility] Valeria-Christian virus (EBV) vir al capsid antigen (VCA) IgG antibody assayOrdered By: Zachary Mijares on 05-24-2024 Valeria-Christian Virus Capsid Ag IgG Ab > 600.0 U/mL High 0.0-17.9 [facility] Comment on above: Negative <18.0 Equiv ocal 18.0 - 21.9 Positive >21.9 Erythrocyte Sed Rateon 05-24 SED RATE 4 mm/hr Normal 0-20 [facility] Comment on above: Order Comment: FLOOR TO CALL WHEN PT IS BACK IN ROOM Performed By: #### L 3100.3425, L101.9900, L3400.1500, L3100.5020, L3400.0700, L3100.5440, L501.6710, L3000.0375, L3100.1850, L3200.0500, L503.6030, L3300.0100, L3200.1100, L503.6550, L504.2610, L3100.5850, L501.8400, L803.2200 ####[facility] [address] [place], [place], [id number] Erythrocyte distribution wid th ratioOrdered By: Eren Calero on 05-24-2024 Erythrocyte distribution width (RBC) [Ratio] 13.9 % 11.6-14.6 [facility] Erythrocyte distribution wid th standard deviationOrdered By: Eren Calero on 05-24-2024 Erythrocyte distribution width (RBC) [Entitic vol] 47.3 fL High 35.1-43.9 [facility] Erythrocyte sedimentation ra teOrdered By: Zachary Mijares on 05-24-2024 ESR (Bld) [Velocity] 4 mm/h 0-20 [facility] Estimation of creatinine hilary aranceOrdered By: Eren Calero on 05-24-2024 Estimated Creatinine Clearance Calc 76.28 ml/min 50-250 [facility] Ferritinon 05-24-2024 Ferritin [Mass/Vol] 784 ng/mL High 37-417 [facility] Comment on above: Order Comment: FLOOR TO CALL WHEN PT IS BACK IN ROOM Performed By: #### L 3100.3425, L101.9900, L3400.1500, L3100.5020, L3400.0700, L3100.5440, L501.6710, L3000.0375, L3100.1850, L3200.0500, L503.6030, L3300.0100, L3200.1100, L503.6550, L504.2610, L3100.5850, L501.8400, L803.2200 ####[facility] [address] [facility] [place], [place], [id number] Fine Granular Casts LM.LPF ( Urine sed) [#/Area]Ordered By: Eren Calero on 05-24-2024 Urine Fine Granular Casts 0-5 SEEN /lpf 0-5 [facility] GFR/1.73 sq M.predicted brendan g non-blacks MDRD (S/P/Bld) [Vol rate/Area]Ordered By: Eren Calero on 05-24-2024 Estimated GFR (MDRD) Non-Af Amer 72 >60 [facility] Comment on above: mL/min/1.73m2 CKD-EP I Creatinine Equation (2020) Gallbladderon 05-24-2024 Gallbladder [facility] [address] [place], [place] [address] Gallbladder MR#: [id number] Acct: [id number] Name: AMAURI FROST Rep #: [id number] : 1950 M 73 From: Ricci osborn MD PCP: [facility] Status: REG ER Study: Gallbladder Date of Exam: 05/24/24 Exam# [id number] Ordering Dr: Eren Calero MD PROCEDURE: GALLBLADDER 05/24/2024 REASON FOR EXAM: JAUNDICE COMPARISON: None FINDINGS: Liver: Diffusely echogenic suggesting fatty infiltration. No focal lesion. Gallbladder: Large gallstone with wall echo shadow. No significant wall thickening. No pericholecystic fluid. Common bile duct: Normal measuring 3 mm. Pancreas: Visualized portions are sonographically unremarkable. Other: Right kidney; craniocaudal length 10.4 cm. Multiple simple cysts, the largest measures 10 x 9 x 10 mm. No calculi or hydronephrosis. US/Gallbladder IMPRESSION: Hepatic steatosis without focal lesion. Cholelithiasis without evidence of cholecystitis or significant ductal dilation. Reading [facility] CC: Dr. Eren Calero MD; [facility] Log Marker: Signed Normal [facility] Gamma globulin Elph [Mass/Vo l]Ordered By: Zachary Mijares on 05-24-2024 Gamma Globulins (MIRACLE) 0.8 g/dL 0.4-1.8 [facility] Glucose Ql (U)Ordered By: Lan Calero on 05-24-2024 Urine Glucose (UA) Normal mg/dl Normal [facility] H AND P Exam - Hospitaliston 05-24-2024 H&P Exam - Hospitalist [facility] Medical Records Department [address] [place] [address] H P Exam - Hospitalist 05/24/241948 MR#: [id number] Acct: [id number] Name: AMAURI FROST Rep #: [id number] : 1950 73 From: Mya Galicia MD PCP: [facility] Status:ADM IN Location: [facility] AP423-4 HPI - General General Date of Admission: 05/24/24 Date of Service: 05/24/24 Chief Complaint: Fatigue, yellowing of skin HPI Narrative AMAURI FROST, is a 73-year-old male history of DVT, hypothyroidism, BPH who presented [facility] ED 05/24/2024 with fatigue and yellowing of his skin. Reportedly had been feeling rundown since Friday and had been having some dark urination and when he went to work today he was told he looked yellow prompting him to come to the ED. In the ED patient vitally stable but was found to have total bili of 1.85, AST 113, ALT 329 and alk phos of 147. CT abdomen and pelvis demonstrated hepatomegaly with fatty infiltration and gallbladder ultrasound showed hepatic steatosis without focal lesion and cholelithiasis without evidence of cholecystitis or significant ductal dilation. GI physician contacted and recommended MRCP and to repeat liver function in the morning. Hospitalist contacted for admission. Patient evaluated in the ED and reports feeling rundown for several days, also has some belching but denies any changes in his bowel, has BPH so some chronic problems with his urination but denies anything acutely. Did have some darkening of his urine but notes he did not notice his skin being more yellow to let was pointed out to him. Had a headache couple days ago but this is resolved. Denies any abdominal pain or nausea. Denies any fevers or chills. Does not drink alcohol regularly per patient. [facility] Medical History DVT (deep venous thrombosis) Hypothyroidism Home Medications ???Medication ???Instructions ???Recorded ???Last Taken ???Type ezetimibe 10 mg tablet 10 mg PO DAILY 03/25/23 05/24/24 H istory tamsulosin 0.4 mg capsule 0.4 mg PO QHS 03/25/23 05/23/24 Hi story apixaban 2.5 mg tablet (Eliquis) 2.5 mg PO BID 05/24/24 05/24/24 Hi story finasteride 5 mg tablet 5 mg PO DAILY 05/24/24 05/24/24 Hi story levothyroxine 125 mcg tablet 125 mcg PO DAILY 05/24/24 05/24/24 History Allergy/AdvReac Type Severity Reaction Status Date / Time No Known Allergies Allergy Verified 05/24/24 14:20 Family History Mother Colon cancer Surgical History Hx of colonoscopy History of bunionectomy Social History Smoking Status: Never smoker alcohol intake: current alcohol intake frequency: a few times a week caffeine: Yes ROS ROS Narrative General: Denies fever/chills HENT: Had a headache on Friday that is resolved, denies stuffy nose, denies sore throat EYES: Denies changes in vision Resp: Denies cough, denies shortness of breath Cardiac: Denies chest pain GI: Denies abdominal pain, denies changes in bowel, denies nausea/vomiting, has some abdominal bloating : Some darkening of his urine Extremity: Denies swelling MSK: Denies weakness but has felt just generally fatigued and unwell Neuro: Denies any numbness/tingling Heme: Denies any bleeding or bruising Skin: Some yellowing of the skin Psychiatric: No complaints voiced Vital Signs Vital Signs Vital Signs: 05/24/24 14:21 05/24/24 15:44 05/24/24 18:12 Temperature 97.9 F Temperature Source Oral Pulse Rate 94 81 Respiratory Rate 18 16 Respiratory Pattern Normal Blood Pressure 139/92 H 142/89 H Blood Pressure Mean 107 106 Pulse Ox 94 95 Oxygen Delivery Method Room Air Room Air Weight Weight: 103.691 kg Body Mass Index (BMI) 30.9 Physical Exam Narrative General: Alert, oriented, no apparent distress HEENT: Atraumatic, normocephalic Eyes: Some scleral icterus present, normal conjunctiva, extraocular movements grossly intact Neck: Supple Respiratory: Clear to auscultation bilaterally, normal respiratory effort Cardiovascular: Regular rate and rhythm GI: Soft, nontender, slightly distended without rebound, guarding, rigidity Extremities: No edema Musculoskeletal: Moving all extremities Neuro: No overt focal neurological deficits Skin: No rashes appreciated Psych: Cooperative Results Lab / Micro Data 05/24/24 15:38 05/24/24 15:38 Labs: Laboratory Results - last 24 hr 05/24/24 15:38: WBC 9.1, RBC 4.82, Hgb 14.8, Hct 44.5, MCV 92.3, MCH 30.7, MCHC 33.3, RDW Std Deviation 47.3 H, RDW Coeff of Pamela 13.9, Plt Count 250, MPV 8.9, Immature Gran % (Auto) 0.500, Neut % (Auto) 72.6 H, Lym (more content not included)... Normal [facility] HBV surface Ag IA QlOrdered By: Zachary Friend on 05-24-2024 Hepatitis B Surface Antigen Negative Negative [facility] HaptoglobinOrdered By: Eduarda an Friend on 05-24-2024 Haptoglobin 117 mg/dL 34-355 [facility] Comment on above: Performed at: [address] [id number] Director: Farzad Abdi PhD, Phone: [phone] at: [facility] [id number] Director: Dany Holden MD, Phone: [phone] Hematocrit Auto (Bld) [Volum e fraction]Ordered By: Eren Calero on 05-24-2024 Hematocrit (Bld) [Volume fraction] 44.5 % 40-54 [facility] Hemoglobin measurementOrdere d By: Eren Calero on 05-24-2024 Hemoglobin (Bld) [Mass/Vol] 14.8 g/dL 13.0-16.5 [facility] Hepatitis A virus IgM antibo dy assayOrdered By: Zachary Mijares on 05-24-2024 Hepatitis A IgM Antibody Negative Negative [facility] Comment on above: A negative anti-HAV IgM result suggests no recent orcurrent HAV infection. Hepatitis B virus core IgM a ntibody assayOrdered By: Zachary Mijares on 05-24-2024 Hepatitis B Core IgM Antibody Negative Negative [facility] Hepatitis C virus antibody a ssayOrdered By: Zachary Mijares on 05-24-2024 Hepatitis C Antibody (EIA) Non-Reactive Non Reactive [facility] Hyaline casts LM.LPF (Urine sed) [#/Area]Ordered By: Eren Calero on 05-24-2024 Hyaline casts (Urine sed) [#/Area] 5 /[LPF] 0-5 [facility] Hyaline casts LM Ql (Urine sed) 5-10 SEEN /lpf 0-5 [facility] IgA [Mass/Vol]Ordered By: Ra john Mijares on 05-24-2024 Immunoglobulin A 104 mg/dL 61-437 [facility] IgEOrdered By: Zachary womack on 05-24-2024 IgE 30 IU/mL 6-495 [facility] Immunoglobulin E 30 IU/mL 6-495 [facility] IgG [Mass/Vol]Ordered By: Ra john Mijares on 05-24-2024 Immunoglobulin G Not Reportable [facility] Immunoglobulin G Total 891 mg/dL [phone] [facility] IgG subclass 1 (S) [Mass/Vol ]Ordered By: Zachary Mijares on 05-24-2024 Immunoglobulin G1 499 mg/dL 248-810 [facility] IgG subclass 2 (S) [Mass/Vol ]Ordered By: Zachary Mijares on 05-24-2024 Immunoglobulin G2 208 mg/dL 130-555 [facility] IgG subclass 3 (S) [Mass/Vol ]Ordered By: Zachary Mijares on 05-24-2024 Immunoglobulin G3 10 mg/dL Low 15-102 [facility] Immature granulocytes/100 WB C Auto (Bld)Ordered By: Eren Calero on 05-24-2024 Immature granulocytes/100 WBC (Bld) 0.500 % 0.0-0.9 [facility] Comment on above: IG% - Immature Granu locytes (promyelocytes, myelocytes and metamyelocytes) > 1% indicates that a LEFT SHIFT is Present. Immunoglobulin G4 measuremen tOrdered By: Zachary Mijares on 05-24-2024 Immunoglobulin G4 39 mg/dL 2-96 [facility] Immunoglobulin M measurement Ordered By: Zachary Mijares on 05-24-2024 Immunoglobulin M 53 mg/dL 15-143 [facility] International normalized rat io (INR) calculationOrdered By: Eren Calero on 05-24-2024 INR Coag (Bld) [Relative time] 1.2 {INR} [facility] Interpretation IEP [Interp]O rdered By: Zachary Mijares on 05-24-2024 Immunofixation Screen Comment . [facility] Comment on above: No monoclonality det ected. Interpretation of Valeria-Ba rr virus antibody panelOrdered By: Zachary Mijares on 05-24-2024 Valeria-Christian Virus Ab Interpret Comment . [facility] Comment on above: EBV Interpretation C Lennie: Antibody Present + Antibody Absent -Interpretation VCA-IgM VCA-IgG EBNA-IgGNo previous infection/ - - -SusceptiblePrimary infection (new + + -or recent)Past Infection +or- + +See comment below* + - -*Results indicate infection with EBV at some time however cannot predict the timing of the infection since antibodies to EBNA usually develop after primary infection or, alternatively, approximately 5-10% of patients with EBV never develop antibodies to EBNA. Interpretation of serum or p lasma protein pattern by immunofixation (narrative resultOrdered By: Zachary Mijares on 05-24-2024 Protein Fractions Immunofixation Woody [Interp] Not Observed g/dL Not Observed [facility] Iron (Unsp spec) [Mass/Mass] Ordered By: Zachary Mijares on 05-24-2024 Iron [Mass/Vol] 89 ug/dL 65-175 [facility] Iron measurement (mass/mass) Ordered By: Zachary Mijares on 05-24-2024 Iron (Unsp spec) [Mass/Mass] 89 ug/dL 65-175 [facility] Iron saturation [Mass fracti on]Ordered By: Zachary Mijares on 05-24-2024 Iron Saturation 33.0 % 9-55 [facility] Iron+Iron Binding Capacityon 05-24-2024 Iron [Mass/Vol] 89 ug/dL Normal 65-175 [facility] Comment on above: Order Comment: FLOOR TO CALL WHEN PT IS BACK IN ROOM Performed By: #### L 3100.3425, L101.9900, L3400.1500, L3100.5020, L3400.0700, L3100.5440, L501.6710, L3000.0375, L3100.1850, L3200.0500, L503.6030, L3300.0100, L3200.1100, L503.6550, L504.2610, L3100.5850, L501.8400, L803.2200 ####[facility] [address] [place], [place], [address] UIBC 181 ug/dL Low 228-428 [facility] Comment on above: Order Comment: FLOOR TO CALL WHEN PT IS BACK IN ROOM Performed By: #### L 3100.3425, L101.9900, L3400.1500, L3100.5020, L3400.0700, L3100.5440, L501.6710, L3000.0375, L3100.1850, L3200.0500, L503.6030, L3300.0100, L3200.1100, L503.6550, L504.2610, L3100.5850, L501.8400, L803.2200 ####[facility] [address] [place], [place], [id number] Danae-1 antibody assayOrdered B y: Zachary Mijares on 05-24-2024 DANAE-1 Antibody <0.2 AI 0.0-0.9 [facility] Comment on above: Previous reported re sult: TNP AIEdited by: BLAKE on 05/26/24:1108 AMENDED REPORT 05/26/24 1108 ANTI-DANAE previously reported as: Test not performed Ketones Test strip Ql (U)Ord ered By: Eren Calero on 05-24-2024 Ketones Ql (U) 5 mg/dl High Negative [facility] LDHon 05-24-2024 LDH 268 U/L High 87-241 [facility] Comment on above: Order Comment: FLOOR TO CALL WHEN PT IS BACK IN ROOM Result Comment: Hemo lysis present, Results??could be affected. ?? Performed By: #### L 3100.3425, L101.9900, L3400.1500, L3100.5020, L3400.0700, L3100.5440, L501.6710, L3000.0375, L3100.1850, L3200.0500, L503.6030, L3300.0100, L3200.1100, L503.6550, L504.2610, L3100.5850, L501.8400, L803.2200 ####[facility] [address] [place], [place], [address] Laboratory - Chemistry and C hemistry - challengeOrdered By: Eren Calero on 05-24-2024 AST [Catalytic activity/Vol] 113 U/L High <38 [facility] Lactate dehydrogenase (LDH) measurementOrdered By: Zacharyheidi Mijares on 05-24-2024 LDH [Catalytic activity/Vol] 268 U/L High 87-241 [facility] Comment on above: Hemolysis present, R esults could be affected. Lymphocytes Auto (Unsp spec) [#/Vol]Ordered By: Eren Calero on 05-24-2024 Lymphocytes (Bld) [#/Vol] 1.24 10*3/uL 0.83-4.51 [facility] Lymphocytes/100 WBC Auto (Un sp spec)Ordered By: Eren Calero on 05-24-2024 Lymphocytes/100 WBC (Bld) 13.6 % Low 19-41 [facility] MCV (mean corpuscular volume ) determinationOrdered By: Eren Elderkareensepideh on 05-24-2024 MCV (RBC) [Entitic vol] 92.3 fL 80-94 [facility] MR/CON.PCM.GIon 05-24-2024 MR/CON.PCM.GI [facility] Medical Records Department [address] [place] [address] Consultation - 05/24/24 1823 MR#: [id number] Acct: [id number] Name: AMAURI FROST Rep #: [id number] : 1950 73 From: Zachary Friend DO PCP: [facility] Status:ADM IN Location: [facility] EL891-4 HPI Consult Data Date of Consult: 05/24/24 HPI Narrative HPI Narrative: AMAURI FROST, is a 73-year-old male past medical history of hypothyroidism, hypercholesterolemia, DVT, atrial fibrillation, on Eliquis presents with a few days of feeling rundown with low energy. States his symptoms began on Friday. He did not really feel well. Friday evening, he developed periumbilical abdominal pain. He may have had a headache as well. He denies any nausea or vomiting, no fevers or chills, no pruritus. His coworkers told him this afternoon about 2-1/2 hours ago that he looked yellow. Additionally, over the weekend, starting 4 days ago, his urine was orange-colored. He denies any lemuel colored stools. He did have a drink or 2 on Friday but states he does not drink alcohol daily. His coworkers told him he may have a gallstone, but he denies any right upper quadrant pain, no nausea or vomiting with eating. In the past , he was diagnosed with bilateral pulmonary embolism and COVID-19 infection. He was started on Eliquis and referred by his PCP at the [facility] for further management. He took Eliquis for 6 months. He dropped a bag of seeds on the R lower leg. Doppler on 03/11/2023 showed R proximal and distal femoral, popliteal DVT. He was started on Eliquis, stopped it in October 2023 for a colonoscopy. WBC 9.1., Hgb 14.8, Hct 44.5, MCV 92.3, Plt Count 250 PT 15.0 H, INR 1.2, APTT 28.6, Sodium 139, Potassium 3.5, Chloride 107, Carbon Dioxide 18.3 L,, BUN 21 H, Creatinine 1.09, G lucose 112 H, Calcium 9.5, Total Bilirubin 1.85 H, AST 113 H, ALT 329 H, Alkaline Phosphatase 147 H, Total Protein 7.1, Albumin 4.3, Globulin 2.8 CT scan of the abdomen pelvis: FINDINGS: LUNG BASES: Unremarkable. No mass. No consolidation. ABDOMEN: LIVER: Hepatomegaly with fatty infiltration. GALLBLADDER AND BILE DUCTS: Unremarkable. No calcified stones. No ductal dilation. PANCREAS: Unremarkable. No mass. No ductal dilation. SPLEEN: Unremarkable. No splenomegaly. ADRENALS: Unremarkable. No mass. KIDNEYS AND URETERS: Right renal cysts. No hydronephrosis. STOMACH AND BOWEL: Colonic diverticulosis without acute diverticulitis. No obstruction. PELVIS: APPENDIX: No findings to suggest acute appendicitis. BLADDER: Unremarkable. No mass. REPRODUCTIVE: Unremarkable as visualized. LUMBAR SPINE: VERTEBRAE: Unremarkable. No acute fracture. DISCS/SPINAL CANAL/NEURAL FORAMINA: No acute findings. No significant spinal canal stenosis. ABDOMEN and PELVIS: INTRAPERITONEAL SPACE: Unremarkable. No free air. No significant fluid collection. BONES/JOINTS: No acute fracture. No dislocation. SOFT TISSUES: Bilateral inguinal hernias. VASCULATURE: Unremarkable. No abdominal aortic aneurysm. LYMPH NODES: Unremarkable. No enlarged lymph nod Ultrasound of the right upper quadrant: Liver: Diffusely echogenic suggesting fatty infiltration. No focal lesion. Gallbladder: Large gallstone with wall echo shadow. No significant wall thickening. No pericholecystic fluid. Common bile duct: Normal measuring 3 mm. Pancreas: Visualized portions are sonographically unremarkable. Other: Right kidney; craniocaudal length 10.4 cm. Multiple simple cysts, the largest measures 10 x 9 x 10 mm. No calculi or hydronephrosis. US/Gallbladder IMPRESSION: Hepatic steatosis without focal lesion. Cholelithiasis without evidence of cholecystitis or significant ductal dilation. [facility] Medical History DVT (deep venous thrombosis) Hypothyroidism Home Medications ???Medication ???Instructions ???Recorded ???Last Taken ???Type ezetimibe 10 mg tablet 10 mg PO DAILY 03/25/23 05/24/24 H istory tamsulosin 0.4 mg capsule 0.4 mg PO QHS 03/25/23 05/23/24 [facility] story apixaban 2.5 mg tablet (Eliquis) 2.5 mg PO BID 05/24/24 05/24/24 [facility] finasteride 5 mg tablet 5 mg PO DAILY 05/24/24 05/24/24 Hi story levothyroxine 125 mcg tablet 125 mcg PO DAILY 05/24/24 05/24/24 History Allergy/AdvReac Type Severity Reaction Status Date / Time No Known Allergies Allergy Verified 05/24/24 14:20 Family History Mother Colon cancer Surgical History Hx of colonoscopy History of bunionectomy Social History Smoking Status: Never smoker alcohol intake: current alcohol intake frequency: a few times a week caffeine: Yes RO (more content not included)... Normal [facility] Mean corpuscular hemoglobin (MCH) determinationOrdered By: Eren Calero on 05-24-2024 MCH (RBC) [Entitic mass] 30.7 pg 27.0-32.0 [facility] Mean corpuscular hemoglobin concentration (MCHC) determinationOrdered By: Eren Calero on 05-24-2024 MCHC (RBC) [Mass/Vol] 33.3 g/dL 32-36 [facility] Mean platelet volume determi nationOrdered By: Eren Calero on 05-24-2024 Platelet mean volume (Bld) [Entitic vol] 8.9 fL 6.2-12.0 [facility] Microscopic analysis of urin e for red blood cells (RBC)Ordered By: Eren Calero on 05-24-2024 Microscopic analysis of urine for red blood cells (RBC) 0-5 SEEN /hpf 0-5 [facility] Urine RBC 0-5 SEEN /hpf 0-5 [facility] Monocyte percentageOrdered B y: Eren Calero on 05-24-2024 Monocytes/100 WBC (Bld) 9.5 % 0-10 [facility] Mucus LM Ql (Urine sed)Order ed By: Eren Calero on 05-24-2024 Mucus Ql (Urine sed) 1+ /hpf [facility] Neutrophil percentageOrdered By: Eren Calero on 05-24-2024 Neutrophils/100 WBC (Bld) 72.6 % High 47-70 [facility] Nitrite Test strip Ql (U)Ord ered By: Eren Calero on 05-24-2024 Nitrite Ql (U) Positive High Negative [facility] No Panel InformationOrdered By: Zachary Friend on 05-24-2024 Addendum Document Comment . [facility] Comment on above: Protein electrophore sis scan will follow via computer,mail, or sand polisher delivery. Hepatitis C Antibody Comment Comment . [facility] Comment on above: Not infected with HC V unless early or acute infection issuspected (which may be delayed in an immunocompromisedindividual), or other evidence exists to indicate HCVinfection. Unsaturated Iron Binding Capacity 181 ug/dL Low 228-428 [facility] Nucleated red blood cell per centageOrdered By: Eren Calero on 05-24-2024 Nucleated RBC/100 WBC (Bld) [Ratio] 0 % 0-5 [facility] Partial Thromboplast Timeon 05-24-2024 aPTT Coag (Bld) [Time] 28.6 s Normal 24.1-36.2 [facility] Comment on above: Performed By: #### L 100.0100, L500.4050, L300.4310, L300.3900 ####[facility] [address] [place], [address] Platelet countOrdered By: Lan Calero on 05-24-2024 Platelets (Bld) [#/Vol] 250 10*3/uL 150-450 [facility] Potassium (Unsp spec) [Mass/ Vol]Ordered By: Eren Calero on 05-24-2024 Potassium [Moles/Vol] 3.5 mmol/L 3.3-5.1 [facility] Protein Fractions Immunofixa tion Woody [Interp]Ordered By: Zachary Mijares on 05-24-2024 M-Ryan (MIRACLE) Not Observed g/dL Not Observed [facility] Protein Test strip Ql (U)Ord ered By: Eren Calero on 05-24-2024 Protein Ql (U) 30 mg/dl High Negative [facility] Prothrombin Time w/INRon INR Coag (PPP) [Relative time] 1.2 {INR} Normal [facility] Comment on above: Performed By: #### L 100.0100, L500.4050, L300.4310, L300.3900 ####[facility] [address] [place], [address] PT Coag (PPP) [Time] 15.0 s High 11.7-14.9 [facility] Comment on above: Performed By: #### L 100.0100, L500.4050, L300.4310, L300.3900 ####[facility] [address] [place], [address] Prothrombin timeOrdered By: Eren Calero on 05-24-2024 PT Coag (PPP) [Time] 15.0 s High 11.7-14.9 [facility] RBC Auto (Bld) [#/Vol]Ordere d By: Eren Calero on 05-24-2024 RBC (Bld) [#/Vol] 4.82 10*6/uL 4.6-6.2 [facility] [employer] abOrdered By: Zachary Brink iend on 05-24-2024 [employer] Antibody <0.2 AI 0.0-0.9 [facility] Comment on above: Previous reported re sult: TNP AIEdited by: BLAKE on 05/26/24:1108 AMENDED REPORT 05/26/24 1108 [employer] Ab previously reported as: Test not performed SCL-70 extractable nuclear A b Qn (S)Ordered By: Zachary Mijares on 05-24-2024 Scl-70 (Scleroderma) Antibody <0.2 AI 0.0-0.9 [facility] SS-A IgG antibody assayOrder ed By: Zachary Mijares on 05-24-2024 SS-A/Ro IgG Antibody < 0.2 AI 0.0-0.9 [facility] Comment on above: Previous reported re sult: TNP AIEdited by: BLAKE on 05/26/24:1108 AMENDED REPORT 05/26/24 1108 Anti-SS-A previously reported as: Test not performed SS-B IgG antibody assayOrder ed By: Zachary Mijares on 05-24-2024 SS-B/La IgG Antibody < 0.2 AI 0.0-0.9 [facility] Comment on above: Previous reported re sult: TNP AIEdited by: BLAKE on 05/26/24:1108 AMENDED REPORT 05/26/24 1108 Anti-SS-B previously reported as: Test not performed Serum DNA double strand anti body assay (units/volume)Ordered By: Zachary Mijares on 05-24-2024 DNA double strand Ab Qn (S) [IU]/mL 0-9 [facility] Comment on above: Negative <5 Equivoca l 5 - 9 Positive >9 Serum Valeria Christian virus cap darci IgM antibody assay (units/volume)Ordered By: Zachary Mijares on 05-24-2024 EBV capsid IgM Qn (S) [arb'U]/mL 0.0-35.9 [facility] Comment on above: Negative <36.0 Equiv ocal 36.0 - 43.9 Positive >43.9 Serum Valeria Christian virus nuc lear IgG antibody assay (units/volume)Ordered By: Zachary Mijares on 05-24-2024 EBV nuclear IgG Qn (S) > 600.0 U/mL High 0.0-17.9 [facility] Comment on above: Negative <18.0 Equiv ocal 18.0 - 21.9 Positive >21.9 Serum IgG subclass 1 measure ment (mass/volume)Ordered By: Zachary Mijares on 05-24-2024 IgG subclass 1 (S) [Mass/Vol] 499 mg/dL 248-810 [facility] Serum IgG subclass 2 measure ment (mass/volume)Ordered By: Zachary Mijares on 05-24-2024 IgG subclass 2 (S) [Mass/Vol] 208 mg/dL 130-555 [facility] Serum IgG subclass 3 measure ment (mass/volume)Ordered By: Zachary Mijares on 05-24-2024 IgG subclass 3 (S) [Mass/Vol] 10 mg/dL Low 15-102 [facility] Serum Scl-70 antibody assay (units/volume)Ordered By: Zachary Mijares on 05-24-2024 SCL-70 extractable nuclear Ab Qn (S) <0.2 AI 0.0-0.9 [facility] Serum albumin/globulin ratio Ordered By: Zachary Mijares on 05-24-2024 Albumin/Globulin (MIRACLE) 1.3 0.7-1.7 [facility] Serum creatinine measurement (mass/volume)Ordered By: Eren Calero on 05-24-2024 Creatinine [Mass/Vol] 1.09 mg/dL 0.70-1.20 [facility] Serum globulin measurementOr dered By: Eren Calero on 05-24-2024 Globulin (S) [Mass/Vol] 2.8 g/dL 2.2-4.2 [facility] Serum glucose measurement (m ass/volume)Ordered By: Eren Calero on 05-24-2024 Glucose [Mass/Vol] 112 mg/dL High 70-99 [facility] Serum or plasma C reactive p rotein measurement (mass/volume)Ordered By: Zachary Mijares on 05-24-2024 CRP [Mass/Vol] 35.10 mg/L High 0.0-3.0 [facility] Serum or plasma IgA measurem ent (mass/volume)Ordered By: Zachary Mijares on 05-24-2024 IgA [Mass/Vol] 104 mg/dL 61-437 [facility] Serum or plasma IgG measurem ent (mass/volume)Ordered By: Zachary Mijares on 05-24-2024 IgG [Mass/Vol] 891 mg/dL 603-1613 [facility] IgG [Mass/Vol] Not Reportable [facility] Serum or plasma acetaminophe n measurement (mass/volume)Ordered By: Zachary Mijares on 05-24-2024 Acetaminophen [Mass/Vol] ug/mL Low 8.0-19.0 [facility] Comment on above: Acetaminophen concen trations > 200 ug/mL four hours after ingestion, > 100 ug/mL eight hours after ingestion, and > 50 ug/mL 12 hours after ingestion are potentially toxic. Serum or plasma actin IgG an tibody assay (units/volume)Ordered By: Zachary Mijares on 05-24-2024 Actin IgG Qn 7 Units 0-19 [facility] Comment on above: Negative 0 - 19 Weak positive 20 - 30 Moderate to strong positive >30 Actin Antibodies are found in 52-85% of patients with autoimmune hepatitis or chronic active hepatitis and in 22% of patients with primary biliary cirrhosis. Serum or plasma alanine grant otransferase (ALT) measurementOrdered By: Eren Calero on 05-24-2024 ALT [Catalytic activity/Vol] 329 U/L High <47 [facility] Serum or plasma albumin tex urement (mass/volume)Ordered By: Eren Calero on 05-24-2024 Albumin [Mass/Vol] 4.3 g/dL 3.4-4.8 [facility] Serum or plasma albumin/glob ulin mass ratioOrdered By: Eren Calero on 05-24-2024 Albumin/Globulin [Mass ratio] 1.6 {ratio} 0.9-2.4 [facility] Serum or plasma alkaline sienna sphatase measurementOrdered By: Eren Calero on 05-24-2024 ALP [Catalytic activity/Vol] 147 U/L High 40-129 [facility] Serum or plasma alpha 1 glob ulin measurement by electrophoresis (mass/volume)Ordered By: Zachary Mijares on 05-24-2024 Alpha 1 globulin Elph [Mass/Vol] 0.3 g/dL 0.0-0.4 [facility] Alpha 1 globulin Elph [Mass/Vol] 0.8 g/dL 0.4-1.0 [facility] Serum or plasma beta globuli n measurement by electrophoresis (mass/volume)Ordered By: Zachary Mijares on 05-24-2024 Beta globulin Elph [Mass/Vol] 0.9 g/dL 0.7-1.3 [facility] Serum or plasma calcium tex urement (mass/volume)Ordered By: Eren Calero on 05-24-2024 Calcium [Mass/Vol] 9.5 mg/dL 7.6-11.0 [facility] Serum or plasma cytomegalovi jhonathan (CMV) IgM antibody assay (units/volume)Ordered By: Zachary Mijares on 05-24-2024 CMV IgM Qn < 30.0 AU/mL 0.0-29.9 [facility] Comment on above: Negative <30.0 Equiv ocal 30.0 - 34.9 Positive >34.9A positive result is generally indicative of acuteinfection, reactivation or persistent IgM production. Serum or plasma ferritin louisa surement (mass/volume)Ordered By: Zachary Mijares on 05-24-2024 Ferritin [Mass/Vol] 784 ng/mL High 37-417 [facility] Serum or plasma gamma globul in measurement by electrophoresis (mass/volume)Ordered By: Zachary Mijares on 05-24-2024 Gamma globulin Elph [Mass/Vol] 0.8 g/dL 0.4-1.8 [facility] Serum or plasma hepatitis B virus surface antigen detection by immunoassayOrdered By: Zachary Mijares on 05-24-2024 HBV surface Ag IA Ql Negative Negative [facility] Serum or plasma immunoelectr ophoresis interpretation (nominal result)Ordered By: Zachary Mijares on 05-24-2024 Interpretation IEP [Interp] Comment . [facility] Comment on above: No monoclonality det ected. Serum or plasma iron saturat ion measurement (mass fraction)Ordered By: Zachary Mijares on 05-24-2024 Iron saturation [Mass fraction] 33.0 % 9-55 [facility] Serum or plasma protein tex urement (mass/volume)Ordered By: Zachary Mijares on 05-24-2024 Protein [Mass/Vol] 6.3 g/dL 6.0-8.5 [facility] Serum or plasma urea nitroge n measurement (mass/volume)Ordered By: Eren Calero on 05-24-2024 Urea nitrogen [Mass/Vol] 21 mg/dL High 4-19 [facility] Tobar antibody assayOrdered By: Zachary Mijares on 05-24-2024 SM Antibody <0.2 AI 0.0-0.9 [facility] Comment on above: Previous reported re sult: TNP AIEdited by: BLAKE on 05/26/24:1108 AMENDED REPORT 05/26/24 1108 KIMBERLI Ab previously reported as: Test not performed Sodium levelOrdered By: Erne Calero on 05-24-2024 Sodium [Moles/Vol] 139 mmol/L 133-145 [facility] Squamous epithelial cells de tection in urine sediment by light microscopyOrdered By: Eren Calero on 05-24-2024 Epithelial cells.squamous LM Ql (Urine sed) 0-5 SEEN /hpf 0-5 [facility] Total proteinOrdered By: Hue Calero on 05-24-2024 Protein [Mass/Vol] 7.1 g/dL 5.9-8.4 [facility] Urinalysis, Completeon 05-24 CAST,WBC 0-5 SEEN Normal None Seen [facility] Comment on above: Order Comment: COLOR OF URINE MAY AFFECT DIPSTICK RESULTS.CLEAN CATCH Performed By: #### L 400.0001 ####[facility] [address] [facility] [address] CAST,FINE GRAN 0-5 SEEN Normal 0-5 [facility] Comment on above: Order Comment: COLOR OF URINE MAY AFFECT DIPSTICK RESULTS.CLEAN CATCH Performed By: #### L 400.0001 ####[facility] [address] [facility] [address] CAST,HYALINE 5-10 SEEN Normal 0-5 [facility] Comment on above: Order Comment: COLOR OF URINE MAY AFFECT DIPSTICK RESULTS.CLEAN CATCH Performed By: #### L 400.0001 ####[facility] [address] [facility] [address] CA OX CRYSTAL 2+ /hpf Normal [facility] Comment on above: Order Comment: COLOR OF URINE MAY AFFECT DIPSTICK RESULTS.CLEAN CATCH Performed By: #### L 400.0001 ####[facility] [address] [place], [address] EPI,SQUAMOUS 0-5 SEEN Normal 0-5 [facility] Comment on above: Order Comment: COLOR OF URINE MAY AFFECT DIPSTICK RESULTS.CLEAN CATCH Performed By: #### L 400.0001 ####[facility] [address] [place], [address] Mucus Ql (Urine sed) 1+ /hpf Normal [facility] Comment on above: Order Comment: COLOR OF URINE MAY AFFECT DIPSTICK RESULTS.CLEAN CATCH Performed By: #### L 400.0001 ####[facility] [address] [place], [address] RBC 0-5 SEEN Normal 0-5 [facility] Comment on above: Order Comment: COLOR OF URINE MAY AFFECT DIPSTICK RESULTS.CLEAN CATCH Performed By: #### L 400.0001 ####[facility] [address] [place], [address] WBC 0-5 SEEN Normal 0-5 [facility] Comment on above: Order Comment: COLOR OF URINE MAY AFFECT DIPSTICK RESULTS.CLEAN CATCH Performed By: #### L 400.0001 ####[facility] [address] [place], [address] BACTERIA 0 SEEN Normal None Seen [facility] Comment on above: Order Comment: COLOR OF URINE MAY AFFECT DIPSTICK RESULTS.CLEAN CATCH Performed By: #### L 400.0001 ####[facility] [address] [place], [address] Urine blood detectionOrdered By: Eren Calero on 05-24-2024 Urine Occult Blood 10 /ul High Negative [facility] Urine clarityOrdered By: Hue Calero on 05-24-2024 Clarity (U) Sl. Cloudy Clear [facility] Urine color determinationOrd ered By: Eren Calero on 05-24-2024 Color (U) Norma Yellow [facility] Urine glucose detectionOrder ed By: Eren Calero on 05-24-2024 Glucose Ql (U) Normal mg/dl Normal [facility] Urine leukocyte esterase det ection by dipstickOrdered By: Eren Calero on 05-24-2024 Leukocyte esterase Test strip Ql (U) 25 /ul High Negative [facility] Urine pHOrdered By: Eren dejesus on 05-24-2024 pH (U) 5.0 [pH] 5.0 - 8.0 [facility] Urine sediment bacteria coun t by microscopy (number/high power field)Ordered By: Eren Calero on 05-24-2024 Bacteria LM.HPF (Urine sed) [#/Area] 0 /[HPF] None Seen [facility] Urine sediment fine granular cast count by microscopy (number/low power field)Ordered By: Eren Calero on 05-24-2024 Fine Granular Casts LM.LPF (Urine sed) [#/Area] 0-5 SEEN /lpf 0-5 [facility] Urine sediment leukocyte kiara t count by microscopy (number/low power field)Ordered By: Eren Calero on 05-24-2024 WBC casts LM.LPF (Urine sed) [#/Area] 0-5 SEEN /lpf None Seen [facility] Urine specific gravity measu rementOrdered By: Eren Calero on 05-24-2024 Specific gravity (U) [Rel density] 1.025 1.002-1.03 0 [facility] Urine urobilinogen measureme ntOrdered By: Eren Calero on 05-24-2024 Urobilinogen Ql (U) 4 mg/dl High Normal [facility] Urobilinogen Ql (U)Ordered B y: Eren Calero on 05-24-2024 Urobilinogen (U) [Mass/Vol] 4 mg/dL High Normal [facility] WBC casts LM.LPF (Urine sed) [#/Area]Ordered By: Eren Calero on 05-24-2024 Urine White Blood Cell Casts 0-5 SEEN /lpf None Seen [facility] White blood cell (WBC) count Ordered By: Eren Calero on 05-24-2024 WBC (Bld) [#/Vol] 9.1 10*3/uL 4.4-11.0 [facility] White blood cell countOrdere d By: Eren Calero on 05-24-2024 Urine WBC 0-5 SEEN /hpf 0-5 [facility] White blood cell count 0-5 SEEN /hpf 0-5 [facility] aPTT Coag (PPP) [Time]Ordere d By: Eren Calero on 05-24-2024 aPTT Coag (Bld) [Time] 28.6 s 24.1-36.2 [facility] Absolute neutrophil countOrd ered By: Ajay Skinner on 03-08-2024 Neutrophils (Bld) [#/Vol] 5.2 10*3/uL 2.0-7.7 [facility] Albumin to globulin ratioOrd ered By: Ajay Skinner on 03-08-2024 Albumin/Globulin [Mass ratio] 1.1 {ratio} 0.9-2.4 [facility] Basophil percentageOrdered B y: Ajay Skinner on 03-08-2024 Basophils/100 WBC (Bld) 1.2 % High 0-1 [facility] Bilirubin, totalOrdered By: Ajay Skinner on 03-08-2024 Bilirubin [Mass/Vol] 0.50 mg/dL 0.20-1.00 [facility] Comment on above: For patients on eltr ombopag therapy, use of Dimension [place] TBIL is not recommended. Blood urea nitrogen (BUN)/cr eatinine ratioOrdered By: Ajay Skinner on 03-08-2024 Urea nitrogen/Creatinine [Mass ratio] 12.6 mg/mg 10-20 [facility] CBC W/Diff, Automatedon Absolute Lymph 1.92 X10 3/uL Normal 0.83-4.51 [facility] Comment on above: Performed By: #### L 500.4050, L504.2610, L300.8000, L100.0100 ####[facility] [address] [place], [place], [id number] Absolute Neut 5.2 X10 3/uL Normal 2.0-7.7 [facility] Comment on above: Performed By: #### L 500.4050, L504.2610, L300.8000, L100.0100 ####[facility] [address] [place], [address] Basophils/100 WBC (Bld) 1.2 % High 0-1 [facility] Comment on above: Performed By: #### L 500.4050, L504.2610, L300.8000, L100.0100 ####[facility] [address] [place], [address] Eosinophils/100 WBC (Bld) 4.6 % Normal 0-5 [facility] Comment on above: Performed By: #### L 500.4050, L504.2610, L300.8000, L100.0100 ####[facility] [address] [place], [address] Erythrocyte distribution width (RBC) [Ratio] 13.4 % Normal 11.6-14.6 [facility] Comment on above: Performed By: #### L 500.4050, L504.2610, L300.8000, L100.0100 ####[facility] [address] [place], [address] Hematocrit (Bld) [Volume fraction] 44.4 % Normal 40-54 [facility] Comment on above: Performed By: #### L 500.4050, L504.2610, L300.8000, L100.0100 ####[facility] [address] [place], [address] Hemoglobin (Bld) [Mass/Vol] 14.4 g/dL Normal 13.0-16.5 [facility] Comment on above: Performed By: #### L 500.4050, L504.2610, L300.8000, L100.0100 ####[facility] [address] [place], [address] IG% 0.500 Normal 0.0-0.9 [facility] Comment on above: Result Comment: IG% - Immature Granulocytes (promyelocytes, myelocytes and metamyelocytes) > 1% indicates that a LEFT SHIFT is Present. Performed By: #### L 500.4050, L504.2610, L300.8000, L100.0100 ####[facility] [address] [place], [address] Lymphocytes/100 WBC (Bld) 23.0 % Normal 19-41 [facility] Comment on above: Performed By: #### L 500.4050, L504.2610, L300.8000, L100.0100 ####[facility] [address] [place], [address] MCH (RBC) [Entitic mass] 29.9 pg Normal 27.0-32.0 [facility] Comment on above: Performed By: #### L 500.4050, L504.2610, L300.8000, L100.0100 ####[facility] [address] [place], [address] MCHC (RBC) [Mass/Vol] 32.4 g/dL Normal 32-36 [facility] Comment on above: Performed By: #### L 500.4050, L504.2610, L300.8000, L100.0100 ####[facility] [address] [place], [address] MCV (RBC) [Entitic vol] 92.1 fL Normal 80-94 [facility] Comment on above: Performed By: #### L 500.4050, L504.2610, L300.8000, L100.0100 ####[facility] [address] [place], [address] Monocytes/100 WBC (Bld) 8.4 % Normal 0-10 [facility] Comment on above: Performed By: #### L 500.4050, L504.2610, L300.8000, L100.0100 ####[facility] [address] [place], [address] Neutrophils/100 WBC (Bld) 62.3 % Normal 47-70 [facility] Comment on above: Performed By: #### L 500.4050, L504.2610, L300.8000, L100.0100 ####[facility] [address] [place], [address] Nucleated RBC (Bld) [#/Vol] 0 10*3/uL Normal 0-5 [facility] Comment on above: Performed By: #### L 500.4050, L504.2610, L300.8000, L100.0100 ####[facility] [address] [place], [address] Platelet mean volume (Bld) [Entitic vol] 8.6 fL Normal 6.2-12.0 [facility] Comment on above: Performed By: #### L 500.4050, L504.2610, L300.8000, L100.0100 ####[facility] [address] [place], [address] Platelets (Bld) [#/Vol] 313 10*3/uL Normal 150-450 [facility] Comment on above: Performed By: #### L 500.4050, L504.2610, L300.8000, L100.0100 ####[facility] [address] [place], [address] RBC (Bld) [#/Vol] 4.82 10*6/uL Normal 4.6-6.2 [facility] Comment on above: Performed By: #### L 500.4050, L504.2610, L300.8000, L100.0100 ####[facility] [address] [place], [address] RDW SD 45.6 fl High 35.1-43.9 [facility] Comment on above: Performed By: #### L 500.4050, L504.2610, L300.8000, L100.0100 ####[facility] [address] [place], [address] WBC (Bld) [#/Vol] 8.3 10*3/uL Normal 4.4-11.0 [facility] Comment on above: Performed By: #### L 500.4050, L504.2610, L300.8000, L100.0100 ####[facility] [address] [place], [address] Carbon dioxide measurementOr dered By: Ajay Skinner on 03-08-2024 CO2 [Moles/Vol] 27.0 mmol/L 21.0-32.0 [facility] Chloride measurementOrdered By: Ajay Skinner on 03-08-2024 Chloride [Moles/Vol] 111 mmol/L High 98-107 [facility] Comprehensive Metabolic Prof ilon 03-08-2024 Albumin [Mass/Vol] 4.0 g/dL Normal 3.2-5.0 [facility] Comment on above: Order Comment: 1 Performed By: #### L 500.4050, L504.2610, L300.8000, L100.0100 ####[facility] [address] [place], [address] Albumin/Globulin [Mass ratio] 1.1 {ratio} Normal 0.9-2.4 [facility] Comment on above: Order Comment: 1 Performed By: #### L 500.4050, L504.2610, L300.8000, L100.0100 ####[facility] [address] [place], [address] ALK P 92 U/L Normal 45-117 [facility] Comment on above: Order Comment: 1 Performed By: #### L 500.4050, L504.2610, L300.8000, L100.0100 ####[facility] [address] [place], [address] ALT [Catalytic activity/Vol] 89 U/L High 16-61 [facility] Comment on above: Order Comment: 1 Performed By: #### L 500.4050, L504.2610, L300.8000, L100.0100 ####[facility] [address] [place], [address] AST [Catalytic activity/Vol] 42 U/L High 15-37 [facility] Comment on above: Order Comment: 1 Performed By: #### L 500.4050, L504.2610, L300.8000, L100.0100 ####[facility] [address] [place], [address] Bilirubin [Mass/Vol] 0.50 mg/dL Normal 0.20-1.00 [facility] Comment on above: Order Comment: 1 Result Comment: For patients on eltrombopag therapy, use of Dimension [place] TBIL is not recommended. Performed By: #### L 500.4050, L504.2610, L300.8000, L100.0100 ####[facility] [address] [place], [address] BUN/CRE 12.6 RATIO Normal 10-20 [facility] Comment on above: Order Comment: 1 Performed By: #### L 500.4050, L504.2610, L300.8000, L100.0100 ####[facility] [address] [place], [address] CA,Total 9.4 mg/dL Normal 8.5-10.1 [facility] Comment on above: Order Comment: 1 Performed By: #### L 500.4050, L504.2610, L300.8000, L100.0100 ####[facility] [address] [place], [address] Chloride [Moles/Vol] 111 mmol/L High 98-107 [facility] Comment on above: Order Comment: 1 Performed By: #### L 500.4050, L504.2610, L300.8000, L100.0100 ####[facility] [address] [place], [address] CO2 [Moles/Vol] 27.0 mmol/L Normal 21.0-32.0 [facility] Comment on above: Order Comment: 1 Performed By: #### L 500.4050, L504.2610, L300.8000, L100.0100 ####[facility] [address] [place], [address] Creatinine [Mass/Vol] 1.11 mg/dL Normal 0.70-1.30 [facility] Comment on above: Order Comment: 1 Result Comment: The validity of the calculated GFR GFRAA in patients over 70 years has not been determined. Clinical correlation is essential. Performed By: #### L 500.4050, L504.2610, L300.8000, L100.0100 ####[facility] [address] [place], [address] ECRCL 76.99 ml/min Normal [facility] Comment on above: Order Comment: 1 Performed By: #### L 500.4050, L504.2610, L300.8000, L100.0100 ####[facility] [address] [place], [address] EST GFR - AA 84 mL/min Normal >60 [facility] Comment on above: Order Comment: 1 Result Comment: Afri can [place]an GFR Calc Performed By: #### L 500.4050, L504.2610, L300.8000, L100.0100 ####[facility] [address] [place], [address] GAP 4 Low 5-15 [facility] Comment on above: Order Comment: 1 Performed By: #### L 500.4050, L504.2610, L300.8000, L100.0100 ####[facility] [address] [place], [address] GFR/1.73 sq M.predicted among non-blacks MDRD (S/P/Bld) [Vol rate/Area] 69 mL/min/{1.73_m2} Normal >60 [facility] Comment on above: Order Comment: 1 Result Comment: Non- GFR Calc Performed By: #### L 500.4050, L504.2610, L300.8000, L100.0100 ####[facility] [address] [place], [address] Globulin (S) [Mass/Vol] 3.5 g/dL Normal 2.2-4.2 [facility] Comment on above: Order Comment: 1 Performed By: #### L 500.4050, L504.2610, L300.8000, L100.0100 ####[facility] [address] [place], [address] Glucose [Mass/Vol] 91 mg/dL Normal 74-106 [facility] Comment on above: Order Comment: 1 Performed By: #### L 500.4050, L504.2610, L300.8000, L100.0100 ####[facility] [address] [place], [address] Potassium [Moles/Vol] 3.3 mmol/L Low 3.5-5.1 [facility] Comment on above: Order Comment: 1 Performed By: #### L 500.4050, L504.2610, L300.8000, L100.0100 ####[facility] [address] [place], [address] Sodium [Moles/Vol] 142 mmol/L Normal 136-145 [facility] Comment on above: Order Comment: 1 Performed By: #### L 500.4050, L504.2610, L300.8000, L100.0100 ####[facility] [address] [place], [address] T PROT 7.5 g/dL Normal 6.4-8.2 [facility] Comment on above: Order Comment: 1 Performed By: #### L 500.4050, L504.2610, L300.8000, L100.0100 ####[facility] [address] [place], [address] Urea nitrogen [Mass/Vol] 14 mg/dL Normal 7-18 [facility] Comment on above: Order Comment: 1 Performed By: #### L 500.4050, L504.2610, L300.8000, L100.0100 ####[facility] [address] [place], [address] D-Dimer Quantitative (DVT/PE )on 03-08-2024 D-DIMER QUANT 0.29 FEU/ug/m Normal 0.27-0.49 [facility] Comment on above: Result Comment: NORM AL D-Dimer level (<0.50) indicates no DVT or PE. Performed By: #### L 500.4050, L504.2610, L300.8000, L100.0100 ####[facility] [address] [place], [place], [address] D-dimer measurement for deep venous thrombosisOrdered By: Ajay Skinner on 03-08-2024 D-Dimer Quantitative (PE/DVT) 0.29 FEU/ug/m 0.27-0.49 [facility] Comment on above: NORMAL D-Dimer level (<0.50) indicates no DVT or PE. Eosinophil percentageOrdered By: Ajay Skinner on 03-08-2024 Eosinophils/100 WBC (Bld) 4.6 % 0-5 [facility] Erythrocyte distribution wid th ratioOrdered By: Ajay Skinner on 03-08-2024 Erythrocyte distribution width (RBC) [Ratio] 13.4 % 11.6-14.6 [facility] Erythrocyte distribution wid th standard deviationOrdered By: Ajay Skinner on 03-08-2024 Erythrocyte distribution width (RBC) [Entitic vol] 45.6 fL High 35.1-43.9 [facility] Estimated glomerular filtrat ion rate (GFR) AmericanOrdered By: Ajay Skinner on 03-08-2024 Estimated GFR (MDRD) Amer 84 mL/min >60 [facility] Comment on above: GFR Calc Estimation of creatinine hilary aranceOrdered By: Ajay Skinner on 03-08-2024 Estimated Creatinine Clearance Calc 76.99 ml/min [facility] Glomerular filtration rate ( GFR) estimationOrdered By: Ajay Skinner on 03-08-2024 Estimated GFR (MDRD) Non-Af Amer 69 mL/min >60 [facility] Comment on above: Non- GFR Calc Glucose measurementOrdered B y: Ajay Skinner on 03-08-2024 Glucose [Mass/Vol] 91 mg/dL 74-106 [facility] Hematocrit Auto (Bld) [Volum e fraction]Ordered By: Ajay Skinner on 03-08-2024 Hematocrit (Bld) [Volume fraction] 44.4 % 40-54 [facility] Hemoglobin measurementOrdere d By: Ajay Skinner on 03-08-2024 Hemoglobin (Bld) [Mass/Vol] 14.4 g/dL 13.0-16.5 [facility] Immature granulocytes/100 WB C Auto (Bld)Ordered By: Ajay Skinner on 03-08-2024 Immature granulocytes/100 WBC (Bld) 0.500 % 0.0-0.9 [facility] Comment on above: IG% - Immature Granu locytes (promyelocytes, myelocytes and metamyelocytes) > 1% indicates that a LEFT SHIFT is Present. LDHon 03-08-2024 LDH 266 U/L High 87-241 [facility] Comment on above: Order Comment: 1 Performed By: #### L 500.4050, L504.2610, L300.8000, L100.0100 ####[facility] [address] [place], [address] Laboratory - Chemistry and C hemistry - challengeOrdered By: Ajay Skinner on 03-08-2024 AST [Catalytic activity/Vol] 42 U/L High 15-37 [facility] Lactate dehydrogenase (LDH) measurementOrdered By: Ajay Skinner on 03-08-2024 LDH [Catalytic activity/Vol] 266 U/L High 87-241 [facility] Lymphocytes Auto (Unsp spec) [#/Vol]Ordered By: Ajay Skinner on 03-08-2024 Lymphocytes (Bld) [#/Vol] 1.92 10*3/uL 0.83-4.51 [facility] Lymphocytes/100 WBC Auto (Un sp spec)Ordered By: Ajay Skinner on 03-08-2024 Lymphocytes/100 WBC (Bld) 23.0 % 19-41 [facility] MCV (mean corpuscular volume ) determinationOrdered By: Ajay Skinner on 03-08-2024 MCV (RBC) [Entitic vol] 92.1 fL 80-94 [facility] Mean corpuscular hemoglobin (MCH) determinationOrdered By: Ajay Brody on 03-08-2024 MCH (RBC) [Entitic mass] 29.9 pg 27.0-32.0 [facility] Mean corpuscular hemoglobin concentration (MCHC) determinationOrdered By: Ajay Skinner on 03-08-2024 MCHC (RBC) [Mass/Vol] 32.4 g/dL 32-36 [facility] Mean platelet volume determi nationOrdered By: [place] Brody on 03-08-2024 Platelet mean volume (Bld) [Entitic vol] 8.6 fL 6.2-12.0 [facility] Monocyte percentageOrdered B y: Ajay Skinner on 03-08-2024 Monocytes/100 WBC (Bld) 8.4 % 0-10 [facility] Neutrophil percentageOrdered By: Ajay Brody on 03-08-2024 Neutrophils/100 WBC (Bld) 62.3 % 47-70 [facility] Nucleated red blood cell per centageOrdered By: Ajay Brody on 03-08-2024 Nucleated RBC/100 WBC (Bld) [Ratio] 0 % 0-5 [facility] Oncology Visit Reporton Oncology Visit Report [facility] [place] [address] OFFICE VISIT Date of Service: 03/08/24 1458 MR#: [id number] Acct: [id number] Name: AMAURI FROST Rep #: [id number] : 1950 From: Ajay Skinner MD Age/Sex: 73/M Location: [facility] Status: Signed HPI Subjective Date of Service 03/08/24 Chief Complaint F/u for DVT management. History of Present Illness 73-year-old man presented with shortness of breath to [place] [facility] on 06/30/2020. He was diagnosed with bilateral pulmonary embolism and COVID-19 infection. He was started on Eliquis and referred by his PCP at the [facility] for further management. He took Eliquis for 6 months. He dropped a bag of seeds on the R lower leg. Doppler on 03/11/2023 showed R proximal and distal femoral, popliteal DVT. He was started on Eliquis, stopped it in October 2023 for a colonoscopy. Comes for follow up. He feels well. [facility] Medical History DVT (deep venous thrombosis) Hypothyroidism Surgical History Hx of colonoscopy History of bunionectomy Family History Mother Colon cancer Social History Smoking Status: Never smoker alcohol intake: current alcohol intake frequency: a few times a week caffeine: Yes Intake Vital Signs 12/16/23 15:10 03/08/24 15:00 Height 6 ft 1 in 6 ft 1 in Weight: 102.965 kg BMI 29.9 BP 133/80 H Blood Pressure Location Rt brachial Position Sitting Respiration 16 Pulse 60 Pulse Source Monitor Temp 98.1 F Temperature Source Temporal Artery Pulse Oximetry (%) 95 Oxygen Delivery Method room air Intake Is patient in pain?: No Allergies No Known Allergies Allergy (Verified 03/08/24 15:01) Medications ???Medication ???Instructions ???Recorded ???Confirmed ???Type ezetimibe 10 mg tablet 10 mg PO DAILY 03/25/23 03/08/24 History finasteride 1 mg tablet 1 mg PO DAILY 03/25/23 03/08/24 History levothyroxine 112 mcg tablet 125 mcg PO DAILY 03/25/23 03/08/24 History tamsulosin 0.4 mg capsule 0.4 mg PO QHS 03/25/23 03/08/24 History Have you fallen in the past year?: No Laboratory Results 03/08/24 12/16/23 09/16/23 13:50 13:53 12:59 WBC Hgb Hct Plt Count PT INR APTT D-Dimer Quant (PE/DVT) 0.29 0.66 H* 0.46 06/24/23 11/30/20 13:15 07:52 WBC 8.3 Hgb 15.1 Hct 46.4 Plt Count 354 PT 12.9 INR 1.0 APTT 31.9 D-Dimer Quant (PE/DVT) 0.61 H* 0.40 Exam Physical Exam Const alert, oriented x3, no apparent distress and average body habitus General Appearance: cooperative and comfortable HEENT normocephalic, external ears normal and external nose normal Eyes no scleral icterus Neck supple Lymph Lymphatic: no lymphadenopathy noted Chest inspection of chest normal Resp normal respiratory effort and clear to auscultation bilaterally Cardio regular rate, regular rhythm, S1 normal heart sound, S2 normal heart sound and no murmurs GI normal to inspection, nondistended, normoactive bowel sounds Back/Spine no CVA tenderness and thoracic and lumbar spine normal to inspection Extremity Extremity Narrative: + compression stocking R Leg. Skin no rashes or lesions noted Neuro oriented x3, CN's II-XII intact bilaterally, moves all extremities and no focal motor deficits Psych mental status grossly normal Coding Level of Care Code Off vis,est,level 3 Exam Problem Focused Diagnoses Chronic deep vein thrombosis (DVT) of femoral vein of right lower extremity I82.511 Chronicity: chronic Assessment and Plan Assessment and Plan (1) Deep vein thrombosis (DVT) of femoral vein of right lower extremity: Status: Chronic Qualifiers: Chronicity: chronic Qualified Code(s): I82.511 - Chronic embolism and thrombosis of right femoral vein Comment: D-dimers is 0.29 today. Discussed management of Provoked DVT, since D-dimers are normal now he can stop Eliquis. Plan: To stop Eliquis when Prescrition runs out. To continue using compression stockings. RTC 6 weeks with D-dimers, Thrombotic risk profile I. Plan Details Follow Up: 6 Weeks Clinical Quality Measures Falls Risk Screening/Assistive Devices Have you fallen in the past year?: No 03/08/24 1525 Date Ajay Huertas Signature: Date (if applicable) CC: [facility] Normal [facility] Platelet countOrdered By: Danae Skinner on 03-08-2024 Platelets (Bld) [#/Vol] 313 10*3/uL 150-450 [facility] Potassium measurementOrdered By: Ajay Skinner on 03-08-2024 Potassium [Moles/Vol] 3.3 mmol/L Low 3.5-5.1 [facility] RBC Auto (Bld) [#/Vol]Ordere d By: Ajay Skinner on 03-08-2024 RBC (Bld) [#/Vol] 4.82 10*6/uL 4.6-6.2 [facility] Serum anion gap measurementO rdered By: Ajay Skinner on 03-08-2024 Anion gap [Moles/Vol] 4 mmol/L Low 5-15 [facility] Serum globulin measurementOr dered By: Ajay Skinner on 03-08-2024 Globulin (S) [Mass/Vol] 3.5 g/dL 2.2-4.2 [facility] Serum or plasma alanine grant otransferase (ALT) measurementOrdered By: Ajay Skinner on 03-08-2024 ALT [Catalytic activity/Vol] 89 U/L High 16-61 [facility] Serum or plasma albumin tex urement (mass/volume)Ordered By: Ajay Skinner on 03-08-2024 Albumin [Mass/Vol] 4.0 g/dL 3.2-5.0 [facility] Serum or plasma alkaline sienna sphatase measurementOrdered By: Ajay Skinner on 03-08-2024 ALP [Catalytic activity/Vol] 92 U/L 45-117 [facility] Serum or plasma calcium tex urement (mass/volume)Ordered By: Ajay Skinner on 03-08-2024 Calcium [Mass/Vol] 9.4 mg/dL 8.5-10.1 [facility] Serum or plasma creatinine m easurement (mass/volume)Ordered By: Ajay Skinner on 03-08-2024 Creatinine [Mass/Vol] 1.11 mg/dL 0.70-1.30 [facility] Comment on above: The validity of the calculated GFR & GFRAA in patients over 70 years has not been determined. Clinical correlation is essential. Serum or plasma urea nitroge n measurement (mass/volume)Ordered By: Ajay Skinner on 03-08-2024 Urea nitrogen [Mass/Vol] 14 mg/dL 7-18 [facility] Sodium levelOrdered By: Stas Skinner on 03-08-2024 Sodium [Moles/Vol] 142 mmol/L 136-145 [facility] Total proteinOrdered By: Luca Skinner on 03-08-2024 Protein [Mass/Vol] 7.5 g/dL 6.4-8.2 [facility] White blood cell (WBC) count Ordered By: Ajay Skinner on 03-08-2024 WBC (Bld) [#/Vol] 8.3 10*3/uL 4.4-11.0 [facility] CBC W/Diff, Automatedon 10-1 Absolute Lymph 1.72 X10 3/uL Normal 0.83-4.51 [facility] Comment on above: Performed By: #### L 300.8000, L100.0100, L300.4310, L300.3900 ####[facility] [address] [place], [address] Absolute Neut 4.2 X10 3/uL Normal 2.0-7.7 [facility] Comment on above: Performed By: #### L 300.8000, L100.0100, L300.4310, L300.3900 ####[facility] [address] [place], [address] Basophils/100 WBC (Bld) 1.3 % High 0-1 [facility] Comment on above: Performed By: #### L 300.8000, L100.0100, L300.4310, L300.3900 ####[facility] [address] [place], [address] Eosinophils/100 WBC (Bld) 5.3 % High 0-5 [facility] Comment on above: Performed By: #### L 300.8000, L100.0100, L300.4310, L300.3900 ####[facility] [address] [place], [address] Erythrocyte distribution width (RBC) [Ratio] 13.3 % Normal 11.6-14.6 [facility] Comment on above: Performed By: #### L 300.8000, L100.0100, L300.4310, L300.3900 ####[facility] [address] [place], [address] Hematocrit (Bld) [Volume fraction] 43.2 % Normal 40-54 [facility] Comment on above: Performed By: #### L 300.8000, L100.0100, L300.4310, L300.3900 ####[facility] [address] [place], [address] Hemoglobin (Bld) [Mass/Vol] 14.0 g/dL Normal 13.0-16.5 [facility] Comment on above: Performed By: #### L 300.8000, L100.0100, L300.4310, L300.3900 ####[facility] [address] [place], [address] IG% 0.300 Normal 0.0-0.9 [facility] Comment on above: Result Comment: IG% - Immature Granulocytes (promyelocytes, myelocytes and metamyelocytes) > 1% indicates that a LEFT SHIFT is Present. Performed By: #### L 300.8000, L100.0100, L300.4310, L300.3900 ####[facility] [address] [place], [address] Lymphocytes/100 WBC (Bld) 24.6 % Normal 19-41 [facility] Comment on above: Performed By: #### L 300.8000, L100.0100, L300.4310, L300.3900 ####[facility] [address] [place], [address] MCH (RBC) [Entitic mass] 30.0 pg Normal 27.0-32.0 [facility] Comment on above: Performed By: #### L 300.8000, L100.0100, L300.4310, L300.3900 ####[facility] [address] [place], [address] MCHC (RBC) [Mass/Vol] 32.4 g/dL Normal 32-36 [facility] Comment on above: Performed By: #### L 300.8000, L100.0100, L300.4310, L300.3900 ####[facility] [address] [place], [address] MCV (RBC) [Entitic vol] 92.5 fL Normal 80-94 [facility] Comment on above: Performed By: #### L 300.8000, L100.0100, L300.4310, L300.3900 ####[facility] [address] [place], [address] Monocytes/100 WBC (Bld) 8.4 % Normal 0-10 [facility] Comment on above: Performed By: #### L 300.8000, L100.0100, L300.4310, L300.3900 ####[facility] [address] [place], [address] Neutrophils/100 WBC (Bld) 60.1 % Normal 47-70 [facility] Comment on above: Performed By: #### L 300.8000, L100.0100, L300.4310, L300.3900 ####[facility] [address] [place], [address] Nucleated RBC (Bld) [#/Vol] 0 10*3/uL Normal 0-5 [facility] Comment on above: Performed By: #### L 300.8000, L100.0100, L300.4310, L300.3900 ####[facility] [address] [place], [address] Platelet mean volume (Bld) [Entitic vol] 8.8 fL Normal 6.2-12.0 [facility] Comment on above: Performed By: #### L 300.8000, L100.0100, L300.4310, L300.3900 ####[facility] [address] [place], [address] Platelets (Bld) [#/Vol] 245 10*3/uL Normal 150-450 [facility] Comment on above: Performed By: #### L 300.8000, L100.0100, L300.4310, L300.3900 ####[facility] [address] [place], [address] RBC (Bld) [#/Vol] 4.67 10*6/uL Normal 4.6-6.2 [facility] Comment on above: Performed By: #### L 300.8000, L100.0100, L300.4310, L300.3900 ####[facility] [address] [place], [address] RDW SD 45.5 fl High 35.1-43.9 [facility] Comment on above: Performed By: #### L 300.8000, L100.0100, L300.4310, L300.3900 ####[facility] [address] [place], [address] WBC (Bld) [#/Vol] 7.0 10*3/uL Normal 4.4-11.0 [facility] Comment on above: Performed By: #### L 300.8000, L100.0100, L300.4310, L300.3900 ####[facility] [address] [place], [address] D-Dimer Quantitative (DVT/PE )on 12-16-2023 D-DIMER QUANT 0.66 FEU/ug/m Invalid Interpretation Code 0.27-0.49 [facility] Comment on above: Result Comment: D-Di hansel ELEVATED (>0.49): Additional studies and clinical assessments are indicated to conclude diagnosis of: Deep Vein Thrombosis (DVT) or Pulmonary Embolism (PE). [facility]IT[facility] VAL[facility]/16[facility]23 Susana1 Marcelle Bush. RESULTS READ BACK BY SAME. Performed By: #### L 300.8000, L100.0100, L300.4310, L300.3900 ####[facility] [address] [place], [address] International normalized rat io (INR) calculationOrdered By: Ajay Skinner on 12-16-2023 INR Coag (Bld) [Relative time] 1.1 {INR} [facility] Oncology Visit Reporton 12-01 Oncology Visit Report [facility] [address] [place] [address] OFFICE VISIT Date of Service: 12/16/23 1506 MR#: [id number] Acct: [id number] Name: MARGOTAMAURI D Rep #: [id number] : 1950 From: Ajay Skinner MD Age/Sex: 73/M Location: [facility] Status: Signed HPI Subjective Date of Service 12/16/23 Chief Complaint F/u for DVT management. History of Present Illness 73-year-old man presented with shortness of breath to [place] ED on 06/30/2020. He was diagnosed with bilateral pulmonary embolism and COVID-19 infection. He was started on Eliquis and [facility]. He took Eliquis for 6 months. He dropped a bag of seeds on the R lower leg. Doppler on 03/11/2023 showed R proximal and distal femoral, popliteal DVT. He was start on Eliquis, stopped it in October 2023 for a colonoscopy. Comes for follow up. He feels well. [facility] Medical History (Updated 12/16/23 @ 15:[address] Ajay Skinner MD) DVT (deep venous thrombosis) Hypothyroidism Surgical History (Updated 12/16/23 @ 15:10 by Sujata Parra) Hx of colonoscopy History of bunionectomy Family History Mother Colon cancer Social History Smoking Status: Never smoker alcohol intake: current alcohol intake frequency: a few times a week caffeine: Yes Intake Vital Signs 09/16/23 14:10 12/16/23 15:07 12/16/23 15:10 Height 6 ft 1 in 6 ft 1 in 6 ft 1 in Weight: 106.367 kg BMI 30.9 BP 138/85 H Blood Pressure Location Lt brachial Position Sitting Respiration 18 Pulse 57 L Pulse Source Monitor Temp 98.4 F Temperature Source Temporal Artery Pulse Oximetry (%) 97 Oxygen Delivery Method room air Intake Is patient in pain?: No Allergies No Known Allergies Allergy (Verified 12/16/23 15:09) Medications ???Medication ???Instructions ???Recorded ???Confirmed ???Type ezetimibe 10 mg tablet 10 mg PO DAILY 03/25/23 12/16/23 History finasteride 1 mg tablet 1 mg PO DAILY 03/25/23 12/16/23 History levothyroxine 112 mcg tablet 125 mcg PO DAILY 03/25/23 12/16/23 History tamsulosin 0.4 mg capsule 0.4 mg PO QHS 03/25/23 12/16/23 History Have you fallen in the past year?: No Central Venous Access Central Venous Access: No Laboratory Results 12/16/23 09/16/23 06/24/23 13:53 12:59 13:15 WBC Hgb Hct Plt Count PT INR APTT D-Dimer Quant (PE/DVT) 0.66 H* 0.46 0.61 H* 11/30/20 07:52 WBC 8.3 Hgb 15.1 Hct 46.4 Plt Count 354 PT 12.9 INR 1.0 APTT 31.9 D-Dimer Quant (PE/DVT) 0.40 Exam Physical Exam Const alert, oriented x3, no apparent distress and average body habitus General Appearance: cooperative and comfortable HEENT normocephalic, external ears normal and external nose normal Eyes no scleral icterus Neck supple Lymph Lymphatic: no lymphadenopathy noted Chest inspection of chest normal Resp normal respiratory effort and clear to auscultation bilaterally Cardio regular rate, regular rhythm, S1 normal heart sound, S2 normal heart sound and no murmurs GI normal to inspection, nondistended, normoactive bowel sounds Back/Spine no CVA tenderness and thoracic and lumbar spine normal to inspection Extremity Extremity Narrative: + compression stocking R Leg. Skin no rashes or lesions noted Neuro oriented x3, CN's II-XII intact bilaterally, moves all extremities and no focal motor deficits Psych mental status grossly normal Coding Level of Care Code Off vis,est,level 3 Exam Problem Focused Diagnoses Chronic deep vein thrombosis (DVT) of femoral vein of right lower extremity I82.511 Chronicity: chronic Assessment and Plan Assessment and Plan (1) Deep vein thrombosis (DVT) of femoral vein of right lower extremity: Status: Chronic Qualifiers: Chronicity: chronic Qualified Code(s): I82.511 - Chronic embolism and thrombosis of right femoral vein Comment: D-dimers is 0.66 today. Discussed significance of increased D-dimers, recurrence of DVT, therapy with Eliquis vs observation, Pt wants to restart Eliquis. Plan: To restart Eliquis 5mg bid. To continue using compression stockings. Monitor D-dimers, check again in 3 months. Plan Details Follow Up: 3 Months Clinical Quality Measures Falls Risk Screening/Assistive Devices Have you fallen in the past year?: No 12/16/23 1530 Date Ajay Huertas Signature: Date (if applicable) CC: [facility] Normal [facility] Partial Thromboplast Timeon 12-16-2023 aPTT Coag (Bld) [Time] 28.0 s Normal 24.1-36.2 [facility] Comment on above: Performed By: #### L 300.8000, L100.0100, L300.4310, L300.3900 ####[facility] [address] [place], [address] Prothrombin Time w/INRon INR Coag (PPP) [Relative time] 1.1 {INR} Normal [facility] Comment on above: Performed By: #### L 300.8000, L100.0100, L300.4310, L300.3900 ####[facility] [address] [place], [address] PT Coag (PPP) [Time] 14.3 s Normal 11.7-14.9 [facility] Comment on above: Performed By: #### L 300.8000, L100.0100, L300.4310, L300.3900 ####[facility] [address] [place], [address] Prothrombin timeOrdered By: Ajay Skinner on 12-16-2023 PT Coag (PPP) [Time] 14.3 s 11.7-14.9 [facility] aPTT Coag (PPP) [Time]Ordere d By: Ajay Skinner on 12-16-2023 aPTT Coag (Bld) [Time] 28.0 s 24.1-36.2 [facility] CBC W/Diff, Automatedon 07- Absolute Lymph 1.78 X10 3/uL Normal 0.83-4.51 [facility] Comment on above: Performed By: #### L 100.0100, L300.8000 ####[facility] [address] [place], [address] Absolute Neut 4.5 X10 3/uL Normal 2.0-7.7 [facility] Comment on above: Performed By: #### L 100.0100, L300.8000 ####[facility] [address] [place], [address] Basophils/100 WBC (Bld) 1.1 % High 0-1 [facility] Comment on above: Performed By: #### L 100.0100, L300.8000 ####[facility] [address] [place], [address] Eosinophils/100 WBC (Bld) 4.5 % Normal 0-5 [facility] Comment on above: Performed By: #### L 100.0100, L300.8000 ####[facility] [address] [place], [address] Erythrocyte distribution width (RBC) [Ratio] 13.4 % Normal 11.6-14.6 [facility] Comment on above: Performed By: #### L 100.0100, L300.8000 ####[facility] [address] [place], [address] Hematocrit (Bld) [Volume fraction] 40.1 % Normal 40-54 [facility] Comment on above: Performed By: #### L 100.0100, L300.8000 ####[facility] [address] [place], [address] Hemoglobin (Bld) [Mass/Vol] 13.1 g/dL Normal 13.0-16.5 [facility] Comment on above: Performed By: #### L 100.0100, L300.8000 ####[facility] [address] [place], [address] IG% 0.100 Normal 0.0-0.9 [facility] Comment on above: Result Comment: IG% - Immature Granulocytes (promyelocytes, myelocytes and metamyelocytes) > 1% indicates that a LEFT SHIFT is Present. Performed By: #### L 100.0100, L300.8000 ####[facility] [address] [place], [address] Lymphocytes/100 WBC (Bld) 24.9 % Normal 19-41 [facility] Comment on above: Performed By: #### L 100.0100, L300.8000 ####[facility] [address] [place], [address] MCH (RBC) [Entitic mass] 30.3 pg Normal 27.0-32.0 [facility] Comment on above: Performed By: #### L 100.0100, L300.8000 ####[facility] [address] [place], [address] MCHC (RBC) [Mass/Vol] 32.7 g/dL Normal 32-36 [facility] Comment on above: Performed By: #### L 100.0100, L300.8000 ####[facility] [address] [place], [address] MCV (RBC) [Entitic vol] 92.6 fL Normal 80-94 [facility] Comment on above: Performed By: #### L 100.0100, L300.8000 ####[facility] [address] [place], [address] Monocytes/100 WBC (Bld) 7.0 % Normal 0-10 [facility] Comment on above: Performed By: #### L 100.0100, L300.8000 ####[facility] [address] [place], [address] Neutrophils/100 WBC (Bld) 62.4 % Normal 47-70 [facility] Comment on above: Performed By: #### L 100.0100, L300.8000 ####[facility] [address] [place], [address] Nucleated RBC (Bld) [#/Vol] 0 10*3/uL Normal 0-5 [facility] Comment on above: Performed By: #### L 100.0100, L300.8000 ####[facility] [address] [place], [address] Platelet mean volume (Bld) [Entitic vol] 8.6 fL Normal 6.2-12.0 [facility] Comment on above: Performed By: #### L 100.0100, L300.8000 ####[facility] [address] [place], [address] Platelets (Bld) [#/Vol] 210 10*3/uL Normal 150-450 [facility] Comment on above: Performed By: #### L 100.0100, L300.8000 ####[facility] [address] [place], [address] RBC (Bld) [#/Vol] 4.33 10*6/uL Low 4.6-6.2 [facility] Comment on above: Performed By: #### L 100.0100, L300.8000 ####[facility] [address] [place], [address] RDW SD 46.0 fl High 35.1-43.9 [facility] Comment on above: Performed By: #### L 100.0100, L300.8000 ####[facility] [address] [place], [address] WBC (Bld) [#/Vol] 7.2 10*3/uL Normal 4.4-11.0 [facility] Comment on above: Performed By: #### L 100.0100, L300.8000 ####[facility] [address] [place], [address] D-Dimer Quantitative (DVT/PE )on 09-16-2023 D-DIMER QUANT 0.46 FEU/ug/m Normal 0.27-0.49 [facility] Comment on above: Result Comment: NORM AL D-Dimer level (<0.50) indicates no DVT or PE. Performed By: #### L 100.0100, L300.8000 ####[facility] [address] [place], [address] Oncology Visit Reporton 08-31 Oncology Visit Report [facility] [address] [place] [address] OFFICE VISIT Date of Service: 09/16/23 1406 MR#: [id number] Acct: [id number] Name: AMAURI FROST Rep #: [id number] : 1950 From: Ajay Skinner MD Age/Sex: 72/M Location: [facility] Status: Signed HPI Subjective Date of Service 09/16/23 Chief Complaint F/u for DVT management. History of Present Illness 72-year-old man presented with shortness of breath to [place] ED on 06/30/2020. He was diagnosed with bilateral pulmonary embolism and COVID-19 infection. He was started on Eliquis and [facility] for further management. He took Eliquis for 6 months. He dropped a bag of seeds on the R lower leg. Doppler on 03/11/2023 showed R proximal and distal femoral, popliteal DVT. He was start on Eliquis, now on 5mg bid. Comes for follow up. He feels well. [facility] Medical History DVT (deep venous thrombosis) Hypothyroidism Surgical History History of bunionectomy Family History Mother Colon cancer Social History Smoking Status: Never smoker alcohol intake: current alcohol intake frequency: a few times a week caffeine: Yes Intake Vital Signs 06/24/23 14:16 09/16/23 14:07 09/16/23 14:10 Height 6 ft 1 in 6 ft 1 in 6 ft 1 in Weight: 107.728 kg 106.623 kg BMI 31.3 31.0 BP 128/80 H 123/73 H Blood Pressure Location Lt brachial Lt brachial Position Sitting Sitting Respiration 18 18 Pulse 62 64 Pulse Source Monitor Monitor Temp 98.5 F 98.3 F Temperature Source Temporal Artery Temporal Artery Pulse Oximetry (%) 97 95 Oxygen Delivery Method room air room air Intake Is patient in pain?: No Allergies No Known Allergies Allergy (Verified 09/16/23 14:09) Medications ???Medication ???Instructions ???Recorded ???Confirmed ???Type apixaban 5 mg tablet (Eliquis) 5 mg PO BID 03/25/23 09/16/23 History ezetimibe 10 mg tablet 10 mg PO DAILY 03/25/23 09/16/23 History finasteride 1 mg tablet 1 mg PO DAILY 03/25/23 09/16/23 History levothyroxine 112 mcg tablet 125 mcg PO DAILY 03/25/23 09/16/23 History tamsulosin 0.4 mg capsule 0.4 mg PO QHS 03/25/23 09/16/23 History Have you fallen in the past year?: No Central Venous Access Central Venous Access: No Laboratory Results 09/16/23 06/24/23 11/30/20 12:59 13:15 07:52 WBC 8.3 Hgb 15.1 Hct 46.4 Plt Count 354 PT 12.9 INR 1.0 APTT 31.9 D-Dimer Quant (PE/DVT) 0.46 0.61 H* 0.40 Exam Physical Exam Const alert, oriented x3, no apparent distress and average body habitus General Appearance: cooperative and comfortable HEENT normocephalic, external ears normal and external nose normal Eyes no scleral icterus Neck supple Lymph Lymphatic: no lymphadenopathy noted Chest inspection of chest normal Resp normal respiratory effort and clear to auscultation bilaterally Cardio regular rate, regular rhythm, S1 normal heart sound, S2 normal heart sound and no murmurs GI normal to inspection, nondistended, normoactive bowel sounds Back/Spine no CVA tenderness and thoracic and lumbar spine normal to inspection Extremity Extremity Narrative: + compression stocking R Leg. Skin no rashes or lesions noted Neuro oriented x3, CN's II-XII intact bilaterally, moves all extremities and no focal motor deficits Psych mental status grossly normal Coding Level of Care Code Off vis,est,level 3 Exam Problem Focused Diagnoses Acute deep vein thrombosis (DVT) of femoral vein of right lower extremity I82.411 Chronicity: acute Assessment and Plan Assessment and Plan (1) Deep vein thrombosis (DVT) of femoral vein of right lower extremity: Status: Chronic Qualifiers: Chronicity: acute Qualified Code(s): I82.411 - Acute embolism and thrombosis of right femoral vein Comment: D-dimers are normal today. Plan: To continue Eliquis 5mg bid till prescription runs out. To continue using compression stockings. Monitor D-dimers, check again in 3 months. Clinical Quality Measures Falls Risk Screening/Assistive Devices Have you fallen in the past year?: No 09/16/23 1440 Date Ajay Skinner MD Cosigner Signature: Date (if applicable) CC: [facility] Normal [facility] AP INTERPRETATION ONLYon CASE REPORT Normal [facility] Comment on above: Order Comment: Speci men Type: FORMALIN-FIXED PARAFFIN-EMBEDDED TISSUE SPECIMEN Ordering Facility: [facility] Address: ATTN: [place] [address] Result Comment: Surg [facility] Pathology Report Case: [id number] Authorizing Provider: Lucas Rincon MD Collected: 02/20/2023 12:00 AM Ordering Location: [facility] Received: 02/21/2023 10:50 PM [facility] Laboratory Pathologist: Ihsan Leger MD Specimens: A) - ASCENDING COLON POLYP, SP-CL 23 44372 B) - SIGMOID COLON POLYP, SP-CL 23 90223 Performed By: #### L [id number] #### [facility] CLIA [id number] [address] [place] [address] [place] FINAL DIAGNOSIS Normal [facility] Comment on above: Order Comment: Speci men Type: FORMALIN-FIXED PARAFFIN-EMBEDDED TISSUE SPECIMEN Ordering Facility: [facility] Address: ATTN: LABORATORY, [place] [address] Result Comment: A. A scending colon polyp, polypectomy: - Tubular adenoma. B. Sigmoid colon polyp, polypectomy: - Tubular adenoma with high-grade dysplasia. Performed By: #### L [id number] #### [facility] CLIA [id number] [address] [place] [address] STATES OF [facility] FINAL PERFORMING LAB Normal [facility] Comment on above: Order Comment: Speci men Type: FORMALIN-FIXED PARAFFIN-EMBEDDED TISSUE SPECIMEN Ordering Facility: [facility] Address: ATTN: [place] [address] Result Comment: Diag nostic interpretation performed at [facility], [address] [place] [address] CLIA# [id number] Retail Pharmacy Merchandiser: Lyle Spivey M.D. Performed By: #### L [id number] #### [facility] CLIA [id number] [address] [place] [address] STATES OF [facility] GROSS DESCRIPTION Normal [facility] Comment on above: Order Comment: Speci men Type: FORMALIN-FIXED PARAFFIN-EMBEDDED TISSUE SPECIMEN Ordering Facility: [facility] Address: ATTN: [facility], [place] [address] Result Comment: A. A SCENDING COLON POLYP Gross and technical component performed at [facility]. See scanned Grossing document for details. B. SIGMOID COLON POLYP Gross and technical component performed at [facility]. See scanned Grossing document for details. Performed By: #### L [id number] #### [facility] CLIA [id number] [address] [place] [address] STATES OF [place] Kp 09-21-2022 BARRY Telephone (UCWSTR) MARGOTAMAURI ([id number]) 1950 M Date Time Provider Department 09/21/22 MIRTA DUARTE During your visit today, we recorded the following information about you: Maureen Mclean LPN 09/21/2022 8:49 AM Signed ----- Message from Mirta Duarte APRN.[facility] sent at 09/20/2022 7:43 PM EDT ----- Urine culture did not show clear evidence of infection. He may continue to take antibiotic if it has been helpful. Recommend follow up with PCP to ensure hematuria has resolved. LISANDRO Dexter Lorinda LPN 09/21/2022 9:04 AM Signed Phone call placed patient advised (see prior provider encounter) Patient verbalized understanding, agreed with plan of care. Maureen Mclean LPN Allergies As of Date: 09/21/2022 (No Known Allergies) Date Reviewed: 09/19/2022 Reviewed by: Lovely Hassan - Fully Assessed Reason for Visit: Results [95] Prescriptions as of 09/21/2022 - cephALEXin (KEFLEX) 500 mg capsule Take 1 capsule by mouth twice daily for 7 days. - apixaban (ELIQUIS) 5 mg tab(s) Take by mouth. - levothyroxine (SYNTHROID) 112 mcg tablet Take 1 tablet by mouth every morning. Problem List As Of Date: 09/21/2022 (None) Encounter Status:Closed by MAUREEN MCLEAN LPN on 09/21/22 Normal [facility] Bacteria Ur Culton 3 Bacteria identified Cx Nom (U) CULTURE, URINE: Normal urogenital sarah: ORGANISM ID: 1 >=100,000 CFU/ml Staphylococcus epidermidis No further workup Normal [facility] Comment on above: Performed By: #### 6 30-4 #### [facility] CLIA [id number] [address] [place] [address] OF [place] CNOVon 09-19-2022 CNOV Office Visit (WSTR ) AMAURI FROST ([id number]) 1950 M Date Time Provider Department 09/19/22 12:30 PM MELANIE RAWLS [facility] During your visit today, we recorded the following information about you: Temperature Pulse Respiration Blood pressure 97.5 degrees 76/minute 16/minute 122/86 Weight 105.7 kg Melanie Rawls APRN.[facility] 09/19/2022 12:51 PM Signed CC: Patient presents with: Urinary Problem: burning and cloudy urine x 2 days HPI Amauri Frost is a 71 year old male who presents with complaint of possible UTI. These symptoms have been present for 2 days. Associated symptoms: burning and cloudy urine Denies: chills, abnormal vaginal discharge, vaginal redness , and vaginal itching Treatments: nothing The ROS was otherwise negative. PMH, Medications, labs, allergies, and recent past visits with PCP were reviewed and updated as able. 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 ALLERGIES Patient has no known allergies. MEDICATIONS levothyroxine (SYNTHROID) 112 mcg tablet Take 1 tablet by mouth every morning. cephALEXin (KEFLEX) 500 mg capsule Take 1 capsule by mouth twice daily for 7 days. apixaban (ELIQUIS) 5 mg tab(s) Take by mouth. (Patient not taking: Reported on 01/09/2021 ) No family history on file. Social History Tobacco Use Smoking status: Never Smokeless tobacco: Never ASSESSMENT/PLAN: 1. Burning with urination - ICD9: 788.1, ICD10: R30.0 (primary diagnosis) - UA DIP, URINE (POC) - URINE CULTURE - CEPHALEXIN 500 MG CAPSULE 2. Cloudy urine - ICD9: 791.9, ICD10: R82.90 - UA DIP, URINE (POC) - URINE CULTURE Prescription instructions reviewed with patient as applicable. Potential red flag symptoms discussed with the patient. Reviewed appropriate action plan to take if red flag symptoms occur. Patient agreeable to treatment plan. Melanie Rawls APRN.[facility] Allergies As of Date: 09/19/2022 (No Known Allergies) Date Reviewed: 09/19/2022 Reviewed by: Lovely Hassan - Fully Assessed Reason for Visit: Urinary Problem [252] Cmt: burning and cloudy urine x 2 days Primary Visit Diagnosis:Burning with urination [R30.0] Other Visit Diagnosis:Cloudy urine [R82.90] Order(s):UA DIP, URINE (POC) [9732313] Order #: [id number]. #:[id number] -LAB URINE CULTURE [SQURCUL] Order #: [id number]. #:[id number] cephALEXin (KEFLEX) 500 mg capsuleTake 1 capsule by mouth twice daily for 7 days.Disp: 14 capsuleRfl: 0 Prescriptions as of 09/21/2022 - cephALEXin (KEFLEX) 500 mg capsule Take 1 capsule by mouth twice daily for 7 days. - apixaban (ELIQUIS) 5 mg tab(s) Take by mouth. - levothyroxine (SYNTHROID) 112 mcg tablet Take 1 tablet by mouth every morning. Problem List As Of Date: 09/19/2022 (None) Prescriptions ordered this encounter Disp Refills Start End CEPHALEXIN 500 MG CAPSULE 14 c* 0 09/19/2022 09/26/2022 Route: ORAL Sig: Take 1 capsule by mouth twice daily for 7 days. Encounter Status:Closed by MELANIE RAWLS on 09/19/22 Normal [facility] UA DIP, URINE (POC)on 2022 BILIRUBIN UA (POCT) Negative Negative [facility] CLARITY UA (POCT) Cloudy [facility] COLOR UA (POCT) Dark yellow [facility] GLUCOSE UA (POCT) Negative Negative mg/dL [facility] HEMOGLOBIN/BLOOD UA (POCT) Trace-intact Abnormal Negative [facility] KETONE UA (POCT) Negative Negative mg/dL [facility] LEUKOCYTES UA (POCT) Small [facility]normal [facility] NITRITE UA (POCT) Negative [facility] PH UA (POCT) 7.5 4.5 - 8.0 [facility] Protein Ql (U) 30 mg/dL Abnormal Negative mg/dL [facility] SPECIFIC GRAVITY UA (POCT) 1.020 1.005 - 1.030 [facility] UROBILINOGEN UA (POCT) 1.0 E.U./dL Maria Luz l E.U./dL [facility] Vital Signs Date Time Vital Sign Value Performing Clinician Annmarie almodovar 07-01-2024 12:10-0400 Body temperature 97.8 [degF] [facility] 07-01-2024 12:10-0400 Diastolic blood pressure 88 mm[Hg] [facility] 07-01-2024 12:10-0400 Heart rate 75 /min [facility] 07-01-2024 12:10-0400 Respiratory rate 18 /min [facility] 07-01-2024 12:10-0400 SaO2% (BldA) [Mass fraction] 97 % [facility] 07-01-2024 12:10-0400 Systolic blood pressure 148 mm[Hg] [facility] 07-01-2024 06:14-0400 Body height 182.88 cm [facility] 07-01-2024 06:14-0400 Body mass index (BMI) [Ratio] 30.6 kg/m2 [facility] 07-01-2024 06:14-0400 Body weight 102.51 kg [facility] 06-15-2024 12:57-0400 Body height 182.88 cm [facility] 06-15-2024 12:57-0400 Body mass index (BMI) [Ratio] 31.4 kg/m2 [facility] 06-15-2024 12:57-0400 Body temperature 97.9 [degF] [facility] 06-15-2024 12:57-0400 Body weight 105.23 kg [facility] 06-15-2024 12:57-0400 Diastolic blood pressure 80 mm[Hg] [facility] 06-15-2024 12:57-0400 Heart rate 80 /min [facility] 06-15-2024 12:57-0400 Respiratory rate 18 /min [facility] 06-15-2024 12:57-0400 SaO2% (BldA) [Mass fraction] 100 % [facility] 06-15-2024 12:57-0400 Systolic blood pressure 130 mm[Hg] [facility] 05-28-2024 10:30-0400 Body temperature 97.9 [degF] [facility] 05-28-2024 10:30-0400 Diastolic blood pressure 76 mm[Hg] [facility] 05-28-2024 10:30-0400 Heart rate 61 /min [facility] 05-28-2024 10:30-0400 Respiratory rate 16 /min [facility] 05-28-2024 10:30-0400 SaO2% (BldA) [Mass fraction] 96 % [facility] 05-28-2024 10:30-0400 Systolic blood pressure 119 mm[Hg] [facility] 05-28-2024 04:08-0400 Body temperature 97.8 [degF] [facility] 05-28-2024 04:08-0400 Diastolic blood pressure 71 mm[Hg] [facility] 05-28-2024 04:08-0400 Heart rate 64 /min [facility] 05-28-2024 04:08-0400 Respiratory rate 18 /min [facility] 05-28-2024 04:08-0400 SaO2% (BldA) [Mass fraction] 94 % [facility] 05-28-2024 04:08-0400 Systolic blood pressure 116 mm[Hg] [facility] 05-24-2024 20:43-0400 Body height 182.88 cm [facility] 05-24-2024 20:43-0400 Body mass index (BMI) [Ratio] 30.4 kg/m2 [facility] 05-24-2024 20:43-0400 Body weight 101.7 kg [facility] 05-24-2024 18:12-0400 Body temperature 97.9 [degF] [facility] 05-24-2024 18:12-0400 Diastolic blood pressure 89 mm[Hg] [facility] 05-24-2024 18:12-0400 Heart rate 81 /min [facility] 05-24-2024 18:12-0400 Respiratory rate 16 /min [facility] 05-24-2024 18:12-0400 SaO2% (BldA) [Mass fraction] 95 % [facility] 05-24-2024 18:12-0400 Systolic blood pressure 142 mm[Hg] [facility] 05-24-2024 14:21-0400 Body height 182.88 cm [facility] 05-24-2024 14:21-0400 Body mass index (BMI) [Ratio] 30.9 kg/m2 [facility] 05-24-2024 14:21-0400 Body weight 103.69 kg [facility] 03-08-2024 15:00-0500 Body mass index (BMI) [Ratio] 29.9 kg/m2 [facility] 03-08-2024 15:00-0500 Body temperature 98.1 [degF] [facility] 03-08-2024 15:00-0500 Body weight 102.96 kg [facility] 03-08-2024 15:00-0500 Diastolic blood pressure 80 mm[Hg] [facility] 03-08-2024 15:00-0500 Heart rate 60 /min [facility] 03-08-2024 15:00-0500 Respiratory rate 16 /min [facility] 03-08-2024 15:00-0500 SaO2% (BldA) [Mass fraction] 95 % [facility] 03-08-2024 15:00-0500 Systolic blood pressure 133 mm[Hg] [facility] 09-19-2022 12:30-0400 Body temperature 97.5 [degF] Melanie Rawls APRN.[employer] WA[employer]ESS Work Phone: [facility] 09-19-2022 12:30-0400 Body weight 105.69 kg Melanie Rawls APRN.[employer] WA[employer]ESS Work Phone: [facility] 09-19-2022 12:30-0400 Diastolic blood pressure 86 mm[Hg] Melanie Rawls APRN.[employer] WA[employer]ESS Work Phone: [facility] 09-19-2022 12:30-0400 Heart rate 76 /min Melanie Rawls APRN.[employer] WA[employer]ESS Work Phone: [facility] 09-19-2022 12:30-0400 Respiratory rate 16 /min Melanie Rawls APRN.[employer] WA[employer]ESS Work Phone: [facility] 09-19-2022 12:30-0400 SaO2% (BldA) [Mass fraction] 96 % Melanie Rawls APRN.[employer] WA[employer]ESS Work Phone: [facility] 09-19-2022 12:30-0400 Systolic blood pressure 122 mm[Hg] Melanie Rawls APRN.[employer] WA[employer]ESS Work Phone: [facility] 09-21-2020 15:38-0400 Body mass index (BMI) [Ratio] 30.5 kg/m2 [facility] Encounters Encounter Date Encounter Type Care Provider Facility Start: 09-14-2024 ambulatory Zachary Friend Facility :[facility] Start: 08-09-2024 Encounter for other preprocedural examination Erik Hernandez [facility] Start: 07-15-2024 End: 07-15-2024 Patient encounter procedure Ciara Roa PA-C -[facility] Work Phone: Start: 07-15-2024 End: 07-15-2024 ambulatory [facility] Work Phone: Start: 07-01-2024 ambulatory [facility] Anguiano [facility]ity:[facility] Start: 07-01-2024 Non-patient / Non-visit Dr. Nell Hernandez MD -[facility] Start: 07-01-2024 End: 07-01-2024 Admission to same day surgery center Dr. Erik Hernandez [facility] Start: 07-01-2024 End: 07-01-2024 ambulatory [facility] Facility:[facility] Start: 06-22-2024 End: 06-22-2024 ambulatory [facility] Facility:[facility] Start: 06-22-2024 End: 06-22-2024 Non-patient / Non-visit Dr. Tristen Figueredo MD -[facility] Work Phone: Start: 06-15-2024 End: 06-15-[address] Erik Hernandez MD -[facility] Work Phone: Start: 06-15-2024 End: 06-15-2024 ambulatory [facility] Work Phone: Start: 06-15-2024 End: 06-15-2024 ambulatory [facility] Facility:[facility] Start: 05-28-2024 Non-patient / Non-visit Dr. Nell Hernandez MD -[facility] Start: 05-27-2024 Non-patient / Non-visit Zacharyjohn Samuele nd [facility] Start: 05-27-2024 Non-patient / Non-visit Dr. Arnaldo aSntos [facility] Work Phone: Start: 05-26-2024 Non-patient / Non-visit Zachary Frie nd [facility] Start: 05-26-2024 Non-patient / Non-visit Dr. Arnaldo ann [facility] Work Phone: Start: 05-25-2024 Non-patient / Non-visit Zachary Lizziee nd [facility] Start: 05-25-2024 End: 05-25-2024 ambulatory Tristen Figueredo Facility:[facility] Start: 05-25-2024 End: 05-25-2024 Non-patient / Non-visit [facility] Work Phone: Start: 05-24-2024 ambulatory Zachary Mijares Facility :[facility] Start: 05-24-2024 End: 05-28-2024 Evaluation and management of inpatient Dr. Mya Galicia MD -[facility] Work Phone: Start: 03-08-[address] Ajay Skinner MD -[facility] Start: 03-08-2024 End: 03-08-[address] [facility] Work Phone: Start: 03-08-2024 End: 03-08-2024 ambulatory [facility] Facility:[facility] Start: 12-16-2023 End: 12-16-2023 ambulatory [facility] Facility:[facility] Start: 09-16-2023 End: 09-16-2023 [facility] Start: 09-19-2022 End: 09-19-2022 ambulatory [facility] Facility:[facility] Start: 09-19-2022 End: 09-19-2022 Patient encounter procedure Melanie Rawls APRN.[employer] WA[employer]ESS Work Phone: [facility] Comment on above: Burning with urinati on (Primary Dx); Cloudy urine Start: 10-14-2021 End: 10-14-2021 Patient encounter procedure Melanie Rawls APRN.[employer] WA[employer]ESS Work Phone: [facility] Comment on above: Herpes zoster withou t complication (Primary Dx) Procedures Date Procedure Procedure Detail Performing Clinician Start: 07-01-2024 Biliary tract contrast [facility] Start: 07-01-2024 Fluoroscopic [facility] Start: 05-27-2024 End: 05-27-2024 Endoscopic retrograde [facility]ancreatography [facility] Start: 05-27-2024 Fluoroscopic guidance [facility] Start: 05-27-2024 Estimated [facility] Start: 05-26-2024 Magnetic resonance cholangiopancreatography [facility] Start: 05-24-2024 Albumin/Globulin ratio [facility] Start: 05-24-2024 Antibody to centromere measurement [facility] Comment on above: Previous reported result: TNP AIEdited b y: INFCE on 05/26/24:1108 AMENDED REPORT 05/26/24 1108 ANTI-CENT B previously reported as: Test not performed Start: 05-24-2024 Antibody to extractable nuclear antigen measurement [facility] Comment on above: Previous reported result: TNP AIEdited b y: INFCE on 05/26/24:1108 AMENDED REPORT 05/26/24 1108 TOBAR Ab previously reported as: Test not performed Start: 05-24-2024 Antibody to DANAE-1 measurement [facility] Comment on above: Previous reported result: TNP AIEdited b y: INFCE on 05/26/24:1108 AMENDED REPORT 05/26/24 1108 ANTI-DANAE previously reported as: Test not performed Start: 05-24-2024 Antibody to lupus La protein measurement [facility] Comment on above: Previous reported result: TNP AIEdited b y: INFCE on 05/26/24:1108 AMENDED REPORT 05/26/24 1108 Anti-SS-B previously reported as: Test not performed Start: 05-24-2024 Antibody to SS-A measurement [facility] Comment on above: Previous reported result: TNP AIEdited b y: INFCE on 05/26/24:1108 AMENDED REPORT 05/26/24 1108 Anti-SS-A previously reported as: Test not performed Start: 05-24-2024 Autoantibody measurement [facility] Comment on above: Previous reported result: TNP AIEdited b y: INFCE on 05/26/24:1108 AMENDED REPORT 05/26/24 1108 ANTICHROMATIN previously reported as: Test not performed Start: 05-24-2024 Ceruloplasmin measurement [facility] Start: 05-24-2024 Copper measurement, serum [facility] Comment on above: Detection Limit = 5 Start: 05-24-2024 Valeria-Christian virus capsid IgG measurement [facility] Comment on above: Negative <18.0 Equivocal 18.0 - 21.9 Pos itive >21.9 Start: 05-24-2024 Valeria-Christian virus serologic test [facility] Comment on above: EBV Interpretation ChartKey: Antibody Pr esent + Antibody Absent -Interpretation VCA-IgM VCA-IgG EBNA-IgGNo previous infection/ - - -SusceptiblePrimary infection (new + + -or recent)Past Infection +or- + +See comment below* + - -*Results indicate infection with EBV at some time however cannot predict the timing of the infection since antibodies to EBNA usually develop after primary infection or, alternatively, approximately 5-10% of patients with EBV never develop antibodies to EBNA. Start: 05-24-2024 Hepatitis A virus antibody, IgM type [facility] Comment on above: A negative anti-HAV IgM result suggests no recent orcurrent HAV infection. Start: 05-24-2024 Hepatitis B core antibody measurement, IgM type [facility] Start: 05-24-2024 Hepatitis C antibody measurement [facility] Start: 05-24-2024 Immunoglobulin G subclass, G4 measurement [facility] Start: 05-24-2024 Immunoglobulin M measurement [facility] Start: 05-24-2024 Measurement of haptoglobin [facility] Comment on above: Performed at: [email or web address] [address] [id number] Director: Farzad Abdi PhD, Phone: [phone] at: [employer] [address] [id number] Director: Dany Holden MD, Phone: [phone] Start: 05-24-2024 [employer] antibody measurement [facility] Comment on above: Previous reported result: TNP AIEdited b y: INFCE on 05/26/24:1108 AMENDED REPORT 05/26/24 1108 [employer] Ab previously reported as: Test not performed Start: 05-24-2024 Total iron binding capacity measurement [facility] Start: 05-24-2024 Urnls dip stick/tablet reagent auto microscopy [facility] Start: 05-24-2024 Computed tomography of abdomen and pelvis with intravenous contrast [facility] Start: 05-24-2024 US scan of gallbladder [facility] Start: 09-19-2022 Urnls dip stick/tablet rgnt auto w/o microscopy Suze Smith PA-C Work Phone: History of cholecystectomy S/P cholecyste ctomy [facility] Plan of Treatment Date Care Activity Detail Author Start: 07-01-2024 Anes intraperitoneal upper abdomen w/laps nos ANES IPER UPR ABD NOS [facility] Start: 07-01-2024 Laps surg cholecystectomy w/cholangiography LAPARO CHOLECYSTECTOMY/GRAPH [facility] Start: 07-01-2024 Patient discharge [facility] Start: 05-28-2024 Patient discharge [facility] Start: 05-25-2024 Application of intermittent pneumatic compression device [facility] Start: 05-24-2024 Cytomegalovirus IgM antibody assay [facility] Start: 05-24-2024 Immunoglobulin measurement [facility] Start: 05-24-2024 Serum immunofixation [facility] Start: 05-24-2024 Provision of activity privileges [facility] Start: 05-24-2024 Assessment of risk of venous thromboembolism [facility] Start: 05-24-2024 Insertion of catheter into peripheral vein [facility] Start: 05-24-2024 Measuring intake and output [facility] Start: 05-24-2024 Providing care according to standard [facility] Start: 05-24-2024 Referral to gastroenterology service [facility] Start: 05-24-2024 [facility] Start: 05-24-2024 Following clinical pathway protocol [facility] Start: 05-24-2024 Admission procedure [facility] Start: 05-24-2024 Cytomegalovirus IgM antibody assay [facility] Start: 05-24-2024 Immunoglobulin measurement [facility] Start: 05-24-2024 Serum immunofixation [facility] Start: 05-24-2024 [facility] Start: 05-24-2024 Hospital admission, emergency, from emergency room, medical nature [facility] Start: 05-24-2024 Inhalation therapy procedure [facility] Start: 11-01-2022 Influenza vaccination INFLUENZA (#1) [facility] Start: 03-03-2022 ADVANCE DIRECTIVE DISCUSSION ADVANCE DIRECTIVE DISCUSSION [facility] Start: 03-03-2022 DEPRESSION ASSESSMENT DEPRESSION ASSESSMENT [facility] Start: 11-01-2021 Influenza vaccination INFLUENZA (#1) [facility] Start: 03-03-2021 ADVANCE DIRECTIVE DISCUSSION ADVANCE DIRECTIVE DISCUSSION [facility] Start: 12-19-2020 COVID-19 VACCINE (3 - Pfizer series) COVID-19 VACCINE (3 - Pfizer series) [facility] Start: 11-18-2016 PNEUMOCOCCAL: 65+ (1 - PCV) PNEUMOCOCCAL: 65+ (1 - PCV) [facility] Start: 11-18-2001 SHINGRIX VACCINE (1 of 2) SHINGRIX VACCINE (1 of 2) [facility] Start: 11-18-1996 COLOGUARD (FIT-DNA) COLOGUARD (FIT-DNA) [facility] Start: 11-18-1996 Colonoscopy COLONOSCOPY [facility] Start: 11-18-1996 COLORECTAL CANCER SCREENING COLORECTAL CANCER SCREENING [facility] Start: 11-18-[address] COLONOGRAPHY [facility] Start: 11-18-1996 DIABETES SCREEN DIABETES SCREEN [facility] Start: 11-18-1996 FECAL OCCULT BLOOD FECAL OCCULT BLOOD [facility] Start: 11-18-1996 SIGMOIDOSCOPY SIGMOIDOSCOPY [facility] Start: 11-18-1986 LIPID SCREEN LIPID SCREEN [facility] Start: 11-18-1970 Urine microalbumin profile DTAP,TDAP,TD (1 - Tdap) [facility] Start: 11-18-1969 HEPATITIS C SCREENING HEPATITIS C SCREENING [facility] Start: 1962 Adult depression screening assessment DEPRESSION SCREENING [facility] Start: 05-18-1952 COVID-19 VACCINE (#1) COVID-19 VACCINE (#1) [facility] Acetaminophen [Mass/ volume] in Serum or Plasma [facility] Albumin [Moles/volum e] in Serum or Plasma [facility] Albumin [Moles/volum e] in Serum or Plasma [facility] Albumin/Globulin ratio [facility] Albumin/Globulin ratio [facility] Antibody to lupus La protein measurement [facility] Antibody to Scl-70 measurement [facility] Antibody to SS-A measurement [facility] Bacteria identified in Urine by Culture URINE CULTURE Microbiology Routine Burning with urination Cloudy urine 09/19/2022 1:00 PM EDT [facility] Work Phone: C reactive protein [Mass/volume] in Serum or Plasma [facility] Cancer Ag 19-9 [Units/volume] in Serum or Plasma [facility] Cancer Ag 19-9 [Units/volume] in Serum or Plasma [facility] Centromere protein B Ab [Units/volume] in Serum [facility] Ceruloplasmin [Mass/ volume] in Serum or Plasma [facility] Ceruloplasmin [Mass/ volume] in Serum or Plasma [facility] Chromatin Ab [Units/ volume] in Serum or Plasma [facility] Copper [Moles/volume ] in Serum or Plasma [facility] Copper [Moles/volume ] in Serum or Plasma [facility] D-dimer assay, quantitative [facility] DNA double strand Ab [Units/volume] in Serum [facility] Electrophoresis: [id number] [facility] Electrophoresis: [id number] [facility] Electrophoresis: navdeep ma globulin [facility] Electrophoresis: navdeep ma globulin [facility] Valeria Christian virus c apsid IgG Ab [Units/volume] in Serum [facility] Valeria Christian virus c apsid IgG Ab [Units/volume] in Serum [facility] Valeria Christian virus c apsid IgM Ab [Units/volume] in Serum [facility] Valeria Christian virus c apsid IgM Ab [Units/volume] in Serum [facility] Valeria Christian virus n uclear IgG Ab [Units/volume] in Cerebral spinal fluid [facility] Valeria Christian virus n uclear IgG Ab [Units/volume] in Cerebral spinal fluid [facility] Valeria-Christian virus serologic test [facility] Valeria-Christian virus serologic test [facility] Erythrocyte sediment ation rate [facility] Ferritin [Mass/volum e] in Serum or Plasma [facility] Globulin measurement [facility] Globulin measurement [facility] Haptoglobin [Mass/vo lume] in Serum or Plasma [facility] Haptoglobin [Mass/vo lume] in Serum or Plasma [facility] Hepatitis A virus Ig M Ab [Presence] in Serum [facility] Hepatitis A virus Ig M Ab [Presence] in Serum [facility] Hepatitis B core ant ibody measurement, IgM type [facility] Hepatitis B core ant ibody measurement, IgM type [facility] Hepatitis B surface antigen measurement [facility] Hepatitis B surface antigen measurement [facility] Hepatitis C antibody measurement [facility] Hepatitis C antibody measurement [facility] IgA [Mass/volume] in Serum or Plasma [facility] IgA [Mass/volume] in Serum or Plasma [facility] IgE [Units/volume] i n Serum or Plasma [facility] IgE [Units/volume] i n Serum or Plasma [facility] IgG [Mass/volume] in Serum or Plasma [facility] IgG [Mass/volume] in Serum or Plasma [facility] IgG subclass 1 [Mass/volume] in Serum [facility] IgG subclass 1 [Mass/volume] in Serum [facility] IgG subclass 2 [Mass/volume] in Serum [facility] IgG subclass 2 [Mass/volume] in Serum [facility] IgG subclass 3 [Mass/volume] in Serum [facility] IgG subclass 3 [Mass/volume] in Serum [facility] IgG subclass 4 [Mass/volume] in Serum [facility] IgG subclass 4 [Mass/volume] in Serum [facility] IgM [Mass/volume] in Serum or Plasma [facility] IgM [Mass/volume] in Serum or Plasma [facility] Iron [Mass/mass] in Unspecified specimen [facility] Iron saturation [Mas s Fraction] in Serum or Plasma [facility] Danae-1 extractable nuc lear Ab [Units/volume] in Serum [facility] Laboratory data interpretation [facility] Laboratory data interpretation [facility] Lactate dehydrogenas e measurement [facility] Partial thromboplast in time, activated [facility] Patient referral [facility] Work Phone: Procedure [facility] Protein electrophore sis panel - Serum or Plasma [facility] Protein electrophore sis panel - Serum or Plasma [facility] Prothrombin time [facility] [employer] antibody measurement [facility] Tobar extractable nu clear Ab [Presence] in Serum [facility] Smooth muscle Ab [Pr esence] in Serum [facility] Smooth muscle Ab [Pr esence] in Serum [facility] Total iron binding c apacity measurement [facility] Immunizations Immunization Date Immunization Notes Care Provider Fa cility 10-24-2020 Covid (Pfizer) [facility] 10-03-2020 Covid (Pfizer) [facility] Payers Date Payer Category Payer Self-pay 2020 Unknown [id number] 2017 Unknown TRISTON Porter [employer]IE BOWMAN O [id number] 2017-Present [phone] [address] [place] [address] HMO [id number] 2017 Unknown [id number] Unknown ANTHEM [id number] Unknown [id number] Unknown [id number] [id number]2 Unknown [id number] 2.16.840.1.123257.3.579.2.462 Unknown [id number] 2.16.840.1.065427.3.579.2.462 Unknown [id number] 2.16.840.1.040777.3.579.2.462 Unknown [id number] 2.16.840.1.515371.3.579.2.462 Unknown [id number] 2.16.840.1.881832.3.579.2.462 Unknown [id number] 2.16.840.1.814984.3.579.2.462 Unknown [id number] 2.16.840.1.377147.3.579.2.462 Unknown [id number] 2.16.840.1.033777.3.579.2.462 Unknown [id number] 2.16.840.1.692700.3.579.2.462 Unknown [id number] 2.16.840.1.263645.3.579.2.462 Unknown [id number] 2.16.840.1.334097.3.579.2.462 Unknown [id number] 2.16.840.1.850668.3.579.2.462 Unknown [id number] 2.16.840.1.479953.3.579.2.462 Unknown [id number] 2.16.840.1.973835.3.579.2.462 Unknown [id number] 2.16.840.1.099986.3.579.2.462 Unknown [id number] 2.16.840.1.210979.3.579.2.462 Unknown [id number] 2.16.840.1.936007.3.579.2.462 Unknown [id number] 2.16.840.1.352576.3.579.2.462 Unknown [id number] 2.16.840.1.614275.3.579.2.462 Unknown [id number] 2.16.840.1.964845.3.579.2.462 Unknown [id number] 2.16.840.1.939968.3.579.2.462 Unknown [id number] 2.16.840.1.766041.3.579.2.462 Unknown [id number] 2.16.840.1.714369.3.579.2.462 Social History Date Type Detail Facility Start: 03-29-2018 End: 06-17-2024 Tobacco smoking status SCIS Never smoked tobacco [facility] Start: 03-29-2018 Tobacco use and exposure Smokeless tobacco non-user [facility] Start: 02-08-2021 Alcohol intake Not Asked True womack [facility] Start: 1950 Sex Assigned At Not on file [facility] Start: 10-04-2021 End: 10-14-2021 Exposure to SARS-CoV-2 (event) Not sure [facility] Gender identity Not on file [facility] in Start: 06-30-2020 Non-smoker Non-smoker [facility] Start: 05-24-2024 End: 06-17-2024 Sex Male (finding) [facility] Start: 1950 Sex Assigned At Male [facility] Medical Equipment Procedure Code Equipment Code Equipment Origin al Text Equipment Identifier Dates Robot-assisted laparoscopic cholecystectomy without cholangiography BRENDAN HARDEN LG Start: 07-01-2024 Robot-assisted laparoscopic cholecystectomy without cholangiography BRENDAN HARDEN LG Start: 07-01-2024 Robot-assisted laparoscopic cholecystectomy without cholangiography CLIP,HEMSILVINO AGUIRRE FDA Start: 07-01-2024 Robot-assisted laparoscopic cholecystectomy without cholangiography CLIP,BRENDAN AGUIRRE FDA Start: 07-01-2024 ERCP (endoscopic retrograde cholangiopancreatograph y) ([id number]) Polymeric biliary stent, non-bioabsorbable ()[id number] FDA Start: 05-27-2024 ERCP (endoscopic retrograde cholangiopancreatograph y) Polymeric pancreatic stent, non-bioabsorbable ()[id number] FDA Start: 05-27-2024 Goals Date Patient Goal Desired Activity /State Functional Status Date Assessment Result Facility 07-01-2024 Functional status Ambulates;Bath room Privilege [facility] Work Phone: 05-27-2024 Functional status Ambulates;Bath room Privilege;Back to bed [facility] Work Phone: Mental Status Date Assessment Result Facility 07-01-2024 Cognitive function Voice/Name [facility] Work Phone: 05-28-2024 Cognitive function Level Of Cons ciousness Awake;Alert;Appropriate;Follo ws Commands [facility] Work Phone: 05-27-2024 Cognitive function Voice/Name [facility] Work Phone: 05-24-2024 Cognitive function Level Of Cons ciousness Awake;Alert;Appropriate;Follo ws Commands [facility] Work Phone: Clinical Notes 10-14-2021 to 07-01-2024 Note Date & Type Note Facility 07-01-2024 Note [facility] Medical Records Department [address] [place] [address] History Physical Exam 07/01/24 0709 MR#: [id number] Acct: [id number] Name: AMAURI FROST Rep #: [id number] : 1950 73 From: Erik Hernandez MD PCP: [facility] Hospital Status:[facility] Location: [place] [address]- History and Physical Date of Admission: 07/01/24 Intake Vital Signs 05/25/2519:43 06/16/2511:57 Height 6 ft 6 ft Weight: 232 lb BMI 31.4 BP 130/80 H Blood Pressure Location Rt brachial Position Sitting Respiration 18 Pulse 80 Pulse Source Monitor Temp 97.9 F Temp Source Temporal Pulse Oximetry (%) 100 Oxygen Delivery Method room air Intake Visit Reasons: GALLBLADDER Chief Complaint: gallbladder Is patient in pain?: No Allergies No Known Allergies Allergy (Verified 06/15/24 12:59) Medications ???Medication ???Instructions ???Recorded ???Confirmed ???Type ezetimibe 10 mg tablet 10 mg PO DAILY 03/25/23 06/15/24 History tamsulosin 0.4 mg capsule 0.4 mg PO QHS 03/25/23 06/15/24 History finasteride 5 mg tablet 5 mg PO DAILY 05/24/24 06/15/24 History levothyroxine 125 mcg tablet 125 mcg PO DAILY 05/24/24 06/15/24 History apixaban 2.5 mg tablet (Eliquis) 2.5 mg PO BID blood thinner 05/27/24 06/15/24 Hist ory Have you fallen in the past year?: No PFSH Medical History (Updated 06/15/24 @ 12:57 by Kaylan Wise LPN) Gallbladder problem Deep vein thrombosis (DVT) of femoral vein of right lower extremity History of pulmonary embolus (PE) DVT (deep venous thrombosis) Hypothyroidism Surgical History Hx of colonoscopy History of bunionectomy Family History Mother Colon cancer Social History Smoking Status: Never smoker alcohol intake: current alcohol intake frequency: a few times a week caffeine: Yes HPI HPI HPI: Patient is a 73-year-old male who was recently admitted. He was found to have choledocholithiasis and had an ERCP. He is here to discuss laparoscopic cholecystectomy. ROS General General: No weight change, appetite, fatigue, colon cancer, breast cancer or weakness HEENT HEENT: No difficulty swallowing, eye injury, eye surgery, swollen glands or hoarseness Endo Endocrine: Yes thyroid disease; No diabetes mellitus, thyroid cancer, Hair loss, heat intolerance or cold intolerance Skin Skin: No rash or changing moles Musc Musculoskeletal: No back problems, arthritis, rheumatoid arthritis, gout or joint pain Cardio Cardiovascular: No murmur, pacemaker, heart disease, atrial fibrillation, high blood pressure, heart attack, heart stent, palpitations, shortness of breath with exertion or chest pain Psych Psychiatric: No depression, anxiety or hearing voices Resp Respiratory: No shortness of breath, No sleep apnea, No cough, No COPD, No asthma, No emphysema and No wheezing Gastro Gastrointestinal: No abdominal pain, No nausea or vomiting, No diarrhea, No constipation, No blood in stool, No acid reflux, No hemorrhoids, No ulcers, Yes gallbladder problem and No black,tarry stools Kalyan Hematologic: Yes blood thinners, No blood disorders, No bleeding, No anemia and Yes blood clots Neuro Neurologic: No numbness, No tingling and No weakness Exam Const General: cooperative Orientation: alert and oriented x3 HENMT Head: normal to inspection Neck Neck: normal visual inspection and full ROM Chest Chest palpation inspection: normal inspection of the chest Resp Effort Inspection: normal respiratory effort Auscultation: clear to auscultation bilaterally Cardio Rate: regular rate Rhythm: regular rhythm GI Inspection: non-distended Palpation: soft and nontender Skin General: no rashes or lesions noted Neuro General: patient alert and patient oriented x3 Extrem General: full ROM Psych Appearance: grossly normal Mental Status: mental status grossly normal Assessment and Plan Assessment and Plan (1) Cholelithiasis: Status: Acute Plan: The patient has cholelithiasis and had choledocholithiasis. He underwent ERCP with stone removal. He is here now to discuss laparoscopic cholecystectomy to remove the gallbladder. I discussed the procedure in detail with the patient. I discussed the risks, benefits, and alternatives of the procedure. I discussed the risks including but not limited to bleeding, infect ion, injury to surrounding organs such as the liver, bile duct, bowels. I did discuss the possibility of having to convert to an open procedure as well as the possibility that if any injuries occurred this may necessitate further surgery at a tertiary care center. I will hold his Eliquis for 2 days prior to surgery (more content not included)... [facility] 05-28-2024 Consult note [facility] 05-28-2024 Progress note Note Date/Time May 28, 2024 7:34am [facility] Medical Records Department [address] [place] [address] Progress Note 05/28/24 0733 MR#: [id number] Acct: [id number] Name: AMAURI FROST Rep #:[id number] : 1950 73 From: Erik collins MD PCP: [facility] Status:ADM IN Location: [place] [id number] Progress Note Patient had ERCP yesterday with stone removal and stent placement. I gave the patient my card today. He will follow-up with me and we will schedule elective cholecystectomy. Erik Hernandez MD Pager: [facility] [address] [place] [address], [address] [place] [address] Office: 05/28/24 0734 <Electronically signed by Erik Hernandez MD> Erik Hernandez MD Cosigner Signature (if applicable): CC: ~ Signed [facility] Work Phone: 1(555) 194-826503-28-2025 Discharge summary [facility] Medical Records Department [address] [place] [address] Discharge Summary 05/28/24 0920 MR#: [id number] Acct: [id number] Name: AMAURI FROST Rep #:[id number] : 1950 73 From: Arnaldo Ulloa DO PCP: [facility] Status:ADM IN Location: [place] [address]1 Providers Date of Admission: 05/24/24 Primary Care Physician: [facility] Consultations 05/24/24 20:59 Consult: Gastroenterology Routine Consulting Provider: [facility] Reason for Consult: abn bili and lfts EMERGENT Consult: No MD Notified: Yes Date Notified: 05/24/24 Time Notified: 21:03 Method of Notification: ED Physician Initiated Reason For Visit: JAUNDICE Diagnosis Discharge Diagnosis (1) Jaundice: Status: Acute Code(s): R17 - Unspecified jaundice Plan: Looks more like choledocholthiasis given MRCP findings. Bilirubin 1.85 on admission, down to 0.88 today. Previously was normal (0.5). Along with transaminitis (which has essentially improving) CT showed hepatomegaly with fatty infiltration. US showed hepatic steatosis w/o focal lesion. MRCP showed cholelithiasis w distal CBD filing defect, concerning for choledocholithiasis. GI consult. General surgery on consult. Although high LDH and bilirubin, doubt hemolytic anemia given normal, stable hemoglobin. Haptoglobin ordered, but is a send out test and results won't be readily available. Additional ordered tests: RITA, ASmA, CA19-9, ceruloplasmin, CMV, EBV, copper, acute hep panel, MIRACLE,IgG, GAME Igs ERCP: removal of choledocholithiasis. Sphincterotmy performed. Plan Chronic conditions: * hypothyroidism: levothyroxine * BPH: tamsulosin * h/o VTE: apixaban dc'd in March. VTE prophylaxis: SCDs. Medications at Discharge Home Medications ezetimibe 10 mg tablet 10 mg PO DAILY 03/25/23 tamsulosin 0.4 mg capsule 0.4 mg PO QHS 03/25/23 finasteride 5 mg tablet 5 mg PO DAILY 05/24/24 levothyroxine 125 mcg tablet 125 mcg PO DAILY 05/24/24 apixaban 2.5 mg tablet (Eliquis) 2.5 mg PO BID blood thinner 05/27/24 Hospital Course Operations None Procedures - (ERCP) Summary of Care Provided Hospital Course: Patient presents with jaundice. Patient was asymptomatic but had been feeling unwell days prior. Coworkers and noted that his eyes appear to be yellow and sent to the emergency room. His total bilirubin was noted to be elevated at 1.85. CT showed Pado megaly and fatty infiltration, bilateral inguinal hernias and noted no calcified stones in the gallbladder. MRCP showed cholelithiasis with common bile duct feeling defect, concerning for choledocholithiasis. Patient underwent an ERCP on the that noted that the common duct was dilated with a stone causing obstruction. Choledocholithiasis was found. Clearremoval was performed. Pancreatic enterotomy was performed. Temporary stent placed in the ventral pancreatic duct. Patient tolerated procedure well and patient will be discharged home. Patient was additionally seen by Dr. Hernandez of general surgery who will follow-up with the patient in a couple weeks to see about getting his gallbladder removed. Weight / BMI Weight Weight: 101.7 kg Body Mass Index (BMI) 30.4 ABG / Lab / Microbiology Data 05/26/24 04:36 05/27/24 03:49 Radiography Diagnostic Testing: Radiology Impression Endo Retro Cholangiopancreatogram 05/27/24 18:30 IMPRESSION: Limited examination. Correlate clinically. Reading Location: [id number] D/C Instructions Discharge Diet: No restrictions DC O2, CPAP, BIPAP Needs Home O2 Discharge instructions: No Meaningful Use Info Meaningful Use Meaningful Use Diagnoses (Choose all that apply): None applicable Ischemic Stroke Statin Dosing Therapy Reference: STATIN DOSE THERAPY REFERENCE: * Patients > 75 years receive moderate or high dose statin therapy. * Patients 75 years or YOUNGER should receive HIGH intensity statin dose unless contraindicated. You will be required to document reason for non-treatment if statin daily dose does not meet guidelines. HIGH DOSE STATIN THERAPY DAILY Atorvastatin > than or = to 40 mg Rosuvastatin > than or = to 20 mg Amlodipine + Atorvastatin > than or = to 2.5/40 mg Ezetimibe + Simvastatin 10/80 mg Simvastatin 80mg Discharge Plan Admission Admit Date/Time: 05/24/24 19:49 Primary Reason for Your Visit: jaundice Attending Provider: Arnaldo Ulloa Primary Care Provider: [place] [place] Consulting Providers: Mya Galicia Instructions Additional Instructions / Restrictions: You had jaundice due to gallstones being in your bile duct. Dr. Mijares of gastroenterology had those removed. You unfortunate still have more gallbladders stones which is why we recommend that you follow-up general surgeryto have your gallbladder removed. Discharge Orders/Prescriptions Prescriptions: Continued ezetimibe 10 mg tablet 10 mg PO DAILY tamsulosin 0.4 mg capsule 0.4 mg PO QHS levothyroxine 125 mcg tablet 125 mcg PO DAILY finasteride 5 mg tablet 5 mg PO DAILY Eliquis 2.5 mg tablet 2.5 mg PO BID Discontinued Eliquis 2.5 mg tablet 2.5 mg PO BID Referrals / Follow Up: Erik Hernandez MD [Med Staff - Active Staff] - 1-2 Weeks [place] [place] [Primary Care Provider] - 1 Week Disposition Disposition (needs filled in before D/C Order can be placed): Home, Self Care Charges/Coding Visit Charges Inpatient E&M: 49407 Disch Hosp 05/28/24923 Cosigner Signature (if applicable): CC: Dr. Arnaldo Ulloa DO; [facility]~ Signed [facility]03-28-2025 [facility] Medical Records Department [address] [place] [address] Discharge Summary 05/28/24919 MR#: [id number] Acct: [id number] Name: AMAURI FROST Rep #: [id number] : 1950 73 From: Arnaldo Ulloa DO PCP: [facility] Status:ADM IN Location: [facility] [id number] Providers Date of Admission: 05/24/24 Primary Care Physician: [facility] Consultations 05/24/24 20:59 Consult: Gastroenterology Routine Consulting Provider: [facility] Reason for Consult: abn bili and lfts EMERGENT Consult: No MD Notified: Yes Date Notified: 05/24/24 Time Notified: 21:03 Method of Notification: ED Physician Initiated Reason For Visit: JAUNDICE Diagnosis Discharge Diagnosis (1) Jaundice: Status: Acute Code(s): R17 - Unspecified jaundice Plan: Looks more like choledocholthiasis given MRCP findings. Bilirubin 1.85 on admission, down to 0.88 today. Previously was normal (0.5). Along with transaminitis (which has essentially improving) CT showed hepatomegaly with fatty infiltration. US showed hepatic steatosis w/o focal lesion. MRCP showed cholelithiasis w distal CBD filing defect, concerning for choledocholithiasis. GI consult. General surgery on consult. Although high LDH and bilirubin, doubt hemolytic anemia given normal, stable hemoglobin. Haptoglobin ordered, but is a send out test and results won't be readily available. Additional ordered tests: RITA, ASmA, CA19-9, ceruloplasmin, CMV, EBV, copper, acute hep panel, MIRACLE, IgG, GAME Igs ERCP: removal of choledocholithiasis. Sphincterotmy performed. Plan Chronic conditions: * hypothyroidism: levothyroxine * BPH: tamsulosin * h/o VTE: apixaban dc'd in March. VTE prophylaxis: SCDs. Medications at Discharge Home Medications ezetimibe 10 mg tablet 10 mg PO DAILY 03/25/23 tamsulosin 0.4 mg capsule 0.4 mg PO QHS 03/25/23 finasteride 5 mg tablet 5 mg PO DAILY 05/24/24 levothyroxine 125 mcg tablet 125 mcg PO DAILY 05/24/24 apixaban 2.5 mg tablet (Eliquis) 2.5 mg PO BID blood thinner 05/27/24 Hospital Course Operations None Procedures - (ERCP) Summary of Care Provided Hospital Course: Patient presents with jaundice. Patient was asymptomatic but had been feeling unwell days prior. Coworkers and noted that his eyes appear to be yellow and sent to the emergency room. His total bilirubin was noted to be elevated at 1.85. CT showed Pado megaly and fatty infiltration, bilateral inguinal hernias and noted no calcified stones in the gallbladder. MRCP showed cholelithiasis with common bile duct feeling defect, concerning for choledocholithiasis. Patient underwent an ERCP on the that noted that the common duct was dilated with a stone causing obstruction. Choledocholithiasis was found. Clear removal was performed. Pancreatic enterotomy was performed. Temporary stent placed in the ventral pancreatic duct. Patient tolerated procedure well and patient will be discharged home. Patient was additionally seen by Dr. Hernandez of general surgery who will follow-up with the patient in a couple weeks to see about getting his gallbladder removed. Weight / BMI Weight Weight: 101.7 kg Body Mass Index (BMI) 30.4 ABG / Lab / Microbiology Data 05/26/24 04:36 05/27/24 03:49 Radiography Diagnostic Testing: Radiology Impression Endo Retro Cholangiopancreatogram 05/27/24 18:30 IMPRESSION: Limited examination. Correlate clinically. Reading Location: [id number] D/C Instructions Discharge Diet: No restrictions DC O2, CPAP, BIPAP Needs Home O2 Discharge instructions: No Meaningful Use Info Meaningful Use Meaningful Use Diagnoses (Choose all that apply): None applicable Ischemic Stroke Statin Dosing Therapy Reference: STATIN DOSE THERAPY REFERENCE: * Patients > 75 years receive moderate or high dose statin therapy. * Patients 75 years or YOUNGER should receive HIGH intensity statin dose unless contraindicated. You will be required to document reason for non-treatment if statin daily dose does not meet guidelines. HIGH DOSE STATIN THERAPY DAILY Atorvastatin > than or = to 40 mg Rosuvastatin > than or = to 20 mg Amlodipine + Atorvastatin > than or = to 2.5/40 mg Ezetimibe + Simvastatin 10/80 mg Simvastatin 80mg Discharge Plan Admission Admit Date/Time: 05/24/24 19:49 Primary Reason for Your Visit: jaundice Attending Provider: Arnaldo Ulloa Primary Care Provider: [facility] Consulting Providers: May Galicia Instructions Additional Instructions / Restrictions: You had jaundice due to gallstones being in your bile duct. Dr. Mijares of gastroenterology had those removed. You unfortunate still have more gallbladders stones which is why we loy (more content not included)...[facility]03-28-2025 Progress note [facility] Medical Records Department [address] [place] [address] Progress Note - Hospitalist 05/28/24 0652 MR#: [id number] Acct: [id number] Name: MARGOTAMAURI D Rep #:[id number] : 1950 73 From: Arnaldo Ulloa DO PCP: [facility] Hospital Status:ADM IN Location: [facility] [id number] Reason for Visit Reason for Visit: Diagnoses Calculus of gallbladder without cholecystitis without obstruction (05/24/24) Unspecified jaundice (05/24/24) Other specified abnormal findings of blood chemistry (05/24/24) Subjective Subjective Feeling well. No events. Objective Data Objective Data Vital Signs: Vital Signs Temp Pulse Resp BP Pulse Ox O2 Del Method 36.6 C 64 18 116/71 94 Room Air 05/28/24 04:08 05/28/24 04:08 05/28/24 04:08 05/28/24 04:08 05/28/24 04:08 05/28/24 04:08 Oxygen Delivery Method Room Air Weight: 101.7 kg Body Mass Index (BMI) 30.4 Intake & Output: Intake and Output for Last 24 Hours 05/26/24 05/27/24 05/28/24 23:59 23:59 23:59 Intake Total 500 / 500 400 / 400 Balance 500 / 500 400 / 400 Lab / Micro Data 05/26/24 04:36 05/27/24 03:49 Radiography Diagnostic Testing: Radiology Impression Endo Retro Cholangiopancreatogram 05/27/24 18:30 IMPRESSION: Limited examination. Correlate clinically. Reading Location: [facility] Physical Exam Const alert and no apparent distress Constitutional Narrative: up in chair. afebrile. Resp normal respiratory effort and no retractions Assessment & Plan Assessment/Plan (1) Jaundice: PLAN: Looks more like choledocholthiasis given MRCP findings. Bilirubin 1.85 on admission, down to 0.88 today. Previously was normal (0.5). Along with transaminitis (which has essentially improving) CT showed hepatomegaly with fatty infiltration. US showed hepatic steatosis w/o focal lesion. MRCP showed cholelithiasis w distal CBD filing defect, concerning for choledocholithiasis. GI consult. General surgery on consult. Although high LDH and bilirubin, doubt hemolytic anemia given normal, stable hemoglobin. Haptoglobin ordered, but is a send out test and results won't be readily available. Additional ordered tests: RITA, ASmA, CA19-9, ceruloplasmin, CMV, EBV, copper, acute hep panel, MIRACLE,IgG, GAME Igs ERCP: removal of choledocholithiasis. Sphincterotmy performed. PLAN: Plan Chronic conditions: * hypothyroidism: levothyroxine * BPH: tamsulosin * h/o VTE: apixaban dc'd in March. VTE prophylaxis: SCDs. 05/28/24 0920 Cosigner Signature (if applicable): CC: ~ Signed [facility]03-28-2025 Progress note Author Arnaldo Ulloa [facility] Note Date/Time May 28, 2024 9:2 0am [facility] Medical Records Department [address] [place] [address] Progress Note - Hospitalist 05/28/24 0652 MR#: [id number] Acct: [id number] Name: AMAURI FROST Vu Rep #:[id number] : 1950 73 From: Arnaldo Ulloa DO PCP: [facility] Hospital Status:ADM IN Location: [place] [id number] Reason for Visit Reason for Visit: Diagnoses Calculus of gallbladder without cholecystitis without obstruction (05/24/24) Unspecified jaundice (05/24/24) Other specified abnormal findings of blood chemistry (05/24/24) Subjective Subjective Feeling well. No events. Objective Data Objective Data Vital Signs: Vital Signs Temp Pulse Resp BP Pulse Ox O2 Del Method 36.6 C 64 18 116/71 94 Room Air 05/28/24 04:08 05/28/24 04:08 05/28/24 04:08 05/28/24 04:08 05/28/24 04:08 05/28/24 04:08 Oxygen Delivery Method Room Air Weight: 101.7 kg Body Mass Index (BMI) 30.4 Intake & Output: Intake and Output for Last 24 Hours 05/26/24 05/27/24 05/28/24 23:59 23:59 23:59 Intake Total 500 / 500 400 / 400 Balance 500 / 500 400 / 400 Lab / Micro Data 05/26/24 04:36 05/27/24 03:49 Radiography Diagnostic Testing: Radiology Impression Endo Retro Cholangiopancreatogram 05/27/24 18:30 IMPRESSION: Limited examination. Correlate clinically. Reading Location: [facility] Physical Exam Const alert and no apparent distress Constitutional Narrative: up in chair. afebrile. Resp normal respiratory effort and no retractions Assessment & Plan Assessment/Plan (1) Jaundice: PLAN: Looks more like choledocholthiasis given MRCP findings. Bilirubin 1.85 on admission, down to 0.88 today. Previously was normal (0.5). Along with transaminitis (which has essentially improving) CT showed hepatomegaly with fatty infiltration. US showed hepatic steatosis w/o focal lesion. MRCP showed cholelithiasis w distal CBD filing defect, concerning for choledocholithiasis. GI consult. General surgery on consult. Although high LDH and bilirubin, doubt hemolytic anemia given normal, stable hemoglobin. Haptoglobin ordered, but is a send out test and results won't be readily available. Additional ordered tests: RITA, ASmA, CA19-9, ceruloplasmin, CMV, EBV, copper, acute hep panel, MIRACLE, IgG, GAME Igs ERCP: removal of choledocholithiasis. Sphincterotmy performed. PLAN: Plan Chronic conditions: * hypothyroidism: levothyroxine * BPH: tamsulosin * h/o VTE: apixaban dc'd in March. VTE prophylaxis: SCDs. 05/28/24 09 <Electronically signed by Arnaldo Ulloa DO> Cosigner Signature (if applicable): CC: ~ Signed [facility] Work Phone: 1(739) 648-853603-28-2025 Progress note [facility] Medical Records Department [address] [place] [address] Progress Note 05/28/24 0733 MR#: [id number] Acct: [id number] Name: AMAURI FROST Rep #:[id number] : 1950 73 From: Erik collins MD PCP: [facility] Status:ADM IN Location: [address] Progress Note Patient had ERCP yesterday with stone removal and stent placement. I gave the patient my card today. He will follow-up with me and we will schedule elective cholecystectomy. Erik Hernandez MD Pager: [facility] [address] [place] [address], [address] [place] [address] Office: 05/28/24 0718 Erik Hernandez MD Cosigner Signature (if applicable): CC: ~ Signed [facility]03-28-2025 Consult note Author Ryder Velásquez [facility] Note Date/Time May 28, 2024 11: 01am [facility] Medical Records Department [address] [place] [address] Anesthesia Postop Eval II 05/27/242231 MR#: [id number] Acct: [id number] Name: AMAURI FROST Rep #:[id number] : 1950 73 From: Ryder Velásquez MD [facility]: [facility] Health Status:ADM IN Y Race: C Location: [address] Anesthesia Postop Eval I Sum Postop Eval Completion status Anesthesia document: Postop Eval 1 completed: Yes Anesthesia Postop Eval I Summary Anesthesia Postop Eval I Summary: Anesthesia Postop Eval I: Assessment Summary Airway patent Yes 05/27/24 19:20 Spontaneous unlabored Yes 05/27/24 19:20 respirations Mental status Awake,Calm 05/27/24 19:20 nausea No 05/27/24 19:20 Vomiting No 05/27/24 19:20 Anesthesia Postop Eval I: Fluid Summary Crystalloid volume administer 500 05/27/24 19:20 (ml) Colloids volume administered ( ml) Blood Product volume administered (ml) Total IV fluid infused 500 05/27/24 19:20 Anesthesia Postop Eval I: Summary Notes Anesthesia Complication No 05/27/24 19:20 Anesthesia Complication Comment: Post-operative progress note Anesthesia: Postop Eval II Evaluation Mental status: Awake and Calm Pain Level: 0 nausea: No Vomiting: No Complications Anesthesia Complication: No 05/27/242231 <Electronically signed by Ryder lucia MD> Date _ Ryder Velásquez MD Cosigner Signature: Date CC: ~ Signed [facility] Work Phone: 1(465) 981-898403-27-2025 Consult note Author Ryder Velásquez [facility] Note Date/Time May 27, 2024 7:2 0pm [facility] Medical Records Department [address] [place] [address] Anesthesia Postop Eval I 05/27/241916 MR#: [id number] Acct: [id number] Name: AMAURI FROST Vu Rep #:[id number] : 1950 73 From: Ryder Velásquez MD [facility]CP: [facility] Status:ADM IN Y Race: C Location: [address] Anesthesia: Postop Eval I Current Vital Signs Temperature: 97 F Pulse Rate: 77 Blood Pressure: 132/86 Respiratory Rate: 16 Pulse Ox: 94 Oxygen Delivery Method: Room Air Assessment Airway patent: Yes Spontaneous unlabored respirations: Yes Mental status: Awake and Calm nausea: No Vomiting: No Anesthesia Complication: No Fluid Hydration Crystalloid volume administer (ml): 500 Total IV fluid infused: 500 Progress Note Anesthesia document: Postop Eval 1 completed: Yes 05/27/241919 <Electronically signed by Ryder lucia MD> Date _ Ryder Velásquez MD Cosigner Signature: Date CC: ~ Signed [facility] Work Phone: [phone]) 456-421203-27-2025 Progress note Author Zachary Mijares [facility] Note Date/Time May 27, 2024 5:4 0pm [facility] Medical Records Department [address] [place] [address] Progress Note 05/27/24 1739 MR#: [id number] Acct: [id number] Name: AMAURI FROST Rep #:[id number] : 1950 73 From: Zachary Mijares DO [facility]CP: [facility] Status:ADM IN Location: [place] [address] Progress Note Patient has been n.p.o. for ERCP today. All questions concerns answered. Physical Exam Const alert, oriented x3, no apparent distress and healthy appearing General Appearance: cooperative GI normal to inspection, nondistended, normoactive bowel sounds, soft to palpation,non-tender and non-distended Percussion: normal to percussion Rectal Exam: deferred Assessment & Plan Assessment/Plan (1) Elevated LFTs: (2) Cholelithiasis: PLAN: Plan 73-year-old gentleman comes in with weakness, intermittent right upper quadrant pain and darkening urine. He was discovered to have cholestatic hepatitis with mild jaundice. He has not started on any new medicines. He has no previous history of hepatitis. He is not receiving blood transfusions. He has no recenttravel. He does not denies any recent upper respiratory symptoms. His imaging shows Large gallstone with wall echo shadow. No significant wall thickening. No pericholecystic fluid. Also his common bile duct diameter is 3 mm. Differentialdiagnosis does include viral hepatitis and nonviral hepatitis, autoimmune disease affecting the liver such as PBC, autoimmune hepatitis, IgG associated cholangiopathy with a current exacerbation. Also differential diagnosis does include medication induced cholestatic injury. Recommend MRCP and autoimmune labs. If patient's liver enzymes keep going up then he may need to undergo drainage procedure. 05/25/2024-cholestatic hepatitis with jaundice-his LFTs are improving. His CRP was elevated along with his LDH. That signifies liver injury. He has no pre-existing history of liver disease that he knows of. Awaiting MRCP. If he does undergo cholecystectomy then I would recommend liver biopsy to see if there is any signs of primary or secondary cholangitis in his hepatobiliary system. 05/26/2024- FINDINGS: LUNG BASES: Patchy opacities in the lung base, compatible with atelectasis.. Visualized mediastinum is unremarkable. LIVER: Normal in size. No masses GALLBLADDER: Diffuse cholelithiasis. No evidence of intrahepatic or extrahepatic ductal dilatation. The common bile duct measures 8 mm. Filling defect within the distal common bile duct, just distal to the ampulla (series 11, image 5, series 10 image 17) PANCREAS: No ductal dilation. Homogeneous signal intensity. No suspicious mass. SPLEEN: Normal. No masses. ADRENAL GLANDS: Normal. No masses. KIDNEYS: Normal. No masses. No hydronephrosis. VASCULAR: The abdominal aorta is normal in caliber. LYMPHATICS: No abnormal adenopathy. GASTROINTESTINAL: Stomach is unremarkable. No bowel dilation. Colonic diverticulosis. No significant wall thickening. BONES: Mild degenerative changes of the lumbar spine. SOFT TISSUE: Normal. MRI/MRCP Abdomen without Contrast IMPRESSION: Cholelithiasis with distal common bile duct filling defect, concerning for choledocholithiasis. Patient will need to undergo ERCP with stone removal tomorrow. Patient can havebreakfast tomorrow but he should be n.p.o. after breakfast. 05/27/2024-patient will undergo ERCP with stent placement. Talk with surgery andhe will have cholecystectomy as an outpatient. Visit Charges Inpatient E&M: 12587 Subs Hosp L3 05/27/24 1740 <Electronically signed by Zachary Mijares DO> Zachary Mijares DO Cosigner Signature (if applicable): CC: ~ Signed [facility] Work Phone: 1(700) 576-628003-27-2025 Radiology Diagnostic study note [facility] Imaging Services [address] [place], [place] [id number] ERCP Biliary/Pancreas MR#: [id number] Acct: [id number] Name: AMAURI FROST Rep #: [id number] : 1950 M 73 From: Abhi Marin MD PCP: [facility] Status: ADM IN Study:ERCP Biliary/Pancreas Date of Exam: 05/27/24 Exam# [id number] Ordering Dr: Yasmine Mijares DO EXAM: ERCP. CLINICAL HISTORY: ERCP. COMPARISON: CT of the abdomen/pelvis with IV contrast dated 05/24/2024. TECHNIQUE: 7 ERCP images are provided for evaluation. FINDINGS: Limited examination. Please see the [facility] GI service. Initial imaging demonstrates wire and possiblystent within the pancreatic duct as well as the common bile duct in a kissing fashion. The stent appeared to portably draining into the duodenum. Correlate clinically. RAD/ERCP Biliary/Pancreas IMPRESSION: Limited examination. Correlate clinically. Reading Location: [id number] CC: Zachary Mijares DO; [facility] ~ Log Marker: Signed [facility]03-27-2025 Consult note [facility] Medical Records Department [address] [place] [address] Anesthesia Postop Eval I 05/27/24 1917 MR#: [id number] Acct: [id number] Name: AMAURI FROST Rep #:[id number] : 1950 73 From: Ryder Velásquez MD PCP: [facility] Status:ADM IN Y Race: C Location: [place] [address] Anesthesia: Postop Eval I Current Vital Signs Temperature: 97 F Pulse Rate: 77 Blood Pressure: 132/86 Respiratory Rate: 16 Pulse Ox: 94 Oxygen Delivery Method: Room Air Assessment Airway patent: Yes Spontaneous unlabored respirations: Yes Mental status: Awake and Calm nausea: No Vomiting: No Anesthesia Complication: No Fluid Hydration Crystalloid volume administer (ml): 500 Total IV fluid infused: 500 Progress Note Anesthesia document: Postop Eval 1 completed: Yes 05/27/24 1920 rea CORTEZ> Date _ Ryder Velásquez MD Cosigner Signature: Date CC: ~ Signed [facility]03-27-2025 Procedure note [facility] Medical Records Department [address] [place] [address] ERCP Report MR#: [id number] Acct: [id number] Name: AMAURI FROST Rep #:[id number] : 1950 73 From: Zachary Mijares DO PCP: [facility] Status:ADM IN Patient Name: Amauri Frost Procedure Date: 05/27/2024 6:29 PM Date of : 1950 Age: 73 Procedure: ERCP Indications: Common bile duct stone(s), Abdominal pain of suspected biliary origin, Jaundice, Elevated liver enzymes Providers: Zachary Mijares DO Medicines: General Anesthesia Patient Profile: This is a 73 year old male. Refer to note in patient chart for documentation of history and physical. Patient has symptoms of acute right upper quadrant abdominal pain and acute jaundice. This patient has no history of previous ERCP. This patient has no history of surgical alteration of the upper digestive tract anatomy. Complications: No immediate complications. Procedure: Pre-Anesthesia Assessment: - Prior to the procedure, a History and Physical was performed, and patient medications and allergies were reviewed. The patient is competent. The risks and benefits of the procedure and the sedation options and risks were discussed with the patient. All questions were answered and informed consent was obtained. Patient identification and proposed procedure were verified by the physician in the pre-procedure area. Mental Status Examination: alert and oriented. Airway Examination: normal oropharyngeal airway and neck mobility. Respiratory Examination: clear to auscultation. CV Examination: normal. Prophylactic Antibiotics: The patient does not require prophylactic antibiotics. Prior Anticoagulants: The patient has taken no anticoagulant or antiplatelet agents except for NSAID medication. ASA Grade Assessment: II - A patient with mild systemic disease. After reviewing the risks and benefits, the patient was deemed in satisfactory condition to undergo the procedure. The anesthesia plan was to use general anesthesia. Immediately prior to administration of medications, the patient was re-assessed for adequacy to receive sedatives. The heart rate, respiratory rate, oxygen saturations, blood pressure, adequacy of pulmonary ventilation, and response to care were monitored throughout the procedure. The physical status of the patient was re-assessed after the procedure. After obtaining informed consent, the scope was passed under direct vision. Throughout the procedure, the patient's blood pressure, pulse, and oxygen saturations were monitored continuously. The Duodenoscope was introduced through the mouth, and advanced to the duodenum and used to inject contrast into the bile duct and ventral pancreatic duct. The ERCP was accomplished without difficulty. The patient tolerated the procedure well. Scope In: 6:32:22 PM Scope Out: 7:01:15 PM Total Procedure Duration Time 0 hours 28 minutes 53 seconds Findings: The high school business teacher film was normal. The scope was advanced to a normal major papilla in the descending duodenum. Examination of the pharynx, larynx and associated structures, and upper GI tract was normal. The minor papilla was not found. The ventral pancreatic duct was deeply cannulated with the short-nosed traction sphincterotome. Contrast was injected. I personally interpreted the pancreatic duct images. There was brisk flow of contrast through the ducts. Image quality was adequate. Contrast extended to the pancreatic duct. Opacification of the entire pancreatic ductal system was successful. The maximum diameter of the ducts was 4 mm. The entire opacified area was normal. A long 0.025 inch Jagwire was passed into the ventral pancreatic duct. A 5 mm ventral pancreatic sphincterotomy was made with a braided traction (standard) sphincterotome using ERBE electrocautery. There was no post-sphincterotomy bleeding. To find object(s) the ventral pancreatic duct was swept with a 6 mm balloon starting at the pancreatic duct in the body of the pancreas. Nothing was found. One 5 Fr by 7 cm temporary stent was placed 5 cm into the ventral pancreatic duct. Clear fluid flowed through the stent. The stent was in good position. The bile duct was deeply cannulated with the short-nosed traction sphincterotome. Contrast was injected. Opacification of the entire biliary tree except for the cystic duct and gallbladder, entire opacified area, common bile duct, common hepatic duct, hepatic duct bifurcation and left and right hepatic ducts and all intrahepatic branches was successful. The maximum diameter of the ducts was 8 mm. The lower third of the main bile duct contained one stone, which was 6 mm in diameter. The common bile duct was diffusely dilated, with a stone causing an obstruction. The largest diameter was 5 mm. A long 0.025 inch Jagwire was passed into the biliary tree. A 5 mm biliary sphincterotomy was made with a braided traction (standard) sphincterotome using ERBE electrocautery. There was no post-sphincterotomy bleeding. The biliary tree was swept with a 12 mm balloon starting at the upper third of the main bile duct, middle third of the main bile duct, lower third of the main duct, left intrahepatic duct(s) and left main hepatic duct. Sludge was swept from the duct. All stones were removed. Impression: - The common bile duct was dilated, with a stone causing an obstruction. - Choledocholithiasis was found. Complete removal was accomplished by biliary sphincterotomy and balloon extraction. - A pancreatic sphincterotomy was performed. - The ventral pancreatic duct was swept and nothing was found. - One temporary stent was placed into the ventral pancreatic duct. - A biliary sphincterotomy was performed. - The biliary tree was swept. Procedure Code(s): --- Professional --- 30865, Endoscopic retrograde cholangiopancreatography (ERCP); with placement of endoscopic stent into biliary or pancreatic duct, including pre- and post-dilation and guide wire passage, when performed, including sphincterotomy, when performed, each stent 44079, 51, Endoscopic retrograde cholangiopancreatography (ERCP); with removal of calculi/debris from biliary/pancreatic duct(s) 70497, 59, Endoscopic retrograde cholangiopancreatography (ERCP); with sphincterotomy/papillotomy 39735, 26, Endoscopic catheterization of the pancreatic ductal system, radiological supervision and interpretation CPT copyright 2021 [employer]. All rights reserved. The codes documented in this report are preliminary and upon service vehicle operator review may be revised to meet current compliance requirements. Zachary Mijares DO 05/27/2024 7:11:43 PM This report has been signed electronically. Number of Addenda: 0 Note Initiated On: 05/27/2024 6:29 PM 05/27/24 191 Date _ Zachary Mijares DO Cosigner Signature: Date (if indicated) CC: Zachary Mijares DO; [facility] ~ Date Dictated: 05/27/24 182 Date Transcribed: Log Marker: RF Signed [facility]03-27-2025 Procedure note [facility] Medical Records Department [address] [place] [address] Operative Report - CC Letter MR#: [id number] Acct: [id number] Name: AMAURI FROST Rep #:[id number] : 1950 73 From: Zachary Mijares DO PCP: [facility] Status:ADM IN 05/27/2024 [facility] Re : ERCP procedure for Amauri Frost [facility] This procedure was performed on May. My impressions and recommendations are as follows: Impressions : - The common bile duct was dilated, with a stone causing an obstruction. - Choledocholithiasis was found. Complete removal was accomplished by biliary sphincterotomy and balloon extraction. - A pancreatic sphincterotomy was performed. - The ventral pancreatic duct was swept and nothing was found. - One temporary stent was placed into the ventral pancreatic duct. - A biliary sphincterotomy was performed. - The biliary tree was swept. Recommendations : My findings are described in the full procedure note, which is enclosed. If I can be of further assistance, please feel free to contact me at . Sincerely, Zachary Mijares DO 05/27/2024 7:11:43 PM This report has been signed electronically. 05/27/24 191 Date _ Zachary Ott Signature: Date (if indicated) CC: Dr. Arnaldo Ulloa DO; Dr. Mya Galicia MD; [facility] ~ Date Dictated: 05/27/24 1829 Date Transcribed: Log Marker: RF Signed [facility]03-27-2025 Consult note Author Ryder Velásquez [facility] Note Date/Time May 27, 2024 4:2 1pm [facility] Medical Records Department [address] [place] [address] Pre-Anesthesia Evaluation 05/27/24 1608 MR#: [id number] Acct: [id number] Name: AMAURI FROST Rep #:[id number] : 1950 73 From: Ryder Velásquez MD PCP: [facility] Status:ADM IN Y Race: C Location: [place] [id number] -1 ASA Classification* ASA Classification ASA Classification: 3 Assessment & Plan Anesthesia* Anesthesia Assessment Anesthesia Assessment: Discussed sedation and/or anesthesia options, risks, benefits, and alternatives with patient/parents/legal guardian/POA. Questions invited. The patient/parents/legal guardian/POA seems to understand and agrees to proceedwith anesthesia plan. Reviewed the physical assessment, medical history, allergy history and patient home medications list prior to surgery/procedure/anesthetic and documented any changes. Performed airway and anesthesia risk assessments. Anesthesia Type Anesthesia Type: General History Source History Obtained from:: Patient and Chart Anesthesia Focused Assessment* Temperature: 97.6 F Pulse Rate: 58 Blood Pressure: 143/80 Respiratory Rate: 18 Pulse Ox: 96 Oxygen Delivery Method: Room Air Airway Assessment Mouth opens: >3 cm Mallampati Score: II Teeth Condition: Caps/Crowns (Patient has several crowns. They are all tight. 1 implant.) Neck Range of motion (ROM): Limited ROM (Slight decrease in extension) Focused Labs Anesthesia Preop lab: CBC WBC 7.9 K/mm3 (4.4-11.0) 05/26/24 04:36 05/26/24 RBC 4.72 M/mm3 (4.6-6.2) 05/26/24 04:36 05/26/24 Hgb 14.5 g/dL (13.0-16.5) 05/26/24 04:36 05/26/24 Hct 43.6 % (40-54) 05/26/24 04:36 05/26/24 Plt Count 247 K/mm3 (150-450) 05/26/24 04:36 05/26/24 CHEMISTRY Potassium 3.6 mmol/L (3.3-5.1) 05/27/24 03:49 05/27/24 Sodium 142 mmol/L (133-145) 05/27/24 03:49 05/27/24 Magnesium 2.5 mg/dL (1.6-2.6) 06/30/20 17:03 06/30/20 BUN 18 mg/dL (4-19) 05/27/24 03:49 05/27/24 Creatinine 1.03 mg/dL (0.70-1.20) 05/27/24 03:49 05/27/24 Glucose 110 mg/dL (70-99) H 05/27/24 03:49 05/27/24 TSH 2.810 uIU/mL (0.300-4.200) 05/25/24 06:39 05/02 07/25 COAG PT 15.0 SECONDS (11.7-14.9) H 05/24/24 15:38 05/02 06/25 Pre-Assessment Diagnosis/Proposed Procedure Planned Operative Procedure(s): Endoscopic retrograde cholangiopancreatography. Anesthesia History Anesthesia History - refuge manager: Anesthesia History - refuge manager Hx Hospitalization Any Problems With Anesthesia No 05/25/24 05:40 Cholinesterase deficiency No 05/25/24 05:40 You/Your Family Experience No 05/25/24 05:40 fever (hyperthermia) with Relationship Recent Exposure to Contagious No 05/25/24 05:40 Disease Does patient have nerve No 05/25/24 05:40 stimulator Patient instructed to have No 05/25/24 05:40 device shut off --Does patient have Pacemaker or ICD? When Was Last Pacemaker Check QUESTION #4 FULL TEXT: You/Your Family Experience fever (hyperthermia) with Anesthesia Last Oral Intake Last Oral intake: Last Oral Intake NPO since Meds taken in AM with sips of water? Meds patient instructed to take am of surgery Any additional information?: Yes NPO since: 00:00 Meds taken in AM with sips of water?: Yes PONV PONV - refuge manager: PONV - refuge manager Female HX of Motion Sickness HX of N/V After Surgery Non-Smoker Duration of Surgery greater than 60 minutes Number of Risk Factors PONV Score Height & Weight Height & Weight: Anesthesia: Height & Weight Height 6 ft 05/24/24 20:43 Weight: 101.7 kg 05/24/24 20:43 Body Mass Index (BMI) 30.4 05/24/24 20:43 Respiratory Assessment Respiratory Assessment - refuge manager: Respiratory Tract Infection Hx - refuge manager Hx Respiratory Tract Infection No 05/25/24 05:40 STOP Sleep Apnea STOP Sleep Apnea - refuge manager: STOP Sleep Apnea - refuge manager Hx Hypertension No 05/24/24 20:13 Hx Sleep Apnea No 05/24/24 20:13 CPAP BIPAP Do you snore loudly (louder No 05/24/24 20:13 than talking or can be heard Do you often feel tired/ Yes 05/24/24 20:13 fatigued/ sleepy during daytime? Has anyone observed you stop No 05/24/24 20:13 breathing during sleep? STOP Results Negative 05/24/24 20:13 QUESTION #5 FULL TEXT : Do you snore loudly (louder than talking or can be heard through closed doors)? Tobacco Use History Tobacco Use History - refuge manager: Tobacco Use History - refuge manager Tobacco Use Non-smoker 06/30/20 21:27 Smoking Status Never smoker 05/24/24 20:13 Hx Tobacco Use No 05/24/24 20:13 Years Smoking Packs Smoked per Day Smoking Cessation Date was within the last 15 years Hx Smoking Cessation Date Hx Smoking Cessation Counseling Hematologic Medial History Hematologic Hx - refuge manager: Hematologic Medical Hx - rivet tosser Hx of Blood Transfusion No 05/24/24 20:13 Hx of Transfusion in last 3 No 05/24/24 20:13 Months Date of Last Transfusion (if within last 3 months) Ever experience any problems No 05/24/24 20:13 with transfusion(s)? Specify any problems Hx of Preganancy in last 3 N/A 05/24/24 20:13 Months Nurse Filling Out Transfusion EVIZZO 05/24/24 20:13 & Questions: Date: 05/24/24 05/24/24 20:13 Time: 20:52 05/24/24 20:13 Patient unable to answer at this time (ie. confused, unrespo /Reproduction History /Reproductive History - refuge manager: /Reproductive Hx- refuge manager Hx Now No 05/25/24 05:40 Gestational Age (in weeks): EDC: Hx Hx Para Hx Section SAB No 05/25/24 05:40 Active Medications Active Medications: Current Medications Generic Name Dose Route Start Last Admin Trade Name Freq PRN Reason Stop Dose Admin Albuterol Sulfate 2.5 mg 05/24/24 20:59 Albuterol 2.5 Mg/3 Ml Vial.Neb. INHALATION Q2H PRN PRN SOB &/OR WHEEZING Ezetimibe 10 mg 05/25/24 10:00 05/27/24 09:29 Ezetimibe 10 Mg Tablet PO Not Given DAILY EDGARDO Finasteride 5 mg 05/25/24 10:00 05/27/24 09:28 Finasteride 5 Mg Tablet PO Not Given DAILY EDGARDO Sodium Chloride 1,000 mls @ 15 mls/hr 05/27/24 16:05 IV 06/02/24 05:24 .Q48H EDGARDO Levothyroxine Sodium 125 mcg 05/25/24 06:00 05/27/24 05:08 Levothyroxine 125 Mcg Tablet PO 125 mcg DAILY@0600 EDGARDO Administration Melatonin 3 mg 05/24/24 20:59 Melatonin 3 Mg Tablet PO QHS PRN PRN INSOMNIA Ondansetron HCl 4 mg 05/24/24 20:59 Ondansetron 4 Mg/2 Ml Vial IV Q8H PRN PRN NAUSEA/VOMITING Senna/Docusate Sodium 2 tablet 05/24/24 20:59 Senna/Docusate Sodium 1 Tablet PO BID PRN PRN Constipation Sodium Chloride 10 - 40 ml 05/24/24 20:17 05/26/24 21:48 0.9% Saline Lock 10 Ml Syringe IV 10 ml UD PRN Administration SALINE FLUSH Tamsulosin HCl 0.4 mg 05/24/24 22:00 05/26/24 21:48 Tamsulosin Hcl 0.4 Mg Capsule PO 0.4 mg QHS EDGARDO Administration PFSH Medical History DVT (deep venous thrombosis) Hypothyroidism Home Medications ?Medication ?Instructions ?Recorded ?Last Taken ?Type ezetimibe 10 mg tablet 10 mg PO DAILY 03/25/2305/02 History tamsulosin 0.4 mg capsule 0.4 mg PO QHS 03/25/2305/23 History finasteride 5 mg tablet 5 mg PO DAILY 05/24/2405/24 History levothyroxine 125 mcg tablet 125 mcg PO DAILY 05/24/24 05/24/24 History apixaban 2.5 mg tablet (Eliquis) 2.5 mg PO BID blood t hinner 05/27/24 05/24/24 History Allergy/AdvReac Type Severity Reaction Status Date / Time No Known Allergies Allergy Verified 05/24/24 14:20 Family History Mother Colon cancer Surgical History Hx of colonoscopy History of bunionectomy Social History Smoking Status: Never smoker alcohol intake: current alcohol intake frequency: a few times a week caffeine: Yes Review of Systems (Anesthesia) ROS Narrative System reviewed and no additional complaints, except as documented. 05/27/24 1621 <Electronically signed by Ryder lucia MD> Date _ Ryder Velásquez MD Cosigner Signature: Date CC: ~ Signed [facility] Work Phone: 1(511) 937-216603-27-2025 Progress note [facility] Medical Records Department [address] [place] [address] Progress Note 05/27/24 1739 MR#: [id number] Acct: [id number] Name: AMAURI FROST Rep #:[id number] : 1950 73 From: Zachary Friend DO PCP: [facility] Status:ADM IN Location: [facility] CW306-9 Progress Note Patient has been n.p.o. for ERCP today. All questions concerns answered. Physical Exam Const alert, oriented x3, no apparent distress and healthy appearing General Appearance: cooperative GI normal to inspection, nondistended, normoactive bowel sounds, soft to palpation,non-tender and non-distended Percussion: normal to percussion Rectal Exam: deferred Assessment & Plan Assessment/Plan (1) Elevated LFTs: (2) Cholelithiasis: PLAN: Plan 73-year-old gentleman comes in with weakness, intermittent right upper quadrant pain and darkening urine. He was discovered to have cholestatic hepatitis with mild jaundice. He has not started on anynew medicines. He has no previous history of hepatitis. He is not receiving blood transfusions. He has no recenttravel. He does not denies any recent upper respiratory symptoms. His imaging shows Large gallstone with wall echo shadow. No significant wall thickening. No pericholecystic fluid. Also his common bile duct diameter is 3 mm. Differentialdiagnosis does include viral hepatitis and nonviral hepatitis, autoimmune disease affecting the liver such as PBC, autoimmune hepatitis, IgG associated cholangiopathy with a current exacerbation. Also differential diagnosis does include medication induced cholestatic injury. Recommend MRCP and autoimmune labs. If patient's liver enzymes keep going up then he may need to undergo drainage procedure. 05/25/2024-cholestatic hepatitis with jaundice-his LFTs are improving. His CRP was elevated along with his LDH. That signifies liver injury. He has no pre- existing history of liver disease that he knows of. Awaiting MRCP. If he does undergo cholecystectomy then I would recommend liver biopsy to see if there is any signs of primary or secondary cholangitis in his hepatobiliary system. 05/26/2024- FINDINGS: LUNG BASES: Patchy opacities in the lung base, compatible with atelectasis.. Visualized mediastinumis unremarkable. LIVER: Normal in size. No masses GALLBLADDER: Diffuse cholelithiasis. No evidence of intrahepatic or extrahepatic ductal dilatation.The common bile duct measures 8 mm. Filling defect within the distal common bile duct, just distal to the ampulla (series 11, image 5, series 10 image 17) PANCREAS: No ductal dilation. Homogeneous signal intensity. No suspicious mass. SPLEEN: Normal. No masses. ADRENAL GLANDS: Normal. No masses. KIDNEYS: Normal. No masses. No hydronephrosis. VASCULAR: The abdominal aorta is normal in caliber. LYMPHATICS: No abnormal adenopathy. GASTROINTESTINAL: Stomach is unremarkable. No bowel dilation. Colonic diverticulosis. No significant wall thickening. BONES: Mild degenerative changes of the lumbar spine. SOFT TISSUE: Normal. MRI/MRCP Abdomen without Contrast IMPRESSION: Cholelithiasis with distal common bile duct filling defect, concerning for choledocholithiasis. Patient will need to undergo ERCP with stone removal tomorrow. Patient can havebreakfast tomorrow but he should be n.p.o. after breakfast. 05/27/2024-patient will undergo ERCP with stent placement. Talk with surgery andhe will have cholecystectomy as an outpatient. Visit Charges Inpatient E&M: 19243 [facility] Hosp L3 05/27/24 1740 Zacharyheidi Mijares DO Cosigner Signature (if applicable): CC: ~ Signed [facility]03-27-2025 Progress note Author Arnaldo Ulloa [facility] Note Date/Time May 27, 2024 2:2 8pm [facility] Medical Records Department [address] [place] [address] Progress Note - Hospitalist 05/27/24 0730 MR#: [id number] Acct: [id number] Name: MARGOTSIVANIvana Womack Rep #:[id number] : 1950 73 From: Arnaldo Ulloa DO PCP: [facility] Status:ADM IN Location: [place] [address]-1 Reason for Visit Reason for Visit: Diagnoses Calculus of gallbladder without cholecystitis without obstruction (05/24/24) Unspecified jaundice (05/24/24) Other specified abnormal findings of blood chemistry (05/24/24) Subjective Subjective No issues. Objective Data Objective Data Vital Signs: Vital Signs Temp Pulse Resp BP Pulse Ox O2 Del Method 36.4 C L 65 16 121/78 H 97 Room Air 05/27/24 02:05 05/27/24 02:05 05/27/24 02:05 05/27/24 02:05 05/27/24 02:05 05/27/24 02:05 Oxygen Delivery Method Room Air Weight: 101.7 kg Body Mass Index (BMI) 30.4 Intake & Output: Intake and Output for Last 24 Hours 05/25/24 05/26/24 05/27/24 23:59 23:59 23:59 Intake Total 500 / 500 Balance 500 / 500 Lab / Micro Data 05/26/24 04:36 05/27/24 03:49 Labs: Laboratory Results - last 24 hr 05/24/24 21:06: DANAE-1 Antibody <0.2, SS-A/Ro IgG Antibody < 0.2, SS-B/La IgG Antibody < 0.2, Sm (Tobar) Antibody <0.2, AIR[employer]FT [employer]PA[employer] MECHANIC Antibody <0.2, Scl-70 Scleroderma Ab <0.2, Double Strand DNA Ab <1, Antichromatin Antibodies <0.2, Centromere B Antibody <0.2 05/27/24 03:49: Sodium 142, Potassium 3.6, Chloride 110 H, Carbon Dioxide 22.0, Anion Gap 10, BUN 18, Creatinine 1.03, Estim Creat Clear Calc 79.99, Est GFR (MDRD) Non-Af 77, BUN/Creatinine Ratio 17.7, Glucose 110 H, Calcium 8.6, Total Bilirubin 0.88, AST 33, ALT 133 H, Alkaline Phosphatase 104, Total Protein 6.2, Albumin 3.7, Globulin 2.5, Albumin/Globulin Ratio 1.5 Radiography Diagnostic Testing: Radiology Impression MRCP 05/26/24 14:00 IMPRESSION: Cholelithiasis with distal common bile duct filling defect, concerning for choledocholithiasis. Reading Location: [facility] Physical Exam Const alert and no apparent distress Eyes Eyes Narrative: no icterus. Assessment & Plan Assessment/Plan (1) Jaundice: PLAN: Looks more like choledocholthiasis given MRCP findings. Bilirubin 1.85 on admission, down to 0.88 today. Previously was normal (0.5). Along with transaminitis (which has essentially improving) CT showed hepatomegaly with fatty infiltration. US showed hepatic steatosis w/o focal lesion. MRCP showed cholelithiasis w distal CBD filing defect, concerning for choledocholithiasis. GI consult. General surgery on consult. Although high LDH and bilirubin, doubt hemolytic anemia given normal, stable hemoglobin. Haptoglobin ordered, but is a send out test and results won't be readily available. Additional ordered tests: RITA, ASmA, CA19-9, ceruloplasmin, CMV, EBV, copper, acute hep panel, MIRACLE, IgG, GAME Igs DW Dr. Mijares on 05/26: plan for ERCP on 05/27. PLAN: Plan Chronic conditions: * hypothyroidism: levothyroxine * BPH: tamsulosin * h/o VTE: apixaban dc'd in March. VTE prophylaxis: SCDs. Charges/Coding Visit Charges Inpatient E&M: 21160 Subs Hosp L1 05/27/24 1428 <Electronically signed by Arnaldo Ulloa DO> Cosigner Signature (if applicable): CC: ~ Signed [facility] Work Phone: [phone] 185-993603-27-2025 Consult note [facility] Medical Records Department [address] [place] [id number] Pre-Anesthesia Evaluation 05/27/24 1608 MR#: [id number] Acct: [id number] Name: MARGOTAMAURI Vu Rep #:[id number] : 1950 73 From: Ryder Velásquez MD PCP: [facility] Status:ADM IN Y Race: C Location: [place] [address] ASA Classification* ASA Classification ASA Classification: 3 Assessment & Plan Anesthesia* Anesthesia Assessment Anesthesia Assessment: Discussed sedation and/or anesthesia options, risks, benefits, and alternatives with patient/parents/legal guardian/POA. Questions invited. The patient/parents/legal guardian/POA seems to understand and agrees to proceedwith anesthesia plan. Reviewed the physical assessment, medical history, allergy history and patient home medications list prior to surgery/procedure/anesthetic and documented any changes. Performed airway and anesthesia risk assessments. Anesthesia Type Anesthesia Type: General History Source History Obtained from:: Patient and Chart Anesthesia Focused Assessment* Temperature: 97.6 F Pulse Rate: 58 Blood Pressure: 143/80 Respiratory Rate: 18 Pulse Ox: 96 Oxygen Delivery Method: Room Air Airway Assessment Mouth opens: >3 cm Mallampati Score: II Teeth Condition: Caps/Crowns (Patient has several crowns. They are all tight. 1 implant.) Neck Range of motion (ROM): Limited ROM (Slight decrease in extension) Focused Labs Anesthesia Preop lab: CBC WBC 7.9 K/mm3 (4.4-11.0) 05/26/24 04:36 05/26/24 RBC 4.72 M/mm3 (4.6-6.2) 05/26/24 04:36 05/26/24 Hgb 14.5 g/dL (13.0-16.5) 05/26/24 04:36 05/26/24 Hct 43.6 % (40-54) 05/26/24 04:36 05/26/24 Plt Count 247 K/mm3 (150-450) 05/26/24 04:36 05/26/24 CHEMISTRY Potassium 3.6 mmol/L (3.3-5.1) 05/27/24 03:49 05/27/24 Sodium 142 mmol/L (133-145) 05/27/24 03:49 05/27/24 Magnesium 2.5 mg/dL (1.6-2.6) 06/30/20 17:03 06/30/20 BUN 18 mg/dL (4-19) 05/27/24 03:49 05/27/24 Creatinine 1.03 mg/dL (0.70-1.20) 05/27/24 03:49 05/27/24 Glucose 110 mg/dL (70-99) H 05/27/24 03:49 05/27/24 TSH 2.810 uIU/mL (0.300-4.200) 05/25/24 06:39 05/02 07/25 COAG PT 15.0 SECONDS (11.7-14.9) H 05/24/24 15:38 05/02 06/25 Pre-Assessment Diagnosis/Proposed Procedure Planned Operative Procedure(s): Endoscopic retrograde cholangiopancreatography. Anesthesia History Anesthesia History - refuge manager: Anesthesia History - refuge manager Hx Hospitalization Any Problems With Anesthesia No 05/25/24 05:40 Cholinesterase deficiency No 05/25/24 05:40 You/Your Family Experience No 05/25/24 05:40 fever (hyperthermia) with Relationship Recent Exposure to Contagious No 05/25/24 05:40 Disease Does patient have nerve No 05/25/24 05:40 stimulator Patient instructed to have No 05/25/24 05:40 device shut off --Does patient have Pacemaker or ICD? When Was Last Pacemaker Check QUESTION #4 FULL TEXT: You/Your Family Experience fever (hyperthermia) with Anesthesia Last Oral Intake Last Oral intake: Last Oral Intake NPO since Meds taken in AM with sips of water? Meds patient instructed to take am of surgery Any additional information?: Yes NPO since: 00:00 Meds taken in AM with sips of water?: Yes PONV PONV - refuge manager: PONV - refuge manager Female HX of Motion Sickness HX of N/V After Surgery Non-Smoker Duration of Surgery greater than 60 minutes Number of Risk Factors PONV Score Height & Weight Height & Weight: Anesthesia: Height & Weight Height 6 ft 05/24/24 20:43 Weight: 101.7 kg 05/24/24 20:43 Body Mass Index (BMI) 30.4 05/24/24 20:43 Respiratory Assessment Respiratory Assessment - refuge manager: Respiratory Tract Infection Hx - refuge manager Hx Respiratory Tract Infection No 05/25/24 05:40 STOP Sleep Apnea STOP Sleep Apnea - refuge manager: STOP Sleep Apnea - refuge manager Hx Hypertension No 05/24/24 20:13 Hx Sleep Apnea No 05/24/24 20:13 CPAP BIPAP Do you snore loudly (louder No 05/24/24 20:13 than talking or can be heard Do you often feel tired/ Yes 05/24/24 20:13 fatigued/ sleepy during daytime? Has anyone observed you stop No 05/24/24 20:13 breathing during sleep? STOP Results Negative 05/24/24 20:13 QUESTION #5 FULL TEXT : Do you snore loudly (louder than talking or can be heard through closeddoors)? Tobacco Use History Tobacco Use History - refuge manager: Tobacco Use History - refuge manager Tobacco Use Non-smoker 06/30/20 21:27 Smoking Status Never smoker 05/24/24 20:13 Hx Tobacco Use No 05/24/24 20:13 Years Smoking Packs Smoked per Day Smoking Cessation Date was within the last 15 years Hx Smoking Cessation Date Hx Smoking Cessation Counseling Hematologic Medial History Hematologic Hx - refuge manager: Hematologic Medical Hx - rivet tosser Hx of Blood Transfusion No 05/24/24 20:13 Hx of Transfusion in last 3 No 05/24/24 20:13 Months Date of Last Transfusion (if within last 3 months) Ever experience any problems No 05/24/24 20:13 with transfusion(s)? Specify any problems Hx of Preganancy in last 3 N/A 05/24/24 20:13 Months Nurse Filling Out Transfusion EVIZZO 05/24/24 20:13 & Questions: Date: 05/24/24 05/24/24 20:13 Time: 20:52 05/24/24 20:13 Patient unable to answer at this time (ie. confused, unrespo /Reproduction History /Reproductive History - refuge manager: /Reproductive Hx- refuge manager Hx Now No 05/25/24 05:40 Gestational Age (in weeks): EDC: Hx Hx Para Hx Section SAB No 05/25/24 05:40 Active Medications Active Medications: Current Medications Generic Name Dose Route Start Last Admin Trade Name Freq PRN Reason Stop Dose Admin Albuterol Sulfate 2.5 mg 05/24/24 20:59 Albuterol 2.5 Mg/3 Ml Vial.Neb. INHALATION Q2H PRN PRN SOB &/OR WHEEZING Ezetimibe 10 mg 05/25/24 10:00 05/27/24 09:29 Ezetimibe 10 Mg Tablet PO Not Given DAILY EDGARDO Finasteride 5 mg 05/25/24 10:00 05/27/24 09:28 Finasteride 5 Mg Tablet PO Not Given DAILY EDGARDO Sodium Chloride 1,000 mls @ 15 mls/hr 05/27/24 16:05 IV 06/02/24 05:24 .Q48H EDGARDO Levothyroxine Sodium 125 mcg 05/25/24 06:00 05/27/24 05:08 Levothyroxine 125 Mcg Tablet PO 125 mcg DAILY@0600 EDGARDO Administration Melatonin 3 mg 05/24/24 20:59 Melatonin 3 Mg Tablet PO QHS PRN PRN INSOMNIA Ondansetron HCl 4 mg 05/24/24 20:59 Ondansetron 4 Mg/2 Ml Vial IV Q8H PRN PRN NAUSEA/VOMITING Senna/Docusate Sodium 2 tablet 05/24/24 20:59 Senna/Docusate Sodium 1 Tablet PO BID PRN PRN Constipation Sodium Chloride 10 - 40 ml 05/24/24 20:17 05/26/24 21:48 0.9% Saline Lock 10 Ml Syringe IV 10 ml UD PRN Administration SALINE FLUSH Tamsulosin HCl 0.4 mg 05/24/24 22:00 05/26/24 21:48 Tamsulosin Hcl 0.4 Mg Capsule PO 0.4 mg QHS EDGARDO Administration PFSH Medical History DVT (deep venous thrombosis) Hypothyroidism Home Medications ?Medication ?Instructions ?Recorded ?Last Taken ?Type ezetimibe 10 mg tablet 10 mg PO DAILY 03/25/2305/02 History tamsulosin 0.4 mg capsule 0.4 mg PO QHS 03/25/2305/23 History finasteride 5 mg tablet 5 mg PO DAILY 05/24/2405/24 History levothyroxine 125 mcg tablet 125 mcg PO DAILY 05/24/24 05/24/24 History apixaban 2.5 mg tablet (Eliquis) 2.5 mg PO BID blood t hinner 05/27/24 05/24/24 History Allergy/AdvReac Type Severity Reaction Status Date / Time No Known Allergies Allergy Verified 05/24/24 14:20 Family History Mother Colon cancer Surgical History Hx of colonoscopy History of bunionectomy Social History Smoking Status: Never smoker alcohol intake: current alcohol intake frequency: a few times a week caffeine: Yes Review of Systems (Anesthesia) ROS Narrative System reviewed and no additional complaints, except as documented. 05/27/24 1621 rea CORTEZ> Date _ Ryder Huertas Signature: Date CC: ~ Signed [facility]03-27-2025 Progress note [facility] Medical Records Department [address] [place] [address] Progress Note - Hospitalist 05/27/24 0730 MR#: [id number] Acct: [id number] Name: AMAURI FROST Rep #:[id number] : 1950 73 From: Arnaldo Ulloa DO PCP: [facility] Hospital Status:ADM IN Location: [place] [address] Reason for Visit Reason for Visit: Diagnoses Calculus of gallbladder without cholecystitis without obstruction (05/24/24) Unspecified jaundice (05/24/24) Other specified abnormal findings of blood chemistry (05/24/24) Subjective Subjective No issues. Objective Data Objective Data Vital Signs: Vital Signs Temp Pulse Resp BP Pulse Ox O2 Del Method 36.4 C L 65 16 121/78 H 97 Room Air 05/27/24 02:05 05/27/24 02:05 05/27/24 02:05 05/27/24 02:05 05/27/24 02:05 05/27/24 02:05 Oxygen Delivery Method Room Air Weight: 101.7 kg Body Mass Index (BMI) 30.4 Intake & Output: Intake and Output for Last 24 Hours 05/25/24 05/26/24 05/27/24 23:59 23:59 23:59 Intake Total 500 / 500 Balance 500 / 500 Lab / Micro Data 05/26/24 04:36 05/27/24 03:49 Labs: Laboratory Results - last 24 hr 05/24/24 21:06: DANAE-1 Antibody <0.2, SS-A/Ro IgG Antibody < 0.2, SS-B/La IgG Antibody < 0.2, Sm (Tobar) Antibody <0.2, AIR[employer]FT [employer]PA[employer] MECHANIC Antibody <0.2, Scl-70 Scleroderma Ab <0.2, Double Strand DNA Ab <1, Antichromatin Antibodies <0.2, Centromere B Antibody <0.2 05/27/24 03:49: Sodium 142, Potassium 3.6, Chloride 110 H, Carbon Dioxide 22.0, Anion Gap 10, BUN 18, Creatinine 1.03, Estim Creat Clear Calc 79.99, Est GFR (MDRD) Non-Af 77, BUN/Creatinine Ratio 17.7, Glucose 110 H, Calcium 8.6, Total Bilirubin 0.88, AST 33, ALT 133 H, Alkaline Phosphatase 104, Total Protein 6.2, Albumin 3.7, Globulin 2.5, Albumin/Globulin Ratio 1.5 Radiography Diagnostic Testing: Radiology Impression MRCP 05/26/24 14:00 IMPRESSION: Cholelithiasis with distal common bile duct filling defect, concerning for choledocholithiasis. Reading Location: [facility] Physical Exam Const alert and no apparent distress Eyes Eyes Narrative: no icterus. Assessment & Plan Assessment/Plan (1) Jaundice: PLAN: Looks more like choledocholthiasis given MRCP findings. Bilirubin 1.85 on admission, down to 0.88 today. Previously was normal (0.5). Along with transaminitis (which has essentially improving) CT showed hepatomegaly with fatty infiltration. US showed hepatic steatosis w/o focal lesion. MRCP showed cholelithiasis w distal CBD filing defect, concerning for choledocholithiasis. GI consult. General surgery on consult. Although high LDH and bilirubin, doubt hemolytic anemia given normal, stable hemoglobin. Haptoglobin ordered, but is a send out test and results won't be readily available. Additional ordered tests: RITA, ASmA, CA19-9, ceruloplasmin, CMV, EBV, copper, acute hep panel, MIRACLE,IgG, GAME Igs DW Dr. Mijares on 05/26: plan for ERCP on 05/27. PLAN: Plan Chronic conditions: * hypothyroidism: levothyroxine * BPH: tamsulosin * h/o VTE: apixaban dc'd in March. VTE prophylaxis: SCDs. Charges/Coding Visit Charges Inpatient E&M: 33698 Subs Hosp L1 05/27/24 2926 Cosigner Signature (if applicable): CC: ~ Signed [facility]03-26-2025 Progress note Author Zachary Mijares [facility] Note Date/Time May 26, 2024 5:5 5pm [facility] Medical Records Department [address] [place] [address] Progress Note 05/26/24 1746 MR#: [id number] Acct: [id number] Name: AMAURI FROST Rep #:[id number] : 1950 73 From: Zachary Mijares DO PCP: [facility] Status:ADM IN Location: [facility] [id number] Progress Note The patient is tolerating a diet. His urine is no longer dark in color. Physical Exam Const alert, oriented x3, no apparent distress and healthy appearing General Appearance: cooperative GI normal to inspection, nondistended, normoactive bowel sounds, soft to palpation,non-tender and non-distended Percussion: normal to percussion Rectal Exam: deferred Assessment & Plan Assessment/Plan (1) Elevated LFTs: (2) Cholelithiasis: PLAN: Plan 73-year-old gentleman comes in with weakness, intermittent right upper quadrant pain and darkening urine. He was discovered to have cholestatic hepatitis with mild jaundice. He has not started on any new medicines. He has no previous history of hepatitis. He is not receiving blood transfusions. He has no recenttravel. He does not denies any recent upper respiratory symptoms. His imaging shows Large gallstone with wall echo shadow. No significant wall thickening. No pericholecystic fluid. Also his common bile duct diameter is 3 mm. Differential diagnosis does include viral hepatitis and nonviral hepatitis, autoimmune disease affecting the liver such as PBC, autoimmune hepatitis, IgG associated cholangiopathy with a current exacerbation. Also differential diagnosis does include medication induced cholestatic injury. Recommend MRCP and autoimmune labs. If patient's liver enzymes keep going up then he may need to undergo drainage procedure. 05/25/2024-cholestatic hepatitis with jaundice-his LFTs are improving. His CRP was elevated along with his LDH. That signifies liver injury. He has no pre-existing history of liver disease that he knows of. Awaiting MRCP. If he does undergo cholecystectomy then I would recommend liver biopsy to see if there is any signs of primary or secondary cholangitis in his hepatobiliary system. 05/26/2024- FINDINGS: LUNG BASES: Patchy opacities in the lung base, compatible with atelectasis.. Visualized mediastinum is unremarkable. LIVER: Normal in size. No masses GALLBLADDER: Diffuse cholelithiasis. No evidence of intrahepatic or extrahepatic ductal dilatation. The common bile duct measures 8 mm. Filling defect within the distal common bile duct, just distal to the ampulla (series 11, image 5, series 10 image 17) PANCREAS: No ductal dilation. Homogeneous signal intensity. No suspicious mass. SPLEEN: Normal. No masses. ADRENAL GLANDS: Normal. No masses. KIDNEYS: Normal. No masses. No hydronephrosis. VASCULAR: The abdominal aorta is normal in caliber. LYMPHATICS: No abnormal adenopathy. GASTROINTESTINAL: Stomach is unremarkable. No bowel dilation. Colonic diverticulosis. No significant wall thickening. BONES: Mild degenerative changes of the lumbar spine. SOFT TISSUE: Normal. MRI/MRCP Abdomen without Contrast IMPRESSION: Cholelithiasis with distal common bile duct filling defect, concerning for choledocholithiasis. Patient will need to undergo ERCP with stone removal tomorrow. Patient can havebreakfast tomorrow but he should be n.p.o. after breakfast. Visit Charges Inpatient E&M: 58299 Subs Hosp L3 05/26/241754 <Electronically signed by Zachary Mijares DO> Zachary Mijares DO Cosigner Signature (if applicable): CC: ~ Signed [facility] Work Phone: [phone] 609-994803-26-2025 Progress note [facility] Medical Records Department [address] [place] [address] Progress Note 05/26/24 174 MR#: [id number] Acct: [id number] Name: AMAURI FROST Rep #:[id number] : 1950 73 From: Zachary Mijares DO PCP: [facility] Status:ADM [facility] The patient is tolerating a diet. His urine is no longer dark in color. Physical Exam Const alert, oriented x3, no apparent distress and healthy appearing General Appearance: cooperative GI normal to inspection, nondistended, normoactive bowel sounds, soft to palpation,non-tender and non-distended Percussion: normal to percussion Rectal Exam: deferred Assessment & Plan Assessment/Plan (1) Elevated LFTs: (2) Cholelithiasis: PLAN: Plan 73-year-old gentleman comes in with weakness, intermittent right upper quadrant pain and darkening urine. He was discovered to have cholestatic hepatitis with mild jaundice. He has not started on anynew medicines. He has no previous history of hepatitis. He is not receiving blood transfusions. He has no recenttravel. He does not denies any recent upper respiratory symptoms. His imaging shows Large gallstone with wall echo shadow. No significant wall thickening. No pericholecystic fluid. Also his common bile duct diameter is 3 mm. Differential diagnosis does include viral hepatitis and nonviral hepatitis, autoimmune disease affecting the liver such as PBC, autoimmune hepatitis, IgG associated cholangiopathy with a current exacerbation. Also differential diagnosis does include medication induced cholestatic injury. Recommend MRCP and autoimmune labs. If patient's liver enzymes keep going up then he may need to undergo drainage procedure. 05/25/2024-cholestatic hepatitis with jaundice-his LFTs are improving. His CRP was elevated along with his LDH. That signifies liver injury. He has no pre- existing history of liver disease that he knows of. Awaiting MRCP. If he does undergo cholecystectomy then I would recommend liver biopsy to see if there is any signs of primary or secondary cholangitis in his hepatobiliary system. 05/26/2024- FINDINGS: LUNG BASES: Patchy opacities in the lung base, compatible with atelectasis.. Visualized mediastinumis unremarkable. LIVER: Normal in size. No masses GALLBLADDER: Diffuse cholelithiasis. No evidence of intrahepatic or extrahepatic ductal dilatation.The common bile duct measures 8 mm. Filling defect within the distal common bile duct, just distal to the ampulla (series 11, image 5, series 10 image 17) PANCREAS: No ductal dilation. Homogeneous signal intensity. No suspicious mass. SPLEEN: Normal. No masses. ADRENAL GLANDS: Normal. No masses. KIDNEYS: Normal. No masses. No hydronephrosis. VASCULAR: The abdominal aorta is normal in caliber. LYMPHATICS: No abnormal adenopathy. GASTROINTESTINAL: Stomach is unremarkable. No bowel dilation. Colonic diverticulosis. No significant wall thickening. BONES: Mild degenerative changes of the lumbar spine. SOFT TISSUE: Normal. MRI/MRCP Abdomen without Contrast IMPRESSION: Cholelithiasis with distal common bile duct filling defect, concerning for choledocholithiasis. Patient will need to undergo ERCP with stone removal tomorrow. Patient can havebreakfast tomorrow but he should be n.p.o. after breakfast. Visit Charges Inpatient E&M: 19361 Subs Hosp L3 05/26/24 1755 Zachary Friend DO Cosigner Signature (if applicable): CC: ~ Signed [facility]03-26-2025 Discharge summary Author Arnaldo Ulloa [facility] Note Date/Time May 26, 2024 3:0 0pm [facility] Medical Records Department [address] [place] [address] Instructions for Home/Discharge Instructions 05/26/24 1458 MR#: [id number] Acct: [id number] Name: AMAURI FROST Rep #:[id number] : 1950 73 From: Arnaldo Ulloa DO PCP: [facility] Status:ADM IN Discharge Instructions Diet Discharge Diet: No restrictions DC O2, CPAP, BIPAP needs Home O2 Discharge instructions: No Follow Up Care Test Results: Test results from this visit will be discussed in further detail at your follow- up appointment, if applicable. Discharge Plan Admission Admit Date/Time: 05/24/24 19:49 Primary Reason for Your Visit: jaundice Attending Provider: Arnaldo Ulloa Primary Care Provider: [facility],[place] Consulting Providers: Mya Galicia Discharge Orders/Prescriptions Prescriptions: Continued ezetimibe 10 mg tablet 10 mg PO DAILY tamsulosin 0.4 mg capsule 0.4 mg PO QHS levothyroxine 125 mcg tablet 125 mcg PO DAILY finasteride 5 mg tablet 5 mg PO DAILY Discontinued Eliquis 2.5 mg tablet 2.5 mg PO BID Referrals / Follow Up: Erik Hernandez MD [Med Staff - Active Staff] - 1-2 Weeks [facility] [Primary Care Provider] - 1 Week Disposition Disposition (needs filled in before D/C Order can be placed): Home, Self Care 05/26/24 1500<Electronically signed by Arnaldo Ulloa DO>Arnaldo Ulloa DO CC: Dr. Mya Galicia MD; [facility] ~ Signed [facility] Work Phone: [phone]) 298-300403-26-2025 Progress note Author Arnaldo Ulloa [facility] Note Date/Time May 26, 2024 1:3 2pm [facility] Medical Records Department [address] [place] [address] Progress Note - Hospitalist 05/26/24 0826 MR#: [id number] Acct: [id number] Name: AMAURI FROST Rep #:[id number] : 1950 73 From: Arnaldo Ulloa DO [facility]CP: [facility] Status:ADM IN Location: [place] [address] Reason for Visit Reason for Visit: Diagnoses Calculus of gallbladder without cholecystitis without obstruction (05/24/24) Unspecified jaundice (05/24/24) Other specified abnormal findings of blood chemistry (05/24/24) Subjective Subjective Feeling well. Objective Data Objective Data Vital Signs: Vital Signs Temp Pulse Resp BP Pulse Ox O2 Del Method 36.5 C L 66 16 124/78 H 98 Room Air 05/26/24 04:05 05/26/24 04:05 05/26/24 04:05 05/26/24 04:05 05/26/24 04:05 05/26/24 04:05 Oxygen Delivery Method Room Air Weight: 101.7 kg Body Mass Index (BMI) 30.4 Intake & Output: Intake and Output for Last 24 Hours 05/24/24 05/25/24 05/26/24 23:59 23:59 23:59 Intake Total 1450 / 1450 Balance 1450 / 1450 Lab / Micro Data 05/26/24 04:36 05/26/24 04:36 Labs: Laboratory Results - last 24 hr 05/26/24 04:36: WBC 7.9, RBC 4.72, Hgb 14.5, Hct 43.6, MCV 92.4, MCH 30.7, MCHC 33.3, RDW Std Deviation 47.1 H, RDW Coeff of Pamela 13.9, Plt Count 247, MPV 9.1, Immature Gran % (Auto) 0.400, Neut % (Auto) 65.0, Lymph % (Auto) 20.6, Steele % (Auto) 8.0, Eos % (Auto) 4.9, Baso % (Auto) 1.1 H, Absolute Neuts (auto) 5.1, Absolute Lymphs (auto) 1.62, Nucleated RBC % 0, Sodium 142, Potassium 3.6, Chloride 110 H, Carbon Dioxide 19.5 L, Anion Gap 12, BUN 16, Creatinine 0.95, Estim Creat Clear Calc 86.73, Est GFR (MDRD) Non-Af 85, BUN/Creatinine Ratio 16.6, Glucose 107 H, Calcium 8.9, Total Bilirubin 1.14, AST 41 H, ALT 172 H, Alkaline Phosphatase 130 H, Total Protein 6.4, Albumin 3.8, Globulin 2.6, Albumin/Globulin Ratio 1.5 Physical Exam Const alert and no apparent distress HEENT head/scalp atraumatic and moist oral mucous membranes Eyes Eyes Narrative: minimal icterus. Assessment & Plan Assessment/Plan (1) Jaundice: PLAN: Unclear etiology. Bilirubin 1.85 on admission, down to 1.66 today. Previously was normal (0.5). Along with transaminitis (which is also improving) CT showed hepatomegaly with fatty infiltration. US showed hepatic steatosis w/o focal lesion. MRCP ordered. GI consult. General surgery on consult. Although high LDH and bilirubin, doubt hemolytic anemia given normal, stable hemoglobin. Haptoglobin ordered, but is a send out test and results won't be readily available. Additional ordered tests: RITA, ASmA, CA19-9, ceruloplasmin, CMV, EBV, copper, acute hep panel, MIRACLE, IgG, GAME Igs PLAN: Plan Chronic conditions: * hypothyroidism: levothyroxine * BPH: tamsulosin * h/o VTE: apixaban dc'd in March. VTE prophylaxis: SCDs. Charges/Coding Visit Charges Inpatient E&M: 72896 Subs Hosp L1 05/26/24 1332 <Electronically signed by Arnaldo Ulloa DO> Cosigner Signature (if applicable): CC: ~ Signed [facility] Work Phone: [phone]) 314-119703-26-2025 Discharge summary [facility] Medical Records Department [address] [place] [address] Instructions for Home/Discharge Instructions 05/26/24 1458 MR#: [id number] Acct: [id number] Name: AMAURI FROST Rep #:[id number] : 1950 73 From: Arnaldo Ulloa DO [facility]: [facility] Status:ADM IN Discharge Instructions Diet Discharge Diet: No restrictions DC O2, CPAP, BIPAP needs Home O2 Discharge instructions: No Follow Up Care Test Results: Test results from this visit will be discussed in further detail at your follow- up appointment, if applicable. Discharge Plan Admission Admit Date/Time: 05/24/24 19:49 Primary Reason for Your Visit: jaundice Attending Provider: Arnaldo Ulloa [facility] Consulting Providers: Mya Galicia Discharge Orders/Prescriptions Prescriptions: Continued ezetimibe 10 mg tablet 10 mg PO DAILY tamsulosin 0.4 mg capsule 0.4 mg PO QHS levothyroxine 125 mcg tablet 125 mcg PO DAILY finasteride 5 mg tablet 5 mg PO DAILY Discontinued Eliquis 2.5 mg tablet 2.5 mg PO BID Referrals / Follow Up: Erik Hernandez MD [Med Staff - Active Staff] - [facility] Weeks [facility] [Primary [facility] - 1 Week Disposition Disposition (needs filled in before D/C Order can be placed): Home, Self Care 05/26/24 Sherif Ulloa DO CC: Dr. Mya Galicia MD; [facility] ~ Signed [facility]03-26-2025 Progress note [facility] Medical Records Department [address] [place] [address] Progress Note - Hospitalist 05/26/24825 MR#: [id number] Acct: [id number] Name: AMAURI FROST Rep #:[id number] : 1950 73 From: Arnaldo Ulloa DO [facility]: [facility] Status:ADM IN Location: MS3 [id number] Reason for Visit Reason for Visit: Diagnoses Calculus of gallbladder without cholecystitis without obstruction (05/24/24) Unspecified jaundice (05/24/24) Other specified abnormal findings of blood chemistry (05/24/24) Subjective Subjective Feeling well. Objective Data Objective Data Vital Signs: Vital Signs Temp Pulse Resp BP Pulse Ox O2 Del Method 36.5 C L 66 16 124/78 H 98 Room Air 05/26/24 04:05 05/26/24 04:05 05/26/24 04:05 05/26/24 04:05 05/26/24 04:05 05/26/24 04:05 Oxygen Delivery Method Room Air Weight: 101.7 kg Body Mass Index (BMI) 30.4 Intake & Output: Intake and Output for Last 24 Hours 05/24/24 05/25/24 05/26/24 23:59 23:59 23:59 Intake Total 1450 / 1450 Balance 1450 / 1450 Lab / Micro Data 05/26/24 04:36 05/26/24 04:36 Labs: Laboratory Results - last 24 hr 05/26/24 04:36: WBC 7.9, RBC 4.72, Hgb 14.5, Hct 43.6, MCV 92.4, MCH 30.7, MCHC 33.3, RDW Std Deviation 47.1 H, RDW Coeff of Pamela 13.9, Plt Count 247, MPV 9.1, Immature Gran % (Auto) 0.400, Neut % (Auto) 65.0, Lymph % (Auto) 20.6, Steele % (Auto) 8.0, Eos % (Auto) 4.9, Baso % (Auto) 1.1 H, Absolute Neuts (auto) 5.1, Absolute Lymphs (auto) 1.62, Nucleated RBC % 0, Sodium 142, Potassium 3.6, Chloride 110 H, Carbon Dioxide 19.5 L, Anion Gap 12, BUN 16, Creatinine 0.95, Estim Creat Clear Calc 86.73, Est GFR (MDRD) Non-Af 85, BUN/Creatinine Ratio 16.6, Glucose 107 H, Calcium 8.9, Total Bilirubin 1.14, AST 41 H, ALT 172 H, Alkaline Phosphatase 130 H, Total Protein 6.4, Albumin 3.8, Globulin 2.6, Albu min/Globulin Ratio 1.5 Physical Exam Const alert and no apparent distress HEENT head/scalp atraumatic and moist oral mucous membranes Eyes Eyes Narrative: minimal icterus. Assessment & Plan Assessment/Plan (1) Jaundice: PLAN: Unclear etiology. Bilirubin 1.85 on admission, down to 1.66 today. Previously was normal (0.5). Along with transaminitis (which is also improving) CT showed hepatomegaly with fatty infiltration. US showed hepatic steatosis w/o focal lesion. MRCP ordered. GI consult. General surgery on consult. Although high LDH and bilirubin, doubt hemolytic anemia given normal, stable hemoglobin. Haptoglobin ordered, but is a send out test and results won't be readily available. Additional ordered tests: RITA, ASmA, CA19-9, ceruloplasmin, CMV, EBV, copper, acute hep panel, MIRACLE,IgG, GAME Igs PLAN: Plan Chronic conditions: * hypothyroidism: levothyroxine * BPH: tamsulosin * h/o VTE: apixaban dc'd in March. VTE prophylaxis: SCDs. Charges/Coding Visit Charges Inpatient E&M: 65383 Subs Hosp L1 05/26/24 1332 Cosigner Signature (if applicable): CC: ~ Signed [facility]03-26-2025 Progress note Author Erik Hernandez [facility] Note Date/Time May 26, 2024 7:5 8am [facility] Medical Records Department [address] [place] [address] Progress Note - Surgery 05/26/24 0758 MR#: [id number] Acct: [id number] Name: MARGOTAMAURI D Rep #:[id number] : 1950 73 From: Erik collins MD PCP: [facility] Status:ADM IN Location: [address] Subjective Subjective Patient reports he is comfortable with no pain Objective Data Objective Data Vital Signs: Vital Signs Temp Pulse Resp BP Pulse Ox O2 Del Method 97.7 F L 66 16 124/78 H 98 Room Air 05/26/24 04:05 05/26/24 04:05 05/26/24 04:05 05/26/24 04:05 05/26/24 04:05 05/26/24 04:05 Oxygen Delivery Method Room Air Weight: 224 lb 3.362 oz Body Mass Index (BMI) 30.4 Intake & Output: Intake and Output for Last 24 Hours 05/24/24 05/25/24 05/26/24 23:59 23:59 23:59 Intake Total 1450 / 1450 Balance 1450 / 1450 Lab / Micro Data 05/26/24 04:36 05/26/24 04:36 Labs: Laboratory Results - last 24 hr 05/26/24 04:36: WBC 7.9, RBC 4.72, Hgb 14.5, Hct 43.6, MCV 92.4, MCH 30.7, MCHC 33.3, RDW Std Deviation 47.1 H, RDW Coeff of Pamela 13.9, Plt Count 247, MPV 9.1, Immature Gran % (Auto) 0.400, Neut % (Auto) 65.0, Lymph % (Auto) 20.6, Steele % (Auto) 8.0, Eos % (Auto) 4.9, Baso % (Auto) 1.1 H, Absolute Neuts (auto) 5.1, Absolute Lymphs (auto) 1.62, Nucleated RBC % 0, Sodium 142, Potassium 3.6, Chloride 110 H, Carbon Dioxide 19.5 L, Anion Gap 12, BUN 16, Creatinine 0.95, Estim Creat Clear Calc 86.73, Est GFR (MDRD) Non-Af 85, BUN/Creatinine Ratio 16.6, Glucose 107 H, Calcium 8.9, Total Bilirubin 1.14, AST 41 H, ALT 172 H, Alkaline Phosphatase 130 H, Total Protein 6.4, Albumin 3.8, Globulin 2.6, Albumin/Globulin Ratio 1.5 Physical Exam Const oriented x3 and no apparent distress Resp normal respiratory effort GI soft to palpation and non-tender Assessment & Plan Assessment/Plan (1) Jaundice: PLAN: Patient was ordered MRI which did not get done yet. MRI is pending for today. As long as MRI is normal and only shows cholelithiasis I will plan for outpatient cholecystectomy. Erik Hernandez MD Pager: [facility] [address] [place] [address], [address] [place] [address] Office: 05/26/245 <Electronically signed by Erik Hernandez MD> Cosigner Signature (if applicable): CC: ~ Signed [facility] Work Phone: 1(529) 524-741103-26-2025 Progress note [facility] Medical Records Department [address] [place], [place] [id number] Progress Note - Surgery 05/26/24757 MR#: [id number] Acct: [id number] Name: AMAURI FROST Rep #:[id number] : 1950 73 From: Erik collins MD PCP: [facility] Status:ADM IN Location: [facility] [id number] Subjective Subjective Patient reports he is comfortable with no pain Objective Data Objective Data Vital Signs: Vital Signs Temp Pulse Resp BP Pulse Ox O2 Del Method 97.7 F L 66 16 124/78 H 98 Room Air 05/26/24 04:05 05/26/24 04:05 05/26/24 04:05 05/26/24 04:05 05/26/24 04:05 05/26/24 04:05 Oxygen Delivery Method Room Air Weight: 224 lb 3.362 oz Body Mass Index (BMI) 30.4 Intake & Output: Intake and Output for Last 24 Hours 05/24/24 05/25/24 05/26/24 23:59 23:59 23:59 Intake Total 1450 / 1450 Balance 1450 / 1450 Lab / Micro Data 05/26/24 04:36 05/26/24 04:36 Labs: Laboratory Results - last 24 hr 05/26/24 04:36: WBC 7.9, RBC 4.72, Hgb 14.5, Hct 43.6, MCV 92.4, MCH 30.7, MCHC 33.3, RDW Std Deviation 47.1 H, RDW Coeff of Pamela 13.9, Plt Count 247, MPV 9.1, Immature Gran % (Auto) 0.400, Neut % (Auto) 65.0, Lymph % (Auto) 20.6, Steele % (Auto) 8.0, Eos % (Auto) 4.9, Baso % (Auto) 1.1 H, Absolute Neuts (auto) 5.1, Absolute Lymphs (auto) 1.62, Nucleated RBC % 0, Sodium 142, Potassium 3.6, Chloride 110 H, Carbon Dioxide 19.5 L, Anion Gap 12, BUN 16, Creatinine 0.95, Estim Creat Clear Calc 86.73, Est GFR (MDRD) Non-Af 85, BUN/Creatinine Ratio 16.6, Glucose 107 H, Calcium 8.9, Total Bilirubin 1.14, AST 41 H, ALT 172 H, Alkaline Phosphatase 130 H, Total Protein 6.4, Albumin 3.8, Globulin 2.6, Albu min/Globulin Ratio 1.5 Physical Exam Const oriented x3 and no apparent distress Resp normal respiratory effort GI soft to palpation and non-tender Assessment & Plan Assessment/Plan (1) Jaundice: PLAN: Patient was ordered MRI which did not get done yet. MRI is pending for today. As long as MRI is normal and only shows cholelithiasis I will plan for outpatient cholecystectomy. Erik Hernandez MD Pager: [facility] [address] [facility], [address] [place] [address] Office: 05/26/24 5026 Cosigner Signature (if applicable): CC: ~ Signed [facility]03-25-2025 Progress note Author Zachary Mijares [facility] Note Date/Time May 25, 2024 6:1 6pm [facility] Medical Records Department [address] [place] [address] Progress Note 05/25/24 181 MR#: [id number] Acct: [id number] Name: AMAURI FROST Rep #:[id number] : 1950 73 From: Zachary Mijares DO [facility]: [facility] Status:ADM IN Location: [facility] [id number] Progress Note Patient is awaiting MRCP. He does have little bit of abdominal pain with eating. His urine is still dark. Physical Exam Const alert and no apparent distress Eyes Eyes Narrative: slight icterus. GI non-tender and non-distended; Negative for hepatosplenomegaly Extremity normal to inspection and no clubbing, cyanosis or edema Skin Skin Narrative: no appreciable jaundice. Neuro Sensorium / Orientation: awake and alert Psych affect normal Assessment & Plan Assessment/Plan (1) Elevated LFTs: (2) Cholelithiasis: PLAN: Plan 73-year-old gentleman comes in with weakness, intermittent right upper quadrant pain and darkening urine. He was discovered to have cholestatic hepatitis with mild jaundice. He has not started on any new medicines. He has no previous history of hepatitis. He is not receiving blood transfusions. He has no recenttravel. He does not denies any recent upper respiratory symptoms. His imaging shows Large gallstone with wall echo shadow. No significant wall thickening. No pericholecystic fluid. Also his common bile duct diameter is 3 mm. Differential diagnosis does include viral hepatitis and nonviral hepatitis, autoimmune disease affecting the liver such as PBC, autoimmune hepatitis, IgG associated cholangiopathy with a current exacerbation. Also differential diagnosis does include medication induced cholestatic injury. Recommend MRCP and autoimmune labs. If patient's liver enzymes keep going up then he may need to undergo drainage procedure. 05/25/2024-cholestatic hepatitis with jaundice-his LFTs are improving. His CRP was elevated along with his LDH. That signifies liver injury. He has no pre-existing history of liver disease that he knows of. Awaiting MRCP. If he does undergo cholecystectomy then I would recommend liver biopsy to see if there is any signs of primary or secondary cholangitis in his hepatobiliary system. Visit Charges Inpatient E&M: 00368 Subs Hosp L3 05/25/241815 <Electronically signed by Zachary Mijares DO> Zachary Mijares DO Cosigner Signature (if applicable): CC: ~ Signed [facility] Work Phone: [phone]) 410-625803-25-2025 Progress note [facility] Medical Records Department [address] [place] [address] Progress Note 05/25/241812 MR#: [id number] Acct: [id number] Name: AMAURI FROST Rep #:[id number] : 1950 73 From: Zachary Mijares DO PCP: [facility] Status:ADM [id number] Patient is awaiting MRCP. He does have little bit of abdominal pain with eating. His urine is stilldark. Physical Exam Const alert and no apparent distress Eyes Eyes Narrative: slight icterus. GI non-tender and non-distended; Negative for hepatosplenomegaly Extremity normal to inspection and no clubbing, cyanosis or edema Skin Skin Narrative: no appreciable jaundice. Neuro Sensorium / Orientation: awake and alert Psych affect normal Assessment & Plan Assessment/Plan (1) Elevated LFTs: (2) Cholelithiasis: PLAN: Plan 73-year-old gentleman comes in with weakness, intermittent right upper quadrant pain and darkening urine. He was discovered to have cholestatic hepatitis with mild jaundice. He has not started on anynew medicines. He has no previous history of hepatitis. He is not receiving blood transfusions. He has no recenttravel. He does not denies any recent upper respiratory symptoms. His imaging shows Large gallstone with wall echo shadow. No significant wall thickening. No pericholecystic fluid. Also his common bile duct diameter is 3 mm. Differential diagnosis does include viral hepatitis and nonviral hepatitis, autoimmune disease affecting the liver such as PBC, autoimmune hepatitis, IgG associated cholangiopathy with a current exacerbation. Also differential diagnosis does include medication induced cholestatic injury. Recommend MRCP and autoimmune labs. If patient's liver enzymes keep going up then he may need to undergo drainage procedure. 05/25/2024-cholestatic hepatitis with jaundice-his LFTs are improving. His CRP was elevated along with his LDH. That signifies liver injury. He has no pre- existing history of liver disease that he knows of. Awaiting MRCP. If he does undergo cholecystectomy then I would recommend liver biopsy to see if there is any signs of primary or secondary cholangitis in his hepatobiliary system. Visit Charges Inpatient E&M: 36349 [facility] Hosp L3 05/25/24 1816 Zachary Mijares DO Cosigner Signature (if applicable): CC: ~ Signed [facility]03-25-2025 Consult note Author Zachary Mijares [facility] Note Date/Time May 25, 2024 3:5 7pm [facility] Medical Records Department [address] [place] [address] Consultation - GI 05/24/24 1823 MR#: [id number] Acct: [id number] Name: AMAURI FROST Rep #:[id number] : 1950 73 From: Zachary Mijares DO [facility] Status:ADM IN Location: [facility] [id number] HPI Consult Data Date of Consult: 05/24/24 HPI Narrative HPI Narrative: AMAURI FROST, is a 73-year-old male past medical history of hypothyroidism, hypercholesterolemia, DVT, atrial fibrillation, on Eliquis presents with a few days of feeling rundown with low energy. States his symptoms began on Friday. He did not really feel well. Friday evening, he developed periumbilical abdominal pain. He may have had a headache as well. He denies any nausea or vomiting, no feversor chills, no pruritus. His coworkers told him this afternoon about 2-1/2 hoursago that he looked yellow. Additionally, over the weekend, starting 4 days ago,his urine was orange-colored. He denies any lemuel colored stools. He did have adrink or 2 on Friday but states he does not drink alcohol daily. His coworkers told him he may have a gallstone, but he denies any right upper quadrant pain, no nausea or vomiting with eating. In the past , he was diagnosed with bilateral pulmonary embolism and COVID-19 infection. He was started on Eliquis and referred by [facility] P[facility] the [facility] for further management. He took Eliquis for 6 months. He dropped a bag of seeds onthe R lower leg. Doppler on 03/11/2023 showed R proximal and distal femoral, popliteal DVT. He was started on Eliquis, stopped it in October 2023 for a colonoscopy. WBC 9.1., Hgb 14.8, Hct 44.5, MCV 92.3, Plt Count 250 PT 15.0 H, INR 1.2, APTT 28.6, Sodium 139, Potassium 3.5, Chloride 107, Carbon Dioxide 18.3 L,, BUN 21 H, Creatinine 1.09, Glucose 112 H, Calcium 9.5, Total Bilirubin 1.85 H, AST 113 H, ALT 329 H, Alkaline Phosphatase 147 H, TotalProtein 7.1, Albumin 4.3, Globulin 2.8 CT scan of the abdomen pelvis: FINDINGS: LUNG BASES: Unremarkable. No mass. No consolidation. ABDOMEN: LIVER: Hepatomegaly with fatty infiltration. GALLBLADDER AND BILE DUCTS: Unremarkable. No calcified stones. No ductal dilation. PANCREAS: Unremarkable. No mass. No ductal dilation. SPLEEN: Unremarkable. No splenomegaly. ADRENALS: Unremarkable. No mass. KIDNEYS AND URETERS: Right renal cysts. No hydronephrosis. STOMACH AND BOWEL: Colonic diverticulosis without acute diverticulitis. No obstruction. PELVIS: APPENDIX: No findings to suggest acute appendicitis. BLADDER: Unremarkable. No mass. REPRODUCTIVE: Unremarkable as visualized. LUMBAR SPINE: VERTEBRAE: Unremarkable. No acute fracture. DISCS/SPINAL CANAL/NEURAL FORAMINA: No acute findings. No significant spinal canal stenosis. ABDOMEN and PELVIS: INTRAPERITONEAL SPACE: Unremarkable. No free air. No significant fluid collection. BONES/JOINTS: No acute fracture. No dislocation. SOFT TISSUES: Bilateral inguinal hernias. VASCULATURE: Unremarkable. No abdominal aortic aneurysm. LYMPH NODES: Unremarkable. No enlarged lymph nod Ultrasound of the right upper quadrant: Liver: Diffusely echogenic suggesting fatty infiltration. No focal lesion. Gallbladder: Large gallstone with wall echo shadow. No significant wall thickening. No pericholecystic fluid. Common bile duct: Normal measuring 3 mm. Pancreas: Visualized portions are sonographically unremarkable. Other: Right kidney; craniocaudal length 10.4 cm. Multiple simple cysts, the largest measures 10 x 9 x 10 mm. No calculi or hydronephrosis. US/Gallbladder IMPRESSION: Hepatic steatosis without focal lesion. Cholelithiasis without evidence of cholecystitis or significant ductal dilation. [facility] Medical History DVT (deep venous thrombosis) Hypothyroidism Home Medications ?Medication ?Instructions ?Recorded ?Last Taken ?Type ezetimibe 10 mg tablet 10 mg PO DAILY 03/25/2305/02 History tamsulosin 0.4 mg capsule 0.4 mg PO QHS 03/25/2305/23 History apixaban 2.5 mg tablet (Eliquis) 2.5 mg PO BID 5 05/24/24 History finasteride 5 mg tablet 5 mg PO DAILY 05/24/2405/24 History levothyroxine 125 mcg tablet 125 mcg PO DAILY 05/24/24 05/24/24 History Allergy/AdvReac Type Severity Reaction Status Date / Time No Known Allergies Allergy Verified 05/24/24 14:20 Family History Mother Colon cancer Surgical History Hx of colonoscopy History of bunionectomy Social History Smoking Status: Never smoker alcohol intake: current alcohol intake frequency: a few times a week caffeine: Yes ROS Constitutional Constitutional: Denies fatigue, fever(s), poor appetite, weight gain or weight loss Gastrointestinal Gastrointestinal: Denies belching, bloating, change in bowel habits, change in stool character, chewing difficulty, coffee ground emesis, constipation, cramping, diarrhea, dyspepsia, dysphagia, early satiety, excessive flatus, fecalincontinence, heartburn, hematemesis, hematochezia, hemorrhoids, loose stools, melena, nausea, odynophagia, rectal bleeding, tenesmus, vomiting or weight changes Physical Exam Const alert, oriented x3, no apparent distress and healthy appearing General Appearance: cooperative GI normal to inspection, nondistended, normoactive bowel sounds, soft to palpation,non-tender and non-distended Percussion: normal to percussion Rectal Exam: deferred Lab / Micro Data 05/24/24 15:38 05/24/24 15:38 Labs: Laboratory Results - last 24 hr 05/24/24 15:38: WBC 9.1, RBC 4.82, Hgb 14.8, Hct 44.5, MCV 92.3, MCH 30.7, MCHC 33.3, RDW Std Deviation 47.3 H, RDW Coeff of Pamela 13.9, Plt Count 250, MPV 8.9, Immature Gran % (Auto) 0.500, Neut % (Auto) 72.6 H, Lymph % (Auto) 13.6 L, Steele % (Auto) 9.5, Eos % (Auto) 2.8, Baso % (Auto) 1.0, Absolute Neuts (auto) 6.6, Absolute Lymphs (auto) 1.24, Nucleated RBC % 0, PT 15.0 H, INR 1.2, APTT 28.6, Sodium 139, Potassium 3.5, Chloride 107, Carbon Dioxide 18.3 L, Anion Gap 13, BUN 21 H, Creatinine 1.09, Estim Creat Clear Calc 76.28, Est GFR (MDRD) Non-Af 72, BUN/Creatinine Ratio 18.9, Glucose 112 H, Calcium 9.5, Total Bilirubin 1.85 H, AST 113 H, ALT 329 H, Alkaline Phosphatase 147 H, Total Protein 7.1, Albumin 4.3, Globulin 2.8, Albumin/Globulin Ratio 1.6 05/24/24 16:54: Urine Color Norma, Urine Clarity Sl. Cloudy, Urine pH 5.0, Ur Specific Champion 1.025, Urine Protein 30 H, Urine Glucose (UA) Normal, Urine Ketones 5 H, Urine Occult Blood 10 H, Urine Nitrite Positive H, Urine Bilirubin 3 H, Urine Urobilinogen 4 H, Ur Leukocyte Esterase 25 H, Urine RBC 0-5 SEEN, Urine WBC 0-5 SEEN, Ur Squamous Epith Cells 0-5 SEEN, Calcium Oxalate Crystal 2+, Urine Bacteria 0 SEEN, Hyaline Casts 5-10 SEEN, Fine Granular Casts 0-5 SEEN, WBC Casts 0-5 SEEN, Urine Mucus 1+ Imaging Radiology Impression Gallbladder Ultrasound 05/24/24 15:22 IMPRESSION: Hepatic steatosis without focal lesion. Cholelithiasis without evidence of cholecystitis or significant ductal dilation. Reading Location: [facility] Abdomen/Pelvis CT 05/24/24 16:00 IMPRESSION: 1. Hepatomegaly with fatty infiltration. 2. Bilateral inguinal hernias. 3. Colonic diverticulosis without acute diverticulitis. Reading [facility] Assessment & Plan Assessment/Plan (1) Elevated LFTs: (2) Cholelithiasis: PLAN: Plan 73-year-old gentleman comes in with weakness, intermittent right upper quadrant pain and darkening urine. He was discovered to have cholestatic hepatitis with mild jaundice. He has not started on any new medicines. He has no previous history of hepatitis. He is not receiving blood transfusions. He has no recenttravel. He does not denies any recent upper respiratory symptoms. His imaging shows Large gallstone with wall echo shadow. No significant wall thickening. No pericholecystic fluid. Also his common bile duct diameter is 3 mm. Differential diagnosis does include viral hepatitis and nonviral hepatitis, autoimmune disease affecting the liver such as PBC, autoimmune hepatitis, IgG associated cholangiopathy with a current exacerbation. Also differential diagnosis does include medication induced cholestatic injury. Recommend MRCP and autoimmune labs. If patient's liver enzymes keep going up then he may need to undergo drainage procedure. Charges/Coding Visit Charges Inpatient E&M: 94374 Init Hosp L3 05/25/24 2844 <Electronically signed by Zachary Mijares DO> Cosigner Signature (if applicable): CC: [facility]~ Signed [facility] Work Phone: [phone] Consult note [facility] Medical Records Department [address] [place] [address] Consultation - GI 05/24/24 1823 MR#: [id number] Acct: [id number] Name: AMAURI FROST Rep #:[id number] : 1950 73 From: Zachary Friend PCP: [facility] Status:ADM IN Location: [place] [id number] HPI Consult Data Date of Consult: 05/24/24 HPI Narrative HPI Narrative: AMAURI FROST, is a 73-year-old male past medical history of hypothyroidism, hypercholesterolemia, DVT, atrial fibrillation, on Eliquis presents with a few days of feeling rundown with low energy. States his symptoms began on Friday. He did not really feel well. Friday evening, he developed periumbilical abdominal pain. He may have had a headache as well. He denies any nausea or vomiting, no feversor chills, no pruritus. His coworkers told him this afternoon about 2-1/2 hoursago that he looked yellow. Additionally, over the weekend, starting 4 days ago,his urine was orange-colored. He denies any lemuel colored stools. He did have adrink or 2 on Friday but states he does not drink alcohol daily. His coworkers told him he may have a gallstone, but he denies any right upper quadrant pain, no nausea or vomiting witheating. In the past , he was diagnosed with bilateral pulmonary embolism and COVID-19 infection. He was started on Eliquis and referred by [facility] PCP [facility] the [facility] for further management. He took Eliquis for 6 months. He dropped a bag of seeds onthe R lower leg. Doppler on 03/11/2023 showed R proximal and distal femoral, popliteal DVT. He was started on Eliquis, stopped it in October 2023 for a colonoscopy. WBC 9.1., Hgb 14.8, Hct 44.5, MCV 92.3, Plt Count 250 PT 15.0 H, INR 1.2, APTT 28.6, Sodium 139, Potassium 3.5, Chloride 107, Carbon Dioxide 18.3 L,, BUN 21 H, Creatinine 1.09, [id number] H, Calcium 9.5, Total Bilirubin 1.85 H, AST 113 H, ALT 329 H, Alkaline Phosphatase 147 H, TotalProtein 7.1, Albumin4.3, Globulin 2.8 CT scan of the abdomen pelvis: FINDINGS: LUNG BASES: Unremarkable. No mass. No consolidation. ABDOMEN: LIVER: Hepatomegaly with fatty infiltration. GALLBLADDER AND BILE DUCTS: Unremarkable. No calcified stones. No ductal dilation. PANCREAS: Unremarkable. No mass. No ductal dilation. SPLEEN: Unremarkable. No splenomegaly. ADRENALS: Unremarkable. No mass. KIDNEYS AND URETERS: Right renal cysts. No hydronephrosis. STOMACH AND BOWEL: Colonic diverticulosis without acute diverticulitis. No obstruction. PELVIS: APPENDIX: No findings to suggest acute appendicitis. BLADDER: Unremarkable. No mass. REPRODUCTIVE: Unremarkable as visualized. LUMBAR SPINE: VERTEBRAE: Unremarkable. No acute fracture. DISCS/SPINAL CANAL/NEURAL FORAMINA: No acute findings. No significant spinal canal stenosis. ABDOMEN and PELVIS: INTRAPERITONEAL SPACE: Unremarkable. No free air. No significant fluid collection. BONES/JOINTS: No acute fracture. No dislocation. SOFT TISSUES: Bilateral inguinal hernias. VASCULATURE: Unremarkable. No abdominal aortic aneurysm. LYMPH NODES: Unremarkable. No enlarged lymph nod Ultrasound of the right upper quadrant: Liver: Diffusely echogenic suggesting fatty infiltration. No focal lesion. Gallbladder: Large gallstone with wall echo shadow. No significant wall thickening. No pericholecystic fluid. Common bile duct: Normal measuring 3 mm. Pancreas: Visualized portions are sonographically unremarkable. Other: Right kidney; craniocaudal length 10.4 cm. Multiple simple cysts, the largest measures 10 x 9 x 10 mm. No calculi or hydronephrosis. US/Gallbladder IMPRESSION: Hepatic steatosis without focal lesion. Cholelithiasis without evidence of cholecystitis or significant ductal dilation. [facility] Medical History DVT (deep venous thrombosis) Hypothyroidism Home Medications ?Medication ?Instructions ?Recorded ?Last Taken ?Type ezetimibe 10 mg tablet 10 mg PO DAILY 03/25/2305/02 History tamsulosin 0.4 mg capsule 0.4 mg PO QHS 03/25/2305/23 History apixaban 2.5 mg tablet (Eliquis) 2.5 mg PO BID 5 05/24/24 History finasteride 5 mg tablet 5 mg PO DAILY 05/24/2405/24 History levothyroxine 125 mcg tablet 125 mcg PO DAILY 05/24/24 05/24/24 History Allergy/AdvReac Type Severity Reaction Status Date / Time No Known Allergies Allergy Verified 05/24/24 14:20 Family History Mother Colon cancer Surgical History Hx of colonoscopy History of bunionectomy Social History Smoking Status: Never smoker alcohol intake: current alcohol intake frequency: a few times a week caffeine: Yes ROS Constitutional Constitutional: Denies fatigue, fever(s), poor appetite, weight gain or weight loss Gastrointestinal Gastrointestinal: Denies belching, bloating, change in bowel habits, change in stool character, chewing difficulty, coffee ground emesis, constipation, cramping, diarrhea, dyspepsia, dysphagia, earlysatiety, excessive flatus, fecalincontinence, heartburn, hematemesis, hematochezia, hemorrhoids, loose stools, melena, nausea, odynophagia, rectal bleeding, tenesmus, vomiting or weight changes Physical Exam Const alert, oriented x3, no apparent distress and healthy appearing General Appearance: cooperative GI normal to inspection, nondistended, normoactive bowel sounds, soft to palpation,non-tender and non-distended Percussion: normal to percussion Rectal Exam: deferred Lab / Micro Data 05/24/24 15:38 05/24/24 15:38 Labs: Laboratory Results - last 24 hr 05/24/24 15:38: WBC 9.1, RBC 4.82, Hgb 14.8, Hct 44.5, MCV 92.3, MCH 30.7, MCHC 33.3, RDW Std Deviation 47.3 H, RDW Coeff of Pamela 13.9, Plt Count 250, MPV 8.9, Immature Gran % (Auto) 0.500, Neut % (Auto) 72.6 H, Lymph % (Auto) 13.6 L, Steele % (Auto) 9.5, Eos % (Auto) 2.8, Baso % (Auto) 1.0, Absolute Neuts (auto) 6.6, Absolute Lymphs (auto) 1.24, Nucleated RBC % 0, PT 15.0 H, INR 1.2, APTT 28.6, Sodium 139, Potassium 3.5, Chloride 107, Carbon Dioxide 18.3 L, Anion Gap 13, BUN 21 H, Creatinine 1.09, Estim Creat Clear Calc 76.28, Est GFR (MDRD) Non-Af 72, BUN/Creatinine Ratio 18.9, Glucose 112 H, Calcium 9.5, Total Bilirubin 1.85 H, AST 113 H, ALT 329 H, Alkaline Phosphatase 147 H, Total Protein7.1, Albumin 4.3, Globulin 2.8, Albumin/Globulin Ratio 1.6 05/24/24 16:54: Urine Color Norma, Urine Clarity Sl. Cloudy, Urine pH 5.0, Ur Specific Champion 1.025, Urine Protein 30 H, Urine Glucose (UA) Normal, Urine Ketones 5 H, Urine Occult Blood 10 H, Urine Nitrite Positive H, Urine Bilirubin 3 H, Urine Urobilinogen 4 H, Ur Leukocyte Esterase 25 H, Urine RBC 0-5 SEEN, Urine WBC 0-5 SEEN, Ur Squamous Epith Cells 0-5 SEEN, Calcium Oxalate Crystal 2+, UrineBacteria 0 SEEN, Hyaline Casts 5-10 SEEN, Fine Granular Casts 0-5 SEEN, WBC Casts 0-5 SEEN, Urine Mucus 1+ Imaging Radiology Impression Gallbladder Ultrasound 05/24/24 15:22 IMPRESSION: Hepatic steatosis without focal lesion. Cholelithiasis without evidence of cholecystitis or significant ductal dilation. Reading Location: [facility] Abdomen/Pelvis CT 05/24/24 16:00 IMPRESSION: 1. Hepatomegaly with fatty infiltration. 2. Bilateral inguinal hernias. 3. Colonic diverticulosis without acute diverticulitis. Reading Location[facility] Assessment & Plan Assessment/Plan (1) Elevated LFTs: (2) Cholelithiasis: PLAN: Plan 73-year-old gentleman comes in with weakness, intermittent right upper quadrant pain and darkening urine. He was discovered to have cholestatic hepatitis with mild jaundice. He has not started on anynew medicines. He has no previous history of hepatitis. He is not receiving blood transfusions. He has no recenttravel. He does not denies any recent upper respiratory symptoms. His imaging shows Large gallstone with wall echo shadow. No significant wall thickening. No pericholecystic fluid. Also his common bile duct diameter is 3 mm. Differential diagnosis does include viral hepatitis and nonviral hepatitis, autoimmune disease affecting the liver such as PBC, autoimmune hepatitis, IgG associated cholangiopathy with a current exacerbation. Also differential diagnosis does include medication induced cholestatic injury. Recommend MRCP and autoimmune labs. If patient's liver enzymes keep goingup then he may need to undergo drainage procedure. Charges/Coding Visit Charges Inpatient E&M: 57314 Init Hosp L3 05/25/24 1557 Cosigner Signature (if applicable): CC: [facility]~ Signed [facility]03-25-2025 Progress note Author Arnaldo Ulloa [facility] Note Date/Time May 25, 2024 1:3 2pm [facility] Medical Records Department [address] [place] [address] Progress Note - Hospitalist 05/25/24 0745 MR#: [id number] Acct: [id number] Name: AMAURI FROST Rep #:[id number] : 1950 73 From: Arnaldo Ulloa DO PCP: [facility] Status:ADM IN Location: [place] [address]-1 Reason for Visit Reason for Visit: Diagnoses Calculus of gallbladder without cholecystitis without obstruction (05/24/24) Unspecified jaundice (05/24/24) Other specified abnormal findings of blood chemistry (05/24/24) Subjective Subjective Had felt ill over the weekend. Noted to be jaundiced at work yesterday. Objective Data Objective Data Vital Signs: Vital Signs Temp Pulse Resp BP Pulse Ox O2 Del Method 36.4 C L 62 16 128/78 H 95 Room Air 05/25/24 02:45 05/25/24 02:45 05/25/24 02:45 05/25/24 02:45 05/25/24 02:45 05/25/24 02:45 Oxygen Delivery Method Room Air Weight: 101.7 kg Body Mass Index (BMI) 30.4 Intake & Output: Intake and Output for Last 24 Hours 05/23/24 05/24/24 05/25/24 23:59 23:59 23:59 Intake Total 1450 / 1450 Balance 1450 / 1450 Lab / Micro Data 05/25/24 06:39 05/25/24 06:39 Labs: Laboratory Results - last 24 hr 05/24/24 15:38: WBC 9.1, RBC 4.82, Hgb 14.8, Hct 44.5, MCV 92.3, MCH 30.7, MCHC 33.3, RDW Std Deviation 47.3 H, RDW Coeff of Pamela 13.9, Plt Count 250, MPV 8.9, Immature Gran % (Auto) 0.500, Neut % (Auto) 72.6 H, Lymph % (Auto) 13.6 L, Steele % (Auto) 9.5, Eos % (Auto) 2.8, Baso % (Auto) 1.0, Absolute Neuts (auto) 6.6, Absolute Lymphs (auto) 1.24, Nucleated RBC % 0, PT 15.0 H, INR 1.2, APTT 28.6, Sodium 139, Potassium 3.5, Chloride 107, Carbon Dioxide 18.3 L, Anion Gap 13, BUN 21 H, Creatinine 1.09, Estim Creat Clear Calc 76.28, Est GFR (MDRD) Non-Af 72, BUN/Creatinine Ratio 18.9, Glucose 112 H, Calcium 9.5, Total Bilirubin 1.85 H, AST 113 H, ALT 329 H, Alkaline Phosphatase 147 H, Total Protein 7.1, Albumin 4.3, Globulin 2.8, Albumin/Globulin Ratio 1.6 05/24/24 16:54: Urine Color Norma, Urine Clarity Sl. Cloudy, Urine pH 5.0, Ur Specific Champion 1.025, Urine Protein 30 H, Urine Glucose (UA) Normal, Urine Ketones 5 H, Urine Occult Blood 10 H, Urine Nitrite Positive H, Urine Bilirubin 3 H, Urine Urobilinogen 4 H, Ur Leukocyte Esterase 25 H, Urine RBC 0-5 SEEN, Urine WBC 0-5 SEEN, Ur Squamous Epith Cells 0-5 SEEN, Calcium Oxalate Crystal 2+, Urine Bacteria 0 SEEN, Hyaline Casts 5-10 SEEN, Fine Granular Casts 0-5 SEEN, WBC Casts 0-5 SEEN, Urine Mucus 1+ 05/24/24 21:06: ESR 4, Iron 89, TIBC 270, Iron Saturation 33.0, Unsaturated IBC 181 L, Ferritin 784 H, Lactate Dehydrogenase 268 H, C-React Prot Ext Range 35.10H, Acetaminophen < 5.0 L, DANAE-1 Antibody TNP, SS-A/Ro IgG Antibody TNP, SS-B/La IgG Antibody TNP, Sm (Tobar) Antibody TNP, [employer] Antibody TNP, Antichromatin Antibodies TNP, Centromere B Antibody TNP 05/25/24 06:39: WBC 8.3, RBC 4.70, Hgb 14.3, Hct 43.3, MCV 92.1, MCH 30.4, MCHC 33.0, RDW Std Deviation 47.4 H, RDW Coeff of Pamela 13.8, Plt Count 234, MPV 9.0, Immature Gran % (Auto) 0.600, Neut % (Auto) 66.8, Lymph % (Auto) 17.7 L, Steele % (Auto) 9.1, Eos % (Auto) 4.7, Baso % (Auto) 1.1 H, Absolute Neuts (auto) 5.5, Absolute Lymphs (auto) 1.46, Nucleated RBC % 0, Sodium 140, Potassium 3.4, Chloride 109 H, Carbon Dioxide 18.6 L, Anion Gap 12, BUN 16, Creatinine 0.93, Estim Creat Clear Calc 88.59, Est GFR (MDRD) Non-Af 88, BUN/Creatinine Ratio 17.0, Glucose 107 H, Calcium 9.0, Total Bilirubin 1.66 H, AST 64 H, ALT 235 H, Alkaline Phosphatase 127, Total Protein 6.3, Albumin 3.7, Globulin 2.6, Albumin/Globulin Ratio 1.5, TSH 2.810 Radiography Diagnostic Testing: Radiology Impression Gallbladder Ultrasound 05/24/24 15:22 IMPRESSION: Hepatic steatosis without focal lesion. Cholelithiasis without evidence of cholecystitis or significant ductal dilation. Reading Location: [facility] Abdomen/Pelvis CT 05/24/24 16:00 IMPRESSION: 1. Hepatomegaly with fatty infiltration. 2. Bilateral inguinal hernias. 3. Colonic diverticulosis without acute diverticulitis. Reading Location[facility] Physical Exam Const alert and no apparent distress Eyes Eyes Narrative: slight icterus. GI non-tender and non-distended; Negative for hepatosplenomegaly Extremity normal to inspection and no clubbing, cyanosis or edema Skin Skin Narrative: no appreciable jaundice. Neuro Sensorium / Orientation: awake and alert Psych affect normal Assessment & Plan Assessment/Plan (1) Jaundice: PLAN: Unclear etiology. Bilirubin 1.85 on admission, down to 1.66 today. Previously was normal (0.5) CT showed hepatomegaly with fatty infiltration. US showed hepatic steatosis w/o focal lesion. MRCP ordered. GI consult. General surgery on consult. Although high LDH and bilirubin, doubt hemolytic anemia given normal, stable hemoglobin. Haptoglobin ordered, but is a send out test and results won't be readily available. Additional ordered tests: RITA, ASmA, CA19-9, ceruloplasmin, CMV, EBV, copper, acute hep panel, MIRACLE, IgG, GAME Igs PLAN: Plan Chronic conditions: * hypothyroidism: levothyroxine * BPH: tamsulosin * h/o VTE: apixaban dc'd in March. VTE prophylaxis: SCDs. Charges/Coding Visit Charges Inpatient E&M: 77874 Subs Hosp L2 05/25/24 1332 <Electronically signed by Arnaldo Ulloa DO> Cosigner Signature (if applicable): CC: ~ Signed [facility] Work Phone: [phone] Progress note [facility] Medical Records Department [address] [place] [address] Progress Note - Hospitalist 05/25/24 0745 MR#: [id number] Acct: [id number] Name: AMAURI FROST Rep #:[id number] : 1950 73 From: Arnaldo Ulloa DO [facility]CP: [facility] Status[facility]M [id number] Reason for Visit Reason for Visit: Diagnoses Calculus of gallbladder without cholecystitis without obstruction (05/24/24) Unspecified jaundice (05/24/24) Other specified abnormal findings of blood chemistry (05/24/24) Subjective Subjective Had felt ill over the weekend. Noted to be jaundiced at work yesterday. Objective Data Objective Data Vital Signs: Vital Signs Temp Pulse Resp BP Pulse Ox O2 Del Method 36.4 C L 62 16 128/78 H 95 Room Air 05/25/24 02:45 05/25/24 02:45 05/25/24 02:45 05/25/24 02:45 05/25/24 02:45 05/25/24 02:45 Oxygen Delivery Method Room Air Weight: 101.7 kg Body Mass Index (BMI) 30.4 Intake & Output: Intake and Output for Last 24 Hours 05/23/24 05/24/24 05/25/24 23:59 23:59 23:59 Intake Total 1450 / 1450 Balance 1450 / 1450 Lab / Micro Data 05/25/24 06:39 05/25/24 06:39 Labs: Laboratory Results - last 24 hr 05/24/24 15:38: WBC 9.1, RBC 4.82, Hgb 14.8, Hct 44.5, MCV 92.3, MCH 30.7, MCHC 33.3, RDW Std Deviation 47.3 H, RDW Coeff of Pamela 13.9, Plt Count 250, MPV 8.9, Immature Gran % (Auto) 0.500, Neut % (Auto) 72.6 H, Lymph % (Auto) 13.6 L, Steele % (Auto) 9.5, Eos % (Auto) 2.8, Baso % (Auto) 1.0, Absolute Neuts (auto) 6.6, Absolute Lymphs (auto) 1.24, Nucleated RBC % 0, PT 15.0 H, INR 1.2, APTT 28.6, Sodium 139, Potassium 3.5, Chloride 107, Carbon Dioxide 18.3 L, Anion Gap 13, BUN 21 H, Creatinine 1.09, Estim Creat Clear Calc 76.28, Est GFR (MDRD) Non-Af 72, BUN/Creatinine Ratio 18.9, Glucose 112 H, Calcium 9.5, Total Bilirubin 1.85 H, AST 113 H, ALT 329 H, Alkaline Phosphatase 147 H, Total Protein7.1, Albumin 4.3, Globulin 2.8, Albumin/Globulin Ratio 1.6 05/24/24 16:54: Urine Color Norma, Urine Clarity Sl. Cloudy, Urine pH 5.0, Ur Specific Champion 1.025, Urine Protein 30 H, Urine Glucose (UA) Normal, Urine Ketones 5 H, Urine Occult Blood 10 H, Urine Nitrite Positive H, Urine Bilirubin 3 H, Urine Urobilinogen 4 H, Ur Leukocyte Esterase 25 H, Urine RBC 0-5 SEEN, Urine WBC 0-5 SEEN, Ur Squamous Epith Cells 0-5 SEEN, Calcium Oxalate Crystal 2+, UrineBacteria 0 SEEN, Hyaline Casts 5-10 SEEN, Fine Granular Casts 0-5 SEEN, WBC Casts 0-5 SEEN, Urine Mucus 1+ 05/24/24 21:06: ESR 4, Iron 89, TIBC 270, Iron Saturation 33.0, Unsaturated IBC 181 L, Ferritin 784H, Lactate Dehydrogenase 268 H, C-React Prot Ext Range 35.10H, Acetaminophen < 5.0 L, DANAE-1 Antibody TNP, SS-A/Ro IgG Antibody TNP, SS- B/La IgG Antibody TNP, Sm (Tobar) Antibody TNP, [employer] Antibody TNP, Antichromatin Antibodies TNP, Centromere B Antibody TNP 05/25/24 06:39: WBC 8.3, RBC 4.70, Hgb 14.3, Hct 43.3, MCV 92.1, MCH 30.4, MCHC 33.0, RDW Std Deviation 47.4 H, RDW Coeff of Pamela 13.8, Plt Count 234, MPV 9.0, Immature Gran % (Auto) 0.600, Neut % (Auto) 66.8, Lymph % (Auto) 17.7 L, Steele % (Auto) 9.1, Eos % (Auto) 4.7, Baso % (Auto) 1.1 H, Absolute Neuts (auto) 5.5, Absolute Lymphs (auto) 1.46, Nucleated RBC % 0, Sodium 140, Potassium 3.4, Chloride 109 H, Carbon Dioxide 18.6 L, Anion Gap 12, BUN 16, Creatinine 0.93, Estim Creat Clear Calc 88.59,Est GFR (MDRD) Non-Af 88, BUN/Creatinine Ratio 17.0, Glucose 107 H, Calcium 9.0, Total Bilirubin 1.66 H, AST 64 H, ALT 235 H, Alkaline Phosphatase 127, Total Protein 6.3, Albumin 3.7, Globulin 2.6, Al bumin/Globulin Ratio 1.5, TSH 2.810 Radiography Diagnostic Testing: Radiology Impression Gallbladder Ultrasound 05/24/24 15:22 IMPRESSION: Hepatic steatosis without focal lesion. Cholelithiasis without evidence of cholecystitis or significant ductal dilation. Reading Location: [facility] Abdomen/Pelvis CT 05/24/24 16:00 IMPRESSION: 1. Hepatomegaly with fatty infiltration. 2. Bilateral inguinal hernias. 3. Colonic diverticulosis without acute diverticulitis. Reading Location[facility] Physical Exam Const alert and no apparent distress Eyes Eyes Narrative: slight icterus. GI non-tender and non-distended; Negative for hepatosplenomegaly Extremity normal to inspection and no clubbing, cyanosis or edema Skin Skin Narrative: no appreciable jaundice. Neuro Sensorium / Orientation: awake and alert Psych affect normal Assessment & Plan Assessment/Plan (1) Jaundice: PLAN: Unclear etiology. Bilirubin 1.85 on admission, down to 1.66 today. Previously was normal (0.5) CT showed hepatomegaly with fatty infiltration. US showed hepatic steatosis w/o focal lesion. MRCP ordered. GI consult. General surgery on consult. Although high LDH and bilirubin, doubt hemolytic anemia given normal, stable hemoglobin. Haptoglobin ordered, but is a send out test and results won't be readily available. Additional ordered tests: RITA, ASmA, CA19-9, ceruloplasmin, CMV, EBV, copper, acute hep panel, MIRACLE,IgG, GAME Igs PLAN: Plan Chronic conditions: * hypothyroidism: levothyroxine * BPH: tamsulosin * h/o VTE: apixaban dc'd in March. VTE prophylaxis: SCDs. Charges/Coding Visit Charges Inpatient E&M: 00218 Subs Hosp L2 05/25/24 1332 Cosigner Signature (if applicable): CC: ~ Signed [facility]03-25-2025 Consult note Author Erik Hernandez [facility] Note Date/Time May 25, 2024 7:0 0am [facility] Medical Records Department [address] [place] [address] Consultation - Surgical 05/25/24 0659 MR#: [id number] Acct: [id number] Name: AMAURI FROST Vu Rep #:[id number] : 1950 73 From: Erik collins MD PCP: [facility] Status:ADM IN Location: [facility] [id number] Assessment & Plan Assessment/Plan (1) Scleral icterus: (2) Elevated LFTs: PLAN: Plan The patient has a large amount of gallstones with wall echo on ultrasound. Patient is having workup by Dr. Mijares. Today's LFTs are pending. Patient may need MRCP. I am available for laparoscopic cholecystectomy after Dr. Mijares works up his jaundice. Erik Hernandez MD Pager: [facility] [address] [place] [address], [address] [place] [address] Office: HPI Consult Data Date of Consult: 05/25/24 HPI Narrative HPI Narrative: AMAURI FROST, is a 73 M who presents with scleral icterus and jaundice. The patient is not having any abdominal pain. He denies nausea or vomiting. He denies fevers or chills. [facility] Medical History DVT (deep venous thrombosis) Hypothyroidism Home Medications ?Medication ?Instructions ?Recorded ?Last Taken ?Type ezetimibe 10 mg tablet 10 mg PO DAILY 03/25/2305/02 History tamsulosin 0.4 mg capsule 0.4 mg PO QHS 03/25/2305/23 History apixaban 2.5 mg tablet (Eliquis) 2.5 mg PO BID 5 05/24/24 History finasteride 5 mg tablet 5 mg PO DAILY 05/24/2405/24 History levothyroxine 125 mcg tablet 125 mcg PO DAILY 05/24/24 05/24/24 History Allergy/AdvReac Type Severity Reaction Status Date / Time No Known Allergies Allergy Verified 05/24/24 14:20 Family History Mother Colon cancer Surgical History Hx of colonoscopy History of bunionectomy Social History Smoking Status: Never smoker alcohol intake: current alcohol intake frequency: a few times a week caffeine: Yes ROS Constitutional Constitutional: Denies anorexia, chills, fatigue or fever(s) Eyes Eyes: Denies blurry vision ENT HEENT: Denies abnormal hearing Cardiovascular Cardiovascular: Denies chest pain Respiratory/Chest Respiratory/Chest: Denies cough or dyspnea Gastrointestinal Gastrointestinal: Denies abdominal pain, constipation, nausea or vomiting Genitourinary Genitourinary: Denies change in urinary stream Musculoskeletal Musculoskeletal: Denies abnormal gait Integumentary Integumentary: Reports jaundice Neurologic Neurologic: Denies abnormal gait Psychiatric Psychiatric: Denies anxiety Hematologic/Lymphatic Hematologic/Lymphatic: Denies easy bleeding Physical Exam Const alert and oriented x3 HEENT normocephalic Eyes PERRL Resp normal respiratory effort Cardio Rate: regular rate Rhythm: regular rhythm GI soft to palpation and non-tender Lab / Micro Data 05/25/24 06:39 05/24/24 15:38 Labs: Laboratory Results - last 24 hr 05/24/24 15:38: WBC 9.1, RBC 4.82, Hgb 14.8, Hct 44.5, MCV 92.3, MCH 30.7, MCHC 33.3, RDW Std Deviation 47.3 H, RDW Coeff of Pamela 13.9, Plt Count 250, MPV 8.9, Immature Gran % (Auto) 0.500, Neut % (Auto) 72.6 H, Lymph % (Auto) 13.6 L, Steele % (Auto) 9.5, Eos % (Auto) 2.8, Baso % (Auto) 1.0, Absolute Neuts (auto) 6.6, Absolute Lymphs (auto) 1.24, Nucleated RBC % 0, PT 15.0 H, INR 1.2, APTT 28.6, Sodium 139, Potassium 3.5, Chloride 107, Carbon Dioxide 18.3 L, Anion Gap 13, BUN 21 H, Creatinine 1.09, Estim Creat Clear Calc 76.28, Est GFR (MDRD) Non-Af 72, BUN/Creatinine Ratio 18.9, Glucose 112 H, Calcium 9.5, Total Bilirubin 1.85 H, AST 113 H, ALT 329 H, Alkaline Phosphatase 147 H, Total Protein 7.1, Albumin 4.3, Globulin 2.8, Albumin/Globulin Ratio 1.6 05/24/24 16:54: Urine Color Norma, Urine Clarity Sl. Cloudy, Urine pH 5.0, Ur Specific Champion 1.025, Urine Protein 30 H, Urine Glucose (UA) Normal, Urine Ketones 5 H, Urine Occult Blood 10 H, Urine Nitrite Positive H, Urine Bilirubin 3 H, Urine Urobilinogen 4 H, Ur Leukocyte Esterase 25 H, Urine RBC 0-5 SEEN, Urine WBC 0-5 SEEN, Ur Squamous Epith Cells 0-5 SEEN, Calcium Oxalate Crystal 2+, Urine Bacteria 0 SEEN, Hyaline Casts 5-10 SEEN, Fine Granular Casts 0-5 SEEN, WBC Casts 0-5 SEEN, Urine Mucus 1+ 05/24/24 21:06: ESR 4, Iron 89, TIBC 270, Iron Saturation 33.0, Unsaturated IBC 181 L, Ferritin 784 H, Lactate Dehydrogenase 268 H, C-React Prot Ext Range 35.10H, Acetaminophen < 5.0 L, DANAE-1 Antibody TNP, SS-A/Ro IgG Antibody TNP, SS-B/La IgG Antibody TNP, Sm (Tobar) Antibody TNP, [employer] Antibody TNP, Antichromatin Antibodies TNP, Centromere B Antibody TNP 05/25/24 06:39: WBC 8.3, RBC 4.70, Hgb 14.3, Hct 43.3, MCV 92.1, MCH 30.4, MCHC 33.0, RDW Std Deviation 47.4 H, RDW Coeff of Pamela 13.8, Plt Count 234, MPV 9.0, Immature Gran % (Auto) 0.600, Neut % (Auto) 66.8, Lymph % (Auto) 17.7 L, Steele % (Auto) 9.1, Eos % (Auto) 4.7, Baso % (Auto) 1.1 H, Absolute Neuts (auto) 5.5, Absolute Lymphs (auto) 1.46, Nucleated RBC % 0 Imaging Radiology Impression Gallbladder Ultrasound 05/24/24 15:22 IMPRESSION: Hepatic steatosis without focal lesion. Cholelithiasis without evidence of cholecystitis or significant ductal dilation. Reading Location: [facility] Abdomen/Pelvis CT 05/24/24 16:00 IMPRESSION: 1. Hepatomegaly with fatty infiltration. 2. Bilateral inguinal hernias. 3. Colonic diverticulosis without acute diverticulitis. Reading Location[facility] 05/25/24 0700 <Electronically signed by Erik Hernandez MD> Cosigner Signature (if applicable): CC: [facility]~ Signed [facility] Work Phone: [phone] 551-776803-25-2025 Consult note [facility] Medical Records Department [address] [place] [id number] Consultation - Surgical 05/25/24 0659 MR#: [id number] Acct: [id number] Name: AMAURI FROST Rep #:[id number] : 1950 73 From: Erik collins MD PCP: [facility] Status:ADM IN Location: [place] [id number] Assessment & Plan Assessment/Plan (1) Scleral icterus: (2) Elevated LFTs: PLAN: Plan The patient has a large amount of gallstones with wall echo on ultrasound. Patient is having workupby Dr. Mijares. Today's LFTs are pending. Patient may need MRCP. I am available for laparoscopic cholecystectomy after Dr. Mijares works up his jaundice. Erik Hernandez MD Pager: [facility] [address] [place] [address], [address] [place] [address] Office: HPI Consult Data Date of Consult: 05/25/24 HPI Narrative HPI Narrative: AMAURI FROST, is a 73 M who presents with scleral icterus and jaundice. The patient is not having any abdominal pain. He denies nausea or vomiting. He denies fevers or chills. [facility] Medical History DVT (deep venous thrombosis) Hypothyroidism Home Medications ?Medication ?Instructions ?Recorded ?Last Taken ?Type ezetimibe 10 mg tablet 10 mg PO DAILY 03/25/2305/02 History tamsulosin 0.4 mg capsule 0.4 mg PO QHS 03/25/2305/23 History apixaban 2.5 mg tablet (Eliquis) 2.5 mg PO BID 5 05/24/24 History finasteride 5 mg tablet 5 mg PO DAILY 05/24/2405/24 History levothyroxine 125 mcg tablet 125 mcg PO DAILY 05/24/24 05/24/24 History Allergy/AdvReac Type Severity Reaction Status Date / Time No Known Allergies Allergy Verified 05/24/24 14:20 Family History Mother Colon cancer Surgical History Hx of colonoscopy History of bunionectomy Social History Smoking Status: Never smoker alcohol intake: current alcohol intake frequency: a few times a week caffeine: Yes ROS Constitutional Constitutional: Denies anorexia, chills, fatigue or fever(s) Eyes Eyes: Denies blurry vision ENT HEENT: Denies abnormal hearing Cardiovascular Cardiovascular: Denies chest pain Respiratory/Chest Respiratory/Chest: Denies cough or dyspnea Gastrointestinal Gastrointestinal: Denies abdominal pain, constipation, nausea or vomiting Genitourinary Genitourinary: Denies change in urinary stream Musculoskeletal Musculoskeletal: Denies abnormal gait Integumentary Integumentary: Reports jaundice Neurologic Neurologic: Denies abnormal gait Psychiatric Psychiatric: Denies anxiety Hematologic/Lymphatic Hematologic/Lymphatic: Denies easy bleeding Physical Exam Const alert and oriented x3 HEENT normocephalic Eyes PERRL Resp normal respiratory effort Cardio Rate: regular rate Rhythm: regular rhythm GI soft to palpation and non-tender Lab / Micro Data 05/25/24 06:39 05/24/24 15:38 Labs: Laboratory Results - last 24 hr 05/24/24 15:38: WBC 9.1, RBC 4.82, Hgb 14.8, Hct 44.5, MCV 92.3, MCH 30.7, MCHC 33.3, RDW Std Deviation 47.3 H, RDW Coeff of Pamela 13.9, Plt Count 250, MPV 8.9, Immature Gran % (Auto) 0.500, Neut % (Auto) 72.6 H, Lymph % (Auto) 13.6 L, Steele % (Auto) 9.5, Eos % (Auto) 2.8, Baso % (Auto) 1.0, Absolute Neuts (auto) 6.6, Absolute Lymphs (auto) 1.24, Nucleated RBC % 0, PT 15.0 H, INR 1.2, APTT 28.6, Sodium 139, Potassium 3.5, Chloride 107, Carbon Dioxide 18.3 L, Anion Gap 13, BUN 21 H, Creatinine 1.09, Estim Creat Clear Calc 76.28, Est GFR (MDRD) Non-Af 72, BUN/Creatinine Ratio 18.9, Glucose 112 H, Calcium 9.5, Total Bilirubin 1.85 H, AST 113 H, ALT 329 H, Alkaline Phosphatase 147 H, Total Protein7.1, Albumin 4.3, Globulin 2.8, Albumin/Globulin Ratio 1.6 05/24/24 16:54: Urine Color Norma, Urine Clarity Sl. Cloudy, Urine pH 5.0, Ur Specific Champion 1.025, Urine Protein 30 H, Urine Glucose (UA) Normal, Urine Ketones 5 H, Urine Occult Blood 10 H, Urine Nitrite Positive H, Urine Bilirubin 3 H, Urine Urobilinogen 4 H, Ur Leukocyte Esterase 25 H, Urine RBC 0-5 SEEN, Urine WBC 0-5 SEEN, Ur Squamous Epith Cells 0-5 SEEN, Calcium Oxalate Crystal 2+, UrineBacteria 0 SEEN, Hyaline Casts 5-10 SEEN, Fine Granular Casts 0-5 SEEN, WBC Casts 0-5 SEEN, Urine Mucus 1+ 05/24/24 21:06: ESR 4, Iron 89, TIBC 270, Iron Saturation 33.0, Unsaturated IBC 181 L, Ferritin 784H, Lactate Dehydrogenase 268 H, C-React Prot Ext Range 35.10H, Acetaminophen < 5.0 L, DANAE-1 Antibody TNP, SS-A/Ro IgG Antibody TNP, SS- B/La IgG Antibody TNP, Sm (Tobar) Antibody TNP, [employer] Antibody TNP, Antichromatin Antibodies TNP, Centromere B Antibody TNP 05/25/24 06:39: WBC 8.3, RBC 4.70, Hgb 14.3, Hct 43.3, MCV 92.1, MCH 30.4, MCHC 33.0, RDW Std Deviation 47.4 H, RDW Coeff of Pamela 13.8, Plt Count 234, MPV 9.0, Immature Gran % (Auto) 0.600, Neut % (Auto) 66.8, Lymph % (Auto) 17.7 L, Steele % (Auto) 9.1, Eos % (Auto) 4.7, Baso % (Auto) 1.1 H, Absolute Neuts (auto) 5.5, Absolute Lymphs (auto) 1.46, Nucleated RBC % 0 Imaging Radiology Impression Gallbladder Ultrasound 05/24/24 15:22 IMPRESSION: Hepatic steatosis without focal lesion. Cholelithiasis without evidence of cholecystitis or significant ductal dilation. Reading Location: [facility] Abdomen/Pelvis CT 05/24/24 16:00 IMPRESSION: 1. Hepatomegaly with fatty infiltration. 2. Bilateral inguinal hernias. 3. Colonic diverticulosis without acute diverticulitis. Reading Location[facility] 05/25/24 0700 Cosigner Signature (if applicable): CC: [facility]~ Signed [facility]03-24-2025 History and physical note Author Mya Galicia [facility] Note Date/Time May 24, 2024 9:0 4pm [facility] Medical Records Department [address] [place] [address] H&P Exam - Hospitalist 05/24/241948 MR#: [id number] Acct: [id number] Name: AMAURI FROST Rep #:[id number] : 1950 73 From: Mya Galicia MD PCP: [facility] Status:ADM IN Location: [facility] [id number] HPI - General General Date of Admission: 05/24/24 Date of Service: 05/24/24 Chief Complaint: Fatigue, yellowing of skin HPI Narrative AMAURI FROST, is a 73-year-old male history of DVT, hypothyroidism, BPH who presented [facility] ED 05/24/2024 with fatigue and yellowing of his skin. Reportedly had been feeling rundown since Friday and had been having some dark urination and when he went to work today he was told he looked yellow prompting him to come to the ED. In the ED patient vitally stable but was foundto have total bili of 1.85, AST 113, ALT 329 and alk phos of 147. CT abdomen and pelvis demonstrated hepatomegaly with fatty infiltration and gallbladder ultrasound showed hepatic steatosis without focal lesion and cholelithiasis without evidence of cholecystitis or significant ductal dilation. GI physician contacted and recommended MRCP and to repeat liver function in the morning. Hospitalist contacted for admission. Patient evaluated in the ED and reports feeling rundown for several days, also has some belching but denies any changes in his bowel, has BPH so some chronic problems with his urination but denies anything acutely. Did have some darkening of his urine but notes he did not notice his skin being more yellow to let was pointed out to him. Had a headachecouple days ago but this is resolved. Denies any abdominal pain or nausea. Denies any fevers or chills. Does not drink alcohol regularly per patient. [facility] Medical History DVT (deep venous thrombosis) Hypothyroidism Home Medications ?Medication ?Instructions ?Recorded ?Last Taken ?Type ezetimibe 10 mg tablet 10 mg PO DAILY 03/25/2305/02 History tamsulosin 0.4 mg capsule 0.4 mg PO QHS 03/25/2305/23 History apixaban 2.5 mg tablet (Eliquis) 2.5 mg PO BID 5 05/24/24 History finasteride 5 mg tablet 5 mg PO DAILY 05/24/2405/24 History levothyroxine 125 mcg tablet 125 mcg PO DAILY 05/24/24 05/24/24 History Allergy/AdvReac Type Severity Reaction Status Date / Time No Known Allergies Allergy Verified 05/24/24 14:20 Family History Mother Colon cancer Surgical History Hx of colonoscopy History of bunionectomy Social History Smoking Status: Never smoker alcohol intake: current alcohol intake frequency: a few times a week caffeine: Yes ROS ROS Narrative General: Denies fever/chills HENT: Had a headache on Friday that is resolved, denies stuffy nose, denies sore throat EYES: Denies changes in vision Resp: Denies cough, denies shortness of breath Cardiac: Denies chest pain GI: Denies abdominal pain, denies changes in bowel, denies nausea/vomiting, has some abdominal bloating : Some darkening of his urine Extremity: Denies swelling MSK: Denies weakness but has felt just generally fatigued and unwell Neuro: Denies any numbness/tingling Heme: Denies any bleeding or bruising Skin: Some yellowing of the skin Psychiatric: No complaints voiced Vital Signs Vital Signs Vital Signs: 05/24/24 14:21 05/24/24 15:44 05/24/24 18:12 Temperature 97.9 F Temperature Source Oral Pulse Rate 94 81 Respiratory Rate 18 16 Respiratory Pattern Normal Blood Pressure 139/92 H 142/89 H Blood Pressure Mean 107 106 Pulse Ox 94 95 Oxygen Delivery Method Room Air Room Air Weight Weight: 103.691 kg Body Mass Index (BMI) 30.9 Physical Exam Narrative General: Alert, oriented, no apparent distress HEENT: Atraumatic, normocephalic Eyes: Some scleral icterus present, normal conjunctiva, extraocular movements grossly intact Neck: Supple Respiratory: Clear to auscultation bilaterally, normal respiratory effort Cardiovascular: Regular rate and rhythm GI: Soft, nontender, slightly distended without rebound, guarding, rigidity Extremities: No edema Musculoskeletal: Moving all extremities Neuro: No overt focal neurological deficits Skin: No rashes appreciated Psych: Cooperative Results Lab / Micro Data 05/24/24 15:38 05/24/24 15:38 Labs: Laboratory Results - last 24 hr 05/24/24 15:38: WBC 9.1, RBC 4.82, Hgb 14.8, Hct 44.5, MCV 92.3, MCH 30.7, MCHC 33.3, RDW Std Deviation 47.3 H, RDW Coeff of Pamela 13.9, Plt Count 250, MPV 8.9, Immature Gran % (Auto) 0.500, Neut % (Auto) 72.6 H, Lymph % (Auto) 13.6 L, Steele % (Auto) 9.5, Eos % (Auto) 2.8, Baso % (Auto) 1.0, Absolute Neuts (auto) 6.6, Absolute Lymphs (auto) 1.24, Nucleated RBC % 0, PT 15.0 H, INR 1.2, APTT 28.6, Sodium 139, Potassium 3.5, Chloride 107, Carbon Dioxide 18.3 L, Anion Gap 13, BUN 21 H, Creatinine 1.09, Estim Creat Clear Calc 76.28, Est GFR (MDRD) Non-Af 72, BUN/Creatinine Ratio 18.9, Glucose 112 H, Calcium 9.5, Total Bilirubin 1.85 H, AST 113 H, ALT 329 H, Alkaline Phosphatase 147 H, Total Protein 7.1, Albumin 4.3, Globulin 2.8, Albumin/Globulin Ratio 1.6 05/24/24 16:54: Urine Color Norma, Urine Clarity Sl. Cloudy, Urine pH 5.0, Ur Specific Champion 1.025, Urine Protein 30 H, Urine Glucose (UA) Normal, Urine Ketones 5 H, Urine Occult Blood 10 H, Urine Nitrite Positive H, Urine Bilirubin 3 H, Urine Urobilinogen 4 H, Ur Leukocyte Esterase 25 H, Urine RBC 0-5 SEEN, Urine WBC 0-5 SEEN, Ur Squamous Epith Cells 0-5 SEEN, Calcium Oxalate Crystal 2+, Urine Bacteria 0 SEEN, Hyaline Casts 5-10 SEEN, Fine Granular Casts 0-5 SEEN, WBC Casts 0-5 SEEN, Urine Mucus 1+ Imaging Radiology Impression Gallbladder Ultrasound 05/24/24 15:22 IMPRESSION: Hepatic steatosis without focal lesion. Cholelithiasis without evidence of cholecystitis or significant ductal dilation. Reading [facility] Ab[facility]/Pelvis CT 05/24/24 16:00 IMPRESSION: 1. Hepatomegaly with fatty infiltration. 2. Bilateral inguinal hernias. 3. Colonic diverticulosis without acute diverticulitis. Reading Location: [facility] Assessment & Plan Assessment/Plan (1) Cholelithiasis: (2) Elevated LFTs: (3) Scleral icterus: PLAN: Plan # Jaundice with elevation in bili and liver function tests -Total bili 1.85 with AST 113 and ALT 329, alk phos 147 -Order MRCP -GI consult -Repeat CMP in the a.m. #Hypothyroidism -Continue Synthroid -Will check TSH in the a.m. 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 Mya Galicia MD; [facility]~ Signed [facility] Work Phone: [phone]) [phone] Evaluation note* Diagnosis Onset Date Resolution Status Admit Date Elevated LFTs resolved May 24, 2024 7:49pm Jaundice resolved May 24 7:49pm Scleral icterus resolved May 7:49pm Cholelithiasis inactive May 7:49pm Cholelithiasis inactive June 12:47pm [facility] Work Phone: [phone]) 593-437303-24-2025 History and physical note [facility] Medical Records Department [address] [place] [address] H&P Exam - Hospitalist 05/24/241948 MR#: [id number] Acct: [id number] Name: AMAURI FROST Rep #:[id number] : 1950 73 From: Mya Galicia MD PCP: [facility] Status:ADM IN Location: [facility] [id number] HPI - General General Date of Admission: 05/24/24 Date of Service: 05/24/24 Chief Complaint: Fatigue, yellowing of skin HPI Narrative AMAURI FROST, is a 73-year-old male history of DVT, hypothyroidism, BPH who presented [facility] ED 05/24/2024 with fatigue and yellowing of his skin. Reportedly had been feeling rundown since Friday and had been having some dark urination and when he went to work today he was told helooked yellow prompting him to come to the ED. In the ED patient vitally stable but was foundto have total bili of 1.85, AST 113, ALT 329 and alk phos of 147. CT abdomen and pelvis demonstrated hepatomegaly with fatty infiltration and gallbladder ultrasound showed hepatic steatosis without focal lesion and cholelithiasis without evidence of cholecystitis or significant ductal dilation. GI physician contacted and recommended MRCP and to repeat liver function in the morning. Hospitalist contactedfor admission. Patient evaluated in the ED and reports feeling rundown for several days, also has some belching but denies any changes in his bowel, has BPH so some chronic problems with his urination but denies anything acutely. Did have some darkening of his urine but notes he did not notice his skin being more yellow to let was pointed out to him. Had a headachecouple days ago but this is resolved. Denies any abdominal pain or nausea. Denies any fevers or chills. Does not drink alcohol regularly per patient. [facility] Medical History DVT (deep venous thrombosis) Hypothyroidism Home Medications ?Medication ?Instructions ?Recorded ?Last Taken ?Type ezetimibe 10 mg tablet 10 mg PO DAILY 03/25/2305/02 History tamsulosin 0.4 mg capsule 0.4 mg PO QHS 03/25/2305/23 History apixaban 2.5 mg tablet (Eliquis) 2.5 mg PO BID 5 05/24/24 History finasteride 5 mg tablet 5 mg PO DAILY 05/24/2405/24 History levothyroxine 125 mcg tablet 125 mcg PO DAILY 05/24/24 05/24/24 History Allergy/AdvReac Type Severity Reaction Status Date / Time No Known Allergies Allergy Verified 05/24/24 14:20 Family History Mother Colon cancer Surgical History Hx of colonoscopy History of bunionectomy Social History Smoking Status: Never smoker alcohol intake: current alcohol intake frequency: a few times a week caffeine: Yes ROS ROS Narrative General: Denies fever/chills HENT: Had a headache on Friday that is resolved, denies stuffy nose, denies sore throat EYES: Denies changes in vision Resp: Denies cough, denies shortness of breath Cardiac: Denies chest pain GI: Denies abdominal pain, denies changes in bowel, denies nausea/vomiting, has some abdominal bloating : Some darkening of his urine Extremity: Denies swelling MSK: Denies weakness but has felt just generally fatigued and unwell Neuro: Denies any numbness/tingling Heme: Denies any bleeding or bruising Skin: Some yellowing of the skin Psychiatric: No complaints voiced Vital Signs Vital Signs Vital Signs: 05/24/24 14:21 05/24/24 15:44 05/24/24 18:12 Temperature 97.9 F Temperature Source Oral Pulse Rate 94 81 Respiratory Rate 18 16 Respiratory Pattern Normal Blood Pressure 139/92 H 142/89 H Blood Pressure Mean 107 106 Pulse Ox 94 95 Oxygen Delivery Method Room Air Room Air Weight Weight: 103.691 kg Body Mass Index (BMI) 30.9 Physical Exam Narrative General: Alert, oriented, no apparent distress HEENT: Atraumatic, normocephalic Eyes: Some scleral icterus present, normal conjunctiva, extraocular movements grossly intact Neck: Supple Respiratory: Clear to auscultation bilaterally, normal respiratory effort Cardiovascular: Regular rate and rhythm GI: Soft, nontender, slightly distended without rebound, guarding, rigidity Extremities: No edema Musculoskeletal: Moving all extremities Neuro: No overt focal neurological deficits Skin: No rashes appreciated Psych: Cooperative Results Lab / Micro Data 05/24/24 15:38 05/24/24 15:38 Labs: Laboratory Results - last 24 hr 05/24/24 15:38: WBC 9.1, RBC 4.82, Hgb 14.8, Hct 44.5, MCV 92.3, MCH 30.7, MCHC 33.3, RDW Std Deviation 47.3 H, RDW Coeff of Pamela 13.9, Plt Count 250, MPV 8.9, Immature Gran % (Auto) 0.500, Neut % (Auto) 72.6 H, Lymph % (Auto) 13.6 L, Steele % (Auto) 9.5, Eos % (Auto) 2.8, Baso % (Auto) 1.0, Absolute Neuts (auto) 6.6, Absolute Lymphs (auto) 1.24, Nucleated RBC % 0, PT 15.0 H, INR 1.2, APTT 28.6, Sodium 139, Potassium 3.5, Chloride 107, Carbon Dioxide 18.3 L, Anion Gap 13, BUN 21 H, Creatinine 1.09, Estim Creat Clear Calc 76.28, Est GFR (MDRD) Non-Af 72, BUN/Creatinine Ratio 18.9, Glucose 112 H, Calcium 9.5, Total Bilirubin 1.85 H, AST 113 H, ALT 329 H, Alkaline Phosphatase 147 H, Total Protein7.1, Albumin 4.3, Globulin 2.8, Albumin/Globulin Ratio 1.6 05/24/24 16:54: Urine Color Norma, Urine Clarity Sl. Cloudy, Urine pH 5.0, Ur Specific Champion 1.025, Urine Protein 30 H, Urine Glucose (UA) Normal, Urine Ketones 5 H, Urine Occult Blood 10 H, Urine Nitrite Positive H, Urine Bilirubin 3 H, Urine Urobilinogen 4 H, Ur Leukocyte Esterase 25 H, Urine RBC 0-5 SEEN, Urine WBC 0-5 SEEN, Ur Squamous Epith Cells 0-5 SEEN, Calcium Oxalate Crystal 2+, UrineBacteria 0 SEEN, Hyaline Casts 5-10 SEEN, Fine Granular Casts 0-5 SEEN, WBC Casts 0-5 SEEN, Urine Mucus 1+ Imaging Radiology Impression Gallbladder Ultrasound 05/24/24 15:22 IMPRESSION: Hepatic steatosis without focal lesion. Cholelithiasis without evidence of cholecystitis or significant ductal dilation. Reading [facility] Ab[facility]/Pelvis CT 05/24/24 16:00 IMPRESSION: 1. Hepatomegaly with fatty infiltration. 2. Bilateral inguinal hernias. 3. Colonic diverticulosis without acute diverticulitis. Reading Location[facility] Assessment & Plan Assessment/Plan (1) Cholelithiasis: (2) Elevated LFTs: (3) Scleral icterus: PLAN: Plan # Jaundice with elevation in bili and liver function tests -Total bili 1.85 with AST 113 and ALT 329, alk phos 147 -Order MRCP -GI consult -Repeat CMP in the a.m. #Hypothyroidism -Continue Synthroid -Will check TSH in the a.m. 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 Mya Galicia MD; [facility]~ Signed [facility]03-24-2025 Discharge summary Author Eren Calero [facility] Note Date/Time May 24, 2024 6:3 2pm [facility] Medical Records Department [address] [place] [address] Emergency Department Summary 05/24/24 MR#: [id number] Acct: [id number] Name: AMAURI FROST Rep #:[id number] : 1950 73 From: Eren Calero MD PCP: [facility] Status:REG ER Location: ED HPI History of Present Illness Chief Complaint: General Illness Narrative Narrative: 73-year-old male past medical history of hypothyroidism, hypercholesterolemia, DVT, atrial fibrillation, on Eliquis presents with a few days of feeling rundownwith low energy. States his symptoms began on Friday. He did not really feel well. Friday evening, he developed periumbilical abdominal pain. He may havehad a headache as well. He denies any nausea or vomiting, no fevers or chills, no pruritus. His coworkers told him this afternoon about 2-1/2 hours ago that he looked yellow. Additionally, over the weekend, starting 4 days ago, his urine was orange- colored. He denies any lemule colored stools. He did have a drink or 2 on Friday but states he does not drink alcohol daily. His coworkers told him he may have a gallstone, but he denies any right upper quadrant pain, no nausea or vomiting with eating. [facility] Medical History DVT (deep venous thrombosis) Hypothyroidism Home Medications ?Medication ?Instructions ?Recorded ?Last Taken ?Type ezetimibe 10 mg tablet 10 mg PO DAILY 03/25/2305/02 History tamsulosin 0.4 mg capsule 0.4 mg PO QHS 03/25/2305/23 History apixaban 2.5 mg tablet (Eliquis) 2.5 mg PO BID 5 05/24/24 History finasteride 5 mg tablet 5 mg PO DAILY 05/24/2405/24 History levothyroxine 125 mcg tablet 125 mcg PO DAILY 05/24/24 05/24/24 History Allergy/AdvReac Type Severity Reaction Status Date / Time No Known Allergies Allergy Verified 05/24/24 14:20 Family History Mother Colon cancer Surgical History Hx of colonoscopy History of bunionectomy Social History Smoking Status: Never smoker alcohol intake: current alcohol intake frequency: a few times a week caffeine: Yes ROS ROS ED ROS Narrative Constitutional: No fever, no chills. HEENT: No sore throat. No neck pain. No loss of vision. No rhinorrhea. Cardiovascular: No chest pain. No palpitations. No pedal edema. Respiratory: No cough, no shortness of breath. Abdominal: Periumbilical abdominal pain. No nausea. No vomiting. Genitourinary: No dysuria. No hematuria. [place]-colored urine 4 days ago. Musculoskeletal: No myalgias. No arthralgias. Neurologic: Positive headaches. No dizziness. No lightheadedness. Skin: No rash. Positive change in color, was told that he is yellow. Psychiatric: No depression. No anxiety. EXAM Physical Exam Narrative Exam Narrative: Afebrile. Vital signs noted. Nontoxic-appearing. HEENT examination shows PERRL, EOMI. Positive scleral icterus. No central cyanosis. Airway patent. No drooling or trismus. Cardiovascular examination reveals a regular rate and rhythm. Lungs are clear to auscultation bilaterally. Abdomen is soft and nontender without guarding or rebound with positive bowel sounds. No noted fluid wave. No pain in right upper quadrant. Neurological examination is nonfocal and nonlateralizing. Skin examination of the face does show mild jaundice. Const Vital Signs: 05/24/24 14:21 05/24/24 15:44 05/24/24 18:12 Temperature 97.9 F Temperature Source Oral Pulse Rate 94 81 Respiratory Rate 18 16 Respiratory Pattern Normal Blood Pressure 139/92 H 142/89 H Blood Pressure Mean 107 106 Pulse Ox 94 95 Oxygen Delivery Method Room Air Room Air MDM MDM MDM Narrative Medical decision making narrative: Differential diagnosis includes but not limited to biliary duct blockage versus cirrhosis versus gallstone versus acute cholecystitis. History and physical does not really support acute cholecystitis because he does not have tenderness in the right upper quadrant. I will obtain laboratory work to look for liver failure, and CT of the abdomen with IV contrast will be obtained given his periumbilical abdominal pain, and to look for any ascites. Additionally, I willobtain an ultrasound of the right upper quadrant/gallbladder to check the size of the biliary ducts. Urine will be checked as well to look for signs of dehydration versus infection. I reviewed his laboratory work and he has a normal white count of 9.1 with hemoglobin 14.8, hematocrit 44.5, platelet count normal at 250. INR is normal at 1.2 with a PTT 28.6. Glucose appropriately elevated at 112 with anion gap of13. LFTs are elevated with a total bilirubin of 1.85 and AST 113, ALT 329 with alk phos 147. Urinalysis obtained and reviewed and is negative for infection. While there is bilirubin and urobilinogen there are 0-5 white cells. I do not feel he requires antibiotics even though he is positive for nitrites. I reviewed the radiology report of the CT of the abdomen and pelvis and there isno acute process. Given his elevated LFTs with concern for acute cholecystitis although there was no abnormality on CT, ultrasound was obtained of the gallbladder and there is a gallstone but no ductal dilatation, no pericholecystic fluid consistent with acute cholecystitis. I discussed patient with Dr. Hernandez with surgery. While he does not requireimmediate surgery, the LFTs are elevated significantly. Was felt that the patient should be observed and if the LFTs are increasing tomorrow morning, he will need ERCP. I discussed the patient with Dr. Mijares with gastroenterology who is on board with this. I then discussed patient with Dr. Mya Galicia for observation on the medical surgical floor. Disposition is assigned observation. Patient is in stable condition. History & Record Review Discussion w/independent historian: Patient Lab Data Attestation: I reviewed the patient's lab results. Labs: Laboratory Results - last 24 hr 05/24/24 05/24/24 15:38 16:54 WBC 9.1 RBC 4.82 Hgb 14.8 Hct 44.5 MCV 92.3 MCH 30.7 MCHC 33.3 RDW Std Deviation 47.3 H RDW Coeff of Pamela 13.9 Plt Count 250 MPV 8.9 Immature Gran % (Auto) 0.500 Neut % (Auto) 72.6 H Lymph % (Auto) 13.6 L Steele % (Auto) 9.5 Eos % (Auto) 2.8 Baso % (Auto) 1.0 Absolute Neuts (auto) 6.6 Absolute Lymphs (auto) 1.24 Nucleated RBC % 0 PT 15.0 H INR 1.2 APTT 28.6 Sodium 139 Potassium 3.5 Chloride 107 Carbon Dioxide 18.3 L Anion Gap 13 BUN 21 H Creatinine 1.09 Estim Creat Clear Calc 76.28 Est GFR (MDRD) Non-Af 72 BUN/Creatinine Ratio 18.9 Glucose 112 H Calcium 9.5 Total Bilirubin 1.85 H AST 113 H ALT 329 H Alkaline Phosphatase 147 H Total Protein 7.1 Albumin 4.3 Globulin 2.8 Albumin/Globulin Ratio 1.6 Urine Color Norma Urine Clarity Sl. Cloudy Urine pH 5.0 Ur Specific Champion 1.025 Urine Protein 30 H Urine Glucose (UA) Normal Urine Ketones 5 H Urine Occult Blood 10 H Urine Nitrite Positive H Urine Bilirubin 3 H Urine Urobilinogen 4 H Ur Leukocyte Esterase 25 H Urine RBC 0-5 SEEN Urine WBC 0-5 SEEN Ur Squamous Epith Cells 0-5 SEEN Calcium Oxalate Crystal 2+ Urine Bacteria 0 SEEN Hyaline Casts 5-10 SEEN Fine Granular Casts 0-5 SEEN WBC Casts 0-5 SEEN Urine Mucus 1+ Radiography Diagnostic Testing: Clinical Impression(s) from Imaging Studies Gallbladder Ultrasound 05/24/24 15:22 IMPRESSION: Hepatic steatosis without focal lesion. Cholelithiasis without evidence of cholecystitis or significant ductal dilation. [facility]Pelvis CT 05/24/24 16:00 IMPRESSION: 1. Hepatomegaly with fatty infiltration. 2. Bilateral inguinal hernias. 3. Colonic diverticulosis without acute diverticulitis. Reading Location[facility] Management Discussion w/another healthcare provider: Hospitalist and Referral Agent (Surgery, gastroenterology) Discharge Plan Dx/Rx/DC Orders Clinical Impression: Cholelithiasis, Elevated LFTs, Scleral icterus Disposition Disposition: Acute Care Hospital [facility] What to do if you have Problems For any increased pain, shortness of breath, bleeding, nausea or vomiting, chestpain, or any unexpected problems, contact your Primary Care Provider. Call [facility] ([phone]) or report to the closest Emergency Room. Call 911 if necessary. 05/24/241831 <Electronically signed by Eren Calero MD> Cosigner Signature (if applicable): CC: [facility] ~ Signed [facility] Work Phone: [phone] Discharge summary [facility] Medical Records Department [address] [place] [address] Emergency Department Summary 05/24/24 MR#: [id number] Acct: [id number] Name: AMAURI FROST Rep #:[id number] : 1950 73 From: Eren Calero MD PCP: [facility] Status:[facility] ER Location: ED HPI History of Present Illness Chief Complaint: General Illness Narrative Narrative: 73-year-old male past medical history of hypothyroidism, hypercholesterolemia, DVT, atrial fibrillation, on Eliquis presents with a few days of feeling rundownwith low energy. States his symptoms began on Friday. He did not really feel well. Friday evening, he developed periumbilical abdominal pain. He may havehad a headache as well. He denies any nausea or vomiting, no fevers or chills, no pruritus. His coworkers told him this afternoon about 2-1/2 hours ago that he looked yellow. Additionally, over the weekend, starting 4 days ago, his urine was orange-colored. He denies any lemuel colored stools. He did have a drink or 2 on Friday but states he does not drink alcohol daily. His coworkerstold him he may have a gallstone, but he denies any right upper quadrant pain, no nausea or vomiting with eating. [facility] Medical History DVT (deep venous thrombosis) Hypothyroidism Home Medications ?Medication ?Instructions ?Recorded ?Last Taken ?Type ezetimibe 10 mg tablet 10 mg PO DAILY 03/25/2305/02 History tamsulosin 0.4 mg capsule 0.4 mg PO QHS 03/25/2305/23 History apixaban 2.5 mg tablet (Eliquis) 2.5 mg PO BID 5 05/24/24 History finasteride 5 mg tablet 5 mg PO DAILY 05/24/2405/24 History levothyroxine 125 mcg tablet 125 mcg PO DAILY 05/24/24 05/24/24 History Allergy/AdvReac Type Severity Reaction Status Date / Time No Known Allergies Allergy Verified 05/24/24 14:20 Family History Mother Colon cancer Surgical History Hx of colonoscopy History of bunionectomy Social History Smoking Status: Never smoker alcohol intake: current alcohol intake frequency: a few times a week caffeine: Yes ROS ROS ED ROS Narrative Constitutional: No fever, no chills. HEENT: No sore throat. No neck pain. No loss of vision. No rhinorrhea. Cardiovascular: No chest pain. No palpitations. No pedal edema. Respiratory: No cough, no shortness of breath. Abdominal: Periumbilical abdominal pain. No nausea. No vomiting. Genitourinary: No dysuria. No hematuria. [place]-colored urine 4 days ago. Musculoskeletal: No myalgias. No arthralgias. Neurologic: Positive headaches. No dizziness. No lightheadedness. Skin: No rash. Positive change in color, was told that he is yellow. Psychiatric: No depression. No anxiety. EXAM Physical Exam Narrative Exam Narrative: Afebrile. Vital signs noted. Nontoxic-appearing. HEENT examination shows PERRL, EOMI. Positive scleral icterus. No central cyanosis. Airway patent. No drooling or trismus. Cardiovascular examination reveals a regular rate and rhythm. Lungs are clear to auscultation bilaterally. Abdomen is soft and nontender without guarding or rebound with positive bowel sounds. No noted fluid wave. No pain in right upper quadrant. Neurological examination is nonfocal and nonlateralizing. Skin examination of the face does show mild jaundice. Const Vital Signs: 05/24/24 14:21 05/24/24 15:44 05/24/24 18:12 Temperature 97.9 F Temperature Source Oral Pulse Rate 94 81 Respiratory Rate 18 16 Respiratory Pattern Normal Blood Pressure 139/92 H 142/89 H Blood Pressure Mean 107 106 Pulse Ox 94 95 Oxygen Delivery Method Room Air Room Air MDM MDM MDM Narrative Medical decision making narrative: Differential diagnosis includes but not limited to biliary duct blockage versus cirrhosis versus gallstone versus acute cholecystitis. History and physical does not really support acute cholecystitisbecause he does not have tenderness in the right upper quadrant. I will obtain laboratory work to look for liver failure, and CT of the abdomen with IV contrast will be obtained given his periumbilical abdominal pain, and to look for any ascites. Additionally, I willobtain an ultrasound of the right upper quadrant/gallbladder to check the size of the biliary ducts. Urine will be checked as well to look for signs of dehydration versus infection. I reviewed his laboratory work and he has a normal white count of 9.1 with hemoglobin 14.8, hematocrit 44.5, platelet count normal at 250. INR is normal at 1.2 with a PTT 28.6. Glucose appropriately elevated at 112 with anion gap of13. LFTs are elevated with a total bilirubin of 1.85 and AST 113, ALT 329 with alk phos 147. Urinalysis obtained and reviewed and is negative for infection. While there is bilirubin and urobilinogen there are 0-5 white cells. I do not feel he requires antibiotics even though he is positive for nitrites. I reviewed the radiology report of the CT of the abdomen and pelvis and there isno acute process. Given his elevated LFTs with concern for acute cholecystitis although there was no abnormality on CT,ultrasound was obtained of the gallbladder and there is a gallstone but no ductal dilatation, no per icholecystic fluid consistent with acute cholecystitis. I discussed patient with Dr. Hernandez with surgery. While he does not requireimmediate surgery, the LFTs are elevated significantly. Was felt that the patient should be observed and if the LFTs areincreasing tomorrow morning, he will need ERCP. I discussed the patient with Dr. Mijares with gastroenterology who is on board with this. I then discussed patient with Dr. Mya Galicia for observationon the medical surgical floor. Disposition is assigned observation. Patient is in stable condition. History & Record Review Discussion w/independent historian: Patient Lab Data Attestation: I reviewed the patient's lab results. Labs: Laboratory Results - last 24 hr 05/24/24 05/24/24 15:38 16:54 WBC 9.1 RBC 4.82 Hgb 14.8 Hct 44.5 MCV 92.3 MCH 30.7 MCHC 33.3 RDW Std Deviation 47.3 H RDW Coeff of Pamela 13.9 Plt Count 250 MPV 8.9 Immature Gran % (Auto) 0.500 Neut % (Auto) 72.6 H Lymph % (Auto) 13.6 L Steele % (Auto) 9.5 Eos % (Auto) 2.8 Baso % (Auto) 1.0 Absolute Neuts (auto) 6.6 Absolute Lymphs (auto) 1.24 Nucleated RBC % 0 PT 15.0 H INR 1.2 APTT 28.6 Sodium 139 Potassium 3.5 Chloride 107 Carbon Dioxide 18.3 L Anion Gap 13 BUN 21 H Creatinine 1.09 Estim Creat Clear Calc 76.28 Est GFR (MDRD) Non-Af 72 BUN/Creatinine Ratio 18.9 Glucose 112 H Calcium 9.5 Total Bilirubin 1.85 H AST 113 H ALT 329 H Alkaline Phosphatase 147 H Total Protein 7.1 Albumin 4.3 Globulin 2.8 Albumin/Globulin Ratio 1.6 Urine Color Norma Urine Clarity Sl. Cloudy Urine pH 5.0 Ur Specific Champion 1.025 Urine Protein 30 H Urine Glucose (UA) Normal Urine Ketones 5 H Urine Occult Blood 10 H Urine Nitrite Positive H Urine Bilirubin 3 H Urine Urobilinogen 4 H Ur Leukocyte Esterase 25 H Urine RBC 0-5 SEEN Urine WBC 0-5 SEEN Ur Squamous Epith Cells 0-5 SEEN Calcium Oxalate Crystal 2+ Urine Bacteria 0 SEEN Hyaline Casts 5-10 SEEN Fine Granular Casts 0-5 SEEN WBC Casts 0-5 SEEN Urine Mucus 1+ Radiography Diagnostic Testing: Clinical Impression(s) from Imaging Studies Gallbladder Ultrasound 05/24/24 15:22 IMPRESSION: Hepatic steatosis without focal lesion. Cholelithiasis without evidence of cholecystitis or significant ductal dilation. Reading Location: [facility] Abdomen/Pelvis CT 05/24/24 16:00 IMPRESSION: 1. Hepatomegaly with fatty infiltration. 2. Bilateral inguinal hernias. 3. Colonic diverticulosis without acute diverticulitis. Reading Location[facility] Management Discussion w/another healthcare provider: Hospitalist and Referral Agent (Surgery, gastroenterology) Discharge Plan Dx/Rx/DC Orders Clinical Impression: Cholelithiasis, Elevated LFTs, Scleral icterus Disposition Disposition: Acute Care Hospital [facility] What to do if you have Problems For any increased pain, shortness of breath, bleeding, nausea or vomiting, chestpain, or any unexpected problems, contact your Primary Care Provider. Call [facility] ([phone]) or report tothe closest Emergency Room. Call 911 if necessary. 05/24/24 1832 Cosigner Signature (if applicable): CC: [facility] ~ Signed [facility]03-24-2025 Radiology Diagnostic study note [facility] Imaging Services [address] [place] [address] Gallbladder MR#: [id number] Acct: [id number] Name: AMAURI FROST Vu Rep #: [id number] : 1950 M 73 From: Radha Guzman MD PCP: [facility] Status: REG ER Study:Gallbladder Date of Exam: 05/24/24 Exam# [id number] Ordering Dr: rEen Calero MD PROCEDURE: GALLBLADDER 05/24/2024 REASON FOR EXAM: JAUNDICE COMPARISON: None FINDINGS: Liver: Diffusely echogenic suggesting fatty infiltration. No focal lesion. Gallbladder: Large gallstone with wall echo shadow. No significant wall thickening. No pericholecystic fluid. Common bile duct: Normal measuring 3 mm. Pancreas: Visualized portions are sonographically unremarkable. Other: Right kidney; craniocaudal length 10.4 cm. Multiple simple cysts, the largest measures 10 x 9 x 10 mm. No calculi or hydronephrosis. US/Gallbladder IMPRESSION: Hepatic steatosis without focal lesion. Cholelithiasis without evidence of cholecystitis or significant ductal dilation. Reading Location: [facility] CC: Dr. Eren Calero MD; [facility] ~ Log Marker: Signed [facility]03-24-2025 Radiology Diagnostic study note [facility] Imaging Services [address] [place] [address] Abdomen/Pelvis W IV Cont ONLY MR#: [id number] Acct: [id number] Name: AMAURI FROST Rep #: [id number] : 1950 73 From: Penny Weiss MD PCP: [facility] Status: [facility] ER Study:Abdomen/Pelvis W IV Cont ONLY Date of E xam: 05/24/24 Exam# [id number] Ordering Dr: Eren Calero MD EXAM: CT Abdomen, Pelvis and Lumbar Spine With Intravenous Contrast CLINICAL INDICATION: ABDOMINAL PAIN, DIARRHEA TECHNIQUE: Axial computed tomography images of the abdomen, pelvis and lumbar spine with intravenous contrast. This CT exam was performed using one or more of the following dose reduction techniques: automated exposure control,adjustment of the mA and/or kV according to patient size, and/or use of iterative reconstruction technique. COMPARISON: No relevant prior studies available. FINDINGS: LUNG BASES: Unremarkable. No mass. No consolidation. ABDOMEN: LIVER: Hepatomegaly with fatty infiltration. GALLBLADDER AND BILE DUCTS: Unremarkable. No calcified stones. No ductal dilation. PANCREAS: Unremarkable. No mass. No ductal dilation. SPLEEN: Unremarkable. No splenomegaly. ADRENALS: Unremarkable. No mass. KIDNEYS AND URETERS: Right renal cysts. No hydronephrosis. STOMACH AND BOWEL: Colonic diverticulosis without acute diverticulitis. No obstruction. PELVIS: APPENDIX: No findings to suggest acute appendicitis. BLADDER: Unremarkable. No mass. REPRODUCTIVE: Unremarkable as visualized. LUMBAR SPINE: VERTEBRAE: Unremarkable. No acute fracture. DISCS/SPINAL CANAL/NEURAL FORAMINA: No acute findings. No significant spinal canal stenosis. ABDOMEN and PELVIS: INTRAPERITONEAL SPACE: Unremarkable. No free air. No significant fluid collection. BONES/JOINTS: No acute fracture. No dislocation. SOFT TISSUES: Bilateral inguinal hernias. VASCULATURE: Unremarkable. No abdominal aortic aneurysm. LYMPH NODES: Unremarkable. No enlarged lymph nodes. CT/Abdomen/Pelvis W IV Cont ONLY IMPRESSION: 1. Hepatomegaly with fatty infiltration. 2. Bilateral inguinal hernias. 3. Colonic diverticulosis without acute diverticulitis. Reading Location[facility] CC: Dr. Eren Calero MD; [facility] ~ Log Marker: Signed [facility]03-24-2025 Discharge summary Author Eren Calero [facility] Note Date/Time May 24, 2024 6:3 2pm [facility] Medical Records Department [address] [place] [address] Emergency Department Summary 05/24/24 MR#: [id number] Acct: [id number] Name: AMAURI FROST Rep #:[id number] : 1950 73 From: Eren Calero MD PCP: [facility] Status:REG ER Location: ED HPI History of Present Illness Chief Complaint: General Illness Narrative Narrative: 73-year-old male past medical history of hypothyroidism, hypercholesterolemia, DVT, atrial fibrillation, on Eliquis presents with a few days of feeling rundownwith low energy. States his symptoms began on Friday. He did not really feel well. Friday evening, he developed periumbilical abdominal pain. He may havehad a headache as well. He denies any nausea or vomiting, no fevers or chills, no pruritus. His coworkers told him this afternoon about 2-1/2 hours ago that he looked yellow. Additionally, over the weekend, starting 4 days ago, his urine was orange- colored. He denies any lemuel colored stools. He did have a drink or 2 on Friday but states he does not drink alcohol daily. His coworkers told him he may have a gallstone, but he denies any right upper quadrant pain, no nausea or vomiting with eating. [facility] Medical History DVT (deep venous thrombosis) Hypothyroidism Home Medications ?Medication ?Instructions ?Recorded ?Last Taken ?Type ezetimibe 10 mg tablet 10 mg PO DAILY 03/25/2305/02 History tamsulosin 0.4 mg capsule 0.4 mg PO QHS 03/25/2305/23 History apixaban 2.5 mg tablet (Eliquis) 2.5 mg PO BID 5 05/24/24 History finasteride 5 mg tablet 5 mg PO DAILY 05/24/2405/24 History levothyroxine 125 mcg tablet 125 mcg PO DAILY 05/24/24 05/24/24 History Allergy/AdvReac Type Severity Reaction Status Date / Time No Known Allergies Allergy Verified 05/24/24 14:20 Family History Mother Colon cancer Surgical History Hx of colonoscopy History of bunionectomy Social History Smoking Status: Never smoker alcohol intake: current alcohol intake frequency: a few times a week caffeine: Yes ROS ROS ED ROS Narrative Constitutional: No fever, no chills. HEENT: No sore throat. No neck pain. No loss of vision. No rhinorrhea. Cardiovascular: No chest pain. No palpitations. No pedal edema. Respiratory: No cough, no shortness of breath. Abdominal: Periumbilical abdominal pain. No nausea. No vomiting. Genitourinary: No dysuria. No hematuria. [place]-colored urine 4 days ago. Musculoskeletal: No myalgias. No arthralgias. Neurologic: Positive headaches. No dizziness. No lightheadedness. Skin: No rash. Positive change in color, was told that he is yellow. Psychiatric: No depression. No anxiety. EXAM Physical Exam Narrative Exam Narrative: Afebrile. Vital signs noted. Nontoxic-appearing. HEENT examination shows PERRL, EOMI. Positive scleral icterus. No central cyanosis. Airway patent. No drooling or trismus. Cardiovascular examination reveals a regular rate and rhythm. Lungs are clear to auscultation bilaterally. Abdomen is soft and nontender without guarding or rebound with positive bowel sounds. No noted fluid wave. No pain in right upper quadrant. Neurological examination is nonfocal and nonlateralizing. Skin examination of the face does show mild jaundice. Const Vital Signs: 05/24/24 14:21 05/24/24 15:44 05/24/24 18:12 Temperature 97.9 F Temperature Source Oral Pulse Rate 94 81 Respiratory Rate 18 16 Respiratory Pattern Normal Blood Pressure 139/92 H 142/89 H Blood Pressure Mean 107 106 Pulse Ox 94 95 Oxygen Delivery Method Room Air Room Air MDM MDM MDM Narrative Medical decision making narrative: Differential diagnosis includes but not limited to biliary duct blockage versus cirrhosis versus gallstone versus acute cholecystitis. History and physical does not really support acute cholecystitis because he does not have tenderness in the right upper quadrant. I will obtain laboratory work to look for liver failure, and CT of the abdomen with IV contrast will be obtained given his periumbilical abdominal pain, and to look for any ascites. Additionally, I willobtain an ultrasound of the right upper quadrant/gallbladder to check the size of the biliary ducts. Urine will be checked as well to look for signs of dehydration versus infection. I reviewed his laboratory work and he has a normal white count of 9.1 with hemoglobin 14.8, hematocrit 44.5, platelet count normal at 250. INR is normal at 1.2 with a PTT 28.6. Glucose appropriately elevated at 112 with anion gap of13. LFTs are elevated with a total bilirubin of 1.85 and AST 113, ALT 329 with alk phos 147. Urinalysis obtained and reviewed and is negative for infection. While there is bilirubin and urobilinogen there are 0-5 white cells. I do not feel he requires antibiotics even though he is positive for nitrites. I reviewed the radiology report of the CT of the abdomen and pelvis and there isno acute process. Given his elevated LFTs with concern for acute cholecystitis although there was no abnormality on CT, ultrasound was obtained of the gallbladder and there is a gallstone but no ductal dilatation, no pericholecystic fluid consistent with acute cholecystitis. I discussed patient with Dr. Hernandez with surgery. While he does not requireimmediate surgery, the LFTs are elevated significantly. Was felt that the patient should be observed and if the LFTs are increasing tomorrow morning, he will need ERCP. I discussed the patient with Dr. Mijares with gastroenterology who is on board with this. I then discussed patient with Dr. Mya Galicia for observation on the medical surgical floor. Disposition is assigned observation. Patient is in stable condition. History & Record Review Discussion w/independent historian: Patient Lab Data Attestation: I reviewed the patient's lab results. Labs: Laboratory Results - last 24 hr 05/24/24 05/24/24 15:38 16:54 WBC 9.1 RBC 4.82 Hgb 14.8 Hct 44.5 MCV 92.3 MCH 30.7 MCHC 33.3 RDW Std Deviation 47.3 H RDW Coeff of Pamela 13.9 Plt Count 250 MPV 8.9 Immature Gran % (Auto) 0.500 Neut % (Auto) 72.6 H Lymph % (Auto) 13.6 L Steele % (Auto) 9.5 Eos % (Auto) 2.8 Baso % (Auto) 1.0 Absolute Neuts (auto) 6.6 Absolute Lymphs (auto) 1.24 Nucleated RBC % 0 PT 15.0 H INR 1.2 APTT 28.6 Sodium 139 Potassium 3.5 Chloride 107 Carbon Dioxide 18.3 L Anion Gap 13 BUN 21 H Creatinine 1.09 Estim Creat Clear Calc 76.28 Est GFR (MDRD) Non-Af 72 BUN/Creatinine Ratio 18.9 Glucose 112 H Calcium 9.5 Total Bilirubin 1.85 H AST 113 H ALT 329 H Alkaline Phosphatase 147 H Total Protein 7.1 Albumin 4.3 Globulin 2.8 Albumin/Globulin Ratio 1.6 Urine Color Norma Urine Clarity Sl. Cloudy Urine pH 5.0 Ur Specific Champion 1.025 Urine Protein 30 H Urine Glucose (UA) Normal Urine Ketones 5 H Urine Occult Blood 10 H Urine Nitrite Positive H Urine Bilirubin 3 H Urine Urobilinogen 4 H Ur Leukocyte Esterase 25 H Urine RBC 0-5 SEEN Urine WBC 0-5 SEEN Ur Squamous Epith Cells 0-5 SEEN Calcium Oxalate Crystal 2+ Urine Bacteria 0 SEEN Hyaline Casts 5-10 SEEN Fine Granular Casts 0-5 SEEN WBC Casts 0-5 SEEN Urine Mucus 1+ Radiography Diagnostic Testing: Clinical Impression(s) from Imaging Studies Gallbladder Ultrasound 05/24/24 15:22 IMPRESSION: Hepatic steatosis without focal lesion. Cholelithiasis without evidence of cholecystitis or significant ductal dilation. [facility]Pelvis CT 05/24/24 16:00 IMPRESSION: 1. Hepatomegaly with fatty infiltration. 2. Bilateral inguinal hernias. 3. Colonic diverticulosis without acute diverticulitis. Reading Location[facility] Management Discussion w/another healthcare provider: Hospitalist and Referral Agent (Surgery, gastroenterology) Discharge Plan Dx/Rx/DC Orders Clinical Impression: Cholelithiasis, Elevated LFTs, Scleral icterus Disposition Disposition: [facility] What to do if you have Problems For any increased pain, shortness of breath, bleeding, nausea or vomiting, chestpain, or any unexpected problems, contact your Primary Care Provider. Call [facility] ([phone]) or report to the closest Emergency Room. Call 911 if necessary. 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 March 08 1:52pm Cholelithiasis acute May 7:49pm Elevated LFTs acute May 24, 2024 7:49pm Scleral icterus acute May 7:49pm [facility] Work Phone: [phone] 307-141601-06-2025 Evaluation note* Diagnosis Onset Date Resolution Status Admit Date Deep vein thrombosis (DVT) o f femoral vein of right lower extremity chronic March 08 1:52pm Cholelithiasis acute May 7:49pm Elevated LFTs acute May 24, 2024 7:49pm Jaundice acute May 24 7:49pm Scleral icterus acute May 7:49pm [facility] Work Phone: [phone] 805-682301-06-2025 Evaluation note* Diagnosis Onset Date Resolution Status Admit Date Deep vein thrombosis (DVT) o f femoral vein of right lower extremity inactive March 08 1:52pm Cholelithiasis acute May 7:49pm Elevated LFTs resolved May 24, 2024 7:49pm Jaundice resolved May 24 7:49pm Scleral icterus resolved May 7:49pm Cholelithiasis acute June 12:47pm [facility] Work Phone: 1(402) 973-987407-20-2023 NoteHNO ID: [id number] Author: Melanie Rawls APRN.[employer] WA[employer]RESS Service: ? Author Type: Nurse Practitioner Type: Progress Notes Filed: 09/19/2022 12:51 PM Note Text: CC: Patient presents with: Urinary Problem: burning and cloudy urine x 2 days HPI Amauri Frost is a 71 year old male who presents with complaint of possible UTI. These symptoms have been present for 2 days. Associated symptoms: burning and cloudy urine Denies: chills, abnormal vaginal discharge, vaginal redness , and vaginal itching Treatments: nothing The ROS was otherwise negative. PMH, Medications, labs, allergies, and recent past visits with PCP were reviewed and updated as able. 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 ALLERGIES Patient has no known allergies. MEDICATIONS levothyroxine (SYNTHROID) 112 mcg tablet Take 1 tablet by mouth every morning. cephALEXin (KEFLEX) 500 mg capsule Take 1 capsule by mouth twice daily for 7 days. apixaban (ELIQUIS) 5 mg tab(s) Take by mouth. (Patient not taking: Reported on 01/09/2021 ) No family history on file. Social History Tobacco Use Smoking status: Never Smokeless tobacco: Never ASSESSMENT/PLAN: 1. Burning with urination - ICD9: 788.1, ICD10: R30.0 (primary diagnosis) - UA DIP, URINE (POC) - URINE CULTURE - CEPHALEXIN 500 MG CAPSULE 2. Cloudy urine - ICD9: 791.9, ICD10: R82.90 - UA DIP, URINE (POC) - URINE CULTURE Prescription instructions reviewed with patient as applicable. Potential red flag symptoms discussed with the patient. Reviewed appropriate action plan to take if red flag symptoms occur. Patient agreeable to treatment plan. Melanie Rawls APRN.[facility]07-20-2023 History of Present illness Narrative* Melanie Rawls APRN.[employer]ESS - 09/19/2022 12:48 PM EDT CC: Patient presents with: Urinary Problem: burning and cloudy urine x 2 days HPI Amauri Frost is a 71 year old male who presents with complaint of possible UTI. These symptoms have been present for 2 days. Associated symptoms: burning and cloudy urine Denies: chills, abnormal vaginal discharge, vaginal redness , and vaginal itching Treatments: nothing The ROS was otherwise negative. PMH, Medications, labs, allergies, and recent past visits with PCP were reviewed and updated as able. PHYSICAL EXAM: BP 122/86 Pulse 76 Temp 36.4 C (97.5 F) Resp 16 Wt 105.7 kg (233 lb) SpO2 96% General: Well appearing and alert CV: Regular rate and rhythm without obvious murmur Lungs: clear to auscultation bilaterally Back: straight and symmetric Abdomen: soft, nontender, nondistended PAST MEDICAL HISTORY Diagnosis Date Hyperlipidemia Hypothyroidism Pulmonary embolism (HCC) COVID-19 related No past surgical history on file. ALLERGIES Patient has no known allergies. MEDICATIONS levothyroxine (SYNTHROID) 112 mcg tablet Take 1 tablet by mouth every morning. cephALEXin (KEFLEX) 500 mg capsule Take 1 capsule by mouth twice daily for 7 days. apixaban (ELIQUIS) 5 mg tab(s) Take by mouth. (Patient not taking: Reported on 01/09/2021 ) No family history on file. Social History Tobacco Use Smoking status: Never Smokeless tobacco: Never ASSESSMENT/PLAN: 1. Burning with urination - ICD9: 788.1, ICD10: R30.0 (primary diagnosis) - UA DIP, URINE (POC) - URINE CULTURE - CEPHALEXIN 500 MG CAPSULE 2. Cloudy urine - ICD9: 791.9, ICD10: R82.90 - UA DIP, URINE (POC) - URINE CULTURE Prescription instructions reviewed with patient as applicable. Potential red flag symptoms discussed with the patient. Reviewed appropriate action plan to take if red flag symptoms occur. Patient agreeable to treatment plan. Melanie Rawls APRN.CNP documented [facility] History of Present illness Narrative* Melanie Rawls APRN.CNP - 10/14/2021 10:09 AM EDT Evaluated during downtime see paper charting. documented in this encounterProm[facility] HospitalDischarge summary Author Arnaldo Ulloa [facility] Note Date/Time May 28, 2024 9:2 4am [facility] Medical Records Department [address] [place] [id number] Discharge Summary 05/28/24 0920 MR#: [id number] Acct: [id number] Name: AMAURI FROST Rep #:[id number] : 1950 73 From: Arnaldo Ulloa DO PCP: [facility] Status:ADM IN Location: [place] [address] Providers Date of Admission: 05/24/24 Primary Care Physician: [facility] Consultations 05/24/24 20:59 Consult: Gastroenterology Routine Consulting Provider: [facility] Reason for Consult: abn bili and lfts EMERGENT Consult: No MD Notified: Yes Date Notified: 05/24/24 Time Notified: 21:03 Method of Notification: ED Physician Initiated Reason For Visit: JAUNDICE Diagnosis Discharge Diagnosis (1) Jaundice: Status: Acute Code(s): R17 - Unspecified jaundice Plan: Looks more like choledocholthiasis given MRCP findings. Bilirubin 1.85 on admission, down to 0.88 today. Previously was normal (0.5). Along with transaminitis (which has essentially improving) CT showed hepatomegaly with fatty infiltration. US showed hepatic steatosis w/o focal lesion. MRCP showed cholelithiasis w distal CBD filing defect, concerning for choledocholithiasis. GI consult. General surgery on consult. Although high LDH and bilirubin, doubt hemolytic anemia given normal, stable hemoglobin. Haptoglobin ordered, but is a send out test and results won't be readily available. Additional ordered tests: RITA, ASmA, CA19-9, ceruloplasmin, CMV, EBV, copper, acute hep panel, MIRACLE, IgG, GAME Igs ERCP: removal of choledocholithiasis. Sphincterotmy performed. Plan Chronic conditions: * hypothyroidism: levothyroxine * BPH: tamsulosin * h/o VTE: apixaban dc'd in March. VTE prophylaxis: SCDs. Medications at Discharge Home Medications ezetimibe 10 mg tablet 10 mg PO DAILY 03/25/23 tamsulosin 0.4 mg capsule 0.4 mg PO QHS 03/25/23 finasteride 5 mg tablet 5 mg PO DAILY 05/24/24 levothyroxine 125 mcg tablet 125 mcg PO DAILY 05/24/24 apixaban 2.5 mg tablet (Eliquis) 2.5 mg PO BID blood thinner 05/27/24 Hospital Course Operations None Procedures - (ERCP) Summary of Care Provided Hospital Course: Patient presents with jaundice. Patient was asymptomatic but had been feeling unwell days prior. Coworkers and noted that his eyes appear to be yellow and sent to the emergency room. His total bilirubin was noted to be elevated at 1.85. CT showed Pado megaly and fatty infiltration, bilateral inguinal hernias and noted no calcified stones in the gallbladder. MRCP showed cholelithiasis with common bile duct feeling defect, concerning for choledocholithiasis. Patient underwent an ERCP on the that noted that the common duct was dilated with a stone causing obstruction. Choledocholithiasis was found. Clearremoval was performed. Pancreatic enterotomy was performed. Temporary stent placed in the ventral pancreatic duct. Patient tolerated procedure well and patient will be discharged home. Patient was additionally seen by Dr. Hernandez of general surgery who will follow-up with the patient in a couple weeks to see about getting his gallbladder removed. Weight / BMI Weight Weight: 101.7 kg Body Mass Index (BMI) 30.4 ABG / Lab / Microbiology Data 05/26/24 04:36 05/27/24 03:49 Radiography Diagnostic Testing: Radiology Impression Endo Retro Cholangiopancreatogram 05/27/24 18:30 IMPRESSION: Limited examination. Correlate clinically. Reading Location: [id number]/C Instructions Discharge Diet: No restrictions DC O2, CPAP, BIPAP Needs Home O2 Discharge instructions: No Meaningful Use Info Meaningful Use Meaningful Use Diagnoses (Choose all that apply): None applicable Ischemic Stroke Statin Dosing Therapy Reference: STATIN DOSE THERAPY REFERENCE: * Patients > 75 years receive moderate or high dose statin therapy. * Patients 75 years or YOUNGER should receive HIGH intensity statin dose unless contraindicated. You will be required to document reason for non-treatment if statin daily dose does not meet guidelines. HIGH DOSE STATIN THERAPY DAILY Atorvastatin > than or = to 40 mg Rosuvastatin > than or = to 20 mg Amlodipine + Atorvastatin > than or = to 2.5/40 mg Ezetimibe + Simvastatin 10/80 mg Simvastatin 80mg Discharge Plan Admission Admit Date/Time: 05/24/24 19:49 Primary Reason for Your Visit: jaundice Attending Provider: Arnaldo Ulloa Primary Care Provider: [facility] Consulting Providers: Mya Galicia Instructions Additional Instructions / Restrictions: You had jaundice due to gallstones being in your bile duct. Dr. Mijares of gastroenterology had those removed. You unfortunate still have more gallbladders stones which is why we recommend that you follow-up general surgeryto have your gallbladder removed. Discharge Orders/Prescriptions Prescriptions: Continued ezetimibe 10 mg tablet 10 mg PO DAILY tamsulosin 0.4 mg capsule 0.4 mg PO QHS levothyroxine 125 mcg tablet 125 mcg PO DAILY finasteride 5 mg tablet 5 mg PO DAILY Eliquis 2.5 mg tablet 2.5 mg PO BID Discontinued Eliquis 2.5 mg tablet 2.5 mg PO BID Referrals / Follow Up: Erik Hernandez MD [Med Staff - Active Staff] - 1-2 Weeks [facility] [Primary Care Provider] - 1 Week Disposition Disposition (needs filled in before D/C Order can be placed): Home, Self Care Charges/Coding Visit Charges Inpatient E&M: 49524 Disch Hosp 05/28/24 0473 <Electronically signed by Arnaldo Ulloa DO> Cosigner Signature (if applicable): CC: Dr. Arnaldo Ulloa, DO; [facility]~ Signed [facility] Work Phone: Evaluation note* Diagnosis Herpes zoster without complication- Primary Herpes zoster without mention of complication documented in this encounter [facility]* Diagnosis Burning with urination- Primary Dysuria Cloudy urine Other nonspecific finding on examination of urine documented in this encounter [facility] for referral (narrative)No reason for referral information availableWUniversity Hospitals [facility] Work Phone: Summary Purpose Family History No Family History Records Found Relationship Condition Age at Onset Recorded Date/T angelia mother Malignant neoplasm of colon Unknown Advance Directives No Advanced Directives Records Found Advance Directive Response Recorded Date/ Time Living Will Yes June 30, 2020 9:27pm Do you have a Healthcare Power of Recreation Establishment Manager? No June 30, 2020 9:27pm Living Will Yes May 24, 2024 3:44pm Do you have a Healthcare Power of Recreation Establishment Manager? No May 24, 2024 3:44pm Advance Directive Response Recorded Date/ Time Living Will Yes June 30, 2020 9:27pm Do you have a Healthcare Power of Recreation Establishment Manager? No June 30, 2020 9:27pm Living Will Yes May 24, 2024 8:13pm Do you have a Healthcare Power of Recreation Establishment Manager? No May 24, 2024 8:13pm Advance Directive Response Recorded Date/ Time Living Will Yes May 24, 2024 8:13pm Do you have a Healthcare Power of Recreation Establishment Manager? No May 24, 2024 8:13pm Living Will Yes June 17, 2024 1:08pm Do you have a Healthcare Power of Recreation Establishment Manager? No June 17, 2024 1:08pm Chief Complaint and Reason for Visit Chief Complaint Admit Date 3MO LABS March 08, 2024 1: 52pm LABS March 08, 2024 2: 15pm ELEVATED LFTS May 24, 2024 7:4 9pm Reason for Visit Admit Date Deep vein thrombosis (DVT) o f femoral vein of right lower extremity March 08, 2024 1:52pm Cholelithiasis May 24, 2024 7:4 9pm Elevated LFTs May 24, 2024 7:4 9pm Scleral icterus May 24, 2024 7:4 9pm Chief Complaint Admit Date 3MO LABS March 08, 2024 1: 52pm LABS March 08, 2024 2: 15pm JAUNDICE May 24, 2024 7:4 9pm JAUNDICE May 25, 2024 6:5 9am JAUNDICE May 25, 2024 7:4 5am JAUNDICE May 25, 2024 6:1 3pm JAUNDICE May 26, 2024 7:5 8am JAUNDICE May 26, 2024 8:2 6am JAUNDICE May 26, 2024 5:4 6pm JAUNDICE May 27, 2024 7:3 0am JAUNDICE May 27, 2024 5:3 9pm JAUNDICE May 28, 2024 6:5 2am JAUNDICE May 28, 2024 7:3 3am Reason for Visit Admit Date Deep vein thrombosis (DVT) o f femoral vein of right lower extremity March 08, 2024 1:52pm Cholelithiasis May 24, 2024 7:4 9pm Elevated LFTs May 24, 2024 7:4 9pm Jaundice May 24, 2024 7:4 9pm Scleral icterus May 24, 2024 7:4 9pm Chief Complaint Admit Date 3MO LABS March 08, 2024 1: 52pm LABS March 08, 2024 2: 15pm JAUNDICE May 24, 2024 7:4 9pm JAUNDICE May 25, 2024 6:5 9am EKG May 25, 2024 7:2 2am JAUNDICE May 25, 2024 7:4 5am JAUNDICE May 25, 2024 6:1 3pm JAUNDICE May 26, 2024 7:5 8am JAUNDICE May 26, 2024 8:2 6am JAUNDICE May 26, 2024 5:4 6pm JAUNDICE May 27, 2024 7:3 0am JAUNDICE May 27, 2024 5:3 9pm JAUNDICE May 28, 2024 6:5 2am JAUNDICE May 28, 2024 7:3 3am GALLBLADDER June 15, 2024 12: 47pm Reason for Visit Admit Date Deep vein thrombosis (DVT) o f femoral vein of right lower extremity March 08, 2024 1:52pm Cholelithiasis May 24, 2024 7:4 9pm Elevated LFTs May 24, 2024 7:4 9pm Jaundice May 24, 2024 7:4 9pm Scleral icterus May 24, 2024 7:4 9pm Cholelithiasis June 15, 2024 12: 47pm Chief Complaint Admit Date JAUNDICE May 24, 2024 7:4 9pm JAUNDICE May 25, 2024 6:5 9am EKG May 25, 2024 7:2 2am JAUNDICE May 25, 2024 7:4 5am JAUNDICE May 25, 2024 6:1 3pm JAUNDICE May 26, 2024 7:5 8am JAUNDICE May 26, 2024 8:2 6am JAUNDICE May 26, 2024 5:4 6pm JAUNDICE May 27, 2024 7:3 0am JAUNDICE May 27, 2024 5:3 9pm JAUNDICE May 28, 2024 6:5 2am JAUNDICE May 28, 2024 7:3 3am GALLBLADDER June 15, 2024 12: 47pm PREOP June 22, 2024 12: 54pm Robotic Cholecystectomy with IOC July 5:41am Robotic Cholecystectomy with IOC July 7:09am GALLBLADDER 5-1 July 15, 2024 8:09a m Reason for Visit Admit Date Elevated LFTs May 24, 2024 7:4 9pm Jaundice May 24, 2024 7:4 9pm Scleral icterus May 24, 2024 7:4 9pm Cholelithiasis May 24, 2024 7:4 9pm Cholelithiasis June 15, 2024 12: 47pm Additional Source Comments Source Comments (unrecognize d section and content) In the event this informatio n is protected by the Federal Confidentiality of Alcohol and Drug Abuse Patient Records regulations: The Federal rules restrict any use of the information to criminally investigate or prosecute any alcohol or drug abuse patient.[facility] HospitalIn the event this information is protected by the Federal Confidentiality of Alcohol and Drug Abuse Patient Records regulations: The Federal rules restrict any use of the information to criminally investigate or prosecute any alcohol or drug abuse patient.[facility] Care Teams (unrecognized sec tion and content) Photoengraving Sketch Maker Relationship Specialty Start Date End Date Shyanne Castillosepideh Shin [address] [place] [address] PCP - General Family Practice 04/06/16 Photoengraving Sketch Maker Relationship Specialty Start Date End Date Rebecca Castillo [address] [place] [address] PCP - General Family Medicine 04/06/16 Team Status: Active Member Role Status Dates [facility] Primary Care Provider Active Team Status: Inactive Member Role Status Dates [facility] Primary Care Provider Active Start: March 08, 2024 End: March 08, 2024 [facility] End: March 08, 2024 Dr. Ajay Skinner MD Attending Provider Active S tart: March 08, 2024 End: March 08, 2024 Team Status: Active Member Role Status Dates [facility] Primary Care Provider Active Start: March 08, 2024 Dr. Ajay Skinner MD Attending Provider Active S tart: March 08, 2024 Dr. Ajay Skniner MD Referring Provider Active S tart: March 08, 2024 Team Status: Active Member Role Status Dates [facility] Primary Care Provider Active Start: May 24, 2024 Eren Calero MD Emergency Provider Active Star t: May 24, 2024 Dr. Mya Galicia MD Admit Provider Active Star t: May 24, 2024 Dr. Mya Galicia MD Attending Provider Active Start: May 24, 2024 Team Status: Inactive Member Role Status Dates [facility] Primary Care Provider Active Start: May 24, 2024 End: May 28, 2024 Eren Calero MD Emergency Provider Active Star t: May 24, 2024 End: May 28, 2024 Dr. Mya Galicia MD Admit Provider Active Star t: May 24, 2024 End: May 28, 2024 Dr. Mya Galicia MD Other Provider Active Star t: May 24, 2024 End: May 28, 2024 Dr. Arnaldo Ulloa DO Attending Provider Active Start: May 24, 2024 End: May 28, 2024 Dr. Zachary Mijares DO Attending Provider Active Start: May 24, 2024 Team Status: Active Member Role Status Dates [facility] Primary Care Provider Active Start: May 25, 2024 Eren Calero MD Emergency Provider Active Star t: May 25, 2024 Dr. Mya Galicia MD Admit Provider Active Star t: May 25, 2024 Dr. Mya Galicia MD Other Provider Active Star t: May 25, 2024 Dr. Arnaldo Ulloa DO Other Provider Active Star t: May 25, 2024 Dr. Erik Hernandez MD Attending Provider Active Start: May 25, 2024 Team Status: Active Member Role Status Dates [facility] Primary Care Provider Active Start: May 25, 2024 Eren Calero MD Emergency Provider Active Star t: May 25, 2024 Dr. Mya Galicia MD Admit Provider Active Star t: May 25, 2024 Dr. Mya Galicia MD Other Provider Active Star t: May 25, 2024 Dr. Arnaldo Ulloa DO Attending Provider Active Start: May 25, 2024 Dr. Arnaldo Ulloa DO Other Provider Active Star t: May 25, 2024 Team Status: Active Member Role Status Dates [facility] Primary Care Provider Active Start: May 25, 2024 Eren Calero MD Emergency Provider Active Star t: May 25, 2024 Dr. Mya Galicia MD Admit Provider Active Star t: May 25, 2024 Dr. Mya Galicia MD Other Provider Active Star t: May 25, 2024 Dr. Arnaldo Ulloa DO Other Provider Active Star t: May 25, 2024 Dr. Zachary Mijares DO Attending Provider Active Start: May 25, 2024 Team Status: Active Member Role Status Dates [facility] Primary Care Provider Active Start: May 26, 2024 Eren Calero MD Emergency Provider Active Star t: May 26, 2024 Dr. Mya Galicia MD Admit Provider Active Star t: May 26, 2024 Dr. Mya Galicia MD Other Provider Active Star t: May 26, 2024 Dr. Arnaldo Ulloa DO Other Provider Active Star t: May 26, 2024 Dr. Erik Hernandez MD Attending Provider Active Start: May 26, 2024 Team Status: Active Member Role Status Dates [facility] Primary [facility] Provider Active Start: May 26, 2024 Eren Calero MD Emergency Provider Active Star t: May 26, 2024 Dr. Mya Galicia MD Admit Provider Active Star t: May 26, 2024 Dr. Mya Galicia MD Other Provider Active Star t: May 26, 2024 Dr. Arnaldo Ulloa DO Attending Provider Active Start: May 26, 2024 Dr. Arnaldo Ulloa DO Other Provider Active Star t: May 26, 2024 Team Status: Active Member Role Status Dates [facility] Provider Active Start: May 26, 2024 Eren Calero MD Emergency Provider Active Star t: May 26, 2024 Dr. Mya Galicia MD Admit Provider Active Star t: May 26, 2024 Dr. Mya Galicia MD Other Provider Active Star t: May 26, 2024 Dr. Arnaldo Ulloa DO Other Provider Active Star t: May 26, 2024 Dr. Zachary Mijares DO Attending Provider Active Start: May 26, 2024 Team Status: Active Member Role Status Dates [facility] Provider Active Start: May 27, 2024 Eren Calero MD Emergency Provider Active Star t: May 27, 2024 Dr. Mya Galicia MD Admit Provider Active Star t: May 27, 2024 Dr. Mya Galicia MD Other Provider Active Star t: May 27, 2024 Dr. Arnaldo Ulloa DO Attending Provider Active Start: May 27, 2024 Dr. Arnaldo Ulloa DO Other Provider Active Star t: May 27, 2024 Team Status: Active Member Role Status Dates [facility] Provider Active Start: May 27, 2024 Eren Calero MD Emergency Provider Active Star t: May 27, 2024 Dr. Mya Galicia MD Admit Provider Active Star t: May 27, 2024 Dr. Mya Galicia MD Other Provider Active Star t: May 27, 2024 Dr. Arnaldo Ulloa DO Other Provider Active Star t: May 27, 2024 Dr. Zachary Mijares DO Attending Provider Active Start: May 27, 2024 Team Status: Active Member Role Status Dates [facility] Provider Active Start: May 28, 2024 Eren Calero MD Emergency Provider Active Star t: May 28, 2024 Dr. Mya Galicia MD Admit Provider Active Star t: May 28, 2024 Dr. Mya Galicia MD Other Provider Active Star t: May 28, 2024 Dr. Arnaldo Ulloa DO Attending Provider Active Start: May 28, 2024 Dr. Arnaldo Ulloa DO Other Provider Active Star t: May 28, 2024 Team Status: Active Member Role Status Dates [facility] Provider Active Start: May 28, 2024 Eren Calero MD Emergency Provider Active Star t: May 28, 2024 Dr. Mya Galicia MD Admit Provider Active Star t: May 28, 2024 Dr. Mya Galicia MD Other Provider Active Star t: May 28, 2024 Dr. Arnaldo Ulloa DO Other Provider Active Star t: May 28, 2024 Dr. Erik Hernandez MD Attending Provider Active Start: May 28, 2024 Team Status: Inactive Member Role Status Dates [facility] Provider Active Start: May 24, 2024 End: May 28, 2024 Eren Calero MD Emergency Provider Active Star t: May 24, 2024 End: May 28, 2024 Dr. Mya Galicia MD Admit Provider Active Star t: May 24, 2024 End: May 28, 2024 Dr. Mya Galicia MD Other Provider Active Star t: May 24, 2024 End: May 28, 2024 Dr. Arnaldo Ulloa DO Attending Provider Active Start: May 24, 2024 End: May 28, 2024 Dr. Zachary Mijares DO Attending Provider Active Start: May 24, 2024 Dr. Erik Hernandez MD Referring Provider Active Start: May 24, 2024 Team Status: Active Member Role Status Dates [facility] Provider Active Start: May 25, 2024 Eren Calero MD Emergency Provider Active Star t: May 25, 2024 Dr. Mya Galicia MD Admit Provider Active Star t: May 25, 2024 Dr. Mya Galicia MD Other Provider Active Star t: May 25, 2024 Dr. Arnaldo Ulloa DO Referring Provider Active Start: May 25, 2024 Dr. Arnaldo Ulloa DO Other Provider Active Star t: May 25, 2024 Dr. Erik Hernandez MD Attending Provider Active Start: May 25, 2024 Team Status: Active Member Role Status Dates [facility] Provider Active Start: May 25, 2024 End: May 25, 2024 Dr. Tristen Figueredo MD Attending Provider Active S tart: May 25, 2024 End: May 25, 2024 Dr. Tristen Figueredo MD Referring Provider Active S tart: May 25, 2024 End: May 25, 2024 Team Status: Active Member Role Status Dates [facility] Provider Active Start: May 25, 2024 Eren Calero MD Emergency Provider Active Star t: May 25, 2024 Dr. Mya Galicia MD Admit Provider Active Star t: May 25, 2024 Dr. Mya Galicia MD Other Provider Active Star t: May 25, 2024 Dr. Arnaldo Ulloa DO Other Provider Active Star t: May 25, 2024 Dr. Zachary Mijares DO Attending Provider Active Start: May 25, 2024 Dr. Erik Hernandez MD Referring Provider Active Start: May 25, 2024 Team Status: Active Member Role Status Dates [facility] Provider Active Start: May 26, 2024 Eren Calero MD Emergency Provider Active Star t: May 26, 2024 Dr. Mya Galicia MD Admit Provider Active Star t: May 26, 2024 Dr. Mya Galicia MD Other Provider Active Star t: May 26, 2024 Dr. Arnaldo Ulloa DO Other Provider Active Star t: May 26, 2024 Dr. Zachary Mijares DO Attending Provider Active Start: May 26, 2024 Dr. Erik Hernandez MD Referring Provider Active Start: May 26, 2024 Team Status: Active Member Role Status Dates [facility] Provider Active Start: May 27, 2024 Eren Calero MD Emergency Provider Active Star t: May 27, 2024 Dr. Mya Galicia MD Admit Provider Active Star t: May 27, 2024 Dr. Mya Galicia MD Other Provider Active Star t: May 27, 2024 Dr. Arnaldo Ulloa DO Referring Provider Active Start: May 27, 2024 Dr. Arnaldo Ulloa DO Other Provider Active Star t: May 27, 2024 Dr. Zachary Mijares DO Attending Provider Active Start: May 27, 2024 Team Status: Inactive Member Role Status Dates [facility] Provider Active Start: June 15, 2024 End: June 15, 2024 [facility] Referring Provider Active Start: 2024 End: June 15, 2024 Dr. Erik Hernandez MD Attending Provider Active Start: June 15, 2024 End: June 15, 2024 Team Status: Inactive Member Role Status Dates [facility] Provider Active Start: June 15, 2024 End: June 15, 2024 Dr. Zachary Mijares DO Attending Provider Active Start: June 15, 2024 End: June 15, 2024 Dr. Zachary Mijares DO Referring Provider Active Start: June 15, 2024 End: June 15, 2024 Team Status: Active Member Role Status Dates [facility] Provider Active Start: June 22, 2024 End: June 22, 2024 Dr. Tristen Figueredo MD Attending Provider Active S tart: June 22, 2024 End: June 22, 2024 Dr. Erik Hernandez MD Referring Provider Active Start: June 22, 2024 End: June 22, 2024 Team Status: Inactive Member Role Status Dates [facility] Provider Active Start: July 01, 2024 End: July 01, 2024 Dr. Erik Hernandez MD Attending Provider Active Start: July 01, 2024 End: July 01, 2024 Dr. Erik Hernandez MD Referring Provider Active Start: July 01, 2024 End: July 01, 2024 Team Status: Active Member Role Status Dates [facility] Provider Active Start: July 01, 2024 Dr. Erik Hernandez MD Attending Provider Active Start: July 01, 2024 Dr. Erik Hernandez MD Referring Provider Active Start: July 01, 2024 Dr. Erik Hernandez MD Other Provider Active Start: July 01, 2024 Team Status: Inactive Member Role Status Dates [facility] Provider Active Start: July 15, 2024 End: July 15, 2024 [facility] Referring Provider Active Start: Nnaci bautista 2024 End: July 15, 2024 JB TrevinoC Attending Provider Active Start: July 15, 2024 End: July 15, 2024 Reason for Visit (unrecogniz ed section and content) Reason Comments Urinary Problem burning and cloudy u rine x 2 days (unrecognized sect ion and content) No Status Records FoundNo Status Records Found INFORMATION SOURCE (unrecogn ized section and content) DATE CREATED AUTHOR 02/27/2023 [facility] DATE CREATED AUTHOR AUTHOR'S ORGANIZ ATION 09/12/[address] [facility] Goals (unrecognized section and content) Goals may be documented in a n alternate section FOR RECORDS PERTAINING TO PATIENTS WHO ARE OR HAVE BEEN ENROLLED IN A CHEMICAL DEPENDENCY/SUBSTANCEABUSE PROGRAM, SOME INFORMATION MAY BE OMITTED. This clinical summary was aggregated from multiple sources. Caution should be exercised in using it in the provision of clinical care. This summary normalizes information from multiple sources, and as a consequence, information in this document may materially change the coding, format and clinical context of patient data. In addition, data may be omitted in some cases. CLINICAL DECISIONS SHOULD BE BASED ON THE PRIMARY CLINICAL RECORDS. [employer] provides no warranty or guarantee of the accuracy or completeness of information in this document.
== END 2024-09-14 16:11 | disposition home or self-care (01) ==
LOC: EN 11:25 → AC 11:26
PROVIDERS: Visit Provider Internal Medicine Gastroenterology
PROC: (CPT 43260; principal; 2024-09-14 12:25)
DX: K80.70 Calculus of gallbladder and bile duct without cholecystitis without obstruction (principal); Z87.891 Personal history of nicotine dependence; Z79.890 Hormone replacement therapy; Z86.711 Personal history of pulmonary embolism; Z90.49 Acquired absence of other specified parts of digestive tract; E78.00 Pure hypercholesterolemia, unspecified; Z86.718 Personal history of other venous thrombosis and embolism; E03.9 Hypothyroidism, unspecified; Z79.01 Long term (current) use of anticoagulants
CPT/HCPCS: 43262; 43275; 43264; 74330; 76000; 88108; 88305; 88313; J2405